=== PATIENT | female | born 1945 | race Caucasian/White ===

== ENCOUNTER 2019-05-13 13:02 | Outpatient (CLI) | payer MEDICARE, BC, SELFPAY ==
--- NOTE | ~2019-05-13 | US_ITS ---
EXAMINATION: US carotid duplex BI DATE: 05/13/2019 13:58 INDICATION: Bilateral carotid bruits. TECHNIQUE: Grayscale, color Doppler, and pulsed Doppler images of the cervical carotid arteries were obtained. The degree of vessel stenosis is placed in one of the following categories: normal, <50%, 5 0-69%, >=70% but less than near-occlusion, near-occlusion, or total occlusion. Note that percent sten osis relative to normal distal artery lumen diameter is indirectly measured from velocity measurement s as described by Stanislav, et al. Radiology 2003; 229:340-346. COMPARISON: Ultrasound 05/15/2017 FINDINGS: RIGHT: The right common carotid artery (CCA) peak systolic velocity (PSV) is 70 cm/s. The right internal car otid artery (ICA) PSV is 72 cm/s. The right ICA end-diastolic velocity (EDV) is 11 cm/s. The right IC A/CCA PSV ratio is 1.0. Grayscale and color Doppler images yield an estimate of <50% diameter reducti on from plaque in the ICA. There is antegrade flow in the right vertebral artery. LEFT: The left CCA PSV is 74 cm/s. The left ICA PSV is 79 cm/s. The left ICA EDV is 15 cm/s. The left ICA/C CA PSV ratio is 1.1. Grayscale and color Doppler images yield an estimate of <50% diameter reduction from plaque in the ICA. There is antegrade flow in the left vertebral artery. IMPRESSION: 1. <50% stenosis in the right internal carotid artery. 2. <50% stenosis in the left internal carotid artery. Reviewed, dictated and finalized at location A. TIONAL COORDINATOR
== END 2019-05-13 13:03 | disposition home or self-care (01) ==
LOC: ANHIMG 13:06
PROVIDERS: PCP Family Medicine; Visit Provider Internal Medicine Cardiovascular Disease
DX: I77.9 Disorder of arteries and arterioles, unspecified (principal); I65.23 Occlusion and stenosis of bilateral carotid arteries
CPT/HCPCS: 93880

== ENCOUNTER 2019-05-26 10:27 | Outpatient (CLI) | payer MEDICARE, BC, SELFPAY ==
--- NOTE | ~2019-05-26 | MM_ITS ---
EXAMINATION: MM screening leny BI w derek HISTORY: Screening mammogram TECHNIQUE: Craniocaudal and mediolateral oblique 3-D tomosynthesis images were obtained and synthetic 2-D images were generated. CAD analysis was submitted and interpreted. COMPARISON: 05/01/2018, 04/28/2017 bilateral digital screening mammogram examinations 04/23/2016 diagnostic bilateral digital mammogram and limited right breast ultrasound bilateral digital screening mammogram BREAST PARENCHYMAL COMPOSITION: There are scattered areas of fibroglandular density.. FINDINGS: There is no evidence of suspicious mass, calcification, or architectural distortion to sugg est malignancy in either breast. There has been no suspicious interval change. IMPRESSION: 1. No mammographic evidence of malignancy. 2. Recommend routine screening mammography in one year. BI-RADS Category 1: Negative Reviewed, dictated and finalized at location A. UNT SERVICES COORDINATOR
== END 2019-05-26 10:28 | disposition home or self-care (01) ==
LOC: ANHIMG 10:34
PROVIDERS: PCP Family Medicine; Visit Provider Family Medicine
DX: Z12.31 Encounter for screening mammogram for malignant neoplasm of breast (principal)
CPT/HCPCS: 77063; 77067

== ENCOUNTER 2019-06-24 11:00 | Outpatient (RCR) | payer MEDICARE, BC, SELFPAY ==
--- NOTE | 2019-06-01 14:43 | OTOPEVAL ---
OCCUPATIONAL THERAPY INITIAL EVALUATION 06/01/2019 Thank you for referring this patient to [facility]. Shanon will benefit from skilled OT 2x/week for 4 weeks. Please review, sign, date and return this plan of care NERIS. I agree with and certify that the following plan of care is medically necessary. Referring Physician Date Attending Provider: Jose Worley MD *OT Outpatient Evaluation Start: 06/01/19 11:06 Freq: Status: Active Protocol: Document 06/01/19 11:06 [place] (Rec: 06/01/19 11:59 [place] [email or web address]) Therapy Assessment Status Assessment Status Assessment Status Evaluation Outpatient Past Medical History Cardiovascular History Hx Heart Murmur Yes Hx Hypercholesterolemia Yes Hx Hypertension Yes Genitourinary History Hx Kidney Stones Yes Musculoskeletal History Hx Fractures Yes: ankle, L wrist, L thumb Endocrine History Hx Diabetes Yes: type II Evaluation Information Problem Diagnosis (L) distal radius fracture Onset 03/17/20 Cause fall Additional Evaluation Detail Patient was treated conservatively. She has been wearing an off the shelf wrist cock up brace. Prior Level of Function Activity Level (Last 3 Months) Occupation Retired Hand Dominance Right Activity of Daily Living Ability Independent Indoor/Home Mobility Independent Community Mobility Independent Stairs Ability Independent Functional Cognition (Planning, Shopping Independent , Taking Medications) Cooking Yes Cleaning Yes Laundry Yes Shopping Yes Driving Yes Comments Additional Prior Level of Function Pt has returned to being Comments independent with ADLs and household tasks. She completes these tasks with attention to not put too much pressure or weight on the L hand/wrist. She has been avoiding any sort of lifting, pushing, pulling, gripping, and twisting with the L hand. Pain Assessment Timing of Pain Assessment Timing of Pain Assessment Assessment Pain Scale Pain Scale Used Numeric (1 - 10) Self Report Pain Assessment Left Wrist(s) Reported Pain Level 0 Pain Description Sharp,Shooting Current Pain Intensity
--- NOTE | 2019-06-29 09:59 | PCOTNOTE ---
Pt called and cancelled her appt this morning. Pt stated she was ill and unable to attend her appt.
--- NOTE | 2019-07-01 13:20 | PCOTNOTE ---
Patient cancelled today's appt, which happened to be her re-evaluation, due to the COVID-19 situation.
--- NOTE | 2019-07-22 15:02 | OTOPEVAL ---
OCCUPATIONAL THERAPY DISCHARGE NOTE 07/22/2019 Shanon has not returned to therapy since 06/24/19 due to the COVID health crisis. She is currently independent with her ROM and strengthening HEP and feels as though she can continue to complete that. She plans to follow up with MD, as able, and return to therapy if indicated. Thank you for referring Shanon Ramirez to [facility]. Please review, sign, date and return this discharge NERIS. I agree with and certify that the following plan of care is medically necessary. Referring Physician Date Admitting Provider: Attending Provider: Jose Worley MD Referring Provider:
== END 2019-07-23 09:28 | disposition home or self-care (01) ==
LOC: ANHOT 11:00
PROVIDERS: PCP Family Medicine; Visit Provider Orthopaedic Surgery
DX: S52.502D Unspecified fracture of the lower end of left radius, subsequent encounter for closed fracture with routine healing (principal)
CPT/HCPCS: 97018; 97022; 97110; 97140; 97165; 97530

== ENCOUNTER 2019-09-02 14:47 | Outpatient (CLI) | payer MEDICARE, BC, SELFPAY ==
--- NOTE | ~2019-09-02 | MR_ITS ---
EXAMINATION: MR brain IAC wo con DATE: 09/02/2019 16:12 INDICATION: Anesthesia of skin. Speech deficit. TECHNIQUE: Magnetic resonance imaging (MRI) of the brain, brainstem, and internal auditory canals was performed without intravenous contrast. Sequences included sagittal and axial T1-weighted FSE, axial diffusion-weighted FS EPI, axial T2*-weighted GRE, axial T2-weighted FLAIR Propeller, axial T2-weigh destiny Propeller, small gxnas-hf-ogge coronal FIESTA, small jseud-xj-ravl coronal T1-weighted FSE, and s mall zqsas-uc-wqst axial T1-weighted SPGR. Apparent diffusion coefficient (ADC) maps were created. COMPARISON: Brain MRI 05/04/2019 FINDINGS: There are scattered areas of nonspecific increased T2-weighted signal intensity in the cere bral white matter. There is no intracranial hemorrhage, acute infarction, or abnormal intracranial ma ss lesion. The ventricles are normal in size. There are likely changes of ocular lens replacement angella geries. The paranasal sinuses are clear. The internal auditory canals are normal. There is a trace ri ght mastoid effusion. IMPRESSION: 1. Stable moderate nonspecific cerebral white matter disease, which likely represents chronic small v essel ischemic disease. Reviewed, dictated and finalized at location E. IMPRESSION: 1. Stable moderate nonspecific cerebral white matter disease, which likely repr esents chronic small vessel ischemic disease.
== END 2019-09-02 14:48 | disposition home or self-care (01) ==
LOC: ANHIMG 14:50
PROVIDERS: PCP Family Medicine; Visit Provider Nurse Practitioner
DX: R20.0 Anesthesia of skin (principal); R93.0 Abnormal findings on diagnostic imaging of skull and head, not elsewhere classified
CPT/HCPCS: 70551

== ENCOUNTER 2019-10-27 09:54 | Outpatient (CLI) | payer MEDICARE, BC, SELFPAY ==
--- NOTE | ~2019-10-27 | MR_ITS ---
EXAMINATION: MRA brain wo con DATE: 10/27/2019 12:15 INDICATION: Transient ischemic attack. TECHNIQUE: Magnetic resonance angiography (MRA) of the brain was performed without intravenous contra st with T1-weighted SPGR by the 3D edff-rw-[id number] technique. Maximum intensity projection 3D-reconstr uctions were obtained. COMPARISON: Brain MRI 09/02/2019 FINDINGS: Left vertebral artery is dominant. There is no significant stenosis of basilar artery or the posterio r cerebral arteries. There is no significant stenosis of the intracranial internal carotid arteries o r anterior or middle cerebral arteries. Anterior communicating artery is normal. Right posterior comm unicating artery is normal. A left posterior communicating artery is not identified. There is no aneu rysm. IMPRESSION: 1. Normal head MRA. Reviewed, dictated and finalized at location A. IMPRESSION: 1. Normal head MRA.
--- NOTE | ~2019-10-27 | MR_ITS ---
EXAMINATION: MRA neck wo con DATE: 10/27/2019 12:15 INDICATION: Transient ischemic attack. TECHNIQUE: Magnetic resonance angiography (MRA) of the neck was performed without intravenous contras t. Sequences included axial 2D-time of flight T1-weighted FSPGR and axial Inhance without intravenous contrast. COMPARISON: Ultrasound 05/13/2019 FINDINGS: Left vertebral artery is dominant. There is a 1.7 cm nodule in left thyroid lobe. There is 0% stenosi s of the proximal right internal carotid artery relative to normal distal artery lumen diameter (NASC ET criteria). There is 0% stenosis of the proximal left internal carotid artery relative to normal d istal artery lumen diameter. IMPRESSION: 1. 0% stenosis of the proximal internal carotid arteries relative to normal distal artery lumen diame ters (NASCET criteria). 2. Thyroid nodule. Consider thyroid ultrasound for risk stratification. Reviewed, dictated and finalized at location A. IMPRESSION: 1. 0% stenosis of the proximal internal carotid arteries relative to normal dis clarissa artery lumen diameters (NASCET criteria). 2. Thyroid nodule. Consider thyroid ultrasound for risk stratification.
== END 2019-10-27 09:55 | disposition home or self-care (01) ==
LOC: ANHIMG 10:03
PROVIDERS: PCP Family Medicine; Visit Provider Psychiatry & Neurology Neurology
DX: G45.9 Transient cerebral ischemic attack, unspecified (principal); E04.1 Nontoxic single thyroid nodule
CPT/HCPCS: 70544; 70547

== ENCOUNTER 2019-11-11 13:18 | Outpatient (CLI) | payer MEDICARE, BC, SELFPAY ==
--- NOTE | 2019-11-11 15:00 | NEURO_ITS ---
Patient Number: [id number] Impression: # Complains of numbness of hands. # Mild left Carpal Tunnel Syndrome. # Normal F-waves. # Normal needle/EMG exam. # Clinical correlation recommended. Nerve Conduction Studies Anti Sensory Summary Table Stim Site NR Peak (ms) P-T Amp (?V) Site1 Site2 Delta-P (ms) Dist (cm) Ian (m/s) Left Median Anti Sensory (2-3nd Digit) Wrist 3.2 29.8 Wrist 2-3nd Digit 3.2 14.0 44 Wrist 3.2 45.8 Wrist 2-3nd Digit 3.2 14.0 44 Right Median Anti Sensory (2-3nd Digit) Wrist 2.8 50.8 Wrist 2-3nd Digit 2.8 14.0 50 Wrist 2.6 76.4 Wrist 2-3nd Digit 2.8 14.0 50 Left Radial Anti Sensory (Base 1st Digit) Wrist 2.3 21.5 Wrist Base 1st Digit 2.3 0.0 Right Radial Anti Sensory (Base 1st Digit) Wrist 2.6 17.8 Wrist Base 1st Digit 2.6 0.0 Left Ulnar Anti Sensory (5th Digit) Wrist 2.8 67.8 Wrist 5th Digit 2.8 14.0 50 Right Ulnar Anti Sensory (5th Digit) Wrist 2.4 46.5 Wrist 5th Digit 2.4 14.0 58 Motor Summary Table Stim Site NR Onset (ms) O-P Amp (mV) Site1 Site2 Delta-0 (ms) Dist (cm) Ian (m/s) Left Median Motor (Abd Poll Brev) Wrist 3.9 3.4 Elbow Wrist 5.2 29.0 56 Elbow 9.1 4.4 Right Median Motor (Abd Poll Brev) Wrist 3.5 6.5 Elbow Wrist 4.9 28.0 57 Elbow 8.4 2.5 Left Ulnar Motor (Abd Dig Minimi) Wrist 2.7 6.4 A Elbow Wrist 5.2 30.0 58 A Elbow 7.9 5.0 Right Ulnar Motor (Abd Dig Minimi) Wrist 2.7 6.5 A Elbow Wrist 4.9 29.0 59 A Elbow 7.6 5.9 F Wave Studies NR F-Lat (ms) L-R F-Lat (ms) Left Median (Mrkrs) (Abd Poll Brev) 30.39 0.48 Right Median (Mrkrs) (Abd Poll Brev) 29.91 0.48 Left Ulnar (Mrkrs) (Abd Dig Min) 29.14 1.74 Right Ulnar (Mrkrs) (Abd Dig Min) 30.88 1.74 EMG Side Muscle Nerve Root Ins Act Fibs Amp Dur Recrt Comment Right 1stDorInt Ulnar C8-T1 Nml Nml Nml Nml Nml Right Ext Indicis Radial (Post Int) C7-8 Nml Nml Nml Nml Nml Right Ext Digitorum Radial (Post Int) C7-8 Nml Nml Nml Nml Nml Right BrachioRad Radial C5-6 Nml Nml Nml Nml Nml Right PronatorTeres Median C6-7 Nml Nml Nml Nml Nml Right Abd Poll Brev Median C8-T1 Nml Nml Nml Nml Nml Left 1stDorInt Ulnar C8-T1 Nml Nml Nml Nml Nml Left Ext Indicis Radial (Post Int) C7-8 Nml Nml Nml Nml Nml Left Ext Digitorum Radial (Post Int) C7-8 Nml Nml Nml Nml Nml Left BrachioRad Radial C5-6 Nml Nml Nml Nml Nml Left PronatorTeres Median C6-7 Nml Nml Nml Nml Nml Left Abd Poll Brev Median C8-T1 Nml Nml Nml Nml Nml Right ABD Dig Min Ulnar C8-T1 Nml Nml Nml Nml Nml Right Anconeus Radial C7-8 Nml Nml Nml Nml Nml Left ABD Dig Min Ulnar C8-T1 Nml Nml Nml Nml Nml Left Anconeus Radial C7-8 Nml Nml Nml Nml Nml MTDD
== END 2019-11-11 13:19 | disposition home or self-care (01) ==
PROVIDERS: Visit Provider Psychiatry & Neurology Neurology
DX: G56.22 Lesion of ulnar nerve, left upper limb (principal)
CPT/HCPCS: 95886; 95911

== ENCOUNTER 2020-06-12 10:15 | Outpatient (CLI) | payer MEDICARE, BC, SELFPAY ==
--- NOTE | ~2020-06-12 | MM_ITS ---
EXAMINATION: MM screening leny BI w derek HISTORY: Screening TECHNIQUE: Craniocaudal and mediolateral oblique 3-D tomosynthesis images were obtained and synthetic 2-D images were generated. CAD analysis was submitted and interpreted. COMPARISON: Comparison to multiple prior studies sequentially, with oldest reviewed study dated 08/2015. BREAST PARENCHYMAL COMPOSITION: There are scattered areas of fibroglandular density. FINDINGS: There is no evidence of suspicious mass, calcification, or architectural distortion to sugg est malignancy in either breast. There has been no suspicious interval change. IMPRESSION: 1. No mammographic evidence of malignancy. 2. Recommend routine screening mammography in one year. BI-RADS Category 1: Negative Reviewed, dictated and finalized at location A. LEGAL SPECIALIST
== END 2020-06-12 10:16 | disposition home or self-care (01) ==
LOC: ANHIMG 10:19
PROVIDERS: PCP Family Medicine; Visit Provider Family Medicine
DX: Z12.31 Encounter for screening mammogram for malignant neoplasm of breast (principal)
CPT/HCPCS: 77063; 77067

== ENCOUNTER 2020-06-20 15:09 | Outpatient (CLI) | payer MEDICARE, BC, SELFPAY ==
--- NOTE | ~2020-06-20 | US_ITS ---
EXAMINATION: US carotid duplex BI DATE: 06/20/2020 16:28 INDICATION: Left carotid bruit. TECHNIQUE: Grayscale, color Doppler, and pulsed Doppler images of the cervical carotid arteries were obtained. The degree of vessel stenosis is placed in one of the following categories: normal, <50%, 5 0-69%, >=70% but less than near-occlusion, near-occlusion, or total occlusion. Note that percent sten osis relative to normal distal artery lumen diameter is indirectly measured from velocity measurement s as described by Stanislav, et al. Radiology 2003; 229:340-346. COMPARISON: Ultrasound 05/13/2019, 07/04/14 FINDINGS: In the left thyroid lobe, there is a 2.1 cm mixed cystic and solid, hypoechoic, wider-than- tall nodule with ill-defined margin without echogenic foci (TI-RADS TR3). RIGHT: The right common carotid artery (CCA) peak systolic velocity (PSV) is 103 cm/s. The right internal ca rotid artery (ICA) PSV is 118 cm/s. The right ICA end-diastolic velocity (EDV) is 23 cm/s. The right ICA/CCA PSV ratio is 1.1. Grayscale and color Doppler images yield an estimate of <50% diameter reduc tion from plaque in the ICA. There is antegrade flow in the right vertebral artery. LEFT: The left CCA PSV is 113 cm/s. The left ICA PSV is 141 cm/s. The left ICA EDV is 29 cm/s. The left ICA /CCA PSV ratio is 1.3. Grayscale and color Doppler images yield an estimate of <50% diameter reductio n from plaque in the ICA. There is antegrade flow in the left vertebral artery. IMPRESSION: 1. <50% stenosis in the right internal carotid artery. 2. <50% stenosis in the left internal carotid artery. 3. Left thyroid nodule, worsened from 07/04/2014. Consider thyroid ultrasound in one year. Reviewed, dictated and finalized at location A. [employer]
== END 2020-06-20 15:10 | disposition home or self-care (01) ==
PROVIDERS: PCP Family Medicine; Visit Provider Internal Medicine Cardiovascular Disease
DX: R09.89 Other specified symptoms and signs involving the circulatory and respiratory systems (principal); E04.1 Nontoxic single thyroid nodule
CPT/HCPCS: 93880

== ENCOUNTER 2020-06-26 09:13 | Outpatient (CLI) | payer MEDICARE, BC, SELFPAY | END 2020-06-26 09:14 | LOC: ANHCOVIDVC 09:13 | PROVIDERS: PCP Family Medicine | DX: Z23 Encounter for immunization (principal) | CPT/HCPCS: 0001A; 91300 ==

== ENCOUNTER 2020-07-17 09:12 | Outpatient (CLI) | payer MEDICARE, BC, SELFPAY | END 2020-07-17 09:13 | disposition home or self-care (01) | LOC: ANHCOVIDVC 09:12 | PROVIDERS: PCP Family Medicine | DX: Z23 Encounter for immunization (principal) | CPT/HCPCS: 0002A; 91300 ==

== ENCOUNTER 2020-12-02 09:07 | Emergency (ER) | payer MEDICARE, BC, SELFPAY ==
[2020-12-02] VITALS (12 sets, daily range): BP systolic 124–171; BP diastolic 51–87; PULSE 63–77; RESP 13–19; TEMP 36.1–36.7; O2SAT 95–100
--- NOTE | ~2020-12-02 | XR_ITS ---
XR chest 2V DATE: 12/02/2020 09:30 INDICATION: Right posterior upper back pain around scapula. No known injury. TECHNIQUE: PA and lateral views COMPARISON: 03/17/2019 2 view chest FINDINGS: Normal heart size. Aortic arch and descending thoracic aortic calcification. No hilar or me diastinal enlargement. No pulmonary infiltrate or consolidation, pleural effusion or pulmonary vascular congestion or pneumo thorax. Diffuse osteopenia. IMPRESSION: No active cardiopulmonary disease Aortic atherosclerosis Osteopenia No significant change since 03/17/2019 Reviewed, dictated and finalized at location A.
--- NOTE | ~2020-12-02 | XR_ITS ---
XR abdomen/kub 1V DATE: 12/02/2020 11:17 INDICATION: Right flank pain TECHNIQUE: AP projection, 2 views COMPARISON: 12/02/[address] abdomen pelvis FINDINGS: There is a large left renal calcified pelvic calculus and multiple small left renal calcifi ed calculi. The psoas shadows are intact. No visceromegaly is evident. There is no evidence of bowel obstruction. Diffuse osteopenia. Abdominal aortic and iliac arterial calcifications. IMPRESSION: Large left renal pelvic calcified calculus and multiple small left renal calcified calcul i Reviewed, dictated and finalized at Location A. Reviewed, dictated and finalized at location A. IMPRESSION: Large left renal pelvic calcified calculus and multiple small left renal calcified calculi
--- NOTE | ~2020-12-02 | CT_ITS ---
EXAMINATION: CT abdomen pelvis wo con DATE: 12/02/2020 11:12 INDICATION: Right flank pain. History of urinary tract stones TECHNIQUE: Computed tomography (CT) of the abdomen and pelvis was performed without intravenous contr ast. Automated exposure control and iterative reconstruction technique were employed. Exam dose: 261 .21 mGy-cm total exam DLP. COMPARISON: 06/16/2018 CT abdomen pelvis FINDINGS: The lung bases are clear. Normal heart size. No pericardial or pleural effusion. The liver, gallbladder, bile ducts, spleen, pancreatic duct are unremarkable. There are scattered rose creatic calcifications consistent with chronic pancreatitis. Normal morphology of the adrenal glands. 6 cm lower pole left renal cyst. No other apparent renal space-occupying mass lesion is noted on either side on this limited noncontra st examination. 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 No right urinary tract calculus or hydroureteronephrosis. Up to 1.6 x 2.1 x 0.9 cm left renal pelvic calculus with attenuation of 1248 Hounsfield units. There is moderate left pelviectasis and left hydronephrosis. There is air within the left renal colle cting system, left renal pelvis and urinary bladder which may be secondary to instrumentation or infe ction. The urinary bladder is otherwise unremarkable. Status post hysterectomy. There is extensive calcification of the abdominal aorta no intraperitoneal or retroperitoneal or pelv ic mass lesion or adenopathy or ascites. There are numerous diverticula of the left colon, particularly sigmoid colon; no CT evidence of diver ticulitis. No bowel obstruction, bowel wall thickening, pneumatosis or intraperitoneal free air. Small fat-containing umbilical hernia. There are approximately 6 nonobstructing left renal calculi measuring up to approximately 3 mm dimens ion. No suspicious osteolytic or osteoblastic lesions are noted. IMPRESSION: 1.6 x 2.1 x 0.9 cm left renal pelvic calculus with mild to moderate left hydroureteronep hrosis There is fat stranding around the left renal pelvis and proximal left ureter and some areas and urina ry bladder and left renal collecting system; findings may be secondary to instrumentation and/or infe ction Multiple nonobstructing left kidney stones 6 cm lower pole left renal cyst Duplication of right kidney Status post hysterectomy Diverticulosis of the colon; no CT evidence of diverticulitis. Reviewed, dictated and finalized at Location A. Reviewed, dictated and finalized at location A. IMPRESSION: 1.6 x 2.1 x 0.9 cm left renal pelvic calculus with mild to moderat e left hydroureteronephrosis There is fat stranding around the left renal pelvis and proximal left ureter an d some areas and urinary bladder and left renal collecting system; findings may be secondary to instrumentation and/or infection Multiple nonobstructing left kidney stones 6 cm lower pole left renal cyst Duplication of right kidney Status post hysterectomy Diverticulosis of the colon; no CT evidence of diverticulitis.
--- NOTE | ~2020-12-02 | NM_ITS ---
NM pulmonary perfusion DATE: 12/02/2020 13:09 INDICATION: Elevated d-dimer. Back pain. TECHNIQUE: 8 standard projections following intravenous injection of 5.13 mCi 99m technetium MAA COMPARISON: 12/02/2020 PA and lateral chest FINDINGS: Normal distribution of MAA particles throughout the lungs without evidence of any significa nt subsegmental, segmental or lobar perfusion abnormalities. IMPRESSION: No evidence of pulmonary embolism Reviewed, dictated and finalized at [facility] Reviewed, dictated and finalized at [facility].
--- NOTE | 2020-12-02 09:22 | ECG_ITS ---
Measurements Intervals [place] Rate: 78 P: 69 GA: 172 QRS: 64 QRSD: 88 T: 72 QT: 375 QTc: 429 Interpretive Statements SINUS RHYTHM BORDERLINE ST-T WAVE ABNORMALITY- INF/LAT LEADS BASELINE WANDER- V2 BORDERLINE ECG Electronically Signed On 12-03-2020 13:21:12 CDT by Jori Haines D.O.
[2020-12-02 09:34] LABS: Basophils Percent Auto 0.5 % (0.2-1.2); Eosinophils Absolute Auto 0.4 K/mm3 (0-0.3); Eosinophils Percent Auto 7.1 % (0-4.4); Hemoglobin 11.5 g/dL (12.0-15.0); Immature Granulocyte Absolute 0.02 K/mm3 (0.00-0.031); Immature Granulocyte Percent A 0.3 % (0-0.5); Lymphocytes Percent Auto 23.5 % (18.3-44.2); Mean Corpuscular HGB Conc 32.9 g/dl (32-36); Mean Corpuscular Hemoglobin 30.3 pg (26-34); Mean Corpuscular Volume 92.1 fl (80-100); Monocytes Absolute Auto 0.5 K/mm3 (0.1-0.6); Monocytes Percent Auto 7.7 % (2.6-8.5); Neutrophils Absolute Auto 3.6 K/mm3 (1.3-6.7); Neutrophils Percent Auto 60.9 % (45.5-73.1); Platelet Count Result 154 k/mm3 (150-375); Red Cell Distribution Width 13.9 % (11.5-14.5)
[2020-12-02 09:41] LABS: Anion Gap 9 mmol/L (8-16); Blood Urea Nitrogen 11 mg/dL (7-17); Calcium 9.5 mg/dL (8.4-10.2); Carbon Dioxide 20 mmol/L (22-30); Chloride 111 mmol/L (98-107); Estimated CRCL calculation 63 ml/min; Estimated Glomerular Filt Rate > 60; Glucose 179 mg/dL (65-110); INR 0.9; Prothrombin Time 12.4 Seconds (11.1-14.7); Sodium 140 mmol/L (137-145)
[2020-12-02 09:42] LABS: Partial Thromboplastin Time 25.8 SECONDS (22.3-36.8)
[2020-12-02 09:52] LABS: Troponin I < 0.012 ng/mL (0.000-0.034)
--- NOTE | 2020-12-02 09:59 | PC.NURSE ---
Called lab talked to Padmini and added D dimer, Hepatic Lip @ 9:57
[2020-12-02 10:10] LABS: Alanine Aminotransferase 17 U/L (4-35); Albumin Level 4.2 g/dL (3.5-5.1); Alkaline Phosphatase 94 U/L (38-126); Aspartate Amino Transferase 21 U/L (14-36); Bilirubin,Total 0.5 mg/dL (0.2-1.3); Lipase 109 U/L (23-300)
[2020-12-02] MEDS: ONDANSETRON INJ 4 MG/2 ML VIAL IV PUSH (10:10)
[2020-12-02] MEDS: MORPHINE SULFATE (*CRX) 4 MG/ML INJ IV PUSH ×2 (10:10→13:45)
--- NOTE | 2020-12-02 10:13 | ED.BACK ---
HPI - Back Pain/Injury General Chief Complaint: Back Pain/Injury Stated Complaint: back pain Time Seen by Provider: 12/02/20 09:36 Source: patient and RN notes reviewed Mode of arrival: ambulatory Limitations: no limitations History of Present Illness HPI Narrative: This is a 75 year old female who presents for evaluation right mid back pain starting last night. She reports her pain has been constant and it is gradually worsening. She has not taken any medication for pain. She is unsure of any alleviating or exacerbating factors for her pain. She reports having similar pain 15 years ago and she was diagnosed with back spasm at that time. Patient also states she has been dealing GI issues over the past week. She has history of chrohn's disease and she has been having blood in her stool over the past week. She reports the blood is subsiding, and she had bowel movement this morning without blood. She reports abdominal pain with BM but she denies any pain currently. She also denies fever, chills or vomiting. She denies urinary complaint. Related Data Home Medications Medication Instructions Recorded Confirmed atorvastatin 10 mg tablet 10 mg PO DAILY 03/23/19 11/29/20 levothyroxine 50 mcg tablet 50 mcg PO DAILY 11/29/20 11/29/20 Allergies Allergy/AdvReac Type Severity Reaction Status Date / Time loracarbef Allergy Unknown Hives Verified 12/02/20 09:20 iodine Allergy Hives Verified 12/02/20 09:20 Review of Systems Review of Systems: All systems reviewed & are unremarkable except as noted in HPI and below Constitutional: Constitutional: Denies chills and Denies fever(s) Cardiovascular: Cardiovascular: Denies chest pain Respiratory: Respiratory: Denies cough and Denies dyspnea Gastrointestinal: Gastrointestinal: Reports abdominal pain, Reports diarrhea, Reports nausea and Denies vomiting Musculoskeletal: Musculoskeletal: Reports back pain [facility] Past Medical History Medical History (Updated 12/02/20 @ 15:38 by Geri Avalos MD) Anemia Aortic insufficiency Diabetes A1c 6.6 on 04-29-19 Diverticulosis Forehead contusion HTN (hypertension) Hypercholesterolemia Hyperlipidemia Hypertension Hypothyroid Renal and ureteric calculus Renal stones Thrombocytopenia Type 2 diabetes mellitus without complications Ulcerative colitis Surgical History Surgical History H/O lithotripsy H/O: hysterectomy Family History Family History Sibling Cancer Social History Social History Tobacco type: cigarettes Second hand tobacco smoke exposure: No Smoking end date: 04/14/15 Alcohol intake: current Gender identity (if verbalized by the patient): Female Exam Const: General: alert Orientation/consciousness: patient oriented x3 Eyes: EOM: EOMs intact bilaterally Chest: Chest palpation & inspection: normal inspection of the chest Resp: Effort & Inspection: normal respiratory effort and no retractions Auscultation: clear to auscultation bilaterally Cardio: Rate: regular rate Rhythm: regular rhythm Heart sounds: no murmurs GI: GI Palp: Yes Soft to palpation, No Tenderness to palpation present (GI) and No Guarding due to palpation present (GI) Auscultation: normal bowel sounds : General: Yes no CVA tenderness Skin: General skin exam: normal color Rashes: no rashes Neuro: General: patient oriented x3, moves all extremities and CN's II-XI intact bilaterally Extrem: General: normal to inspection Psych: Mental Status: mental status grossly normal Affect: normal affect Course Reevaluation(s) Reevaluation #1: PAtient states she feels better and she is ready for discharge home. She was given dose of antibiotics in ER. I discussed cT and lab findings. She has large left renal stone that will need lithotr
[2020-12-02 10:14] LABS: D Dimer 0.56 ug/mL (<0.48)
[2020-12-02 10:24] LABS: Add Urine Microscopic? YES; Appearance Urine Cloudy (Clear); Bacteria Urine Trace /hpf; Bilirubin Urine Negative (Negative); Blood Urine 2+ (Negative); Color Urine Amber (Yellow); Glucose Urine UA Negative (Negative); Ketones Urine Negative (Negative); Leukocyte Esterase Ur 3+ LEU/UL (Negative); Mucus Urine Rare /lpf; Nitrate Urine Positive (Negative); Protein Urine 2+ mg/dL (Negative); RBC Urine >75 /hpf (0-2); Specific Grav Ur 1.017 (1.001-1.035); Squamous Epithelial Cell Urine Occasional /hpf (Few); Urobilinogen Urine Negative mg/dL (<2.0); WBC Clumps Urine Present /HPF; WBC Urine >75 /hpf
--- NOTE | 2020-12-02 12:49 | PC.NURSE ---
Staff from nuclear medicine here and taking patient for V/Q scan at this time.
[2020-12-02 13:10] LABS: Troponin I < 0.012 ng/mL (0.000-0.034)
--- NOTE | 2020-12-02 13:18 | PC.NURSE ---
Patient is back from [email or web address] at this time.
--- NOTE | 2020-12-02 14:20 | PC.NURSE ---
I was called into the patient's room, patient found lying in bed, holding epigastric area, crying, and reporting severe 10/10 sharp pain to epigastric area with onset just prior to her calling for help. Abdomen is soft with no change in pain with palpation. She denies other complaints such as nausea or vomiting. EDP aware and orders obtained.
[2020-12-02] MEDS: BELLADONNA ALK/PHENOB ELIX 10 ML, MAG HYDROX/ALUMINUM HYD/SIMETH 30 ML, LIDOCAINE HCL 2... PO (14:25)
[2020-12-02 15:54] LABS: Troponin I < 0.012 ng/mL (0.000-0.034)
== END 2020-12-02 15:56 | disposition home or self-care (01) ==
PROVIDERS: Emergency Provider General Practice; PCP Family Medicine
DX: N13.2 Hydronephrosis with renal and ureteral calculous obstruction (principal); N39.0 Urinary tract infection, site not specified; E11.9 Type 2 diabetes mellitus without complications; I10 Essential (primary) hypertension; E78.00 Pure hypercholesterolemia, unspecified; E78.5 Hyperlipidemia, unspecified; I35.1 Nonrheumatic aortic (valve) insufficiency; E03.9 Hypothyroidism, unspecified; Z87.442 Personal history of urinary calculi; K51.90 Ulcerative colitis, unspecified, without complications
CPT/HCPCS: 36415; 71046; 74018; 74176; 78580; 80048; 80076; 81001; 83690; 84484; 85025; 85380; 85610; 85730; 87077; 87086; 87186; 93005; 96365; 96367; 96375; 96376; 99284; A9270; A9540; J0131; J0696; J2270; J2405

== ENCOUNTER 2020-12-08 03:50 | Day surgery (SDC) | payer MEDICARE, BC, SELFPAY ==
[2020-12-06 10:17] VITALS: BMI 29.3
--- NOTE | 2020-12-07 07:24 | PM.HPGS ---
History of Present Illness History of Present Illness Consent: Risks, benefits, and alternatives have been discussed and questions answered. Patient agrees to proceed with procedure. Chief complaint: left renal stone Narrative: Shanon Ramirez is a 75 year old female known to me with a history of urolithiasis in the past. She recently presented to the ER with back pain and imaging revealed a 16 mm x 20 mm left renal pelvic stone. After discussion of options he elects to trial ESWL with the understanding that she may require subsequent procedures (repeat ESWL, endoscopic intervention and/or percutaneous nephrolithotomy). She is aware the risk of this procedure including, but not limited to, adverse cardiopulmonary events, perinephric hematoma, hematuria and persistent stone. Review of Systems Cardiovascular: Cardiovascular: Denies chest pain, Denies lightheadedness, Denies palpitations and Denies dyspnea Respiratory: Respiratory: Denies dyspnea Gastrointestinal: Gastrointestinal: Denies diarrhea, Denies nausea and Denies vomiting Genitourinary: Genitourinary: Denies hematuria and Denies dysuria Endocrine: Endocrine: Denies palpitations [facility] Past Medical History Medical History (Updated 12/07/20 @ 07:26 by Juan M Gandhi MD) Anemia Aortic insufficiency Diabetes A1c 6.6 on 04-29-19 Diverticulosis Forehead contusion HTN (hypertension) Hypercholesterolemia Hyperlipidemia Hypertension Hypothyroid Renal and ureteric calculus Renal stones Thrombocytopenia Type 2 diabetes mellitus without complications Ulcerative colitis Surgical History Surgical History H/O lithotripsy H/O: hysterectomy Family History Family History Sibling Cancer Social History Social History Smoking packs per day: 1 Smoking cigarettes per day: 20.0 Years smoked: 55 Smoking pack-years: 55.00 Smoking status: Former smoker Tobacco type: cigarettes Second hand tobacco smoke exposure: No Smoking end date: 04/14/15 Alcohol intake: never Substance use: never Living arrangements: with family Gender identity (if verbalized by the patient): Female Spiritual care concerns: No Meds Home Medications and Allergies Home Medications Medication Instructions Recorded Confirmed Type aspirin 81 mg tablet,delayed 81 mg PO DAILY #1 tablet 03/23/19 12/06/20 Rx release atorvastatin 10 mg tablet 10 mg PO HS 03/23/19 12/06/20 History blood sugar diagnostic #100 each 09/16/19 11/29/20 Rx blood-glucose meter #1 ea 03/03/20 11/29/20 Rx mesalamine 1.2 gram tablet,delayed 4.8 g PO DAILY 90 Days #360 tablet 10/23/20 12/06/20 Rx release levothyroxine 50 mcg tablet 50 mcg PO DAILY 11/29/20 12/06/20 History cefuroxime axetil 500 mg PO Q12H #20 tablet 12/02/20 12/06/20 Rx hydrocodone-acetaminophen 1 tablet PO Q6H PRN #10 tablet 12/02/20 12/06/20 Rx ondansetron 4 mg PO Q6H PRN #10 tablet 12/02/20 12/06/20 Rx amlodipine 10 mg PO DAILY 12/06/20 12/06/20 History glimepiride 1 mg PO HS 12/06/20 12/06/20 History lisinopril 5 mg PO HS 12/06/20 12/06/20 History metformin 1,000 mg PO BID 12/06/20 12/06/20 History prednisone See Rx Instructions .ROUTE .COMPLEX 12/06/20 12/06/20 History Allergies Allergy/AdvReac Type Severity Reaction Status Date / Time Iodinated Contrast Media Allergy Intermediate Hives Verified 12/06/20 10:05 loracarbef [From Lorabid] Allergy Intermediate Hives Verified 12/06/20 10:04 Exam Const: General: no acute distress Resp: Effort & Inspection: normal respiratory effort GI: Inspection: non-distended GI Palp: No abdominal tenderness and No Guarding due to palpation present (GI) Auscultation: normal bowel sounds Assessment and Plan Assessment and plan (1) Left renal stone: Code(s): N20.0 - Calculus of kidney Sta
--- NOTE | 2020-12-07 12:16 | WPDANESEPPF ---
Anes - Initial Pre Proc Eval Procedure: Operation Date: 12/08/20 11:30 Proposed Procedures p Left Renal Extracorporeal Shock Wave Lithotripsy - Juan M Gandhi MD s Cystoscopy with Left Stent Placement - Juan M Gandhi MD Date/Time: 12/07/20 12:16 Surgeon: Juan M Gandhi MD Pre Op Diagnosis: left renal stone Patient Data Age: 75 Gender: F Height: 1.68 m Weight: 82.56 kg Allergies Allergy/AdvReac Type Severity Reaction Status Date / Time Iodinated Contrast Media Allergy Intermediate Hives Verified 12/08/20 10:06 loracarbef [From Lorabid] Allergy Intermediate Hives Verified 12/08/20 10:06 Home Medications Medication Instructions Recorded Confirmed Type aspirin 81 mg tablet,delayed 81 mg PO DAILY #1 tablet 03/23/19 12/08/20 Rx release atorvastatin 10 mg tablet 10 mg PO HS 03/23/19 12/08/20 History blood sugar diagnostic #100 each 09/16/19 12/08/20 Rx blood-glucose meter #1 ea 03/03/20 12/08/20 Rx mesalamine 1.2 gram tablet,delayed 4.8 g PO DAILY 90 Days #360 tablet 10/23/20 12/08/20 Rx release levothyroxine 50 mcg tablet 50 mcg PO DAILY 11/29/20 12/08/20 History cefuroxime axetil 500 mg PO Q12H #20 tablet 12/02/20 12/08/20 Rx hydrocodone-acetaminophen 1 tablet PO Q6H PRN #10 tablet 12/02/20 12/08/20 Rx ondansetron 4 mg PO Q6H PRN #10 tablet 12/02/20 12/08/20 Rx amlodipine 10 mg PO DAILY 12/06/20 12/08/20 History glimepiride 1 mg PO HS 12/06/20 12/08/20 History lisinopril 5 mg PO HS 12/06/20 12/08/20 History metformin 1,000 mg PO BID 12/06/20 12/08/20 History prednisone See Rx Instructions .ROUTE .COMPLEX 12/06/20 12/08/20 History Patient hx anesthesia problems: none Family hx anesthesia problems: none PMFSH Past Medical History Medical History (Updated 12/07/20 @ 07:26 by Juan M Gandhi MD) Anemia Aortic insufficiency Diabetes A1c 6.6 on 04-29-19 Diverticulosis Forehead contusion HTN (hypertension) Hypercholesterolemia Hyperlipidemia Hypertension Hypothyroid Renal and ureteric calculus Renal stones Thrombocytopenia Type 2 diabetes mellitus without complications Ulcerative colitis Surgical History Surgical History H/O lithotripsy H/O: hysterectomy Family History Family History Sibling Cancer Social History Social History Smoking packs per day: 1 Smoking cigarettes per day: 20.0 Years smoked: 55 Smoking pack-years: 55.00 Smoking status: Former smoker Tobacco type: cigarettes Second hand tobacco smoke exposure: No Smoking end date: 04/14/15 Alcohol intake: never Substance use: never Living arrangements: with family Gender identity (if verbalized by the patient): Female Spiritual care concerns: No Anes - Eval Final PreProcedure Day of Procedure 12/07/20 12:16 Patient weight: overweight Heart: regular rate and rhythm Lungs: clear to auscultation and normal air movement Airway: Mallampati scale class II Neurological: alert and oriented Last oral intake: >/= 8 hours ASA classification: III Emergent: no Anesthetic plan: proceed Anesthesia type and monitoring: general LMA and standard monitoring Informed Consent: The patient's anesthetic plan and its attendant risks and benefits were discussed with the patient/family/POA. Questions were solicited and answers provided to the satisfaction of the patient/family/POA.
[2020-12-08] VITALS (9 sets, daily range): BP systolic 110–142; BP diastolic 48–80; PULSE 67–82; RESP 12–20; TEMP 36.4–36.7; O2SAT 97–100
--- NOTE | ~2020-12-08 | XR_ITS ---
EXAMINATION: XR abdomen/kub 1V DATE: 12/08/2020 09:30 INDICATION: Left kidney stone. TECHNIQUE: A supine view of the abdomen on 2 radiographs was obtained. COMPARISON: CT abdomen and pelvis 12/02/2020 FINDINGS: There are no dilated loops of bowel. There are phleboliths in the pelvis. There is a 26 mm stone in left renal pelvis. There are 3 stones measuring up to 3 mm in left kidney. IMPRESSION: 1. Stones in the left kidney and left renal pelvis. Reviewed, dictated and finalized at [facility].
--- NOTE | 2020-12-08 06:33 | WPDHPUPDATE1 ---
History and Physical Update Update Date/Time: 12/08/20 06:33 History and Physical has been reviewed, including an updated exam of the patient. There are NO changes in the patient's condition. Risks, benefits, and alternatives have been discussed and questions answered. Patient agrees to proceed with procedure.
[2020-12-08] MEDS: LACTATED RINGERS 1,000 ML 30 ML IV CONT (09:55)
[2020-12-08 10:04] LABS: Glucose Point of Care 185 mg/dl (65-105)
[2020-12-08 11:12] LABS: Add Urine Microscopic? YES; Appearance Urine Clear (Clear); Bilirubin Urine Negative (Negative); Blood Urine 1+ (Negative); Color Urine Yellow (Yellow); Glucose Urine UA Negative (Negative); Ketones Urine Negative (Negative); Leukocyte Esterase Ur 2+ LEU/UL (Negative); Mucus Urine Rare /lpf; Nitrate Urine Negative (Negative); Protein Urine 1+ mg/dL (Negative); RBC Urine 21-50 /hpf (0-2); Specific Grav Ur 1.023 (1.001-1.035); Squamous Epithelial Cell Urine Occasional /hpf (Few); Urobilinogen Urine Negative mg/dL (<2.0); WBC Urine >75 /hpf
[2020-12-08] MEDS: ceFAZolin 2 GM/D5W 50 ML 2 GM/50 ML BAG IVPB (11:45)
--- NOTE | 2020-12-08 12:08 | P.OP_ITS ---
Procedure Note - Detailed Date of Procedure 12/08/20 Pre-op Diagnosis Left renal stone Post-op Diagnosis same Procedure Performed Cystoscopy, left ureteral stent placement and left ESWL Surgeon Juan M Gandhi MD Anesthesia general Description of Procedure The patient was brought to the operative suite where she was placed in the frog- legged position on the Dornier lithotripter table. Flexible cystoscopy was undertaken with a 16F flexible cystoscopy. Her urethra and bladder neck were endoscopically normal. The bladder mucosa was normal and there was a single, orthotopic ureteral orifice bilaterally. A 0.035 glidewire was advanced into the left renal pelvis under fluoroscopy. A 4.8F J-J ureteral stent was positioned with the proximal coil in the renal pelvis and the distal coil in the bladder. The patient was then repositioned in the supine position and the focal point of the lithotriptor was placed at a 2cm left renal pelvic calculus. A total of 2500 shocks were delivered at a power setting of 4. There appeared to be good fragmentation of the stone. The patient tolerated the procedure well and was taken to the recovery room in good condition. Estimated Blood Loss 0 Drains Yes Packing No Pathology none sent Complications No immediate complications Condition stable Disposition PACU
[2020-12-08 12:47] LABS: Glucose Point of Care 238 mg/dl (65-105)
--- NOTE | 2020-12-08 12:48 | SUR.PHASEI ---
Dr. Rosenbaum aware of BG 238 in PACU at 1245. He said to just have patient take oral meds when she gets home.
--- NOTE | 2020-12-08 13:04 | SUR.PHASEI ---
Simple mask removed at 1257.
== END 2020-12-08 14:25 | disposition home or self-care (01) ==
PROVIDERS: PCP Family Medicine; Visit Provider Urology
PROC: (CPT 50590; principal; 2020-12-08 11:30)
PROC: (CPT 52352; 2020-12-08 11:30)
DX: N20.0 Calculus of kidney (principal); Z79.82 Long term (current) use of aspirin; Z79.84 Long term (current) use of oral hypoglycemic drugs; D64.9 Anemia, unspecified; E03.9 Hypothyroidism, unspecified; E78.49 Other hyperlipidemia; E11.9 Type 2 diabetes mellitus without complications; D69.6 Thrombocytopenia, unspecified; K51.90 Ulcerative colitis, unspecified, without complications; Z87.891 Personal history of nicotine dependence
CPT/HCPCS: 52332; 50590; 74018; 81001; 82948; 87086; 87088; A9270; C1769; C2617; J0690; J1100; J2405; J7120

== ENCOUNTER 2020-12-22 13:51 | Inpatient (IN) | payer MEDICARE, BC, SELFPAY ==
[2020-12-22] VITALS (9 sets, daily range): BP systolic 115–156; BP diastolic 43–64; PULSE 80–106; RESP 15–20; TEMP 36.2–36.6; O2SAT 81–100; BMI 27.0
--- NOTE | ~2020-12-22 | CT_ITS ---
EXAMINATION: CT abdomen pelvis wo con DATE: 12/22/2020 15:24 INDICATION: Lower abdominal pain. Dysuria. TECHNIQUE: Computed tomography (CT) of the abdomen and pelvis was performed without intravenous contr ast. The dose-length product was 681.77 mGy-cm. Automated exposure control and iterative reconstructi on technique were employed. COMPARISON: CT dated 12/02/2020 FINDINGS: Heart size normal. No significant pleural or pericardial effusion. Moderate diffuse atheros clerosis. No aneurysm or lymphadenopathy. There has been interval fragmentation of left renal stone with multiple residual smaller stones in th e renal pelvis and left ureter. There is a left internal ureteral stent present in expected position. There is abnormal thickening of the distal sigmoid colon and rectum. Colonic diverticulosis without evidence for diverticulitis. Shotty nonenlarged retroperitoneal lymph nodes, likely reactive. Large l ower pole cyst in the left kidney. The liver, spleen, adrenal glands and right kidney are unremarkable. There is chronic pancreatitis. G allbladder is present. IMPRESSION: 1. Multiple left renal and ureteral stones. Left internal ureteral stent in expected position. 2: Thickening with loss of haustral markings in the distal sigmoid colon and rectum, suspicious for c olitis. 3: Chronic pancreatitis. Reviewed, dictated and finalized at location A. IMPRESSION: 1. Multiple left renal and ureteral stones. Left internal ureteral stent in exp ected position. 2: Thickening with loss of haustral markings in the distal sigmoid colon and re ctum, suspicious for colitis. 3: Chronic pancreatitis.
[2020-12-22 14:07] LABS: Basophils Percent Auto 0.6 % (0.2-1.2); Eosinophils Absolute Auto 0.1 K/mm3 (0-0.3); Eosinophils Percent Auto 2.6 % (0-4.4); Hemoglobin 11.8 g/dL (12.0-15.0); Immature Granulocyte Absolute 0.01 K/mm3 (0.00-0.031); Immature Granulocyte Percent A 0.2 % (0-0.5); Lymphocytes Absolute Auto 0.49 K/mm3 (0.9-3.2); Lymphocytes Percent Auto 9.2 % (18.3-44.2); Mean Corpuscular HGB Conc 33.7 g/dl (32-36); Mean Corpuscular Hemoglobin 30.1 pg (26-34); Mean Corpuscular Volume 89.3 fl (80-100); Mean Platelet Volume 11.9 fl (7.4-10.4); Monocytes Absolute Auto 0.8 K/mm3 (0.1-0.6); Neutrophils Absolute Auto 3.9 K/mm3 (1.3-6.7); Neutrophils Percent Auto 72.4 % (45.5-73.1); Platelet Count Result 179 k/mm3 (150-375); Red Blood Count 3.92 M/mm3 (4.2-5.4); Red Cell Distribution Width 13.7 % (11.5-14.5); White Blood Count 5.4 K/mm3 (4.5-10.0)
[2020-12-22 14:27] LABS: Anion Gap 14 mmol/L (8-16); Blood Urea Nitrogen 32 mg/dL (7-17); Carbon Dioxide 19 mmol/L (22-30); Chloride 98 mmol/L (98-107); Estimated CRCL calculation 26 ml/min; Estimated Glomerular Filt Rate 31; Glucose 226 mg/dL (65-110); Potassium 2.7 mmol/L (3.4-5.0); Sodium 131 mmol/L (137-145)
--- NOTE | 2020-12-22 15:10 | ECG_ITS ---
Measurements Intervals [place] Rate: 96 P: 40 CA: 167 QRS: 63 QRSD: 93 T: -5 QT: 337 QTc: 427 Interpretive Statements SINUS RHYTHM WITH SINUS ARRHYTHMIA BORDERLINE ST ABNORMALITY- ANTEROLAT/INF LEADS BORDERLINE ECG Electronically Signed On 12-22-2020 19:07:10 CDT by Jori Haines D.O.
[2020-12-22 15:25] LABS: Prothrombin Time 13.3 Seconds (11.1-14.7)
[2020-12-22 15:26] LABS: Partial Thromboplastin Time 34.3 SECONDS (22.3-36.8)
[2020-12-22 15:28] LABS: Lactic Acid Reflex 1.1 mmol/L (0.7-2.1)
[2020-12-22 15:31] LABS: Alanine Aminotransferase 31 U/L (4-35); Albumin Level 3.8 g/dL (3.5-5.1); Alkaline Phosphatase 95 U/L (38-126); Aspartate Amino Transferase 35 U/L (14-36); Bilirubin,Total 0.7 mg/dL (0.2-1.3); Lipase 88 U/L (23-300); Magnesium 1.9 mg/dL (1.6-2.3)
--- NOTE | 2020-12-22 15:33 | ED.GENADULT ---
HPI - General Adult General Chief complaint: Unspecified Stated complaint: sent from [facility]ds office because she looks bad Time Seen by Provider: 12/22/20 14:54 Source: patient Mode of arrival: ambulatory Limitations: no limitations History of Present Illness HPI narrative: This is a 75 year old female that presents to the ER for abdominal pain over the last couple of days. Reports diffuse crampy abdominal pain. Associated with dysuria and nausea. Also reports she has been having several loose stools daily with bright red blood present. Reports she recently had a ureteral stone with lithotripsy. Reports she was told she had a urinary tract infection on Friday and was started on antibiotics. She took one pill, but was unable to take any more as she did not feel well. Reports she was seen in follow up today with Dr. Gandhi who prompted her to be seen in the ED. Denies fever. Related Data Home Medications Medication Instructions Recorded Confirmed atorvastatin 10 mg tablet 10 mg PO HS 03/23/19 12/19/20 levothyroxine 50 mcg tablet 50 mcg PO DAILY 11/29/20 12/19/20 amlodipine 10 mg PO DAILY 12/06/20 12/19/20 lisinopril 5 mg PO HS 12/06/20 12/19/20 metformin 1,000 mg PO BID 12/06/20 12/19/20 prednisone See Rx Instructions .ROUTE .COMPLEX 12/06/20 12/19/20 cefuroxime axetil 12/22/20 Allergies Allergy/AdvReac Type Severity Reaction Status Date / Time Iodinated Contrast Media Allergy Intermediate Hives Verified 12/22/20 14:52 loracarbef [From Lorabid] Allergy Intermediate Hives Verified 12/22/20 14:52 Review of Systems Review of Systems: CONSTITUTIONAL: Denies fever GASTROINTESTINAL: Reports abdominal pain, nausea and diarrhea. Denies vomiting GENITOURINARY: Reports dysuria. Denies hematuria. All systems reviewed & are unremarkable except as noted in HPI and below PMFSH Past Medical History Medical History (Updated 12/22/20 @ 17:21 by Danuta Rios PA-C) Anemia Aortic insufficiency CAD (coronary artery disease) Diabetes A1c 6.6 on 04-29-19 Distal radius fracture, left Diverticulosis Forehead contusion HTN (hypertension) Hypercholesterolemia Hyperlipidemia Hypertension Hypothyroid Numbness Renal stones Thrombocytopenia Type 2 diabetes mellitus without complications Ulcerative colitis Surgical History Surgical History (Updated 12/22/20 @ 17:21 by Danuta Rios PA-C) H/O lithotripsy H/O: hysterectomy Family History Family History Sibling Cancer Social History Social History Smoking packs per day: 1 Smoking cigarettes per day: 20.0 Years smoked: 55 Smoking pack-years: 55.00 Smoking status: Former smoker Tobacco type: cigarettes Second hand tobacco smoke exposure: No Smoking end date: 04/14/15 Alcohol intake: never Substance use: never Gender identity (if verbalized by the patient): Female Spiritual care concerns: No Exam Narrative: GENERAL: Elderly, well-nourished, and in no acute distress. HEAD: Normocephalic, atraumatic. EYES: EOMI. CHEST: Clear to auscultation. No respiratory distress. No wheezes rales or rhonchi HEART: Regular rate and rhythm. No murmur heard. Normal peripheral pulses. ABDOMEN: Soft, nondistended, normal active bowel sounds. Tender to palpation throughout the lower abdomen, without guarding. No CVA tenderness EXTREMITIES: Normal range of motion. No edema. SKIN: Warm, dry, no rash. NEURO: No focal deficits. Alert and oriented x3. PSYCH: Normal mood and affect Course Consultations Consultation #1: Spoke with Dr. Go about patient and workup. Patient will be started on enemas for rectosigmoiditis. Would like consult to be put in for Dr. Zambrano Date: 12/22/20 Consultation #2: Spoke with urology about patient and work-up who will consult Date: 12/22/20 Consultation #3: Spoke with hospitalist about patient and work-up who accepts admission
[2020-12-22 15:44] LABS: CRP 22.9 mg/dL (<1.0)
[2020-12-22] MEDS: SODIUM CHLORIDE 0.9% IV 1,000 ML 999 ML IV CONT (16:05)
[2020-12-22 16:24] LABS: Add Urine Microscopic? YES; Appearance Urine Turbid (Clear); Bacteria Urine Trace /hpf; Bilirubin Urine Negative (Negative); Blood Urine 3+ (Negative); Color Urine Yellow (Yellow); Glucose Urine UA Negative (Negative); Ketones Urine Negative (Negative); Leukocyte Esterase Ur 2+ LEU/UL (Negative); Mucus Urine Moderate /lpf; Nitrate Urine Negative (Negative); Protein Urine 2+ mg/dL (Negative); RBC Urine >75 /hpf (0-2); Specific Grav Ur 1.018 (1.001-1.035); Urobilinogen Urine Negative mg/dL (<2.0); WBC Clumps Urine Present /HPF; WBC Urine >75 /hpf
--- NOTE | 2020-12-22 16:40 | WPDGICN ---
Assessment and Plan Assessment and plan (1) Ulcerative colitis: Qualifiers: Digestive disease complication type: with rectal bleeding Ulcerative colitis location: ulcerative rectosigmoiditis Qualified Code(s): K51.311 - Ulcerative (chronic) rectosigmoiditis with rectal bleeding Code(s): K51.90 - Ulcerative colitis, unspecified, without complications Status: Acute Assessment and Plan: according to CT scan and prior colonoscopy her colitis is limited to rectum and sigmoid. We will therefore attempt to treat this with topical steroids, rectally. She will at some point need a colonoscopy to reassess and ensure that she has not developed more proximal extent of her disease which may warrant a change in medication, particularly in view of her markedly elevated calprotectin level (2) Acute kidney injury: Code(s): N17.9 - Acute kidney failure, unspecified Status: Acute Assessment and Plan: she is being hospitalized because of the acute kidney injury and hypokalemia for the purpose of rehydration and correction of electrolytes. Antibiotics have been started (3) Left renal stone: Code(s): N20.0 - Calculus of kidney Status: Acute Assessment and Plan: since her lithotripsy she has felt worse. She now has a urinary tract infection has multiple small stone fragments. She states that the rectal bleeding began several days after her lithotripsy. GI Consult Note Consult date/time: 12/22/20 16:40 HPI: Shanon Ramirez is a 75 year old female who presents to emergency room with abdominal pain. She had appointment with her urologist today and he told her to come directly to the emergency room. She had lithotripsy for ureteral stone about 2 weeks ago. She was then found to have urinary tract infections past Friday was started on antibiotics but could only take 1 pill because she has not felt well. She has not been eating well. She comes to the emergency room where she had a CT scan showing multiple left renal and ureteral stones as well as a left ureteral stent. It also showed thickening of the mucosa in the distal sigmoid and rectum consistent with colitis. The patient was diagnosed with ulcerative colitis 3 years ago when she had a colonoscopy to investigate diarrhea and bleeding. She has been on mesalamine 4.8 g per day. About 1 year ago she had a flare-up with rectal bleeding it took a short course of steroids. Then she came to the office this past June with a complaint of looser stools. I saw her on that occasion and had her take Imodium. I had suggested she call symptoms worsen but we did not hear from her until she came in last month see Yissel regarding bleeding and very frequent loose stools. Stool for C diff was ordered and was negative. Also fecal calprotectin was found to be greater than 3500. she was then started on a tapering course of steroids with 20 mg a day, 15 mg a day then 10 mg a day for a week each. She is currently on the 10 mg per day regimen. When she saw her urologist today she complained that she was having a great deal of pain in the left side of her abdomen. Her kidney stone was on the left side and that is where her stent is. Ironically she states that before the stone was discovered she was having pain up around the right shoulder blade but that pain has disappeared. She feels aching fevers but does not have a fever at this time she does however have a very low potassium at 2.7. BUN is 32 which is elevated for her. She is being admitted for rehydration and correction of electrolytes we are asked to see her regarding her colitis. Review of Systems Review of Systems: All systems reviewed & are unremarkable except as noted in HPI and below PMFSH Past Medical History Medical History Anemia Aortic insufficiency CAD (coronary artery disease) Diabetes A1c 6.6 on 04-29-19 Distal radius fracture,
--- NOTE | 2020-12-22 18:00 | PC.NURSE ---
This patient, Shanon Ramirez, was admitted to [facility] Room 328-01. Patient/family oriented to hospital policies and general routines including ID bracelet, bed and alarms, visiting hours, pain management, procedures, bathroom and other care routines, personal items, smoking policy, room service/diet, and visiting hours. Report received from Catherine PYLE. Information on how to activate the Rapid Response Team has been discussed. Patient/Family are encouraged to report perceived risks to care and to ask questions if they do not understand what they are told or what they should do.
--- NOTE | 2020-12-22 18:12 | WPDURCON ---
Assessment and Plan Assessment and plan (1) Ureterolithiasis: Code(s): N20.1 - Calculus of ureter Status: Acute (2) S/P ureteral stent placement: Code(s): Z96.0 - Presence of urogenital implants Status: Acute (3) Acute kidney injury: Code(s): N17.9 - Acute kidney failure, unspecified Status: Acute (4) Ulcerative colitis: Qualifiers: Digestive disease complication type: with rectal bleeding Ulcerative colitis location: ulcerative rectosigmoiditis Qualified Code(s): K51.311 - Ulcerative (chronic) rectosigmoiditis with rectal bleeding Code(s): K51.90 - Ulcerative colitis, unspecified, without complications Status: Acute Assessment and Plan: The kidney to be uninjured following recent ESWL. Additionally, her left ureteral stent appears to be in position. Light of that, I doubt that abdominal discomfort is related to anything urological. Believer ureteral stent indwelling with follow-up after discharge for removal in office. Dr. Go's input regarding colitis is appreciated. Urology Consult Note HPI Date Seen: 12/22/20 Requesting Physician: Kandy Lucio MD Primary Care Provider: Kd Ledezma MD Consult Narrative Narrative: Shanon Ramirez is a 75 year old female is well known to me with a long history of urolithiasis. Two weeks ago she underwent a cystoscopy with left ureteral stent placement and ESWL for a large renal pelvic calculus. I did not see her again until this afternoon when she presented for routine follow-up. At that time she looked and felt poorly. Specifically, she reported a 5 day history of abdominal pain with food intolerance in lack of p.o. intake. She was pale and clammy. With encouraged her to go to the emergency department for evaluation. While there she was found to dehydrated with acute kidney injury, significant hypokalemia. CT scan the abdomen and pelvis reveals fragmentation of her left renal calculus with an intact ureteral stent. She did have findings consistent with ulcerative colitis. She has been seen in consultation by Dr. Go whose input we appreciate. Review of Systems Cardiovascular: Cardiovascular: Denies chest pain, Denies lightheadedness, Denies palpitations and Denies dyspnea Respiratory: Respiratory: Denies dyspnea Gastrointestinal: Gastrointestinal: Denies melena, Denies hematochezia, Denies coffee ground emesis, Reports GI cramping and Reports nausea Genitourinary: Genitourinary: Denies hematuria and Denies dysuria Endocrine: Endocrine: Denies palpitations PMFSH Past Medical History Medical History Anemia Aortic insufficiency CAD (coronary artery disease) Diabetes A1c 6.6 on 04-29-19 Distal radius fracture, left Diverticulosis Forehead contusion HTN (hypertension) Hypercholesterolemia Hyperlipidemia Hypertension Hypothyroid Numbness Renal stones Thrombocytopenia Type 2 diabetes mellitus without complications Ulcerative colitis Surgical History Surgical History H/O lithotripsy H/O: hysterectomy Family History Family History Sibling Cancer Social History Social History Smoking packs per day: 1 Smoking cigarettes per day: 20.0 Years smoked: 55 Smoking pack-years: 55.00 Smoking status: Former smoker Tobacco type: cigarettes Second hand tobacco smoke exposure: No Smoking end date: 04/14/15 Alcohol intake: never Substance use: never Gender identity (if verbalized by the patient): Female Spiritual care concerns: No Meds Home Medications and Allergies Home Medications Medication Instructions Recorded Confirmed Type aspirin 81 mg tablet,delayed 81 mg PO DAILY #1 tablet 03/23/19 12/19/20 Rx release ator
--- NOTE | 2020-12-22 22:04 | PM.IMHP ---
H&P: HPI History of Present Illness Date/Time: 12/22/20 22:04 this is a 75-year-old female patient who has a past medical history of ulcerative colitis as well as kidney stones. The patient tells me that she has had lithotripsy for the 21st time last month. Patient was noted to have a cystoscopy and left ureteral stent placement and left ESWL on 12/08/[address] lemon for left renal stone. The patient came to the emergency room today with complaints of abdominal pain over the last couple days. She is also having crampy abdominal pain and has been having diarrhea for the last 2 weeks. She stated that she also noted blood clots in her stool. Patient also was started on antibiotics this past Friday for urinary tract infection. The patient only took 1 pill and did not take any further she did feel very well. She was seen in a follow-up with Dr. Gandhi who prompted her to go to the emergency room today. H&H is noted to be 11.8 and 35.0. Potassium is noted to be 2.7 and sodium 131. Blood sugar was noted to be 226. CRP 22.9. She was found to be positive for UTI. Her last urine culture from 12/02/2020 was positive for E coli and was sensitive to ceftriaxone. The patient was started on ceftriaxone in the emergency room. Urology and GI have been consulted. She was also supplemented with potassium. CT of the abdomen and pelvis was read as multiple left renal and ureteral stones. Left internal ureteral stent in expected position. Thickening with lose of haustral markings in the distal sigmoid colon and rectum, suspicious for colitis. Chronic pancreatitis. The patient is being admitted for observation status on the date of service of 12/22/2020 Chief Complaint: Abdominal pain Review of Systems Review of Systems: All systems reviewed & are unremarkable except as noted in HPI and below Constitutional: Constitutional: Reports as per HPI and Reports no additional constitutional complaints Eyes: Eyes: Reports as per HPI and Reports no additional eye complaints ENT: Reports system reviewed and no additional complaints, except as documented and Reports Normal hearing present Cardiovascular: Cardiovascular: Reports no additional cardiovascular complaints Respiratory: Respiratory: Reports no additional respiratory complaints and Reports no additional respiratory complaints Gastrointestinal: Gastrointestinal: Reports as per HPI and Reports no additional gastrointestinal complaints Musculoskeletal: Musculoskeletal: Reports no additional musculoskeletal complaints Integumentary/Breasts: Skin/Breast: Reports system reviewed and no additional complaints, except as docu and Reports as per HPI Neurologic: Reports system reviewed and no additional complaints, except as documented, Reports as per HPI and Reports Normal hearing present Psychiatric: Psychiatric: Reports no additional psychiatric complaints and Reports as per HPI Endocrine: Endocrine: Reports no additional endocrine complaints Hematologic/Lymphatic: Hematologic/Lymphatic: Reports no additional hematologic/lymphatic complaints Allergic/Immunologic: Allergic/Immunologic: Reports no additional allergic/immunologic complaints [facility] Past Medical History Medical History (Updated 12/22/20 @ 22:23 by Taryn Wong NP) Anemia Aortic insufficiency CAD (coronary artery disease) Diabetes A1c 6.6 on 04-29-19 Distal radius fracture, left Diverticulosis Forehead contusion HTN (hypertension) Hypercholesterolemia Hyperlipidemia Hypertension Hypothyroid Numbness Renal stones Thrombocytopenia Type 2 diabetes mellitus without complications Ulcerative colitis Surgical History Surgical History H/O lithotripsy H/O: hysterectomy Family History Family History Sibling Cancer Father Brain aneurysm Heart disease Hypertension Mother Hypertension Diabetes mellit
[2020-12-22 23:47] LABS: Hemoglobin A1C 6.9 % (<5.7)
[2020-12-23] MEDS: GLIMEPIRIDE 1 MG TABLET PO (00:35)
[2020-12-23] MEDS: ATORVASTATIN 10 MG TABLET PO ×2 (00:35→20:52)
[2020-12-23] MEDS: SODIUM CHLORIDE 0.9% IV 1,000 ML 100 ML IV CONT ×3 (00:36→20:51)
[2020-12-23] MEDS: LEVOTHYROXINE SODIUM 50 MCG TABLET PO (05:43)
[2020-12-23 06:00] VITALS: BP 132/60; PULSE 82; RESP 16; TEMP 36.6; O2SAT 98
[2020-12-23 07:05] LABS: Basophils Percent Auto 0.4 % (0.2-1.2); Eosinophils Absolute Auto 0.2 K/mm3 (0-0.3); Hematocrit 30.6 % (37.0-47.0); Hemoglobin 10.1 g/dL (12.0-15.0); Immature Granulocyte Absolute 0.03 K/mm3 (0.00-0.031); Immature Granulocyte Percent A 0.6 % (0-0.5); Lymphocytes Percent Auto 12.8 % (18.3-44.2); Mean Corpuscular Hemoglobin 29.2 pg (26-34); Mean Corpuscular Volume 88.4 fl (80-100); Mean Platelet Volume 12.1 fl (7.4-10.4); Monocytes Absolute Auto 0.7 K/mm3 (0.1-0.6); Monocytes Percent Auto 14.5 % (2.6-8.5); Neutrophils Absolute Auto 3.2 K/mm3 (1.3-6.7); Neutrophils Percent Auto 67.7 % (45.5-73.1); Platelet Count Result 180 k/mm3 (150-375); Red Blood Count 3.46 M/mm3 (4.2-5.4); Red Cell Distribution Width 13.5 % (11.5-14.5); White Blood Count 4.7 K/mm3 (4.5-10.0)
[2020-12-23 07:29] LABS: Alanine Aminotransferase 53 U/L (4-35); Albumin Level 3.5 g/dL (3.5-5.1); Alkaline Phosphatase 105 U/L (38-126); Anion Gap 12 mmol/L (8-16); Aspartate Amino Transferase 57 U/L (14-36); Bilirubin,Total 0.3 mg/dL (0.2-1.3); Blood Urea Nitrogen 25 mg/dL (7-17); Calcium 9.4 mg/dL (8.4-10.2); Carbon Dioxide 19 mmol/L (22-30); Chloride 104 mmol/L (98-107); Estimated CRCL calculation 34 ml/min; Estimated Glomerular Filt Rate 44; Glucose 185 mg/dL (65-110); Magnesium 1.9 mg/dL (1.6-2.3); Potassium 2.8 mmol/L (3.4-5.0); Sodium 135 mmol/L (137-145)
[2020-12-23 07:56] LABS: Glucose Point of Care 164 mg/dl (65-105)
--- NOTE | 2020-12-23 07:57 | PM.IMPN ---
Progress Note: A&P Assessment and Plan (1) UTI (urinary tract infection): Code(s): N39.0 - Urinary tract infection, site not specified Status: Acute Assessment and Plan: Blood in urine cultures are pending. Patient's last culture was read as E coli. On 12/02/2020. The patient was started on ceftriaxone. Urology has been consulted. (2) Acute hypokalemia: Code(s): E87.6 - Hypokalemia Status: Acute Assessment and Plan: Will recheck her BMP now and in the morning. The patient has been having diarrhea for 2 weeks. Continue to supplement as necessary and monitor BMP (3) S/P ureteral stent placement: Code(s): Z96.0 - Presence of urogenital implants Status: Acute Assessment and Plan: Urology has been consulted. Continue with patient's pain medication (4) Acute kidney injury: Code(s): N17.9 - Acute kidney failure, unspecified Status: Acute Assessment and Plan: Hold Glucophage in any nephrotoxic medication. Start IV fluids. Could be related to dehydration. (5) Ulcerative colitis: Qualifiers: Digestive disease complication type: with rectal bleeding Ulcerative colitis location: ulcerative rectosigmoiditis Qualified Code(s): K51.311 - Ulcerative (chronic) rectosigmoiditis with rectal bleeding Code(s): K51.90 - Ulcerative colitis, unspecified, without complications Status: Acute Assessment and Plan: GI has been consulted. And the patient stated that she has had several doses of prednisone in the past but she still continues to have a GI bleed. The patient states that she sees Dr. SOLARES for this and would like to see him. I did continue with patient's lialda. I held her aspirin due to the bleeding at this time. 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 (7) Hypertension: Qualifiers: Hypertension type: unspecified Qualified Code(s): I10 - Essential (primary) hypertension Code(s): I10 - Essential (primary) hypertension Status: Chronic Assessment and Plan: Hold lisinopril. Continue with amlodipine. (8) Hyperlipidemia: Qualifiers: Hyperlipidemia type: mixed hyperlipidemia Qualified Code(s): E78.2 - Mixed hyperlipidemia Code(s): E78.5 - Hyperlipidemia, unspecified Status: Chronic Assessment and Plan: Continue with atorvastatin (9) Hypothyroid: Qualifiers: Hypothyroidism type: acquired Qualified Code(s): E03.9 - Hypothyroidism, unspecified Code(s): E03.9 - Hypothyroidism, unspecified Status: Chronic Assessment and Plan: Check thyroid level continue with levothyroxine (10) Chronic pancreatitis: Code(s): K86.1 - Other chronic pancreatitis Status: Acute (11) Ureterolithiasis: Code(s): N20.1 - Calculus of ureter Status: Acute (12) Hypokalemia: Code(s): E87.6 - Hypokalemia Status: Acute Additional Plan 75-year-old female presents to the emergency room with chief complaint of abdominal pain. Patient recently underwent lithotripsy with stent placement and has history of UC with active bloody bowel movements. Both GI and Urology were consulted and patient was admitted for ongoing workup, treatment, and supportive care. 12/23/20 seen by GI -> Patient reports relatively poor response to oral steroids given to supplement her baseline Lialda 4.8 g p.o. daily. She has had bloody stools since late November. IV steroids. Supplement this with rectal steroids. Continue mesalamine. Colonoscopy will be anticipated on Friday. hypokalemia K
[2020-12-23 08:00] LABS: Thyroid Stimulating Hormone Reflex 0.771 uIU/mL (0.465-4.68)
[2020-12-23] MEDS: amLODIPine BESYLATE 5 MG TABLET 10 MG PO (08:36)
--- NOTE | 2020-12-23 08:57 | WPDGIPROGNO ---
Progress Note: A&P Assessment and Plan (1) Ulcerative colitis: Qualifiers: Digestive disease complication type: with rectal bleeding Ulcerative colitis location: ulcerative rectosigmoiditis Qualified Code(s): K51.311 - Ulcerative (chronic) rectosigmoiditis with rectal bleeding Code(s): K51.90 - Ulcerative colitis, unspecified, without complications Status: Acute Assessment and Plan: according to CT scan and prior colonoscopy her colitis is limited to rectum and sigmoid. We will therefore attempt to treat this with topical steroids, rectally. She will at some point need a colonoscopy to reassess and ensure that she has not developed more proximal extent of her disease which may warrant a change in medication, particularly in view of her markedly elevated calprotectin level. The Proctofoam enema I ordered has not been given. I will replace that order. Also because she did not respond to oral steroids at home I will start her on IV steroids while she is here. She should have a colonoscopy soon. We will schedule that for Friday morning (2) Acute kidney injury: Code(s): N17.9 - Acute kidney failure, unspecified Status: Acute Assessment and Plan: she is being hospitalized because of the acute kidney injury and hypokalemia for the purpose of rehydration and correction of electrolytes. Antibiotics have been started (3) Left renal stone: Code(s): N20.0 - Calculus of kidney Status: Acute Assessment and Plan: since her lithotripsy she has felt worse. She now has a urinary tract infection has multiple small stone fragments. She states that the rectal bleeding began several days after her lithotripsy. Subjective Date/time seen: 12/23/20 08:57 she continues to have bloody mucoid stools. I had ordered procto foam b.i.d. but somehow when she was transferred from the emergency room to the floor that got canceled. Her abdominal pain is slightly less. She states that the urologist told her that she may be able to go home tomorrow. Review of Systems Review of Systems: All systems reviewed & are unremarkable except as noted in HPI and below Exam Const: General: healthy appearing, no acute distress, alert, in distress and uncomfortable Orientation/consciousness: patient oriented x3 Cardio: Rate: regular rate Rhythm: regular rhythm GI: Inspection: normal to inspection GI Palp: Yes abdominal tenderness ( Mostly in lower abdomen) and No Guarding due to palpation present (GI) Auscultation: normal bowel sounds Neuro: General: patient oriented x3 Objective Data Vital Signs Vital Signs: Vital Signs - 24 hr 12/22/20 13:54 12/22/20 14:56 12/22/20 16:34 Temperature 36.2 C L Pulse Rate 106 H 97 96 Respiratory Rate 16 15 20 Blood Pressure 115/53 L 154/64 H 140/60 Pulse Oximetry 99 97 98 12/22/20 17:14 12/22/20 17:17 12/22/20 17:47 Temperature 36.2 C L Pulse Rate 89 80 Respiratory Rate 18 16 Blood Pressure 132/53 L 132/53 L Pulse Oximetry 97 98 12/22/20 18:17 12/22/20 20:00 12/22/20 22:00 Temperature 36.6 C 36.3 C L Pulse Rate 81 82 Respiratory Rate 16 18 Blood Pressure 156/55 H 116/43 L Pulse Oximetry 81 L 92 100 12/23/20 06:00 Temperature 36.6 C Pulse Rate 82 Respiratory Rate 16 Blood Pressure 132/60 Pulse Oximetry 98 Intake/Output Intake/Output: Intake & Output 12/20/20 12/21/20 12/22/20 12/23/20 23:59 23:59 23:59 23:59 Intake Total 1650 300 Balance 1650 300 Meds/Results Medications: Active Medications Generic Name Dose Route Start Last Admin Trade Name Freq PRN Reason Stop Dose Admin Hydrocodone Bitart/Acetaminophen 1 tab 12/22/20 22:27 Hydrocodone/Acetaminophen (*Crx) 5-325 Mg Tablet PO Q6H PRN pain Amlodipine Besylate 10 mg 12/23/20 09:00 12/23/20 08:36 Amlodipine Besylate 5 Mg Tablet PO 10 mg DAILY AKRLA Administration Atorvastatin Calcium 10 mg 12/22/20 23:00 12/23/20
[2020-12-23] MEDS: POTASSIUM CHLORIDE 20 MEQ TABLET.ER 40 MEQ PO (09:12)
--- NOTE | 2020-12-23 10:19 | WPDGIPROGNO ---
Progress Note: A&P Assessment and Plan (1) Ulcerative colitis: Qualifiers: Digestive disease complication type: with rectal bleeding Ulcerative colitis location: ulcerative rectosigmoiditis Qualified Code(s): K51.311 - Ulcerative (chronic) rectosigmoiditis with rectal bleeding Code(s): K51.90 - Ulcerative colitis, unspecified, without complications Status: Acute Assessment and Plan: Agree with current management. IV steroids. Supplement with rectal steroids. Continue mesalamine for now. Colonoscopy will be anticipated Friday morning. (2) Left renal stone: Code(s): N20.0 - Calculus of kidney Status: Acute (3) UTI (urinary tract infection): Code(s): N39.0 - Urinary tract infection, site not specified Status: Acute Subjective Date/time seen: 12/23/20 10:19 Brief is [place] with patient this morning. She is a longstanding patient of mine with left-sided ulcerative colitis. She recently has had flare of her ulcerative colitis and seen by nurse practitioner in the office. Patient reports relatively poor response to oral steroids given to supplement her baseline Lialda 4.8 g p.o. daily. Now hospitalized with right shoulder pain. She is known to have kidney stones. Status post recent lithotripsy. She has had bloody stools since late November. Agree with Dr. Go management plan with IV steroids. Supplement this with rectal steroids. Continue mesalamine. Colonoscopy will be anticipated on Friday. Review of Systems Review of Systems: All systems reviewed & are unremarkable except as noted in HPI and below Exam Narrative: Patient is alert today vital signs are stable. HEENT exam reveals no icterus. Lungs are clear. Heart without murmur. Abdomen bowel sounds present soft nontender. Rectal exam is deferred at this time. Objective Data Vital Signs Vital Signs: Vital Signs - 24 hr 12/22/20 13:54 12/22/20 14:56 12/22/20 16:34 Temperature 97.1 F L Pulse Rate 106 H 97 96 Respiratory Rate 16 15 20 Blood Pressure 115/53 L 154/64 H 140/60 Pulse Oximetry 99 97 98 12/22/20 17:14 12/22/20 17:17 12/22/20 17:47 Temperature 97.1 F L Pulse Rate 89 80 Respiratory Rate 18 16 Blood Pressure 132/53 L 132/53 L Pulse Oximetry 97 98 12/22/20 18:17 12/22/20 20:00 12/22/20 22:00 Temperature 97.8 F 97.3 F L Pulse Rate 81 82 Respiratory Rate 16 18 Blood Pressure 156/55 H 116/43 L Pulse Oximetry 81 L 92 100 12/23/20 06:00 Temperature 98 F Pulse Rate 82 Respiratory Rate 16 Blood Pressure 132/60 Pulse Oximetry 98 Intake/Output Intake/Output: Intake & Output 12/20/20 12/21/20 12/22/20 12/23/20 23:59 23:59 23:59 23:59 Intake Total 1650 540 Balance 1650 540 Meds/Results Medications: Active Medications Generic Name Dose Route Start Last Admin Trade Name Freq PRN Reason Stop Dose Admin Hydrocodone Bitart/Acetaminophen 1 tab 12/22/20 22:27 Hydrocodone/Acetaminophen (*Crx) 5-325 Mg Tablet PO Q6H PRN pain Amlodipine Besylate 10 mg 12/23/20 09:00 12/23/20 08:36 Amlodipine Besylate 5 Mg Tablet PO 10 mg DAILY KARLA Administration Atorvastatin Calcium 10 mg 12/22/20 23:00 12/23/20 00:35 Atorvastatin 10 Mg Tablet PO 10 mg HS KARLA Administration Dextrose 12.5 gm 12/22/20 22:28 Dextrose 50% 25 Gm/50 Ml Syringe IV PUSH PRN PRN Hypoglycemia Protocol Glimepiride 1 mg 12/22/20 23:00 12/23/20 00:35 Glimepiride 1 Mg Tablet PO 1 mg HS KARLA Administration Glucagon 1 mg 12/22/20 22:28 Glucagon For Inj 1 Mg Vial IM PRN PRN Hypoglycemia Protocol Glucose 15 gm 12/22/20 22:28 Glucose Oral Gel 15 Gm Of Glucse In 37.5 Gm Tube PO PRN PRN Hypoglycemia Protocol Hydrocortisone 1 applic 12/22/20 21:00 12/23/20 08:37 Hydrocortisone (Proctozone-Hc) 2.5% Cream 30 Gm Tube RECTAL 1 applic Q12HR KARLA Administration Hydrocortisone 1 applic 0
[2020-12-23] MEDS: LOPERAMIDE HCL 2 MG CAPSULE 4 MG PO ×2 (10:21→16:48)
[2020-12-23] MEDS: HYDROcodone/acetaminophen (*CRX) 5-325 MG TABLET 1 TAB PO (11:20)
[2020-12-23 11:57] LABS: Glucose Point of Care 195 mg/dl (65-105)
[2020-12-23] MEDS: methylPREDNISolone SOD SUCC 40 MG VIAL IV PUSH ×2 (14:27→21:00)
[2020-12-23 14:54] VITALS: BP 109/60; PULSE 86; RESP 12; TEMP 37; O2SAT 97
[2020-12-23] MEDS: INSULIN ASPART (*BKC) 100 UNITS/ML SUB-Q (16:53)
[2020-12-23 16:57] LABS: Glucose Point of Care 211 mg/dl (65-105)
[2020-12-23 22:00] VITALS: BP 131/60; PULSE 73; RESP 18; TEMP 36.4; O2SAT 98
[2020-12-23] MEDS: INSULIN GLARGINE (*BKC) 100 UNITS/ML 10 UNITS SUB-Q (22:11)
[2020-12-24 04:26] LABS: Glucose Point of Care 384 mg/dl (65-105)
[2020-12-24 06:00] VITALS: BP 147/55; PULSE 63; RESP 16; TEMP 37; O2SAT 99
[2020-12-24] MEDS: methylPREDNISolone SOD SUCC 40 MG VIAL IV PUSH ×3 (06:08→22:09)
[2020-12-24] MEDS: LEVOTHYROXINE SODIUM 50 MCG TABLET PO (06:09)
[2020-12-24] MEDS: SODIUM CHLORIDE 0.9% IV 1,000 ML 100 ML IV CONT ×2 (06:09→22:11)
[2020-12-24 06:17] LABS: Basophils Percent Auto 0.4 % (0.2-1.2); Hematocrit 29.2 % (37.0-47.0); Hemoglobin 9.5 g/dL (12.0-15.0); Immature Granulocyte Absolute 0.02 K/mm3 (0.00-0.031); Immature Granulocyte Percent A 0.7 % (0-0.5); Lymphocytes Absolute Auto 0.37 K/mm3 (0.9-3.2); Lymphocytes Percent Auto 13.1 % (18.3-44.2); Mean Corpuscular HGB Conc 32.5 g/dl (32-36); Mean Corpuscular Hemoglobin 29.5 pg (26-34); Mean Corpuscular Volume 90.7 fl (80-100); Mean Platelet Volume 12.5 fl (7.4-10.4); Monocytes Absolute Auto 0.2 K/mm3 (0.1-0.6); Neutrophils Absolute Auto 2.3 K/mm3 (1.3-6.7); Neutrophils Percent Auto 79.8 % (45.5-73.1); Platelet Count Result 149 k/mm3 (150-375); Red Blood Count 3.22 M/mm3 (4.2-5.4); Red Cell Distribution Width 13.6 % (11.5-14.5); White Blood Count 2.8 K/mm3 (4.5-10.0)
[2020-12-24 06:33] LABS: Alanine Aminotransferase 38 U/L (4-35); Albumin Level 3.2 g/dL (3.5-5.1); Alkaline Phosphatase 124 U/L (38-126); Anion Gap 8 mmol/L (8-16); Aspartate Amino Transferase 20 U/L (14-36); Bilirubin,Total 0.3 mg/dL (0.2-1.3); Blood Urea Nitrogen 17 mg/dL (7-17); Carbon Dioxide 19 mmol/L (22-30); Chloride 112 mmol/L (98-107); Estimated CRCL calculation 44 ml/min; Estimated Glomerular Filt Rate > 60; Glucose 300 mg/dL (65-110); Lipase 206 U/L (23-300); Magnesium 1.7 mg/dL (1.6-2.3); Potassium 4.2 mmol/L (3.4-5.0); Sodium 139 mmol/L (137-145)
[2020-12-24 08:14] LABS: Glucose Point of Care 256 mg/dl (65-105)
[2020-12-24] MEDS: INSULIN ASPART (*BKC) 100 UNITS/ML SUB-Q ×3 (08:16→17:42)
[2020-12-24] MEDS: amLODIPine BESYLATE 5 MG TABLET 10 MG PO (08:17)
--- NOTE | 2020-12-24 08:22 | WPDGIPROGNO ---
Progress Note: A&P Assessment and Plan (1) Ulcerative colitis: Qualifiers: Digestive disease complication type: with rectal bleeding Ulcerative colitis location: ulcerative rectosigmoiditis Qualified Code(s): K51.311 - Ulcerative (chronic) rectosigmoiditis with rectal bleeding Code(s): K51.90 - Ulcerative colitis, unspecified, without complications Status: Acute Assessment and Plan: Agree with current management. IV steroids. Supplement with rectal steroids. Continue mesalamine for now. Colonoscopy will be Done Friday morning. (2) Left renal stone: Code(s): N20.0 - Calculus of kidney Status: Acute Assessment and Plan: she states that she was told from urology perspective that she could go home as early as Friday. She was told that on Friday, but has not seen a neurologist since (3) UTI (urinary tract infection): Code(s): N39.0 - Urinary tract infection, site not specified Status: Acute Subjective Date/time seen: 12/24/20 08:22 she states that she has had no further bowel movements since we started her on Imodium yesterday. No bleeding since yesterday. She is a bit tearful, her IV had come out had to be restarted. Review of Systems Review of Systems: All systems reviewed & are unremarkable except as noted in HPI and below Exam Const: General: healthy appearing and comfortable GI: Inspection: normal to inspection GI Palp: No abdominal tenderness and Yes Soft to palpation Auscultation: normal bowel sounds Objective Data Vital Signs Vital Signs: Vital Signs - 24 hr 12/23/20 14:54 12/23/20 22:00 12/24/20 06:00 Temperature 37.0 C 36.4 C 37.0 C Pulse Rate 86 73 63 Respiratory Rate 12 18 16 Blood Pressure 109/60 131/60 147/55 H Pulse Oximetry 97 98 99 Intake/Output Intake/Output: Intake & Output 12/21/20 12/22/20 12/23/20 12/24/20 23:59 23:59 23:59 23:59 Intake Total 1650 3190 1200 Balance 1650 3190 1200 Meds/Results Medications: Active Medications Generic Name Dose Route Start Last Admin Trade Name Freq PRN Reason Stop Dose Admin Hydrocodone Bitart/Acetaminophen 1 tab 12/22/20 22:27 12/23/20 11:20 Hydrocodone/Acetaminophen (*Crx) 5-325 Mg Tablet PO 1 tab Q6H PRN Administration pain Amlodipine Besylate 10 mg 12/23/20 09:00 12/24/20 08:17 Amlodipine Besylate 5 Mg Tablet PO 10 mg DAILY KARLA Administration Atorvastatin Calcium 10 mg 12/22/20 23:00 12/23/20 20:52 Atorvastatin 10 Mg Tablet PO 10 mg HS KARLA Administration Bisacodyl 10 mg 12/24/20 15:00 Bisacodyl 5 Mg Tablet Ec PO 12/25/20 03:01 0300,1500,2100 KARLA Dextrose 12.5 gm 12/22/20 22:28 Dextrose 50% 25 Gm/50 Ml Syringe IV PUSH PRN PRN Hypoglycemia Protocol Glucagon 1 mg 12/22/20 22:28 Glucagon For Inj 1 Mg Vial IM PRN PRN Hypoglycemia Protocol Glucose 15 gm 12/22/20 22:28 Glucose Oral Gel 15 Gm Of Glucse In 37.5 Gm Tube PO PRN PRN Hypoglycemia Protocol Hydrocortisone 1 applic 12/22/20 21:00 12/24/20 08:17 Hydrocortisone (Proctozone-Hc) 2.5% Cream 30 Gm Tube RECTAL 1 applic Q12HR KARLA Administration Ceftriaxone Sodium/Dextrose 1 gm in 50 mls @ 100 mls/hr 12/23/20 16:00 12/23/20 17:50 Rocephin 1 Gm/D5w 50 Ml IVPB Infused Q24H KARLA Infusion Dextrose 1,000 mls @ 100 mls/hr 12/22/20 22:28 Dextrose 5% 1,000 Ml IVPB PRN PRN Hypoglycemia Protocol Sodium Chloride 1,000 mls @ 100 mls/hr 12/22/20 22:35 12/24/20 06:09 Normal Saline Iv IV CONT 100 mls/hr .Q10H KARLA Administration Insulin Aspart 2 - 5 units 12/23/20 08:00 12/24/20 08:16 Insulin Aspart (*Bkc) 100 Units/Ml SUB-Q 3 units TIDWM KARLA Administration Protocol Insulin Glargine 10 units 12/23/20 21:56 12/23/20 22:11 Insulin Glargine (*Bkc) 100 Units/Ml SUB-Q 10 units HS KARLA Administration Levothyroxine Sodium 50 mcg 12/23/20 06:
--- NOTE | 2020-12-24 09:48 | PM.IMPN ---
Progress Note: A&P Assessment and Plan (1) UTI (urinary tract infection): Code(s): N39.0 - Urinary tract infection, site not specified Status: Acute (2) Acute hypokalemia: Code(s): E87.6 - Hypokalemia Status: Acute (3) S/P ureteral stent placement: Code(s): Z96.0 - Presence of urogenital implants Status: Acute (4) Acute kidney injury: Code(s): N17.9 - Acute kidney failure, unspecified Status: Acute (5) Ulcerative colitis: Qualifiers: Digestive disease complication type: with rectal bleeding Ulcerative colitis location: ulcerative rectosigmoiditis Qualified Code(s): K51.311 - Ulcerative (chronic) rectosigmoiditis with rectal bleeding Code(s): K51.90 - Ulcerative colitis, unspecified, without complications Status: Acute (6) Type 2 diabetes mellitus without complications: Qualifiers: 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 Qualified Code(s): E11.9 - Type 2 diabetes mellitus without complications Code(s): E11.9 - Type 2 diabetes mellitus without complications Status: Chronic (7) Hypertension: Qualifiers: Hypertension type: unspecified Qualified Code(s): I10 - Essential (primary) hypertension Code(s): I10 - Essential (primary) hypertension Status: Chronic (8) Hyperlipidemia: Qualifiers: Hyperlipidemia type: mixed hyperlipidemia Qualified Code(s): E78.2 - Mixed hyperlipidemia Code(s): E78.5 - Hyperlipidemia, unspecified Status: Chronic (9) Hypothyroid: Qualifiers: Hypothyroidism type: acquired Qualified Code(s): E03.9 - Hypothyroidism, unspecified Code(s): E03.9 - Hypothyroidism, unspecified Status: Chronic (10) Chronic pancreatitis: Code(s): K86.1 - Other chronic pancreatitis Status: Acute (11) Ureterolithiasis: Code(s): N20.1 - Calculus of ureter Status: Acute (12) Hypokalemia: Code(s): E87.6 - Hypokalemia Status: Acute Additional Plan 75-year-old female presents to the emergency room with chief complaint of abdominal pain. Patient recently underwent lithotripsy with stent placement and has history of UC with active bloody bowel movements. Both GI and Urology were consulted and patient was admitted for ongoing workup, treatment, and supportive care. 12/22/20 Blood in urine cultures are pending. Patient's last culture was read as E coli. On 12/02/2020. The patient was started on ceftriaxone. Urology has been consulted. Will recheck her BMP now and in the morning. The patient has been having diarrhea for 2 weeks. Continue to supplement as necessary and monitor BMP Urology has been consulted. Continue with patient's pain medication Hold Glucophage in any nephrotoxic medication. Start IV fluids. Could be related to dehydration. GI has been consulted. And the patient stated that she has had several doses of prednisone in the past but she still continues to have a GI bleed. The patient states that she sees Dr. SOLARES for this and would like to see him. I did continue with patient's lialda. I held her aspirin due to the bleeding at this time. Hold Glucophage and do sliding scale insulin with Accu-Cheks AC and HS. Hold lisinopril. Continue with amlodipine. Continue with atorvastatin Check thyroid level continue with levothyroxine 12/23/20 seen by GI -> Patient reports relatively poor response to oral steroids given to supplement her baseline Lialda 4.8 g p.o. daily. She has had bloody stools since late November. IV steroids. Supplement this with rectal steroids. Continue mesalamine. Colonoscopy will be anticipated on Friday. hypokalemia K ordered seen by urology and pain believed to be 2/2 colitis plan ureteral stent indwelling with follow-up after discharge for removal in office. cont current care UTI 2/2 E coli on Rocephin cont current care anticipate dc next week when UC
[2020-12-24 12:01] LABS: Glucose Point of Care 461 mg/dl (65-105)
[2020-12-24] MEDS: HYDROcodone/acetaminophen (*CRX) 5-325 MG TABLET 1 TAB PO (12:47)
[2020-12-24] MEDS: INSULIN HUMAN REGULAR (*BKC) 100 UNITS/ML 10 UNITS SUB-Q (12:56)
[2020-12-24 14:10] LABS: Glucose Point of Care 451 mg/dl (65-105)
[2020-12-24 15:00] VITALS: BP 109/64; PULSE 76; RESP 12; TEMP 36.4; O2SAT 99
[2020-12-24 15:44] LABS: Glucose Point of Care 222 mg/dl (65-105)
[2020-12-24] MEDS: BISACODYL 5 MG TABLET EC 10 MG PO ×2 (16:04→20:33)
[2020-12-24 17:12] LABS: Glucose Point of Care 240 mg/dl (65-105)
[2020-12-24] MEDS: polyethylene glycoL 3350 238 GM BOTTLE PO (17:42)
[2020-12-24] MEDS: ATORVASTATIN 10 MG TABLET PO (20:34)
[2020-12-24] MEDS: INSULIN GLARGINE (*BKC) 100 UNITS/ML 10 UNITS SUB-Q (20:38)
[2020-12-24 21:26] LABS: Glucose Point of Care 313 mg/dl (65-105)
[2020-12-24 22:00] VITALS: BP 153/57; PULSE 86; RESP 16; TEMP 36.2; O2SAT 100
[2020-12-25] MEDS: BISACODYL 5 MG TABLET EC 10 MG PO (03:40)
[2020-12-25] MEDS: MAGNESIUM CITRATE 300 ML BTL PO (03:47)
[2020-12-25] MEDS: methylPREDNISolone SOD SUCC 40 MG VIAL IV PUSH (05:14)
[2020-12-25] MEDS: LEVOTHYROXINE SODIUM 50 MCG TABLET PO (05:49)
[2020-12-25 06:00] VITALS: BP 130/56; PULSE 66; RESP 18; TEMP 36.5; O2SAT 96
[2020-12-25] MEDS: amLODIPine BESYLATE 5 MG TABLET 10 MG PO (08:11)
[2020-12-25] MEDS: INSULIN ASPART (*BKC) 100 UNITS/ML SUB-Q ×2 (08:20→13:25)
[2020-12-25 08:21] LABS: Glucose Point of Care 286 mg/dl (65-105)
--- NOTE | 2020-12-25 09:41 | WPDANESEPPF ---
Anes - Initial Pre Proc Eval Procedure: Operation Date: 12/25/20 11:15 Proposed Procedures p Colonoscopy - Sheng Zambrano MD Date/Time: 12/25/20 09:41 Surgeon: Kandy Lucio MD Pre Op Diagnosis: TOÑITO/UTI/hypokalemia/rectosigmoiditis Patient Data Age: 75 Gender: F Height: 1.68 m Weight: 75.9 kg Last Vital Signs Temp 36.5 C 12/25/20 06:00 Pulse 66 12/25/20 06:00 Resp 18 12/25/20 06:00 BP 130/56 L 12/25/20 06:00 Pulse Ox 96 12/25/20 06:00 Allergies Allergy/AdvReac Type Severity Reaction Status Date / Time Iodinated Contrast Media Allergy Intermediate Hives Verified 12/22/20 18:35 loracarbef [From [facility]] Allergy Intermediate Hives Verified 12/22/20 18:35 Home Medications Medication Instructions Recorded Confirmed Type aspirin 81 mg tablet,delayed 81 mg PO DAILY #1 tablet 03/23/19 12/22/20 Rx release atorvastatin 10 mg tablet 10 mg PO HS 03/23/19 12/22/20 History blood sugar diagnostic #100 each 09/16/19 12/22/20 Rx blood-glucose meter #1 ea 03/03/20 12/22/20 Rx mesalamine 1.2 gram tablet,delayed 4.8 g PO DAILY 90 Days #360 tablet 10/23/20 12/22/20 Rx release levothyroxine 50 mcg tablet 50 mcg PO DAILY 11/29/20 12/22/20 History amlodipine 10 mg PO DAILY 12/06/20 12/22/20 History lisinopril 5 mg PO HS 12/06/20 12/22/20 History metformin 1,000 mg PO BID 12/06/20 12/22/20 History hydrocodone 5 mg-acetaminophen 325 1 - 2 tablet PO Q6H PRN #20 tablet 12/19/20 12/22/20 Rx mg tablet glimepiride 1 mg tablet 1 mg PO HS #90 tablet 12/21/20 12/22/20 Rx Laboratory Tests 12/24/20 12/24/20 12/24/20 11:45 14:03 15:41 POC Capillary Glucose 461 mg/dl H mg/dl 451 mg/dl H mg/dl 222 mg/dl H mg/dl (65-105) (65-105) (65-105) 12/24/20 12/24/20 12/25/20 17:06 20:37 07:59 POC Capillary Glucose 240 mg/dl H mg/dl 313 mg/dl H mg/dl 286 mg/dl H mg/dl (65-105) (65-105) (65-105) Patient hx anesthesia problems: none Family hx anesthesia problems: none [facility] Past Medical History Medical History (Updated 12/23/20 @ 17:08 by Kandy Lucio MD) Anemia Aortic insufficiency CAD (coronary artery disease) Diabetes A1c 6.6 on 04-29-19 Distal radius fracture, left Diverticulosis Forehead contusion HTN (hypertension) Hypercholesterolemia Hyperlipidemia Hypertension Hypothyroid Numbness Renal stones Thrombocytopenia Type 2 diabetes mellitus without complications Ulcerative colitis Surgical History Surgical History H/O lithotripsy H/O: hysterectomy Family History Family History Sibling Cancer Father Brain aneurysm Heart disease Hypertension Mother Hypertension Diabetes mellitus Social History Social History (Updated 12/22/20 @ 22:13 by Taryn Wong NP) Social History: The patient her 1st and is living with her 2nd . Her is a durable power civil rights attorney for healthcare. The patient desires to be a full code. The patient has worked at [employer] as well as the [employer]. The patient had a stillborn and had 2 living children and her son since then has been ordered. She has 1 remaining daughter. The patient is a former smoker. She denies any marijuana alcohol or illicit drugs. Smoking packs per day: 1 Smoking cigarettes per day: 20.0 Years smoked: 55 Smoking pack-years: 55.00 Smoking status: Former smoker Tobacco type: cigarettes Second hand tobacco smoke exposure: No Smoking end date: 03/14/16 Alcohol intake: never Substance use: never Gender identity (if verbalized by the patient): Female Spiritual care concerns: No Anes - Eval Final PreProcedure Day of Procedure 12/25/20 09:41 Patient weight: overweight Heart: regular rate and rhythm Lungs: clear to auscultation and normal air movement Airway: Mallampati scale class II Neurological: alert and orie
[2020-12-25] MEDS: LACTATED RINGERS 1,000 ML 150 ML IV CONT (11:17)
[2020-12-25 11:19] LABS: Glucose Point of Care 257 mg/dl (65-105)
[2020-12-25 11:21] VITALS: BP 137/73; PULSE 75; RESP 18; TEMP 36.3; O2SAT 100
[2020-12-25 12:00] VITALS: BP 148/65; PULSE 73; RESP 26; O2SAT 100
[2020-12-25 12:10] VITALS: BP 142/64; PULSE 68; RESP 23; O2SAT 100
[2020-12-25 12:20] VITALS: BP 151/60; PULSE 67; RESP 24; O2SAT 100
[2020-12-25 12:44] LABS: Glucose Point of Care 256 mg/dl (65-105)
[2020-12-25 12:55] LABS: Glucose Point of Care 271 mg/dl (65-105)
--- NOTE | 2020-12-25 16:00 | PM.DS ---
DS: Admitting Diagnosis Discharge Date 12/25/2020 Admitting Diagnosis Bloody diarrhea DS: Discharge Diagnosis Discharge Diagnosis (1) UTI (urinary tract infection): Code(s): N39.0 - Urinary tract infection, site not specified Status: Acute Assessment and Plan: Blood culture with no growth. Urine culture schedule coli sensitive to ceftriaxone and stent to fluoroquinolones will switch to Augmentin for 5 more days of the discharge. Sees recent ureteral stent placement and hence will continue total 7 days course of antibiotics. Follow-up with urology as outpatient basis as previously scheduled (2) Acute hypokalemia: Code(s): E87.6 - Hypokalemia Status: Acute Assessment and Plan: Replaced monitored with resolution of hypokalemia (3) S/P ureteral stent placement: Code(s): Z96.0 - Presence of urogenital implants Status: Acute Assessment and Plan: Urology has been consulted. Continue with patient's pain medication (4) Acute kidney injury: Code(s): N17.9 - Acute kidney failure, unspecified Status: Acute Assessment and Plan: On admission started on IV fluids and resolved by the time of discharge. (5) Ulcerative colitis: Qualifiers: Digestive disease complication type: with rectal bleeding Ulcerative colitis location: ulcerative rectosigmoiditis Qualified Code(s): K51.311 - Ulcerative (chronic) rectosigmoiditis with rectal bleeding Code(s): K51.90 - Ulcerative colitis, unspecified, without complications Status: Acute Assessment and Plan: GI has been consulted for her bloody diarrhea. CT scan of the abdomen reviewed from admission which showed signs of colitis. She was started on IV steroid which helped. She also underwent colonoscopy which shows finds findings pancolitis suggesting flareup of ulcerative colitis. Stable be discharged on prednisone 40 mg a and taper as outpatient basis when she follows up Dr. Zambrano. She will continue on lialda (6) Type 2 diabetes mellitus without complications: Qualifiers: Diabetes mellitus care home insulin use: without promotional marketing agent use Qualified Code(s): E11.9 - Type 2 diabetes mellitus without complications Code(s): E11.9 - Type 2 diabetes mellitus without complications Status: Chronic Assessment and Plan: Hold Glucophage and do sliding scale insulin with Accu-Cheks AC and HS. She will resume her metformin and glimepiride time of discharge however prednisone has elevated pressure and likely need at least ankle for his at the time of discharge discussed use of insulin for this. In suggested a sliding scale when the blood sugars more than 200 he agreed with the (7) Hypertension: Qualifiers: Hypertension type: unspecified Qualified Code(s): I10 - Essential (primary) hypertension Code(s): I10 - Essential (primary) hypertension Status: Chronic Assessment and Plan: Hold lisinopril. Continue with amlodipine. Will resume medication of discharge (8) Hyperlipidemia: Qualifiers: Hyperlipidemia type: mixed hyperlipidemia Qualified Code(s): E78.2 - Mixed hyperlipidemia Code(s): E78.5 - Hyperlipidemia, unspecified Status: Chronic Assessment and Plan: Continue with atorvastatin (9) Hypothyroid: Qualifiers: Hypothyroidism type: acquired Qualified Code(s): E03.9 - Hypothyroidism, unspecified Code(s): E03.9 - Hypothyroidism, unspecified Status: Chronic Assessment and Plan: Continue with levothyroxine (10) Chronic pancreatitis: Code(s): K86.1 - Other chronic pancreatitis Status: Acute (11) Ureterolithiasis: Code(s): N20.1 - Calculus of ureter Status: Acute (12) Hypokalemia: Code(s): E87.6 - Hypokalemia Status: Acute DS: Summary Hospital Course Hospital Course: See above Time Spent with Patient Time attestation: Total time spe
== END 2020-12-25 16:40 | disposition home or self-care (01) | DRG 386 ==
LOC: ANHED 17:21 → ANH3MEDSUR 17:29
PROVIDERS: Internal Medicine Gastroenterology; Nurse Practitioner; Physician Assistant; Admitting Provider Hospitalist; Emergency Provider Emergency Medicine; PCP Family Medicine; Visit Provider Internal Medicine
PROC: 0DJD8ZZ Inspection of Lower Intestinal Tract, Via Natural or Artificial Opening Endoscopic (ICD-10-PCS; CPT 45378; principal; 2020-12-25 11:15)
DX: K51.011 Ulcerative (chronic) pancolitis with rectal bleeding (principal); N17.9 Acute kidney failure, unspecified; N39.0 Urinary tract infection, site not specified; K86.1 Other chronic pancreatitis; N20.1 Calculus of ureter; N20.0 Calculus of kidney; B96.20 Unspecified Escherichia coli [E. coli] as the cause of diseases classified elsewhere; E87.6 Hypokalemia; E11.9 Type 2 diabetes mellitus without complications; I10 Essential (primary) hypertension; E78.2 Mixed hyperlipidemia; E03.9 Hypothyroidism, unspecified; I25.10 Atherosclerotic heart disease of native coronary artery without angina pectoris; Z96.0 Presence of urogenital implants; Z79.82 Long term (current) use of aspirin; Z79.84 Long term (current) use of oral hypoglycemic drugs; Z87.891 Personal history of nicotine dependence
CPT/HCPCS: 36415; 51701; 74176; 80048; 80053; 80076; 81001; 82948; 83036; 83605; 83690; 83735; 84443; 85025; 85610; 85730; 86140; 87040; 87077; 87086; 87088; 87186; 88305; 93005; 96361; 96365; 96366; 96368; 96375; 99285; A9270; G0378; J0131; J0696; J1815; J2704; J2920; J3480; J7030; J7120

== ENCOUNTER 2021-01-01 11:06 | Outpatient (CLI) | payer MEDICARE, BC, SELFPAY ==
[2021-01-01 11:28] LABS: Basophils Percent Auto 0.1 % (0.2-1.2); Eosinophils Percent Auto 0.2 % (0-4.4); Hematocrit 32.9 % (37.0-47.0); Hemoglobin 10.8 g/dL (12.0-15.0); Immature Granulocyte Percent A 1.7 % (0-0.5); Lymphocytes Absolute Auto 0.81 K/mm3 (0.9-3.2); Lymphocytes Percent Auto 6.7 % (18.3-44.2); Mean Corpuscular HGB Conc 32.8 g/dl (32-36); Mean Corpuscular Hemoglobin 30.7 pg (26-34); Mean Corpuscular Volume 93.5 fl (80-100); Mean Platelet Volume 11.7 fl (7.4-10.4); Monocytes Absolute Auto 0.5 K/mm3 (0.1-0.6); Monocytes Percent Auto 3.9 % (2.6-8.5); Neutrophils Absolute Auto 10.5 K/mm3 (1.3-6.7); Neutrophils Percent Auto 87.4 % (45.5-73.1); Platelet Count Result 189 k/mm3 (150-375); Red Blood Count 3.52 M/mm3 (4.2-5.4); Red Cell Distribution Width 14.6 % (11.5-14.5)
[2021-01-01 11:49] LABS: Alanine Aminotransferase 27 U/L (4-35); Albumin Level 3.8 g/dL (3.5-5.1); Alkaline Phosphatase 91 U/L (38-126); Anion Gap 8 mmol/L (8-16); Aspartate Amino Transferase 23 U/L (14-36); Bilirubin,Total 0.8 mg/dL (0.2-1.3); Blood Urea Nitrogen 16 mg/dL (7-17); Calcium 10.3 mg/dL (8.4-10.2); Carbon Dioxide 31 mmol/L (22-30); Chloride 99 mmol/L (98-107); Estimated Glomerular Filt Rate > 60; Glucose 198 mg/dL (65-110); Potassium 3.2 mmol/L (3.4-5.0); Sodium 138 mmol/L (137-145)
== END 2021-01-01 11:07 | disposition home or self-care (01) ==
LOC: ANHLAB 11:08
PROVIDERS: PCP Family Medicine; Visit Provider Internal Medicine
DX: D64.9 Anemia, unspecified (principal); E87.6 Hypokalemia
CPT/HCPCS: 36415; 80053; 85025

== ENCOUNTER 2021-01-09 10:40 | Outpatient (CLI) | payer MEDICARE, BC, SELFPAY ==
--- NOTE | ~2021-01-09 | XR_ITS ---
EXAMINATION: XR abdomen/kub 1V INDICATION: Left renal stone, recent lithotripsy TECHNIQUE: Supine views of the abdomen were obtained on 2 radiographs. COMPARISON: 12/08/2020 FINDINGS: A left internal ureteral stent in expected position. The previously described stone of the left renal pelvis is no longer identified, consistent with interval lithotripsy. There are phlebolith s of the left pelvis. These project near the stent making assessment for stones adjacent to the stent difficult. There does appear to be a 2 mm stone adjacent to the distal aspect of the stent. The marial uz l gas pattern is normal. A moderate volume of colonic stool is present. There is moderate osteoarthri tis of the hips. IMPRESSION: 1. Interval lithotripsy of the previously described left renal pelvis stone with placement of a left internal ureteral stent in expected position. Possible small stone fragments adjacent to the distal s tent. Reviewed, dictated and finalized at location A. IMPRESSION: 1. Interval lithotripsy of the previously described left renal pelvis stone wit h placement of a left internal ureteral stent in expected position. Possible sm all stone fragments adjacent to the distal stent.
== END 2021-01-09 10:41 | disposition home or self-care (01) ==
LOC: ANHIMG 10:45
PROVIDERS: PCP Family Medicine; Visit Provider Nurse Practitioner Adult Health
DX: N20.0 Calculus of kidney (principal); M16.0 Bilateral primary osteoarthritis of hip
CPT/HCPCS: 74018

== ENCOUNTER 2021-01-27 20:48 | Emergency (ER) | payer MEDICARE, BC, SELFPAY ==
--- NOTE | ~2021-01-27 | XR_ITS ---
XR chest 1V portable 01/27/2021 22:20 Indication: Syncope. Hypertension. Procedure: AP portable chest Comparison: Comparison to multiple prior studies sequentially, with oldest reviewed study dated 12/2007. Findings: Heart size normal. No focal air space disease, pulmonary edema, pleural effusion or suspect ed pneumothorax. No acute osseous abnormality. Impression: 1: No acute cardiopulmonary disease. Reviewed, dictated and finalized at location A. Impression: 1: No acute cardiopulmonary disease.
--- NOTE | ~2021-01-27 | CT_ITS ---
EXAMINATION: CT lumbar spine wo con DATE: 01/27/2021 22:45 INDICATION: Low back pain after fall TECHNIQUE: Computed tomography (CT) of the lumbar spine was performed without intravenous contrast. T he dose-length product was 773.88 mGy-cm. Automated exposure control and iterative reconstruction dena hnique were employed. COMPARISON: None FINDINGS: There is a probable nondisplaced fracture of the coccyx partially visualized. Mild wedge-sh aped appearance to T12, likely physiologic. Mild multilevel facet hypertrophy. There is atheroscleros is of the aorta. There are nonobstructing left renal stones. No evidence for aortic aneurysm lymphade nopathy. IMPRESSION: 1. Probable nondisplaced fracture of the coccyx. 2: Nonobstructing left nephrolithiasis. Reviewed, dictated and finalized at location A.
--- NOTE | ~2021-01-27 | CT_ITS ---
EXAMINATION: CT brain wo con DATE: 01/27/2021 22:44 INDICATION: Headache. Seizures. TECHNIQUE: Computed tomography (CT) of the head was performed without intravenous contrast. The dose- length product was 605.33 mGy-cm. The mA was adjusted according to patient size. Iterative reconstruc tion technique was employed. COMPARISON: CT dated 03/17/2019 FINDINGS: No acute intracranial hemorrhage, infarction, mass or mass effect. No ventriculomegaly or midline shift. Basilar cisterns are patent. Paranasal sinuses and mastoids are pneumatized. No depressed skull fractures. IMPRESSION: 1. No acute intracranial abnormality. Reviewed, dictated and finalized at location A.
[2021-01-27 20:54] VITALS: BP 158/63; PULSE 80; RESP 22; TEMP 36.8; O2SAT 96
[2021-01-27 21:00] LABS: Glucose Point of Care > 500 mg/dl (65-105)
[2021-01-27 21:32] LABS: Basophils Percent Auto 0.2 % (0.2-1.2); Hematocrit 31.2 % (37.0-47.0); Immature Granulocyte Absolute 0.27 K/mm3 (0.00-0.031); Immature Granulocyte Percent A 2.7 % (0-0.5); Lymphocytes Absolute Auto 0.68 K/mm3 (0.9-3.2); Lymphocytes Percent Auto 6.8 % (18.3-44.2); Mean Corpuscular HGB Conc 32.1 g/dl (32-36); Mean Corpuscular Hemoglobin 30.3 pg (26-34); Mean Corpuscular Volume 94.5 fl (80-100); Mean Platelet Volume 12.5 fl (7.4-10.4); Monocytes Absolute Auto 0.4 K/mm3 (0.1-0.6); Monocytes Percent Auto 3.7 % (2.6-8.5); Neutrophils Absolute Auto 8.6 K/mm3 (1.3-6.7); Neutrophils Percent Auto 86.6 % (45.5-73.1); Platelet Count Result 195 k/mm3 (150-375); Red Cell Distribution Width 14.3 % (11.5-14.5)
[2021-01-27 21:43] LABS: INR 0.9; Prothrombin Time 12.4 Seconds (11.1-14.7)
[2021-01-27 21:44] LABS: Partial Thromboplastin Time 26.2 SECONDS (22.3-36.8)
[2021-01-27 21:46] LABS: Add Urine Microscopic? YES; Appearance Urine Clear (Clear); Bilirubin Urine Negative (Negative); Blood Urine Negative (Negative); Color Urine Colorless (Yellow); Glucose Urine UA 3+ mg/dL (Negative); Ketones Urine Negative (Negative); Leukocyte Esterase Ur Negative LEU/UL (Negative); Nitrate Urine Negative (Negative); Protein Urine 1+ mg/dL (Negative); RBC Urine 0-2 /hpf (0-2); Specific Grav Ur 1.022 (1.001-1.035); Squamous Epithelial Cell Urine Rare /hpf (Few); Urobilinogen Urine Negative mg/dL (<2.0); WBC Urine 0-3 /hpf
[2021-01-27 21:47] LABS: Albumin Level 3.9 g/dL (3.5-5.1); Alkaline Phosphatase 283 U/L (38-126); Anion Gap 12 mmol/L (8-16); Aspartate Amino Transferase 21 U/L (14-36); Bilirubin,Total 0.5 mg/dL (0.2-1.3); Blood Urea Nitrogen 19 mg/dL (7-17); Calcium 9.8 mg/dL (8.4-10.2); Carbon Dioxide 25 mmol/L (22-30); Chloride 96 mmol/L (98-107); Estimated CRCL calculation 37 ml/min; Estimated Glomerular Filt Rate 48; Glucose > 625 mg/dL (65-110); Lactic Acid Reflex 4.6 mmol/L (0.7-2.1); Potassium 3.3 mmol/L (3.4-5.0); Sodium 133 mmol/L (137-145)
--- NOTE | 2021-01-27 21:48 | ECG_ITS ---
Measurements Intervals [place] Rate: 72 P: 67 SD: 158 QRS: 75 QRSD: 102 T: 71 QT: 376 QTc: 413 Interpretive Statements SINUS RHYTHM WITH SINUS ARRHYTHMIA EARLY PRECORDIAL R/S TRANSITION BASELINE ARTIFACT- I, II, III, AVR, AVL, AVF, V1-V6 BORDERLINE ECG Electronically Signed On 01-28-2021 6:40:06 CDT by Jori Haines D.O.
[2021-01-27 22:02] LABS: Alanine Aminotransferase 29 U/L (4-35)
[2021-01-27 22:08] LABS: Magnesium 1.6 mg/dL (1.6-2.3)
[2021-01-27 22:13] LABS: Beta-Hydroxybutyrate/Acetoacetate 0.22 mmol/L (0.02-0.27)
[2021-01-27 22:21] LABS: Troponin I 0.022 ng/mL (0.000-0.034)
--- NOTE | 2021-01-27 22:24 | ED.GENADULT ---
HPI - General Adult General Chief complaint: Weakness <Geri Avalos MD - Last Filed: 01/29/21 06:36> Stated complaint: weakness <Geri Avalos MD - Last Filed: 01/29/21 06:36> Time Seen by Provider: 01/27/21 21:27 <Geri Avalos MD - Last Filed: 01/29/21 06:36> Source: patient, family and RN notes reviewed <Geri Avalos MD - Last Filed: 01/29/21 06:36> Mode of arrival: EMS <Geri Avalos MD - Last Filed: 01/29/21 06:36> Limitations: no limitations <Geri Avalos MD - Last Filed: 01/29/21 06:36> History of Present Illness HPI narrative: This is a 75 year old female with history of hypertension and diabetes mellitus who presents for evaluation syncopal episode. Patient states today she had 2 syncopal episodes. This afternoon she was standing and they reports she passed out. She was unable to get off ground for 10 minutes, until she was able to crawl to a chair. She reports she eventually stood up but she had another syncopal episode. She states she feels shaky when she tries to get up now. She reports having a headache after hitting her head during these episodes. She denies associated palpitations, chest pain, sob, nausea, vomiting or fever. She is a known diabetic and she was started on insulin 1 week ago by her PCP due to elevated blood sugars. Her states she stopped taking insulin 5 days ago because she was tired of taking all the medicine. She reports increased thirst and urinary. She has low back pain and tail one pain from her fall. <Geri Avalos MD - Last Filed: 01/29/21 06:36> Related Data Home medications: Home Medications Medication Instructions Recorded Confirmed atorvastatin 10 mg tablet 10 mg PO HS 03/23/19 01/09/21 levothyroxine 50 mcg tablet 50 mcg PO DAILY 11/29/20 01/09/21 amlodipine 10 mg PO DAILY 12/06/20 01/09/21 lisinopril 5 mg PO HS 12/06/20 01/09/21 <Geri Avalos MD - Last Filed: 01/29/21 06:36> Allergies/adverse reactions: Allergies Allergy/AdvReac Type Severity Reaction Status Date / Time Iodinated Contrast Media Allergy Intermediate Hives Verified 01/27/21 21:40 loracarbef [From Lorabid] Allergy Intermediate Hives Verified 01/27/21 21:40 <Geri Avalos MD - Last Filed: 01/29/21 06:36> Review of Systems Review of Systems: All systems reviewed & are unremarkable except as noted in HPI and below <Geri Avalos MD - Last Filed: 01/29/21 06:36> [facility] Past Medical History Medical History: Medical History Anemia Aortic insufficiency CAD (coronary artery disease) Diabetes A1c 6.6 on 04-29-19 Distal radius fracture, left Diverticulosis Forehead contusion HTN (hypertension) Hypercholesterolemia Hyperlipidemia Hypertension Hypothyroid Numbness Renal stones Thrombocytopenia Type 2 diabetes mellitus without complications Ulcerative colitis <Geri Avalos MD - Last Filed: 01/29/21 06:36> Surgical History Surgical History: Surgical History (Reviewed 01/17/21 @ 15:13 by Lauryn Medina [facility]) H/O lithotripsy H/O: hysterectomy <Geri Avalos MD - Last Filed: 01/29/21 06:36> Family History Family History: Family History (Reviewed 01/17/21 @ 15:13 by Lauryn Medina [facility]) Sibling Cancer Father Brain aneurysm Heart disease Hypertension Mother Hypertension Diabetes mellitus <Geri Avalos MD - Last Filed: 01/29/21 06:36> Social History Social History: Social History (Reviewed 01/17/21 @ 15:13 by Lauryn Medina [facility]) Social History: The patient her 1st and is living with her 2nd . Her is a durable power consumer attorney for healthcare. The patient desires to be a full code. The patient has worked at [employer] as well as the [employer]. The patient had a stillborn and had 2 living children and her son since then has been
--- NOTE | 2021-01-27 22:42 | PC.NURSE ---
Pt in imaging at this time.
[2021-01-27] MEDS: POTASSIUM CHLORIDE 20 MEQ TABLET 40 MEQ PO (22:55)
[2021-01-27] MEDS: SODIUM CHLORIDE 0.9% IV 1,000 ML 999 ML IV CONT ×2 (22:55→23:40)
[2021-01-27] MEDS: INSULIN HUMAN REGULAR (*BKC) 100 UNITS/ML 7 UNITS IV PUSH (23:00)
--- NOTE | 2021-01-27 23:17 | PC.NURSE ---
This RN assisted pt to bedside commode as tolerated previously. Pt steady on feet with no c/o dizziness with ambulation. Pt was given call light and asked to use it when finished. this RN heard yelling from pts room. This RN entered room to see pt sitting on edge of stretcher, body rigid, with pt yelling I cant control it . Morales RN entered room and assisted this RN in helping pt to lay supine on stretcher. DEMETRI Avalos at bedside. See seizure assessment.
[2021-01-27 23:20] VITALS: PULSE 109; RESP 23; O2SAT 100
[2021-01-27] MEDS: LORazepam INJ (*CRX) 2 MG/ML VIAL (23:20)
--- NOTE | 2021-01-27 23:35 | PC.NURSE ---
Report received from EDENILSON Downing. Assumed care of patient at this time.
[2021-01-27 23:39] LABS: Glucose Point of Care 386 mg/dl (65-105)
[2021-01-27] MEDS: levETIRAcetam 1000MG/NACL100ML 1,000 MG/100 ML BAG 400 MG IVPB (23:39)
[2021-01-27 23:42] VITALS: BP 158/60; PULSE 80; RESP 20; O2SAT 98
[2021-01-27 23:52] VITALS: PULSE 80; RESP 19; O2SAT 99
[2021-01-28] VITALS (64 sets, daily range): BP systolic 101–166; BP diastolic 40–107; PULSE 60–86; RESP 11–31; TEMP 36.3–36.8; O2SAT 92–99
[2021-01-28 00:30] LABS: Reflex Lactic Acid Yes or No Add Lactic
[2021-01-28 01:46] LABS: Glucose Point of Care 302 mg/dl (65-105)
[2021-01-28 02:16] LABS: Lactic Acid 2.8 mmol/L (0.7-2.1)
--- NOTE | 2021-01-28 02:36 | PC.NURSE ---
0219: SPOKE WITH TIMO AT [facility] TO TRANSFER THIS PATIENT. THERE ARE NO BEDS AVAILABLE AT ANY [facility] AT THIS TIME. PATIENT IS ON WAITLIST.
[2021-01-28] MEDS: ONDANSETRON INJ 4 MG/2 ML VIAL IV PUSH (03:28)
[2021-01-28] MEDS: MORPHINE SULFATE (*CRX) 4 MG/ML INJ IV PUSH (03:32)
--- NOTE | 2021-01-28 05:11 | PC.NURSE ---
Faxed face sheet to [phone] upon request of [facility]. Access line states she will call back when a bed is available.
[2021-01-28] MEDS: SODIUM CHLORIDE 0.9% IV 1,000 ML 999 ML IV CONT (05:35)
[2021-01-28 12:31] LABS: Glucose Point of Care 227 mg/dl (65-105)
[2021-01-28 14:03] LABS: Basophils Percent Auto 0.2 % (0.2-1.2); Eosinophils Percent Auto 0.5 % (0-4.4); Hematocrit 31.8 % (37.0-47.0); Hemoglobin 10.5 g/dL (12.0-15.0); Immature Granulocyte Absolute 0.13 K/mm3 (0.00-0.031); Immature Granulocyte Percent A 1.5 % (0-0.5); Lymphocytes Absolute Auto 1.87 K/mm3 (0.9-3.2); Lymphocytes Percent Auto 21.6 % (18.3-44.2); Mean Corpuscular Hemoglobin 30.8 pg (26-34); Mean Corpuscular Volume 93.3 fl (80-100); Mean Platelet Volume 12.1 fl (7.4-10.4); Monocytes Absolute Auto 0.6 K/mm3 (0.1-0.6); Neutrophils Percent Auto 69.2 % (45.5-73.1); Platelet Count Result 177 k/mm3 (150-375); Red Blood Count 3.41 M/mm3 (4.2-5.4); Red Cell Distribution Width 14.6 % (11.5-14.5); White Blood Count 8.7 K/mm3 (4.5-10.0)
[2021-01-28 14:25] LABS: Anion Gap 8 mmol/L (8-16); Blood Urea Nitrogen 7 mg/dL (7-17); Calcium 8.4 mg/dL (8.4-10.2); Carbon Dioxide 27 mmol/L (22-30); Chloride 106 mmol/L (98-107); Estimated CRCL calculation 64 ml/min; Estimated Glomerular Filt Rate > 60; Glucose 238 mg/dL (65-110); Potassium 3.5 mmol/L (3.4-5.0); Sodium 141 mmol/L (137-145)
--- NOTE | 2021-01-28 19:55 | PC.NURSE ---
[facility], called-bed available at [facility] center 249.
--- NOTE | 2021-01-28 20:30 | PC.NURSE ---
notified that bed is available at [facility] and will be transferred as soon as EMS is available to take pt.
--- NOTE | 2021-01-28 21:00 | PC.NURSE ---
Transfer line, Alivia, notified of pt discharge at this time per EMS enroute to [facility].
== END 2021-01-28 21:00 | disposition short-term general hospital (02) ==
PROVIDERS: Emergency Medicine; General Practice; Emergency Provider Emergency Medicine; PCP Family Medicine
DX: R56.9 Unspecified convulsions (principal); E86.0 Dehydration; E11.65 Type 2 diabetes mellitus with hyperglycemia; E11.10 Type 2 diabetes mellitus with ketoacidosis without coma; D64.9 Anemia, unspecified; I25.10 Atherosclerotic heart disease of native coronary artery without angina pectoris; I10 Essential (primary) hypertension; E78.5 Hyperlipidemia, unspecified; E03.9 Hypothyroidism, unspecified; Z87.442 Personal history of urinary calculi; D69.6 Thrombocytopenia, unspecified; Z91.14 Patient's other noncompliance with medication regimen; Z79.4 Long term (current) use of insulin; Z79.84 Long term (current) use of oral hypoglycemic drugs; Z79.82 Long term (current) use of aspirin; R94.31 Abnormal electrocardiogram [ECG] [EKG]; N20.0 Calculus of kidney; R93.7 Abnormal findings on diagnostic imaging of other parts of musculoskeletal system
CPT/HCPCS: 36415; 70450; 71045; 72131; 80048; 80053; 81001; 82010; 82948; 83605; 83735; 84484; 85025; 85610; 85730; 93005; 96361; 96365; 96366; 96375; 99291; A9270; J0131; J1815; J1953; J2060; J2270; J2405; J3010; J7030

== ENCOUNTER 2021-02-28 10:45 | Outpatient (CLI) | payer MEDICARE, BC, SELFPAY ==
[2021-02-28 11:34] LABS: Hematocrit 33.7 % (37.0-47.0); Hemoglobin 10.7 g/dL (12.0-15.0); Mean Corpuscular HGB Conc 31.8 g/dl (32-36); Mean Corpuscular Hemoglobin 30.6 pg (26-34); Mean Corpuscular Volume 96.3 fl (80-100); Mean Platelet Volume 10.8 fl (7.4-10.4); Platelet Count Result 160 k/mm3 (150-375); Red Cell Distribution Width 14.4 % (11.5-14.5)
[2021-02-28 11:54] LABS: Alanine Aminotransferase 19 U/L (4-35); Albumin Level 4.1 g/dL (3.5-5.1); Alkaline Phosphatase 97 U/L (38-126); Anion Gap 7 mmol/L (8-16); Aspartate Amino Transferase 19 U/L (14-36); Bilirubin,Total 0.4 mg/dL (0.2-1.3); Blood Urea Nitrogen 17 mg/dL (7-17); Calcium 10.4 mg/dL (8.4-10.2); Carbon Dioxide 29 mmol/L (22-30); Chloride 101 mmol/L (98-107); Estimated Glomerular Filt Rate > 60; Glucose 84 mg/dL (65-110); Potassium 3.5 mmol/L (3.4-5.0); Sodium 137 mmol/L (137-145)
[2021-03-06 15:05] LABS: TPMT Activity 22
== END 2021-02-28 10:46 | disposition home or self-care (01) ==
PROVIDERS: PCP Family Medicine; Visit Provider Nurse Practitioner Family
DX: K51.311 Ulcerative (chronic) rectosigmoiditis with rectal bleeding (principal)
CPT/HCPCS: 36415; 80053; 82657; 85027

== ENCOUNTER 2021-03-23 02:19 | Emergency (ER) | payer MEDICARE, BC, SELFPAY ==
--- NOTE | ~2021-03-23 | CT_ITS ---
EXAMINATION: CT cervical spine wo con DATE: 03/23/2021 03:22 INDICATION: Head injury. TECHNIQUE: Computed tomography (CT) of the cervical spine was performed without intravenous contrast. Automated exposure control and iterative reconstruction technique were employed. The dose-length pro duct was 408.57 mGy-cm. COMPARISON: None FINDINGS: There are nodules in the thyroid measuring up to 2.0 cm on the left. There is mild emphysem a. There is 8 degrees levocurvature of cervical spine. There is 2 mm retrolisthesis of C5 on C6. Vert ebral body heights are normal. There is mildly decreased disc height at C4-C5 and moderately decrease d disc height at C5-C6. The following disc levels are specifically discussed: C2-C3: There is no uncovertebral joint osteoarthritis. There is mild right and severe left facet join t osteoarthritis. There is mild left neural foraminal stenosis. There is no central canal stenosis. C3-C4: There is mild bilateral uncovertebral joint osteoarthritis. There is severe right and moderate left facet joint osteoarthritis. There is mild right neural foraminal stenosis. There is no central canal stenosis. C4-C5: There is no uncovertebral joint osteoarthritis. There is mild bilateral facet joint osteoarthr itis. There is mild right neural foraminal stenosis. There is mild central canal stenosis. C5-C6: There is severe right and mild left uncovertebral joint osteoarthritis. There is mild bilatera l facet joint osteoarthritis. There is mild bilateral neural foraminal stenosis. There is mild centra l canal stenosis. C6-C7: There is mild right uncovertebral joint osteoarthritis. There is mild left facet joint osteoar thritis. There is no neural foraminal stenosis. There is mild central canal stenosis. C7-T1: There is no uncovertebral joint osteoarthritis. There is mild bilateral facet joint osteoarthr itis. There is no neural foraminal stenosis. There is no central canal stenosis. IMPRESSION: 1. No fracture. 2. Moderate cervical spondylosis. 3. Multinodular goiter. Consider thyroid ultrasound for risk stratification. Reviewed, dictated and finalized at location A. IC [employer]
--- NOTE | ~2021-03-23 | XR_ITS ---
EXAMINATION: XR humerus RT DATE: 03/23/2021 03:14 INDICATION: Right shoulder pain. Fall. TECHNIQUE: 1 view of right humerus was obtained. COMPARISON: None. FINDINGS: There is a comminuted fracture of proximal right humerus including a displaced fracture com ponent at the surgical neck. The main distal fracture fragment demonstrates impaction and 23 degrees posterior angulation. IMPRESSION: 1. Comminuted fracture of proximal right humerus. Reviewed, dictated and finalized at location A. ERIOLOGY PROFESSOR
--- NOTE | ~2021-03-23 | CT_ITS ---
EXAMINATION: CT brain wo con DATE: 03/23/2021 03:22 INDICATION: Head injury. TECHNIQUE: Computed tomography (CT) of the head was performed without intravenous contrast. The mA wa s adjusted according to patient size. Iterative reconstruction technique was employed. The dose-lengt h product was 605.33 mGy-cm. COMPARISON: Head CT 01/27/2021 FINDINGS: There is a small old infarct in left cerebellum. There is an old infarct in right parietal lobe. There are scattered areas of low attenuation in the cerebral white matter. There is no intracra nial hemorrhage, acute infarction, or abnormal intracranial mass lesion. The ventricles are normal in size. There is mild mucosal thickening in the paranasal sinuses. There are likely changes of ocular lens replacement surgeries. There is a trace right mastoid effusion. There is frontal scalp soft tiss ue swelling. IMPRESSION: 1. 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 2. Worsened moderate nonspecific cerebral white matter disease, which likely represents chronic small vessel ischemic disease. Reviewed, dictated and finalized at location A. T STOCKER IMPRESSION: 1. 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 2. Worsened moderate nonspecific cerebral white matter disease, which likely re presents chronic small vessel ischemic disease.
--- NOTE | ~2021-03-23 | CT_ITS ---
EXAMINATION: CT shoulder RT wo con DATE: 03/23/2021 04:01 INDICATION: Proximal right humerus fracture. TECHNIQUE: Computed tomography (CT) of the right shoulder was performed without intravenous contrast. Automated exposure control and iterative reconstruction technique were employed. The dose-length pro duct was 371.61 mGy-cm. COMPARISON: Right shoulder radiographs 03/23/2021 FINDINGS: Bone alignment is normal. There is a comminuted fracture of proximal right humerus includin g including displaced components at the greater tuberosity and surgical neck and nondisplaced compone nt at the lesser tuberosity. The main distal fracture fragment demonstrates impaction, 10 degrees pos terior angulation, and 8 mm medial displacement. There is mild osteoarthritis of glenohumeral joint a nd severe osteoarthritis of acromioclavicular joint. IMPRESSION: 1. Comminuted three-part fracture of proximal right humerus. Reviewed, dictated and finalized at location A. ERS COMPENSATION LEGAL SECRETARY
--- NOTE | ~2021-03-23 | XR_ITS ---
EXAMINATION: XR shoulder RT min 2V DATE: 03/23/2021 03:14 INDICATION: Right shoulder pain. Fall. TECHNIQUE: 3 views of right shoulder were obtained. COMPARISON: None. FINDINGS: There is a comminuted fracture of proximal right humerus including a displaced fracture com ponent a surgical neck. The main distal fracture fragment demonstrates 9 mm medial displacement and 2 3 degrees lateral angulation. Glenohumeral joint is normal. There is moderate acromioclavicular joint osteoarthritis. IMPRESSION: 1. Comminuted fracture of proximal right humerus, at least two-part. Reviewed, dictated and finalized at location A. VITIES THERAPIST
[2021-03-23 02:21] VITALS: BP 134/49; PULSE 82; RESP 22; TEMP 36.5; O2SAT 95
--- NOTE | 2021-03-23 02:50 | ED.GENADULT ---
HPI - General Adult General Chief complaint: Extremity Injury, Upper Stated complaint: R shoulder injury/pain Time Seen by Provider: 03/23/21 02:31 Source: patient and RN notes reviewed Mode of arrival: EMS Limitations: no limitations History of Present Illness HPI narrative: This is a 75 year old Right hand dominant female who presents for evaluation of head injury and right arm pain s/p fall. Patient reports she tripped running to answer the phone a few hours ago. She hit her head but denies LOC, dizziness, nausea or vomiting. She does take plavix. It took them 30 minutes to get patient off the floor but she has been able to walk since injury. She is having right shoulder pain and it is worse with movement. She denies neck pain. She denies numbness or tingling. Related Data Home Medications Medication Instructions Recorded Confirmed atorvastatin 10 mg tablet 10 mg PO HS 03/23/19 03/05/21 levothyroxine 50 mcg tablet 50 mcg PO DAILY 11/29/20 03/05/21 lisinopril 5 mg PO HS 12/06/20 03/05/21 calcium carbonate 600 mg calcium 600 mg PO DAILY 03/02/21 03/05/21 (1,500 mg) tablet Allergies Allergy/AdvReac Type Severity Reaction Status Date / Time Iodinated Contrast Media Allergy Intermediate Hives Verified 03/23/21 02:27 loracarbef [From Lorabid] Allergy Intermediate Hives Verified 03/23/21 02:27 Review of Systems Review of Systems: All systems reviewed & are unremarkable except as noted in HPI and below PMFSH Past Medical History Medical History Anemia Aortic insufficiency CAD (coronary artery disease) Diabetes A1c 6.6 on 04-29-19 Distal radius fracture, left Diverticulosis Forehead contusion HTN (hypertension) Hypercholesterolemia Hyperlipidemia Hypertension Hypothyroid Numbness Renal stones Thrombocytopenia Ulcerative colitis Surgical History Surgical History H/O lithotripsy H/O: hysterectomy Family History Family History Sibling Cancer Father Brain aneurysm Heart disease Hypertension Mother Hypertension Diabetes mellitus Social History Social History Social History: The patient her 1st and is living with her 2nd . Her is a durable power cargo and container inspector for healthcare. The patient desires to be a full code. The patient has worked at [employer] as well as the [employer]. The patient had a stillborn and had 2 living children and her son since then has been ordered. She has 1 remaining daughter. The patient is a former smoker. She denies any marijuana alcohol or illicit drugs. Caffeine-Soda Smoking packs per day: 1 Smoking cigarettes per day: 20.0 Years smoked: 55 Smoking pack-years: 55.00 Smoking status: Former smoker Tobacco type: cigarettes Second hand tobacco smoke exposure: No Smoking end date: 03/14/16 Alcohol intake: never Substance use: never Gender identity (if verbalized by the patient): Female Spiritual care concerns: No Exam Const: General: no acute distress and alert Orientation/consciousness: patient oriented x3 HENMT: Head: normocephalic and other (right forehead hematoma) Face and sinus: normal facial exam, sinuses nontender and face symmetric Mouth: Yes Normal oral and palatal mucosa present, Yes lip normal, Yes oropharynx normal and Yes moist mucous membranes Eyes: Pupils: Equal, round and reactive pupils present EOM: EOMs intact bilaterally Neck: Neck: normal visual inspection Chest: Chest palpation & inspection: normal inspection of the chest Resp: Effort & Inspection: normal respiratory effort, no retractions and no use of accessory muscles Auscultation: clear to auscultation bilaterally Cardio: Rate: regular rate Rhythm: regular rhythm Heart sounds: no murmurs
[2021-03-23] MEDS: ONDANSETRON INJ 4 MG/2 ML VIAL IV PUSH (02:52)
[2021-03-23] MEDS: MORPHINE SULFATE (*CRX) 4 MG/ML INJ IV PUSH (02:52)
[2021-03-23 03:43] VITALS: BP 142/49; PULSE 90; RESP 16; O2SAT 95
[2021-03-23 05:03] VITALS: BP 129/51; PULSE 87; RESP 25; O2SAT 97
[2021-03-23] MEDS: HYDROcodone/acetaminophen (*CRX) 5-325 MG TABLET 1 TAB PO (06:23)
[2021-03-23 06:40] VITALS: BP 149/56; PULSE 87; RESP 17; O2SAT 96
== END 2021-03-23 06:35 | disposition home or self-care (01) ==
PROVIDERS: Emergency Provider General Practice; PCP Family Medicine
DX: S09.90XA Unspecified injury of head, initial encounter (principal); S42.231A 3-part fracture of surgical neck of right humerus, initial encounter for closed fracture; I25.10 Atherosclerotic heart disease of native coronary artery without angina pectoris; I35.1 Nonrheumatic aortic (valve) insufficiency; E11.9 Type 2 diabetes mellitus without complications; I10 Essential (primary) hypertension; E78.5 Hyperlipidemia, unspecified; E03.9 Hypothyroidism, unspecified; Z87.442 Personal history of urinary calculi; Z86.2 Personal history of diseases of the blood and blood-forming organs and certain disorders involving the immune mechanism; Z87.891 Personal history of nicotine dependence; Z79.02 Long term (current) use of antithrombotics/antiplatelets; W01.0XXA Fall on same level from slipping, tripping and stumbling without subsequent striking against object, initial encounter
CPT/HCPCS: 70450; 72125; 73030; 73060; 73200; 96374; 96375; 99284; A9270; J2270; J2405

== ENCOUNTER 2021-06-11 09:09 | Observation (INO) | payer MEDICARE, BC, SELFPAY ==
[2021-06-11] VITALS (14 sets, daily range): BP systolic 106–166; BP diastolic 52–110; PULSE 62–91; RESP 16–25; TEMP 35.9–36.5; O2SAT 97–100; BMI 26.6
--- NOTE | ~2021-06-11 | CT_ITS ---
EXAMINATION: CT BRAIN W/O DATE: 06/11/2021 09:57 INDICATION: Altered mental status TECHNIQUE: Computed tomography (CT) of the head was performed without intravenous contrast. The dose- length product was 529.67 mGy-cm. Automated exposure control and iterative reconstruction technique w ere employed. COMPARISON: CT dated 03/23/2021 FINDINGS: Generalized atrophy. There are scattered mild periventricular and subcortical white matter changes, most likely related to small vessel ischemic disease (microangiopathy). There is chronic rig ht parietal lobe infarction. Chronic focal left cerebellar infarction. No acute intracranial hemorrha ge, infarction, mass or mass effect. No ventriculomegaly or midline shift. Basilar cisterns are paten t. No ventriculomegaly or midline shift. Midline sagittal images demonstrate a normal corpus callosum, c raniovertebral junction and sella turcica. Basilar cisterns are patent. Paranasal sinuses and mastoids are pneumatized. No depressed skull fractures. IMPRESSION: 1. No acute intracranial abnormality. 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 3: Chronic age-related findings. Reviewed, dictated and finalized at location A. PULLER AND COILER
--- NOTE | ~2021-06-11 | MR_ITS ---
EXAMINATION: MR brain/brain stem wo con EXAM DATE: 06/12/2021 07:56 INDICATION: AMS TECHNIQUE: Magnetic resonance imaging (MRI) of the brain/brain stem obtained without contrast. Lexx al T1, axial diffusion, gradient echo (T2*), T1, T2, FLAIR sequences obtained. Correlation made to he ad CT from yesterday. Comparison is made to prior examination from 09/02/2019. FINDINGS: There is punctate old left cerebellar infarction. There is small old right parietal lobe in farction. There are no areas of restricted diffusion to suggest acute infarction. There is no acute hemorrhage seen on the T2*, a hemosiderin sensitive sequence. No intraparenchymal brain mass lesion. There is mild to moderate periventricular and subcortical T2/FLAIR signal hyperintensity, nonspecifi c but probably related to small vessel ischemic disease (microangiopathy). There are no extra-axial collections. Flow voids are seen in the cerebral arteries on the T2-weighted sequences consistent w ith their expected patency. The orbits are unremarkable. Soft tissue is unremarkable. IMPRESSION: 1. Small old right parietal, punctate old left cerebellar infarctions. 2. Microangiopathy. Reviewed, dictated and finalized at location G. EF CHARGE NURSE
--- NOTE | ~2021-06-11 | XR_ITS ---
EXAMINATION: XR chest 2V DATE: 06/11/2021 10:02 INDICATION: Altered mental status. TECHNIQUE: Frontal and lateral views of the chest were obtained. COMPARISON: Chest single view 01/27/2021 FINDINGS: There is mild scarring at left lung apex. No pleural effusion or pneumothorax. The heart si ze is normal. There is a healing fracture of proximal right humerus. IMPRESSION: 1. Mild scarring at left lung apex. Reviewed, dictated and finalized at location A. ITY SYSTEMS REPAIRER OPERATOR
[2021-06-11 09:22] LABS: Glucose Point of Care 119 mg/dl (65-105)
--- NOTE | 2021-06-11 09:38 | ECG_ITS ---
Measurements Intervals [place] Rate: 79 P: 73 CO: 168 QRS: 66 QRSD: 87 T: 53 QT: 353 QTc: 406 Interpretive Statements SINUS RHYTHM WITH SINUS ARRHYTHMIA ATRIAL PREMATURE COMPLEXES BASELINE ARTIFACT- I, II, III, AVR, AVL, AVF, V5 BORDERLINE ECG Electronically Signed On 06-11-2021 12:11:32 [place] by Jori Haines D.O.
--- NOTE | 2021-06-11 09:43 | ED.AMS ---
HPI - Altered Mental Status General Chief Complaint: Back Pain/Injury Stated Complaint: back pain Time Seen by Provider: 06/11/21 09:24 History of Present Illness HPI narrative: 75-year-old diabetic female presents to the emergency room with acute onset of altered mental status this morning when she woke up. According to the patient states that she has had difficulty sleeping all night, attributing this to back pain. Blood sugar this morning ranged from 99-110. According to patient's , patient recently had suspected stroke at an outside emergency room. Patient's states that she woke up confused, putting her dress on over her coat. Patient has a follow-up with neurology next week. Denies unilateral weakness. Denies difficulty swallowing. Denies slurred speech. Denies visual changes. Unknown onset of symptoms. Related Data Home Medications Medication Instructions Recorded Confirmed atorvastatin 10 mg tablet 10 mg PO HS 03/23/19 04/02/21 levothyroxine 50 mcg tablet 50 mcg PO DAILY 11/29/20 04/02/21 calcium carbonate 600 mg calcium 600 mg PO DAILY 03/02/21 04/02/21 (1,500 mg) tablet Allergies Allergy/AdvReac Type Severity Reaction Status Date / Time Iodinated Contrast Media Allergy Intermediate Hives Verified 04/02/21 09:39 loracarbef [From Lorabid] Allergy Intermediate Hives Verified 04/02/21 09:39 Review of Systems Review of Systems: CONSTITUTIONAL: Denies fever, chills, or sweats. EYES: Denies visual changes, redness, or discharge. ENT: Denies rhinorrhea, congestion, sore throat, or otalgia. CARDIOVASCULAR: Denies chest pain, palpitations, or edema. RESPIRATORY: Denies cough or dyspnea. GASTROINTESTINAL: Denies abdominal pain, nausea, vomiting, or diarrhea. GENITOURINARY: Denies dysuria or hematuria. SKIN: Denies rash or itching. MUSCULOSKELETAL: Reports back pain. denies joint pain, or myalgia. NEUROLOGIC: Denies headache, numbness, dizziness, or weakness. PSYCHIATRIC: Denies anxiety or depression. [facility] Past Medical History Medical History Anemia Aortic insufficiency CAD (coronary artery disease) Diabetes A1c 6.6 on 04-29-19 Distal radius fracture, left Diverticulosis Forehead contusion HTN (hypertension) Hypercholesterolemia Hyperlipidemia Hypertension Hypothyroid Numbness Renal stones Thrombocytopenia Ulcerative colitis Surgical History Surgical History H/O lithotripsy H/O: hysterectomy Family History Family History Sibling Cancer Father Brain aneurysm Heart disease Hypertension Mother Hypertension Diabetes mellitus Social History Social History Social History: The patient her 1st and is living with her 2nd . Her is a durable power chicken picker for healthcare. The patient desires to be a full code. The patient has worked at [employer] as well as the [employer]. The patient had a stillborn and had 2 living children and her son since then has been ordered. She has 1 remaining daughter. The patient is a former smoker. She denies any marijuana alcohol or illicit drugs. Caffeine-Soda Smoking packs per day: 1 Smoking cigarettes per day: 20.0 Years smoked: 55 Smoking pack-years: 55.00 Smoking status: Current some day smoker Tobacco type: cigarettes Second hand tobacco smoke exposure: No Smoking end date: 03/14/16 Alcohol intake: never Substance use: never Gender identity (if verbalized by the patient): Female Spiritual care concerns: No Exam Narrative: GENERAL: Well-appearing, well-nourished, and in no acute distress. HEAD: Normocephalic, atraumatic. EYES: PERRLA and EOMI. ENT: Nares clear, no rhinorrhea or epistaxis. Mucous membranes moist. NECK: Supple. No adenopa
[2021-06-11 09:58] LABS: Basophils Percent Auto 0.4 % (0.2-1.2); Eosinophils Absolute Auto 0.1 K/mm3 (0-0.3); Eosinophils Percent Auto 0.7 % (0-4.4); Hematocrit 37.9 % (37.0-47.0); Hemoglobin 12.5 g/dL (12.0-15.0); Immature Granulocyte Absolute 0.04 K/mm3 (0.00-0.031); Immature Granulocyte Percent A 0.4 % (0-0.5); Lymphocytes Absolute Auto 1.48 K/mm3 (0.9-3.2); Lymphocytes Percent Auto 15.6 % (18.3-44.2); Mean Corpuscular Hemoglobin 29.9 pg (26-34); Mean Corpuscular Volume 90.7 fl (80-100); Mean Platelet Volume 12.1 fl (7.4-10.4); Monocytes Absolute Auto 0.6 K/mm3 (0.1-0.6); Monocytes Percent Auto 6.2 % (2.6-8.5); Neutrophils Absolute Auto 7.3 K/mm3 (1.3-6.7); Neutrophils Percent Auto 76.7 % (45.5-73.1); Platelet Count Result 153 k/mm3 (150-375); Red Blood Count 4.18 M/mm3 (4.2-5.4); Red Cell Distribution Width 13.1 % (11.5-14.5); White Blood Count 9.5 K/mm3 (4.5-10.0)
[2021-06-11] MEDS: SODIUM CHLORIDE 0.9% IV 1,000 ML 125 ML IV CONT (10:03)
[2021-06-11 10:17] LABS: Alanine Aminotransferase 17 U/L (4-35); Albumin Level 4.4 g/dL (3.5-5.1); Alkaline Phosphatase 117 U/L (38-126); Anion Gap 8 mmol/L (8-16); Aspartate Amino Transferase 22 U/L (14-36); Bilirubin,Total 0.6 mg/dL (0.2-1.3); Blood Urea Nitrogen 20 mg/dL (7-17); Carbon Dioxide 23 mmol/L (22-30); Chloride 107 mmol/L (98-107); Estimated CRCL calculation 50 ml/min; Estimated Glomerular Filt Rate > 60; Glucose 112 mg/dL (65-110); Potassium 4.3 mmol/L (3.4-5.0); Sodium 138 mmol/L (137-145)
[2021-06-11 10:29] LABS: Troponin I < 0.012 ng/mL (0.000-0.034)
[2021-06-11 11:57] LABS: Add Urine Microscopic? YES; Appearance Urine Clear (Clear); Bilirubin Urine Negative (Negative); Color Urine Yellow (Yellow); Glucose Urine UA Negative (Negative); Ketones Urine Negative (Negative); Leukocyte Esterase Ur 2+ LEU/UL (Negative); Mucus Urine Rare /lpf; Nitrate Urine Negative (Negative); Protein Urine 1+ mg/dL (Negative); Specific Grav Ur 1.026 (1.001-1.035); Squamous Epithelial Cell Urine Few /hpf (Few); Urobilinogen Urine Negative mg/dL (<2.0); WBC Urine 16-20 /hpf
[2021-06-11] MEDS: ASPIRIN 81 MG CHEWABLE TABLET 324 MG PO (12:01)
[2021-06-11 12:09] LABS: Blood Urine Negative (Negative)
[2021-06-11] MEDS: CIPROFLOXACIN 400 MG/D5W 200ML 200 ML 200 MG IVPB (12:27)
--- NOTE | 2021-06-11 14:30 | ADMGEN ---
This patient, Shanon Ramirez, was admitted to 2 Medical Room 244-. Patient/family oriented to hospital policies and general routines including ID bracelet, bed and alarms, visiting hours, pain management, procedures, bathroom and other care routines, personal items, smoking policy, room service/diet, and visiting hours. Information on how to activate the Rapid Response Team has been discussed. Patient/Family are encouraged to report perceived risks to care and to ask questions if they do not understand what they are told or what they should do.
[2021-06-11 16:40] LABS: Glucose Point of Care 113 mg/dl (65-105)
--- NOTE | 2021-06-11 18:01 | PM.IMHP ---
H&P: HPI History of Present Illness Date/Time: Patient was placed observation status for expected length of stay less than 23 hours for management, will plan to re-evaluate tomorrow for improvement. 06/11/21 18:01 Chief Complaint: Confusion Narrative: Ms. James vigil female who presented emergency room for complaints of confusion this morning. Patient has passed the bedside is giving events of last evening as well as patient is adding history. Per patient's patient was moaning all night complaining of back pain. Patient states that she was having pain in her thoracic area that was not necessarily midline, but it could have been more to the right side of her back. Patient states she felt like she could not get comfortable. Per patient's it was thought the patient may have had a stroke in the past an outside hospital. Patient's states after patient had been tossing and turning all night he told her to get up and get dressed and they were coming to the hospital for further evaluation. Patient's became very concerned when patient tried to put her T-shirt over her pajama top. Patient states that she was just under her E and realized what she was doing, and she did not feel confused. Patient denies any slurring of speech. Patient denied any slurring of speech, facial droop, or aphasia. Patient denies any numbness, tingling, or weakness to any extremities. Patient denies any chest pain, shortness breast, lightheadedness, dizziness, syncopal, or near syncopal episodes. Patient states in March of this year she did fracture her humerus and she is receiving therapy for that. X-ray at this establishment shows comminuted fracture of the proximal right humerus. 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 Review of Systems Review of Systems: A 12 point review of systems was completed patient all pertinent positive and negative per HPI the remainder are unremarkable. [facility] Past Medical History Medical History (Updated 06/11/21 @ 18:38 by Galilea Knowles APRN) Acute kidney injury Anemia Aortic insufficiency CAD (coronary artery disease) Diabetes A1c 6.6 on 04-29-19 Distal radius fracture, left Diverticulosis Forehead contusion HTN (hypertension) Hypercholesterolemia Hyperlipidemia Hypertension Hypokalemia Hypothyroid Numbness Renal stones Thrombocytopenia Ulcerative colitis Surgical History Surgical History H/O lithotripsy H/O: hysterectomy Family History Family History (Updated 06/11/21 @ 15:07 by Hali Molina RN) Sibling Cancer Father Brain aneurysm Heart disease Hypertension Mother Diabetes mellitus Hypertension Grandparent Cancer Other Cancer Aunt Social History Social History Social History: The patient her 1st and is living with her 2nd . Her is a durable power bank vault attendant for healthcare. The patient desires to be a full code. The patient has worked at [employer] as well as the [employer]. The patient had a stillborn and had 2 living children and her son since then has been ordered. She has 1 remaining daughter. The patient is a former smoker. She denies any marijuana alcohol or illicit drugs. Caffeine-Soda Smoking packs per day: 1 Smoking cigarettes per day: 20.0 Years smoked: 55 Smoking pack-years: 55.00 Smoking status: Current some day smoker Second hand tobacco smoke exposure: No Alcohol intake: never Substance use: never Gender identity (if verbalized by the patient): Female Spiritual care
[2021-06-11 20:35] LABS: Glucose Point of Care 108 mg/dl (65-105)
[2021-06-11] MEDS: INSULIN GLARGINE (*BKC) 100 UNITS/ML 30 UNITS SUB-Q (20:36)
[2021-06-12] VITALS: BP 136/52; PULSE 68; RESP 20; TEMP 36.2; O2SAT 98
[2021-06-12 04:30] VITALS: BP 126/78; PULSE 65; RESP 20; TEMP 35.7; O2SAT 100
[2021-06-12] MEDS: LEVOTHYROXINE SODIUM 50 MCG TABLET PO (05:55)
[2021-06-12 08:31] LABS: Glucose Point of Care 141 mg/dl (65-105)
[2021-06-12] MEDS: CALCIUM CARBONATE (OSCAL) 500 MG TABLET PO (08:56)
[2021-06-12] MEDS: ASPIRIN 81 MG ENTERIC TABLET PO (08:56)
[2021-06-12] MEDS: ATORVASTATIN 10 MG TABLET PO (08:56)
[2021-06-12] MEDS: amLODIPine BESYLATE 5 MG TABLET 10 MG PO (08:56)
[2021-06-12] MEDS: levETIRAcetam 500 MG TABLET PO (08:56)
[2021-06-12] MEDS: GLIMEPIRIDE 1 MG TABLET PO (08:56)
[2021-06-12] MEDS: CLOPIDOGREL BISULFATE 75 MG TABLET PO (08:56)
[2021-06-12] MEDS: lisinopriL 5 MG TABLET PO (08:57)
[2021-06-12] MEDS: INSULIN ASPART (*BKC) 100 UNITS/ML SUB-Q (08:57)
[2021-06-12] MEDS: ENOXAPARIN 40 MG/0.4 ML SYRINGE SUB-Q (08:57)
--- NOTE | 2021-06-12 09:42 | PM.DS ---
DS: Admitting Diagnosis Discharge Date 06/12/2021 Admitting Diagnosis Confusion, HTN, Right Humeral Fx, Back Pain DS: Discharge Diagnosis Discharge Diagnosis (1) Altered mental status: Code(s): R41.82 - Altered mental status, unspecified Status: Acute Assessment and Plan: - Likely secondary to UTI. - Secondary to pt's hx of CVA prior, her head is scanned and there is no sign of acute hemorrhage. - MRI of brain negative for any new infarct, only old infarct present. - Mentation this AM is A&Ox3 and no deficits or focal abnormalities present. (2) UTI (urinary tract infection): Code(s): N39.0 - Urinary tract infection, site not specified Status: Acute Assessment and Plan: - UA with 2+ Leuks and WBC's. - Culture pending. - As pt. has improved, her previous chart has been reviewed for UTI's in the past and she had two last year that both grew out E.coli and both were sensitive to Bactrim DS. - As pt. is back to baseline, she can be discharged today with Bactrim DS as treatment for her UTI. (3) Back pain: Code(s): M54.9 - Dorsalgia, unspecified Status: Acute Assessment and Plan: - Currently no complaints. - Suspicion that pt. may have had back pain secondary to her UTI. DS: Summary Hospital Course Hospital Course: This pleasant 75 year old female patient with significant PMH of Anemia, CAD, DM, Diverticulosis, CVA, HTN, HLD, Hypokalemia, Hypothyroidism, Thrombocytopenia, and Ulcerative Colitis presented to the ER yesterday, brought by her spouse with complaints of having woke up confused from her sleep. He believed she was acutely confused as she attempted to put her shirt on over her pajamas. Out of concern for another CVA, he brought her to the ER. In the ER she was found to have a UTI and CT of her head was normal. She was given IVF and IV Rocephin and she was admitted to the hospital for continued care and observation. She was continued on Rocephin while here. This AM an MRI was ordered of her brain and it was negative for any acute findings. Her Urine is still in culture pending, but I reviewed her past history of UTI's and she had two within the past year that both grew out E.coli that was sensitive to Bactrim DS. As pt. is now at her baseline and she has no neurological deficits with an NIH of 0, she is stable for discharge to home at this time with instructions to continue oral intake, take all medications as ordered and to follow up with her PCP in the next week. She verbalizes all understanding. Time Spent with Patient Time attestation: Total time spent providing and/or coordinating discharge services: 25 minutes Exam Const: General: comfortable and no acute distress Limitations: no limitations, No altered mental status and No physical limitations HENMT: Mouth: Yes dry mucous membranes Eyes: Sclera: sclerae normal Neck: Neck: supple and no JVD Lymphatic: lymphadenopathy not noted Resp: Effort & Inspection: normal respiratory effort Auscultation: clear to auscultation bilaterally, no crackles, no rales, no rhonchi, no wheezes and lung sounds not diminished Cardio: Rate: regular rate Rhythm: regular rhythm GI: GI Palp: Yes Soft to palpation and No Tenderness to palpation present (GI) Auscultation: normal bowel sounds Skin: General skin exam: normal color and no rashes or lesions noted Neuro: General: gait normal Motor exam (neuro): 5/5 motor strength present throughout and Normal motor muscle tone present throughout Extrem: General: normal to inspection Right upper extremity: normal to inspection Left upper extremity: normal to inspection Right lower extremity: normal to inspection Left lower extremity: normal to inspection Psych: Appearance: grossly normal Mental Status: mental status grossly normal Speech and movement: Normal speech and movement present Affect: normal affect Thought content: Yes Normal thought content present DS: Data Data Completed a
[2021-06-12 09:51] VITALS: BP 124/65; PULSE 71; RESP 16; TEMP 35.9; O2SAT 100
[2021-06-12 09:53] VITALS: O2SAT 97
== END 2021-06-12 12:34 | disposition home or self-care (01) ==
LOC: ANHED 09:24 → ANH2MED 14:09
PROVIDERS: Admitting Provider Internal Medicine; Emergency Provider Nurse Practitioner Family; PCP Family Medicine; Visit Provider Nurse Practitioner Adult Health
DX: N39.0 Urinary tract infection, site not specified (principal); R41.82 Altered mental status, unspecified; D64.9 Anemia, unspecified; E78.5 Hyperlipidemia, unspecified; E87.6 Hypokalemia; E03.9 Hypothyroidism, unspecified; I25.10 Atherosclerotic heart disease of native coronary artery without angina pectoris; I10 Essential (primary) hypertension; M54.9 Dorsalgia, unspecified; Z86.73 Personal history of transient ischemic attack (TIA), and cerebral infarction without residual deficits
CPT/HCPCS: 36415; 51701; 70450; 70551; 71046; 80053; 81001; 82948; 84484; 85025; 87086; 93005; 96365; 96366; 96372; 99285; A9270; G0378; J0696; J0744; J1650; J1815; J7030

== ENCOUNTER 2021-06-26 11:28 | Outpatient (CLI) | payer MEDICARE, BC, SELFPAY ==
[2021-06-26 12:07] LABS: CRP < 0.5 mg/dL (<1.0)
[2021-06-26 13:01] LABS: Erythrocyte Sedimentation Rate 57 mm/hr (0-20)
== END 2021-06-26 11:29 | disposition home or self-care (01) ==
PROVIDERS: PCP Nurse Practitioner; Visit Provider Nurse Practitioner Family
DX: K51.311 Ulcerative (chronic) rectosigmoiditis with rectal bleeding (principal); R79.82 Elevated C-reactive protein (CRP)
CPT/HCPCS: 36415; 85652; 86140

== ENCOUNTER 2021-06-28 12:04 | Outpatient (CLI) | payer MEDICARE, BC, SELFPAY ==
[2021-07-06 18:15] LABS: Calprotectin, Stool 50 mcg/g
== END 2021-06-28 12:05 | disposition home or self-care (01) ==
PROVIDERS: PCP Family Medicine; Visit Provider Nurse Practitioner Family
DX: K51.311 Ulcerative (chronic) rectosigmoiditis with rectal bleeding (principal)
CPT/HCPCS: 83993

== ENCOUNTER 2021-07-19 14:18 | Outpatient (CLI) | payer MEDICARE, BC, SELFPAY ==
--- NOTE | ~2021-07-19 | MM_ITS ---
EXAMINATION: MM screening leny BI w derek HISTORY: Screening TECHNIQUE: Craniocaudal and mediolateral oblique 3-D tomosynthesis images were obtained and synthetic 2-D images were generated. CAD analysis was submitted and interpreted. COMPARISON: Comparison to multiple prior studies sequentially, with oldest reviewed study dated 08/2015. BREAST PARENCHYMAL COMPOSITION: Breast composed of scattered areas of fibroglandular density FINDINGS: There is no evidence of suspicious mass, calcification, or architectural distortion to sugg est malignancy in either breast. There has been no suspicious interval change. IMPRESSION: 1. No mammographic evidence of malignancy. 2. Recommend routine screening mammography in one year. BI-RADS Category 1: Negative Reviewed, dictated and finalized at location A.
== END 2021-07-19 14:19 | disposition home or self-care (01) ==
LOC: ANHIMG 14:19
PROVIDERS: PCP Family Medicine; Visit Provider Family Medicine
DX: Z12.31 Encounter for screening mammogram for malignant neoplasm of breast (principal)
CPT/HCPCS: 77063; 77067

== ENCOUNTER 2021-10-18 05:02 | Emergency (ER) | payer MEDICARE, BC, SELFPAY ==
--- NOTE | ~2021-10-18 | CT_ITS ---
EXAMINATION: CT abdomen pelvis wo con DATE: 10/18/2021 05:48 INDICATION: Abdominal pain, nausea and vomiting TECHNIQUE: Computed tomography (CT) of the abdomen and pelvis was performed without intravenous contr ast. Automated exposure control and iterative reconstruction technique were employed. The dose-length product was 841.18 mGy-cm. COMPARISON: 12/22/2020 FINDINGS: Small pneumatocele in the right lower lobe. Heart size is normal. Atherosclerotic coronary artery janice cifications. No pericardial or pleural effusion. Liver, gallbladder, spleen and bilateral adrenal gla nds are normal. A few scattered small dystrophic calcifications at the body and tail of the pancreas likely sequela of chronic pancreatitis. No peripancreatic inflammatory stranding to suggest acute rose creatitis. 6.1 cm cyst at the lower pole of the left kidney. Left nephrolithiasis with 8 stones, the largest measuring 8 mm a lower pole calyx and with remainder measuring <3 mm . Right kidney is normal . Moderate diverticulosis sigmoid colon predominance without adjacent inflammatory change to suggest diverticulitis. No bowel obstruction. The appendix is not visualized. No pericecal inflammatory morillo e to suggest acute appendicitis. Bladder is normal. The uterus and ovaries are not identified and hav e likely been surgically resected. No free intraperitoneal gas or fluid. No pathologically enlarged a bdominal or pelvic lymphadenopathy. There is calcified atherosclerosis of the aorta and many of the o ther arteries. Small bone islands at L5 and the left femoral head. Mild to moderate thoracolumbar spo ndylosis. IMPRESSION: 1. Nonobstructing left nephrolithiasis. No acute intra-abdominal/pelvic process. 2. Diverticulosis. Reviewed, dictated and finalized at location A. IMPRESSION: 1. Nonobstructing left nephrolithiasis. No acute intra-abdominal/pelvic process . 2. Diverticulosis.
--- NOTE | ~2021-10-18 | CT_ITS ---
EXAMINATION: CT brain wo con DATE: 10/18/2021 05:48 INDICATION: Headache. TECHNIQUE: Computed tomography (CT) of the head was performed without intravenous contrast. Sagittal and coronal reconstructions were performed. The mA was adjusted according to patient size. Iterative reconstruction technique was employed. The dose-length product was 605.33 mGy-cm. COMPARISON: head CT dated 06/11/2021 and brain MR dated 06/12/2021 FINDINGS: Small region of encephalomalacia consistent with chronic infarct in the right parietal lobe. Addition al small old lacunar infarct in the left cerebral hemisphere. No acute intracranial hemorrhage, acute infarction or abnormal extra axial fluid collection. There is mild scattered white matter hypoattenu ation consistent with chronic small vessel ischemic disease. Ventricles are normal and symmetric. No mass/mass effect. Changes of bilateral intraocular lens replacement. The orbits, paranasal sinuses a nd mastoid air cells are normal. Atherosclerotic calcification at the bilateral carotid siphons. IMPRESSION: 1. 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 No acute intracranial process. 2. Mild scattered white matter hypoattenuation consistent with chronic small vessel ischemic disease. Reviewed, dictated and finalized at location A. IMPRESSION: 1. 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 No acute intracranial process. 2. Mild scattered white matter hypoattenuation consistent with chronic small ve ssel ischemic disease.
[2021-10-18 05:06] VITALS: BP 149/99; PULSE 86; RESP 18; TEMP 36.6; O2SAT 99
--- NOTE | 2021-10-18 05:34 | ED.GENADULT ---
HPI - General Adult General Chief complaint: Nausea/Vomiting/Diarrhea Stated complaint: n/v Time Seen by Provider: 10/18/21 05:15 Source: RN notes reviewed History of Present Illness HPI narrative: Patient presents emergency department from home for nausea vomiting. Patient states symptoms began approximately midnight tonight. She is initially began with several episodes of nausea and vomiting followed by a diffuse headache. Continues to remain nauseous she denies any fevers or chills vision changes chest pain shortness of breath numbness or tingling in the extremities or diarrhea. States she does have some abdominal pain that is diffuse states she not taking medication for the symptoms patient states her headache is improved at this time Related Data Home Medications Medication Instructions Recorded Confirmed atorvastatin 10 mg tablet 10 mg PO DAILY 03/23/19 06/26/21 calcium carbonate 600 mg calcium 600 mg PO DAILY 03/02/21 06/26/21 (1,500 mg) tablet (Calcium) amlodipine 10 mg tablet 10 mg PO DAILY 06/11/21 06/26/21 hydrocodone 5 mg-acetaminophen 325 1 tablet PO Q6H PRN Pain 06/11/21 06/26/21 mg tablet levetiracetam 500 mg tablet 500 mg PO DAILY 06/11/21 06/26/21 tramadol 50 mg tablet 50 mg PO BID PRN Pain 06/11/21 06/26/21 Allergies Allergy/AdvReac Type Severity Reaction Status Date / Time Iodinated Contrast Media Allergy Intermediate Hives Verified 06/26/21 10:29 loracarbef [From Lorabid] Allergy Intermediate Hives Verified 06/26/21 10:29 Review of Systems Review of Systems: Gen.: Denies fevers or chills Eyes: Denies eye pain or visual change ENT: Denies congestion Respiratory: Denies shortness of breath or cough CV: Denies chest pain or palpitations GI: See HPI Musculoskeletal: Denies back pain or muscle pain Neuro: Denies numbness, tingling, weakness or focal weakness, reports headache Skin: Denies rash Except as documented, all other systems reviewed and negative [facility] Past Medical History Medical History Acute kidney injury Anemia Aortic insufficiency CAD (coronary artery disease) Diabetes A1c 6.6 on 04-29-19 Distal radius fracture, left Diverticulosis Forehead contusion HTN (hypertension) Hypercholesterolemia Hyperlipidemia Hypertension Hypokalemia Hypothyroid Numbness Renal stones Right humeral fracture Thrombocytopenia Ulcerative colitis Ureterolithiasis Surgical History Surgical History H/O lithotripsy H/O: hysterectomy Family History Family History Sibling Cancer Father Brain aneurysm Heart disease Hypertension Mother Diabetes mellitus Hypertension Grandparent Cancer Other Cancer Aunt Social History Social History Social History: The patient her 1st and is living with her 2nd . Her is a durable power rn neurology for healthcare. The patient desires to be a full code. The patient has worked at [employer] as well as the [employer]. The patient had a stillborn and had 2 living children and her son since then has been ordered. She has 1 remaining daughter. The patient is a former smoker. She denies any marijuana alcohol or illicit drugs. Caffeine-Soda Smoking packs per day: 1 Smoking cigarettes per day: 20.0 Years smoked: 55 Smoking pack-years: 55.00 Smoking status: Current some day smoker Second hand tobacco smoke exposure: No Alcohol intake: never Substance use: never Gender identity (if verbalized by the patient): Female Spiritual care concerns: No Exam Narrative: APPEARANCE: No acute distress, nontoxic, resting in bed EYES: EOMI HEENT: Normocephalic, atraumatic, TMs clear bilaterally nares patent oral mucosa moist RESPIRATORY: No respiratory distress Clear to a
[2021-10-18] MEDS: ONDANSETRON INJ 4 MG/2 ML VIAL IV PUSH (06:15)
[2021-10-18] MEDS: SODIUM CHLORIDE 0.9% IV 1,000 ML 999 ML IV CONT (06:16)
[2021-10-18 06:21] LABS: Basophils Percent Auto 0.6 % (0.2-1.2); Eosinophils Absolute Auto 0.1 K/mm3 (0-0.3); Eosinophils Percent Auto 1.8 % (0-4.4); Hematocrit 32.3 % (37.0-47.0); Hemoglobin 10.5 g/dL (12.0-15.0); Immature Granulocyte Absolute 0.01 K/mm3 (0.00-0.031); Immature Granulocyte Percent A 0.2 % (0-0.5); Lymphocytes Absolute Auto 1.28 K/mm3 (0.9-3.2); Lymphocytes Percent Auto 19.5 % (18.3-44.2); Mean Corpuscular HGB Conc 32.5 g/dl (32-36); Mean Corpuscular Volume 92.3 fl (80-100); Mean Platelet Volume 12.6 fl (7.4-10.4); Monocytes Absolute Auto 0.5 K/mm3 (0.1-0.6); Monocytes Percent Auto 6.8 % (2.6-8.5); Neutrophils Absolute Auto 4.7 K/mm3 (1.3-6.7); Neutrophils Percent Auto 71.1 % (45.5-73.1); Platelet Count Result 128 k/mm3 (150-375); Red Cell Distribution Width 13.5 % (11.5-14.5); White Blood Count 6.6 K/mm3 (4.5-10.0)
[2021-10-18 06:27] LABS: Alanine Aminotransferase 16 U/L (6-35); Albumin Level 4.1 g/dL (3.5-5.1); Alkaline Phosphatase 121 U/L (38-126); Anion Gap 5 mmol/L (8-16); Aspartate Amino Transferase 23 U/L (14-36); Bilirubin,Total 0.6 mg/dL (0.2-1.3); Blood Urea Nitrogen 10 mg/dL (7-17); Calcium 9.4 mg/dL (8.4-10.2); Carbon Dioxide 27 mmol/L (22-30); Chloride 105 mmol/L (98-107); Estimated CRCL calculation 75 ml/min; Estimated Glomerular Filt Rate > 60; Glucose 148 mg/dL (65-110); Lipase 111 U/L (23-300); Potassium 4.3 mmol/L (3.4-5.0); Sodium 137 mmol/L (137-145)
[2021-10-18 06:28] LABS: Appearance Urine Clear (Clear); Bilirubin Urine Negative (Negative); Blood Urine 2+ (Negative); Color Urine Yellow (Yellow); Glucose Urine UA Negative (Negative); Ketones Urine Negative (Negative); Leukocyte Esterase Ur Trace LEU/UL (Negative); Nitrate Urine Negative (Negative); Protein Urine 3+ mg/dL (Negative); Specific Grav Ur 1.025 (1.001-1.035); Urobilinogen Urine 0.2 mg/dL (<2.0)
[2021-10-18 06:41] LABS: Mucus Urine Rare /lpf; Squamous Epithelial Cell Urine Few /hpf (Few); Transitional Epi Cells Urine Rare /hpf (None Seen)
[2021-10-18 06:42] LABS: Add Urine Microscopic? YES
[2021-10-18 07:23] VITALS: BP 135/67; PULSE 89; RESP 22; O2SAT 100
[2021-10-18] MEDS: NITROFURANTOIN MONOHYD MACROCR 100 MG CAP PO (07:52)
== END 2021-10-18 07:55 | disposition home or self-care (01) ==
PROVIDERS: Emergency Provider Emergency Medicine; PCP Family Medicine
DX: R11.2 Nausea with vomiting, unspecified (principal); R10.9 Unspecified abdominal pain; R51.9 Headache, unspecified; I25.10 Atherosclerotic heart disease of native coronary artery without angina pectoris; E11.9 Type 2 diabetes mellitus without complications; I10 Essential (primary) hypertension; E78.5 Hyperlipidemia, unspecified; E03.9 Hypothyroidism, unspecified; F17.210 Nicotine dependence, cigarettes, uncomplicated
CPT/HCPCS: 36415; 70450; 74176; 80053; 81001; 83690; 85025; 96361; 96374; 96375; 99284; A9270; J0131; J2405; J7030

== ENCOUNTER 2021-11-08 11:41 | Outpatient (CLI) | payer MEDICARE, BC, SELFPAY ==
[2021-11-08 19:34] LABS: Appearance Urine Clear (Clear); Bilirubin Urine 1+ (Negative); Blood Urine Negative (Negative); Color Urine Yellow (Yellow); Glucose Urine UA Negative (Negative); Ketones Urine Trace mg/dL (Negative); Leukocyte Esterase Ur 2+ LEU/UL (NEGATIVE); Nitrate Urine Negative (Negative); Protein Urine 2+ mg/dL (Negative); Urobilinogen Urine 0.2 mg/dL (<2.0); pH Urine 5.5 (5.0-9.0)
[2021-11-08 19:43] LABS: Calcium Oxalate Crystals Urine Present /hpf; Mucus Urine Rare /lpf; Squamous Epithelial Cell Urine Few /hpf (Few); Transitional Epi Cells Urine Rare /hpf (None Seen); WBC Urine 0-3 /hpf (0-3)
[2021-11-08 19:44] LABS: Basophils Percent Auto 0.6 % (0.2-1.2); Eosinophils Absolute Auto 0.1 K/mm3 (0-0.3); Eosinophils Percent Auto 2.3 % (0-4.4); Hematocrit 32.9 % (37.0-47.0); Hemoglobin 10.5 g/dL (12.0-15.0); Immature Granulocyte Absolute 0.01 K/mm3 (0.00-0.031); Immature Granulocyte Percent A 0.2 % (0-0.5); Lymphocytes Absolute Auto 1.34 K/mm3 (0.9-3.2); Lymphocytes Percent Auto 28.2 % (18.3-44.2); Mean Corpuscular HGB Conc 31.9 g/dl (32-36); Mean Corpuscular Hemoglobin 29.7 pg (26-34); Mean Corpuscular Volume 92.9 fl (80-100); Mean Platelet Volume 12.9 fl (7.4-10.4); Monocytes Absolute Auto 0.4 K/mm3 (0.1-0.6); Monocytes Percent Auto 7.8 % (2.6-8.5); Neutrophils Absolute Auto 2.9 K/mm3 (1.3-6.7); Neutrophils Percent Auto 60.9 % (45.5-73.1); Platelet Count Result 190 k/mm3 (150-375); Red Blood Count 3.54 M/mm3 (4.2-5.4); Red Cell Distribution Width 13.2 % (11.5-14.5); White Blood Count 4.8 K/mm3 (4.5-10.0)
[2021-11-08 19:45] LABS: Add Urine Microscopic? YES
[2021-11-08 19:46] LABS: Alanine Aminotransferase 12 U/L (6-35); Albumin Level 3.9 g/dL (3.5-5.1); Alkaline Phosphatase 140 U/L (38-126); Anion Gap 10 mmol/L (8-16); Aspartate Amino Transferase 21 U/L (14-36); Bilirubin,Total 0.4 mg/dL (0.2-1.3); Blood Urea Nitrogen 17 mg/dL (7-17); Calcium 10.3 mg/dL (8.4-10.2); Carbon Dioxide 26 mmol/L (22-30); Chloride 106 mmol/L (98-107); Estimated Glomerular Filt Rate > 60; Glucose 89 mg/dL (65-110); Potassium 4.2 mmol/L (3.4-5.0); Sodium 142 mmol/L (137-145)
[2021-11-08 20:01] LABS: Hemoglobin A1C 5.1 % (<5.7)
== END 2021-11-08 11:42 | disposition home or self-care (01) ==
LOC: ANHGOSHLAB 11:46
PROVIDERS: PCP Nurse Practitioner; Visit Provider Nurse Practitioner
DX: N39.0 Urinary tract infection, site not specified (principal); E11.9 Type 2 diabetes mellitus without complications; I10 Essential (primary) hypertension
CPT/HCPCS: 36415; 80053; 81001; 83036; 85025

== ENCOUNTER 2022-01-01 10:17 | Outpatient (CLI) | payer MEDICARE, BC, SELFPAY ==
[2022-01-01 19:28] LABS: Basophils Percent Auto 0.7 % (0.2-1.2); Eosinophils Absolute Auto 0.2 K/mm3 (0-0.3); Eosinophils Percent Auto 2.8 % (0-4.4); Hematocrit 34.4 % (37.0-47.0); Hemoglobin 11.1 g/dL (12.0-15.0); Immature Granulocyte Absolute 0.02 K/mm3 (0.00-0.031); Immature Granulocyte Percent A 0.3 % (0-0.5); Immature Platelet Fraction Pct 10.6 % (0.9-11.2); Lymphocytes Absolute Auto 1.52 K/mm3 (0.9-3.2); Lymphocytes Percent Auto 24.8 % (18.3-44.2); Mean Corpuscular HGB Conc 32.3 g/dl (32-36); Mean Corpuscular Hemoglobin 30.8 pg (26-34); Mean Corpuscular Volume 95.6 fl (80-100); Monocytes Absolute Auto 0.5 K/mm3 (0.1-0.6); Monocytes Percent Auto 7.7 % (2.6-8.5); Neutrophils Absolute Auto 3.9 K/mm3 (1.3-6.7); Neutrophils Percent Auto 63.7 % (45.5-73.1); Platelet Count Result 158 k/mm3 (150-375); White Blood Count 6.1 K/mm3 (4.5-10.0)
[2022-01-01 19:50] LABS: Alanine Aminotransferase 19 U/L (6-35); Albumin Level 4.1 g/dL (3.5-5.1); Alkaline Phosphatase 101 U/L (38-126); Anion Gap 12 mmol/L (8-16); Aspartate Amino Transferase 41 U/L (14-36); Bilirubin,Total 0.4 mg/dL (0.2-1.3); Blood Urea Nitrogen 15 mg/dL (7-17); Calcium 9.7 mg/dL (8.4-10.2); Carbon Dioxide 22 mmol/L (22-30); Chloride 107 mmol/L (98-107); Cholesterol 116 mg/dL (0-200); Estimated Glomerular Filt Rate > 60; Glucose 115 mg/dL (65-110); HDL Direct 34 mg/dL; Potassium 3.9 mmol/L (3.4-5.0); Sodium 141 mmol/L (137-145); Triglycerides 159 mg/dL (<150)
[2022-01-01 20:01] LABS: LDL Cholesterol Direct 53 mg/dL
[2022-01-01 20:09] LABS: Vitamin D 25 Hydroxy 64.3 ng/mL
[2022-01-01 21:03] LABS: MALB Creatinine Ratio 300.2 mg/g (0-30); Microalbumin Urine Random 759.4 mg/L (0-16.7)
[2022-01-01 21:14] LABS: Hemoglobin A1C 5.2 % (<5.7)
== END 2022-01-01 10:18 | disposition home or self-care (01) ==
LOC: ANHGOSHLAB 10:22
PROVIDERS: PCP Family Medicine; Visit Provider Nurse Practitioner
DX: E03.9 Hypothyroidism, unspecified (principal); E78.5 Hyperlipidemia, unspecified; E55.9 Vitamin D deficiency, unspecified; E11.9 Type 2 diabetes mellitus without complications; I10 Essential (primary) hypertension
CPT/HCPCS: 36415; 80053; 80061; 82043; 82306; 83036; 85025; 85055

== ENCOUNTER 2022-01-03 13:18 | Outpatient (CLI) | payer MEDICARE, BC, SELFPAY ==
[2022-01-03 15:48] LABS: Toxigenic C. Diff NEGATIVE (NEGATIVE)
[2022-01-11 20:39] LABS: Calprotectin, Stool 59 mcg/g
== END 2022-01-03 13:19 | disposition home or self-care (01) ==
PROVIDERS: PCP Family Medicine; Visit Provider Nurse Practitioner Family
DX: R19.5 Other fecal abnormalities (principal); K51.90 Ulcerative colitis, unspecified, without complications
CPT/HCPCS: 83993; 87493

== ENCOUNTER 2022-02-25 09:21 | Outpatient (CLI) | payer MEDICARE, BC, SELFPAY ==
--- NOTE | ~2022-02-25 | US_ITS ---
EXAMINATION: US retroperitoneal comp DATE: 02/25/2022 10:12 INDICATION: Left renal stone TECHNIQUE: Multiple grayscale and Doppler ultrasound images of the kidneys were obtained. COMPARISON: CT, 10/18/2021 FINDINGS: The right kidney measures 12.8 x 5.4 x 6.4 cm. There is a 2 mm nonobstructing stone in uppe r pole of the kidney. The left kidney measures 10.8 x 5.7 x 5.0 cm. There are multiple stones in the left kidney, the largest which measures 9 mm.. The kidneys demonstrate normal parenchymal echogenicit y. There is no hydronephrosis. The bladder is normal. IMPRESSION: 1. Bilateral nephrolithiasis. Reviewed, dictated and finalized at location F. CISE PHYSIOLOGY PROFESSOR
--- NOTE | ~2022-02-25 | XR_ITS ---
EXAMINATION: XR abdomen/kub 1V INDICATION: Left renal stone TECHNIQUE: Supine views of the abdomen were obtained on 2 radiographs. COMPARISON: 01/09/2021 FINDINGS: There is a 9 mm stone in the left kidney lower pole. Additional punctate left kidney stones measure 1 to 2 mm. No definite right-sided urolithiasis is identified. A moderate volume of colonic stool is present. The bowel gas pattern is normal. There is mild osteoarthritis of the hips. Phleboli ths are noted in the pelvis. IMPRESSION: 1. Left nephrolithiasis. Reviewed, dictated and finalized at location F. ISION STRUCTURAL METAL FITTER IMPRESSION: 1. Left nephrolithiasis.
== END 2022-02-25 09:22 | disposition home or self-care (01) ==
PROVIDERS: PCP Family Medicine; Visit Provider Nurse Practitioner Adult Health
DX: N20.0 Calculus of kidney (principal)
CPT/HCPCS: 74018; 76770

== ENCOUNTER 2022-03-05 10:15 | Outpatient (CLI) | payer MEDICARE, BC, SELFPAY ==
[2022-03-05 11:28] LABS: Anion Gap 12 mmol/L (8-16); Blood Urea Nitrogen 17 mg/dL (7-17); Calcium 9.7 mg/dL (8.4-10.2); Carbon Dioxide 23 mmol/L (22-30); Chloride 109 mmol/L (98-107); Estimated Glomerular Filt Rate > 60; Glucose 119 mg/dL (65-110); Potassium 3.7 mmol/L (3.4-5.0); Sodium 144 mmol/L (137-145)
[2022-03-05 11:49] LABS: INR 1.1; Prothrombin Time 13.6 Seconds (11.1-14.7)
== END 2022-03-05 10:16 | disposition home or self-care (01) ==
LOC: ANHSURGERY 10:22
PROVIDERS: Anesthesiology; PCP Family Medicine; Visit Provider Urology
DX: N20.0 Calculus of kidney (principal); E11.9 Type 2 diabetes mellitus without complications; Z01.818 Encounter for other preprocedural examination
CPT/HCPCS: 36415; 80048; 85610; 85730; 87086; 87088

== ENCOUNTER 2022-03-14 08:13 | Outpatient (CLI) | payer MEDICARE, BC, SELFPAY ==
--- NOTE | ~2022-03-14 | DEXA_ITS ---
Bone Density Report Name: CT ADDISON Age: 76 Sex: Female Ethnicity: White Date of : 1945 Indication: osteopenia; prior fracture; hysterectomy; postmenopausal Referring Provider: MARY MANJARREZ Study: Bone densitometry was performed. Exam Date: March 14, 2022 Accession number: [id number] Bone Density: Region BMD T-score Z-score Classification AP Spine(L1-L4) 0.826 -2.0 0.5 Osteopenia Femoral Neck (Left) 0.715 -1.2 0.9 Osteopenia Total Hip (Left) 0.773 -1.4 0.5 Osteopenia Femoral Neck (Right) 0.670 -1.6 0.5 Osteopenia Total Hip (Right) 0.768 -1.4 0.5 Osteopenia Total Hip Mean 0.770 -1.4 0.5 Osteopenia World Health Organization criteria for BMD impression classify patients as: Normal (T-score at or above -1.0), Osteopenia (T-score between -1.0 and -2.5), or Osteoporosis (T-score at or below -2.5). 10-year Fracture Risk(1): Major Osteoporotic Fracture 19% Hip Fracture 4.0% Reported Risk Factors: [place] (), Neck BMD=0.670, BMI=25.2, previous fracture (1) FRAX(R) Version 3.08. Fracture probability calculated for an untreated patient. Fracture probability may be lower if the patient has received treatment. Previous Exams: Region Exam Age BMD T-score BMD Change BMD Change Date g/cm2 vs Baseline vs Previous AP Spine (L1-L4) 03/14/2022 76 0.826 -2.0 0.027 (3.4%)* 0.027 (3.4%)* 07/04/2014 69 0.799 -2.3 Total Hip(Left) 03/14/2022 76 0.773 -1.4 0.002 (0.2%) 0.002 (0.2%) 07/04/2014 69 0.771 -1.4 Total Hip(Right) 03/14/2022 76 0.768 -1.4 -0.002 (-0.3%) -0.002 (-0.3%) 07/04/2014 69 0.770 -1.4 *Denotes significance at 95% confidence level, LSC for AP Spine = 0.022 g/cm2, LSC for Total Hip = 0.027 g/cm2 Clinical Information Provided by Patient: Has had a low trauma fracture Has used the following medications: Vitamin D Has the following medical conditions: Hysterectomy Patient maximum height was 66 Menopause Age: 30 No regular weight bearing exercise Drinks caffeinated beverages Onset of menses at age 14 Number of children 3 Impression: The patient has low bone mass, based on the Total Spine T-score. The patient has an estimated ten-year risk of hip fracture of 4% and an estimated ten-year risk of major fracture of 19%, based on the WHO FRAX algorithm. The patient has risk factors, including: previous fracture. No significant bone loss was observed. Discussion: BONE DENSITY
== END 2022-03-14 08:14 | disposition home or self-care (01) ==
LOC: ANHIMG 08:14
PROVIDERS: PCP Family Medicine; Visit Provider Nurse Practitioner
DX: Z78.0 Asymptomatic menopausal state (principal); M85.852 Other specified disorders of bone density and structure, left thigh; M85.851 Other specified disorders of bone density and structure, right thigh; M85.88 Other specified disorders of bone density and structure, other site
CPT/HCPCS: 77080

== ENCOUNTER 2022-03-15 01:23 | Day surgery (SDC) | payer MEDICARE, BC, SELFPAY ==
[2022-02-28 08:39] VITALS: BMI 24.7
--- NOTE | 2022-02-28 08:55 | PC.NURSE ---
Report to the Outpatient Waiting Room, entrance under the green pavilion located off [facility], at time _0830_ on date _03/01/22_. Planned Procedure Time: _1030_. Time changes happen often and if your time is changed the preop area will call you the afternoon before. - You and your visitor will be asked to self-screen and do not enter if you have any COVID symptoms. - Only one visitor is requested with a max of two and NO children visitors are allowed at this time. - The patient visitor may be requested to leave or wait in car when not with patient due to distancing restrictions. - A mask is optional within the hospital. Patients may have clear liquids (water, carbonated beverages, clear teas, apple juice) until 3 hours prior to surgery (0730 AM) with a maximum of 20 ounces. - No food from midnight until time of surgery Take the following medications with a SIP of water the morning of surgery: _AMLODIPINE, LEVETIRACETAM, LEVOTHYROXINE_ Medications to discontinue per physician _PLAVIX PER DR. VELIZ'S INSTRUCTIONS__ Date to take last dose Please no make-up, nail bahraini, hairspray, perfume, deodorant, or body powder the day of surgery. No jewelry (including any body piercings) or valuables the day of surgery, leave them at home. Please take a shower or bath the night before, or the morning of, surgery with an antibacterial soap. Wear comfortable, loose fitting clothing. Children are encouraged to wear pajamas. - Jewelry must be removed prior to entering the operating room. Rings and piercings that are not removed may be cut off. - The hospital will not accept responsibility for valuables. - Please leave all valuables, including medications, at home the day of surgery. If you are going home after surgery, a licensed diesel truck driver must drive you home. - NO public transportation without another adult if you receive anesthesia. - We recommend that an adult stay with you for 24 hours following discharge. - We also recommend that you do not drive, make important decision, drink alcoholic beverages, or take any drugs that were not prescribed by your health care provider for at least 24 hours after your discharge time. Follow any additional instructions given to you from your surgeon. If you or anyone in your household have experienced Covid symptoms in the past week, please notify your surgeon or the nurse liaison at the phone number below for possible testing. Telephone instructions given to _PT'S SPOUSE_and asked if any additional questions and then verbalized understanding. Patient advised to call surgeon office or pre surgery nurse liaison [phone] if any additional questions.
--- NOTE | 2022-02-28 09:14 | PC.NURSE ---
PRE-OP INSTRUCTIONS, PLEASE READ CAREFULLY Report to the Outpatient Waiting Room, entrance under the green pavilion located off [facility], at time _0830_ on date _03/15/22_. Planned Procedure Time: _1030_. Time changes happen often and if your time is changed the preop area will call you the afternoon before. - You and your visitor will be asked to self-screen and do not enter if you have any COVID symptoms. - Only one visitor is requested with a max of two and NO children visitors are allowed at this time. - The patient visitor may be requested to leave or wait in car when not with patient due to distancing restrictions. - A mask is optional within the hospital. Patients may have clear liquids (water, carbonated beverages, clear teas, apple juice) until 3 hours prior to surgery (0730 AM) with a maximum of 20 ounces. - No food from midnight until time of surgery Take the following medications with a SIP of water the morning of surgery: _AMLODIPINE, LEVETIRACETAM, LEVOTHYROXINE_ Medications to discontinue - _ PLAVIX PER DR. VELIZ'S INSTRUCTIONS_ Please no make-up, nail maltese, hairspray, perfume, deodorant, or body powder the day of surgery. No jewelry (including any body piercings) or valuables the day of surgery, leave them at home. Please take a shower or bath the night before, or the morning of, surgery with an antibacterial soap. Wear comfortable, loose fitting clothing. - Jewelry must be removed prior to entering the operating room. Rings and piercings that are not removed may be cut off. - The hospital will not accept responsibility for valuables. - Please leave all valuables, including medications, at home the day of surgery. If you are going home after surgery, a licensed emergency vehicle driver must drive you home. - NO public transportation without another adult if you receive anesthesia. - We recommend that an adult stay with you for 24 hours following discharge. - We also recommend that you do not drive, make important decision, drink alcoholic beverages, or take any drugs that were not prescribed by your health care provider for at least 24 hours after your discharge time. Follow any additional instructions given to you from your surgeon. If you or anyone in your household have experienced Covid symptoms in the past week, please notify your surgeon or the nurse liaison at the phone number below for possible testing. Telephone instructions given to _PT'S SPOUSE-EMILY_and asked if any additional questions and then verbalized understanding. Patient advised to call surgeon office or pre surgery nurse liaison [phone] if any additional questions.
--- NOTE | 2022-03-05 07:39 | PM.HPGS ---
History of Present Illness History of Present Illness Consent: Risks, benefits, and alternatives have been discussed and questions answered. Patient agrees to proceed with procedure. Chief complaint: left renal stone Narrative: Shanon Ramirez is a 76 year old female very well known to our practice with multiple stones in the past requiring all types of intervention including ureteroscopy ESWL in even percutaneous nephrolithotomy. Recent imaging demonstrates recurrence of stones in her left kidney and she elects for left ESWL. She is aware of the risk including, but not limited to, residual fragments that were a require additional intervention, postoperative hematuria and perinephric hematoma Review of Systems Review of Systems: All systems reviewed & are unremarkable except as noted in HPI and below PMFSH Past Medical History Medical History Acute kidney injury Anemia Aortic insufficiency CAD (coronary artery disease) Diabetes A1c 6.6 on 04-29-19 Distal radius fracture, left HTN (hypertension) Hyperlipidemia Hypertension Hypokalemia Hypothyroid Loose stools Numbness Renal stones Right humeral fracture Thrombocytopenia Ulcerative colitis Ulcerative colitis Surgical History Surgical History H/O lithotripsy H/O: hysterectomy Family History Family History Sibling Cancer Father Brain aneurysm Heart disease Hypertension Mother Diabetes mellitus Hypertension Grandparent Cancer Other Cancer Aunt Social History Social History Social History: The patient her 1st and is living with her 2nd . Her is a durable power carpet cleaner for healthcare. The patient desires to be a full code. The patient has worked at [employer] as well as the [employer]. The patient had a stillborn and had 2 living children and her son since then has been ordered. She has 1 remaining daughter. The patient is a former smoker. She denies any marijuana alcohol or illicit drugs. Caffeine-Soda Smoking packs per day: 1 Smoking cigarettes per day: 20.0 Years smoked: 55 Smoking pack-years: 55.00 Smoking status: Former smoker Tobacco type: cigarettes Second hand tobacco smoke exposure: No Alcohol intake: never Substance use: never Substance use type: does not use Gender identity (if verbalized by the patient): Female Sexual Orientation (if Verbalized by the Patient): Straight or Heterosexual Spiritual care concerns: No Agree to blood products: Yes Meds Home Medications and Allergies Home Medications Medication Instructions Recorded Confirmed Type atorvastatin 10 mg tablet 10 mg PO DAILY 03/23/19 02/28/22 History blood-glucose meter (Blood Glucose #1 ea 03/03/20 02/14/22 Rx Monitoring kit) calcium carbonate 600 mg calcium 600 mg PO DAILY 03/02/21 02/28/22 History (1,500 mg) tablet (Calcium) levetiracetam 500 mg tablet 500 mg PO BID 06/11/21 02/28/22 History insulin glargine 100 unit/mL (3 15 unit (0.15 mL) subcut QPM #45 mL 06/20/21 02/28/22 Rx mL) subcutaneous pen (Lantus Solostar U-100 Insulin) metformin 1,000 mg tablet 1,000 mg PO BIDWMEAL #180 tabs 07/30/21 02/28/22 Rx lisinopril 5 mg tablet See Rx Instructions .Route 10/08/21 02/28/22 Rx .COMPLEX #90 tabs blood sugar diagnostic (OneTouch #100 ea 10/18/21 02/14/22 Rx Ultra Test strips) levothyroxine 50 mcg tablet See Rx Instructions .Route 11/07/21 02/28/22 Rx .COMPLEX #90 tabs pen needle, diabetic 33 gauge x #100 ea 12/18/21 02/14/22 Rx /16 (Comfort EZ Pen [place]) cholecalciferol (vitamin D3) 25 25 mcg PO DAILY 01/01/22 02/28/22 History mcg (1,000 unit) capsule insulin aspart U-100 100 unit/mL 1 sliding scale dose subcut 01/02/22 02/28/22 History (3 mL) subc
[2022-03-15] VITALS (7 sets, daily range): BP systolic 123–140; BP diastolic 44–62; PULSE 62–78; RESP 10–20; TEMP 36.3; O2SAT 95–100
--- NOTE | ~2022-03-15 | XR_ITS ---
XR abdomen/kub 1V DATE: 03/15/2022 08:21 INDICATION: Lithotripsy left side TECHNIQUE: 3 AP views of the abdomen COMPARISON: 02/25/2022 KUB 10/18/[address] abdomen pelvis FINDINGS: Stable appearance of at least several left renal calcified calculi since 02/25/2022. The psoas shadows are intact. No visceromegaly is noted. No evidence of bowel obstruction. No abdomin al aortic and bilateral iliac and femoral artery calcifications. IMPRESSION: Stable left nephrolithiasis since 02/25/2022 Reviewed, dictated and finalized at Location A. Reviewed, dictated and finalized at location B. ECT OFFICER
--- NOTE | 2022-03-15 06:45 | WPDHPUPDATE1 ---
History and Physical Update Update Date/Time: 03/15/22 06:45 History and Physical has been reviewed, including an updated exam of the patient. There are NO changes in the patient's condition. Risks, benefits, and alternatives have been discussed and questions answered. Patient agrees to proceed with procedure.
[2022-03-15] MEDS: LACTATED RINGERS 1,000 ML 30 ML IV CONT (09:02)
[2022-03-15 09:03] LABS: Glucose Point of Care 107 mg/dl (65-105)
--- NOTE | 2022-03-15 09:16 | WPDANESEPPF ---
Anes - Initial Pre Proc Eval Procedure: Operation Date: 03/15/22 10:30 Proposed Procedures p Left Renal Extracorporeal Shock Wave Lithotripsy - Juan M Gandhi MD Date/Time: 03/15/22 09:16 Surgeon: Juan M Gandhi MD Pre Op Diagnosis: left renal stone Patient Data Age: 76 Gender: F Height: 1.68 m Weight: 69.54 kg Allergies Allergy/AdvReac Type Severity Reaction Status Date / Time Iodinated Contrast Media Allergy Intermediate Hives Verified 02/28/22 08:29 loracarbef [From Lorabid] Allergy Intermediate Hives Verified 02/28/22 08:29 Home Medications Medication Instructions Recorded Confirmed Type atorvastatin 10 mg tablet 10 mg PO DAILY 03/23/19 02/28/22 History blood-glucose meter (Blood Glucose #1 ea 03/03/20 02/14/22 Rx Monitoring kit) calcium carbonate 600 mg calcium 600 mg PO DAILY 03/02/21 02/28/22 History (1,500 mg) tablet (Calcium) levetiracetam 500 mg tablet 500 mg PO BID 06/11/21 02/28/22 History insulin glargine 100 unit/mL (3 15 unit (0.15 mL) subcut QPM #45 mL 06/20/21 02/28/22 Rx mL) subcutaneous pen (Lantus Solostar U-100 Insulin) metformin 1,000 mg tablet 1,000 mg PO BIDWMEAL #180 tabs 07/30/21 02/28/22 Rx lisinopril 5 mg tablet See Rx Instructions .Route 10/08/21 02/28/22 Rx .COMPLEX #90 tabs blood sugar diagnostic (OneTouch #100 ea 10/18/21 02/14/22 Rx Ultra Test strips) levothyroxine 50 mcg tablet See Rx Instructions .Route 11/07/21 02/28/22 Rx .COMPLEX #90 tabs pen needle, diabetic 33 gauge x #100 ea 12/18/21 02/14/22 Rx 08/27 (Comfort EZ Pen [place]) cholecalciferol (vitamin D3) 25 25 mcg PO DAILY 01/01/22 02/28/22 History mcg (1,000 unit) capsule insulin aspart U-100 100 unit/mL 1 sliding scale dose subcut 01/02/22 02/28/22 History (3 mL) subcutaneous pen (Novolog USEASDIRECTD Flexpen U-100 Insulin aspart) amlodipine 10 mg tablet 10 mg PO DAILY #90 tabs 01/29/22 02/28/22 Rx clopidogrel 75 mg tablet 75 mg PO DAILY #90 tabs 02/11/22 02/28/22 Rx mesalamine 1.2 gram tablet,delayed 4.8 g PO QID 02/28/22 02/28/22 History release (Lialda) Laboratory Tests 03/15/22 09:00 POC Capillary Glucose 107 mg/dl H mg/dl (65-105) Patient hx anesthesia problems: none Family hx anesthesia problems: none Results Review: All pre-operative results and documents have been reviewed as part of the pre-operative evaluation. [facility] Past Medical History Medical History Acute kidney injury Anemia Aortic insufficiency CAD (coronary artery disease) Diabetes A1c 6.6 on 04-29-19 Distal radius fracture, left HTN (hypertension) Hyperlipidemia Hypertension Hypokalemia Hypothyroid Loose stools Numbness Renal stones Right humeral fracture Thrombocytopenia Ulcerative colitis Ulcerative colitis Surgical History Surgical History H/O lithotripsy H/O: hysterectomy Family History Family History Sibling Cancer Father Brain aneurysm Heart disease Hypertension Mother Diabetes mellitus Hypertension Grandparent Cancer Other Cancer Aunt Social History Social History Social History: The patient her 1st and is living with her 2nd . Her is a durable power radarman for healthcare. The patient desires to be a full code. The patient has worked at [employer] as well as the [employer]. The patient had a stillborn and had 2 living children and her son since then has been ordered. She has 1 remaining daughter. The patient is a former smoker. She denies any marijuana alcohol or illicit drugs. Caffeine-Soda Smoking packs per day: 1 Smoking cigarettes per day: 20.0 Years smoked: 55 Smoking pack-years: 55.00 Smoking status: Former smoker Tobacco type:
[2022-03-15] MEDS: levoFLOXacin 500 MG/D5W 100 ML 500 MG/100 ML BAG 100 MG IVPB (09:48)
--- NOTE | 2022-03-15 10:10 | P.OP_ITS ---
Procedure Note - Detailed Date of Procedure 03/15/22 Pre-op Diagnosis Left renal stone Post-op Diagnosis Same Procedure Performed Left ESWL Surgeon Juan M Gandhi MD Anesthesia General Indications Left ESWL Description of Procedure The patient was brought to the operative suite where she was placed in the supine position on the Dornier lithotripsy table. The focal point of the lithotripter was placed at a 7-8mm left lower pole calculus. A total of 120 sh ocks were delivered at a power setting of 4 - appeared to be a very soft stone. There appeared to be good fragmentation of the stone. The patient tolerated the procedure well and was taken to the recovery room in good condition. Drains No Packing No Pathology None sent Condition Stable Disposition PACU
[2022-03-15 10:42] LABS: Glucose Point of Care 134 mg/dl (65-105)
== END 2022-03-15 12:08 | disposition home or self-care (01) ==
PROVIDERS: PCP Family Medicine; Visit Provider Urology
PROC: (CPT 50590; principal; 2022-03-15 10:30)
DX: N20.0 Calculus of kidney (principal); I25.10 Atherosclerotic heart disease of native coronary artery without angina pectoris; I10 Essential (primary) hypertension; E78.5 Hyperlipidemia, unspecified; E03.9 Hypothyroidism, unspecified; E11.9 Type 2 diabetes mellitus without complications; I35.1 Nonrheumatic aortic (valve) insufficiency; Z87.891 Personal history of nicotine dependence; Z79.4 Long term (current) use of insulin; Z79.02 Long term (current) use of antithrombotics/antiplatelets
CPT/HCPCS: 50590; 74018; 82948; J1100; J1956; J2405; J2704; J3010; J7120

== ENCOUNTER 2022-09-12 15:04 | Outpatient (CLI) | payer MEDICARE, BC, SELFPAY ==
--- NOTE | ~2022-09-12 | MM_ITS ---
EXAMINATION: MM screening leny BI w derek HISTORY: Screening mammogram TECHNIQUE: Craniocaudal and mediolateral oblique 3-D tomosynthesis images were obtained and synthetic 2-D images were generated. CAD analysis was submitted and interpreted. COMPARISON: July 19, 2021, June 12, 2020, May 26, 2019 bilateral screening mammogram examination s BREAST PARENCHYMAL COMPOSITION: There are scattered areas of fibroglandular density. FINDINGS: There are scattered bilateral benign calcifications. There is asymmetry in the inner left breast on CC projection. Diagnostic left mammogram is recommende d, with ultrasound if required. Otherwise there is no evidence of suspicious mass, calcification, or architectural distortion to sugg est malignancy in either breast. There has been no other suspicious interval change. IMPRESSION: 1. Medial asymmetry of left breast on CC projection 2. Diagnostic left mammogram is recommended, with ultrasound if required BI-RADS Category 0: Incomplete: Needs additional imaging evaluation. Reviewed, dictated and finalized at location A.
== END 2022-09-12 15:05 | disposition home or self-care (01) ==
LOC: ANHIMG 15:05
PROVIDERS: PCP Family Medicine; Visit Provider Family Medicine
DX: Z12.31 Encounter for screening mammogram for malignant neoplasm of breast (principal); R92.8 Other abnormal and inconclusive findings on diagnostic imaging of breast
CPT/HCPCS: 77063; 77067

== ENCOUNTER 2022-10-04 12:39 | Outpatient (CLI) | payer MEDICARE, BC, SELFPAY ==
--- NOTE | ~2022-10-04 | MMUS_ITS ---
EXAMINATION: MM diagnostic leny LT w derek, US breast LT limited HISTORY: Medial mammographic asymmetry of left breast on craniocaudal view of 09/12/2022 screening mamm ogram TECHNIQUE: Additional 3-D tomosynthesis images of the left breast were performed and synthetic 2-D im ages were generated. CAD analysis was submitted and interpreted. High resolution upper inner and lowe r inner right breast ultrasound was performed. COMPARISON quadrant: 09/12/2022 bilateral screening mammogram FINDINGS: MAMMOGRAPHIC FINDINGS: No suspicious mass or architectural distortion is evident. There are scattered benign-appearing calci fications. ULTRASOUND: At 12:00 2 cm from the nipple there is a rounded 3.2 mm sonolucency without internal vascularity or p osterior shadowing the margins are largely circumscribed, with minimal irregularity. 6 month follow-u p targeted left breast ultrasound at 12:00 2 cm from nipple is recommended. No suspicious mass or shadowing is detected otherwise. IMPRESSION: 1. Probable benign 3.2 mm sonolucent lesion at 12:00 2 cm from nipple 2. Six-month targeted left breast ultrasound follow-up at 12:00 2 cm from nipple is recommended BI-RADS category 3, probably benign findings. Reviewed, dictated and finalized at location A. IMPRESSION: 1. Probable benign 3.2 mm sonolucent lesion at 12:00 2 cm from nipple 2. Six-month targeted left breast ultrasound follow-up at 12:00 2 cm from nippl e is recommended BI-RADS category 3, probably benign findings.
== END 2022-10-04 12:40 | disposition home or self-care (01) ==
LOC: ANHIMG 12:40
PROVIDERS: PCP Family Medicine; Visit Provider Nurse Practitioner Family
DX: R92.8 Other abnormal and inconclusive findings on diagnostic imaging of breast (principal)
CPT/HCPCS: 76642; 77061; 77062; 77065; 77066; G0279

== ENCOUNTER 2022-12-17 08:07 | Outpatient (CLI) | payer MEDICARE, BC, SELFPAY ==
--- NOTE | ~2022-12-17 | US_ITS ---
EXAMINATION: US carotid duplex BI DATE: 12/17/2022 08:48 INDICATION: Left carotid bruit. TECHNIQUE: Grayscale, color Doppler, and pulsed Doppler images of the cervical carotid arteries were obtained. The degree of vessel stenosis is placed in one of the following categories: normal, <50%, 5 0-69%, >=70% but less than near-occlusion, near-occlusion, or total occlusion. Note that percent sten osis relative to normal distal artery lumen diameter is indirectly measured from velocity measurement s as described by Stanislav, et al. Radiology 2003; 229:340-346. COMPARISON: Ultrasound 06/20/2020 FINDINGS: RIGHT: The right common carotid artery (CCA) peak systolic velocity (PSV) is 60 cm/s. The right internal car otid artery (ICA) PSV is 71 cm/s. The right ICA end-diastolic velocity (EDV) is 13 cm/s. The right IC A/CCA PSV ratio is 1.2. Grayscale and color Doppler images yield an estimate of <50% diameter reducti on from plaque in the ICA. There is antegrade flow in the right vertebral artery. LEFT: The left CCA PSV is 85 cm/s. The left ICA PSV is 89 cm/s. The left ICA EDV is 14 cm/s. The left ICA/C CA PSV ratio is 1.0. Grayscale and color Doppler images yield an estimate of <50% diameter reduction from plaque in the ICA. There is antegrade flow in the left vertebral artery. IMPRESSION: 1. <50% stenosis in the right internal carotid artery. 2. <50% stenosis in the left internal carotid artery. Reviewed, dictated and finalized at location A.
--- NOTE | ~2022-12-17 | CT_ITS ---
EXAMINATION: CT diagnostic chest wo con DATE: 12/17/2022 08:49 INDICATION: Abnormal weight loss TECHNIQUE: Computed tomography (CT) of the chest was performed without intravenous contrast. The dose -length product (DLP) was 130.59 mGy-cm. Automated exposure control and iterative reconstruction tech nique were employed. COMPARISON: None FINDINGS: The lungs are free of acute opacities. No pleural effusion or pneumothorax. No pathological ly enlarged thoracic lymph nodes are identified. The heart size is normal. Calcified coronary artery atherosclerosis is noted. There is a 10 mm nodule left thyroid lobe. There is mild thoracic spondylos is. IMPRESSION: 1. No CT correlate for the patient's symptoms. Reviewed, dictated and finalized at location L.
== END 2022-12-17 08:08 | disposition home or self-care (01) ==
PROVIDERS: PCP Family Medicine; Visit Provider Internal Medicine Cardiovascular Disease
DX: R63.4 Abnormal weight loss (principal); I65.23 Occlusion and stenosis of bilateral carotid arteries
CPT/HCPCS: 71250; 93880

== ENCOUNTER 2023-01-03 13:38 | Outpatient (CLI) | payer MEDICARE, BC, SELFPAY ==
--- NOTE | ~2023-01-03 | US_ITS ---
US thyroid INDICATION: Thyroid nodules seen on CT. TECHNIQUE: Real-time sonographic images of the thyroid gland were obtained. COMPARISON: Ultrasound dated 07/04/2014 FINDINGS: The right thyroid lobe measures 3.7 x 1.7 x 1.7 cm. The left thyroid lobe measures 4.9 x 1 .9 x 1.4 cm. Thyroid gland is heterogeneous with multiple small nodules, largest in the right lobe me asuring 12 x 11 x 8 mm. This mass is mostly solid, hypoechoic, wider than tall, smoothly marginated w ithout internal echogenic foci, TR 4, decreased in size compared with prior examination. Largest left lobe nodule measures 10 mm and is hypoechoic, solid, taller than wide, smoothly marginated without e chogenic foci, TR 5. This mass was not definitely seen on prior examination. IMPRESSION: 1. 1 cm left thyroid mass, TR 5. Ultrasound-guided fine-needle aspiration biopsy recommended. Reviewed, dictated and finalized at location A. IMPRESSION: 1. 1 cm left thyroid mass, TR 5. Ultrasound-guided fine-needle aspiration biop sy recommended.
== END 2023-01-03 13:39 | disposition home or self-care (01) ==
PROVIDERS: PCP Family Medicine; Visit Provider Internal Medicine Cardiovascular Disease
DX: E04.1 Nontoxic single thyroid nodule (principal)
CPT/HCPCS: 76536

== ENCOUNTER 2023-01-24 15:37 | Outpatient (CLI) | payer MEDICARE, BC, SELFPAY ==
[2023-01-24 19:41] LABS: Basophils Percent Auto 0.6 % (0.2-1.2); Eosinophils Absolute Auto 0.2 K/mm3 (0-0.3); Eosinophils Percent Auto 3.3 % (0-4.4); Immature Granulocyte Absolute 0.01 K/mm3 (0.00-0.031); Immature Granulocyte Percent A 0.2 % (0-0.5); Lymphocytes Absolute Auto 1.34 K/mm3 (0.9-3.2); Lymphocytes Percent Auto 27.5 % (18.3-44.2); Mean Corpuscular HGB Conc 31.4 g/dl (32-36); Mean Corpuscular Hemoglobin 30.1 pg (26-34); Mean Corpuscular Volume 95.9 fl (80-100); Mean Platelet Volume 12.4 fl (7.4-10.4); Monocytes Absolute Auto 0.4 K/mm3 (0.1-0.6); Neutrophils Absolute Auto 2.9 K/mm3 (1.3-6.7); Neutrophils Percent Auto 59.4 % (45.5-73.1); Platelet Count Result 148 k/mm3 (150-375); Red Blood Count 3.65 M/mm3 (4.2-5.4); Red Cell Distribution Width 13.1 % (11.5-14.5); White Blood Count 4.9 K/mm3 (4.5-10.0)
[2023-01-24 20:02] LABS: Alanine Aminotransferase 21 U/L (6-35); Albumin Level 4.2 g/dL (3.5-5.1); Alkaline Phosphatase 104 U/L (38-126); Anion Gap 7 mmol/L (8-16); Aspartate Amino Transferase 24 U/L (14-36); Bilirubin,Total 0.5 mg/dL (0.2-1.3); Blood Urea Nitrogen 16 mg/dL (7-17); Calcium 9.9 mg/dL (8.4-10.2); Carbon Dioxide 28 mmol/L (22-30); Chloride 106 mmol/L (98-107); Cholesterol 131 mg/dL (0-200); Estimated Glomerular Filt Rate > 60; Glucose 146 mg/dL (65-110); HDL Direct 47 mg/dL; Potassium 4.1 mmol/L (3.4-5.0); Sodium 141 mmol/L (137-145); Triglycerides 94 mg/dL (<150)
[2023-01-24 20:20] LABS: LDL Cholesterol Direct 62 mg/dL
[2023-01-24 20:27] LABS: Thyroid Stimulating Hormone 0.371 uIU/mL (0.465-4.680)
[2023-01-24 20:28] LABS: Creatinine Urine 98.3 mg/dL
[2023-01-24 20:37] LABS: Hemoglobin A1C 5.1 % (<5.7)
[2023-01-24 21:03] LABS: MALB Creatinine Ratio 739.5 mg/g (0-30); Microalbumin Urine Random 726.9 mg/L (0-16.7)
== END 2023-01-24 15:38 | disposition home or self-care (01) ==
LOC: ANHGOSHLAB 15:40
PROVIDERS: PCP Family Medicine; Visit Provider Nurse Practitioner
DX: E78.5 Hyperlipidemia, unspecified (principal); E03.9 Hypothyroidism, unspecified; E11.9 Type 2 diabetes mellitus without complications; I10 Essential (primary) hypertension
CPT/HCPCS: 36415; 80053; 80061; 82043; 83036; 84443; 85025

== ENCOUNTER 2023-01-27 11:54 | Outpatient (CLI) | payer MEDICARE, BC, SELFPAY ==
--- NOTE | ~2023-01-27 | US_ITS ---
EXAMINATION: US FNA w image guidance DATE: 01/27/2023 14:11 INDICATION: Left thyroid mass TECHNIQUE: A time-out was performed to verify the patient's name, date of , and procedure to be performed . The procedure and its benefits and risks were discussed with the patient. Risks specifically discus sed included bleeding and infection. The patient understood the risks and agreed to proceed. The neck was prepped and draped in the usual sterile manner. 3 mL 1% lidocaine was used for local anesthesia . 6 passes were made with a 25G needle into the lesion. Appropriate needle location was documented with continuous sonographic guidance. A sterile bandage was applied. There were no immediate compli cations. FINDINGS: Grayscale ultrasound images demonstrate biopsy needles advanced into the previously noted 1.0 cm TI R ADS 5 nodule in the lateral deep left thyroid lobe. IMPRESSION: 1. Successful ultrasound-guided fine needle aspiration of a 1.0 cm TI RADS 5 left thyroid nodule of concern. Reviewed, dictated and finalized at location A. IMPRESSION: 1. Successful ultrasound-guided fine needle aspiration of a 1.0 cm TI RADS 5 l eft thyroid nodule of concern.
== END 2023-01-27 11:55 | disposition home or self-care (01) ==
PROVIDERS: PCP Family Medicine; Visit Provider Family Medicine
DX: E04.1 Nontoxic single thyroid nodule (principal)
CPT/HCPCS: 10005; 88173; 88305

== ENCOUNTER 2023-02-27 10:44 | Emergency (ER) | payer MEDICARE, BC, SELFPAY ==
[2023-02-27] VITALS (14 sets, daily range): BP systolic 142–183; BP diastolic 49–153; PULSE 67–84; RESP 15–29; TEMP 36.4; O2SAT 98–100
--- NOTE | ~2023-02-27 | CT_ITS ---
EXAMINATION:CT diagnostic chest wo con DATE: 02/27/2023 11:43 INDICATION: Chest injury. Chest pain. TECHNIQUE: Computed tomography (CT) of the chest was performed without intravenous contrast. Automate d exposure control and iterative reconstruction technique were employed. The dose-length product (DLP ) was 167.44 mGy-cm. COMPARISON: Chest CT 12/17/2022, CT abdomen and pelvis 10/18/2021 FINDINGS: There is mild scarring at the lung apices. There is mild atelectasis bilaterally. No pleura l effusion. There are nodules in the thyroid measuring up to 14 mm, likely not clinically significant . The heart size is normal. There are coronary artery calcifications. No pericardial effusion. There is mild bilateral hydronephrosis. There is mild thoracic spondylosis. IMPRESSION: 1. No posttraumatic findings. 2. Mild bilateral hydronephrosis, new from 10/18/2021. Reviewed, dictated and finalized at location A. S DRILLER
--- NOTE | 2023-02-27 11:00 | ECG_ITS ---
Measurements Intervals [place] Rate: 70 P: 67 WV: 208 QRS: 62 QRSD: 100 T: 40 QT: 364 QTc: 393 Interpretive Statements SINUS RHYTHM NONSPECIFIC ST & T-WAVE ABNORMALITY- ANTEROLAT/INF LEADS BASELINE ARTIFACT- II, III, AVR, AVL, AVF BORDERLINE ECG COMPARED TO ECG 06/11/2021 09:47:51 ST-T WAVE ABNORMALITY NOW PRESENT Electronically Signed On 02-27-2023 11:24:19 WELT TREATER by Jori Haines D.O.
--- NOTE | 2023-02-27 11:56 | ED.GENADULT ---
HPI - General Adult General Chief complaint: Unspecified <Morales López PA-C - Last Filed: 02/27/23 18:44> Stated complaint: muscle pain to left chest <Morales López PA-C - Last Filed: 02/27/23 18:44> Time Seen by Provider: 02/27/23 11:24 <Morales López PA-C - Last Filed: 02/27/23 18:44> Source: patient <SCOTT Cotter Last Filed: 02/27/23 18:44> Mode of arrival: ambulatory <SCOTT Cotter Last Filed: 02/27/23 18:44> Limitations: no limitations <Morales López PA-C - Last Filed: 02/27/23 18:44> History of Present Illness HPI narrative: this is a 77-year-old female who presents to the ED with chief complaint of left chest wall pain following an injury that occurred 6 days ago. Patient states that she was walking up hill to collect mushrooms, did not find any and stumbled as she came back down the hill. States that she was unable to stop herself from going down and she ran into her 's truck bed. States she directly at the left anterior chest wall the truck. She states the pain has been gradually increasing and worse today. Reports that coughing, sneezing and deeper breaths Worsen the pain. denies exertional component. she also reports some mild mid back pain. denies productive cough, numbness, weakness or any further sites of pain. <Morales López PA-C - Last Filed: 02/27/23 18:44> Related Data Home medications: Home Medications Medication Instructions Recorded Confirmed atorvastatin 10 mg tablet 10 mg PO DAILY 03/23/19 01/24/23 calcium carbonate 600 mg calcium 600 mg PO DAILY 03/02/21 01/24/23 (1,500 mg) tablet (Calcium) levetiracetam 500 mg tablet 500 mg PO BID 06/11/21 01/24/23 <SCOTT Cotter Last Filed: 02/27/23 18:44> Allergies/adverse reactions: Allergies Allergy/AdvReac Type Severity Reaction Status Date / Time Iodinated Contrast Media Allergy Intermediate Hives Verified 02/27/23 10:47 loracarbef [From Lorabid] Allergy Intermediate Hives Verified 02/27/23 10:47 <Morales López PA-C - Last Filed: 02/27/23 18:44> Review of Systems Review of Systems: All systems as dictated in HPI <Morales López PA-C - Last Filed: 02/27/23 18:44> [facility] Past Medical History Medical History: Medical History Acute kidney injury Anemia Aortic insufficiency CAD (coronary artery disease) Diabetes A1c 6.6 on 04-29-19 Distal radius fracture, left HTN (hypertension) Hyperlipidemia Hypertension Hypokalemia Hypothyroid Irritable bowel syndrome with diarrhea Loose stools Numbness Renal stones Right humeral fracture Thrombocytopenia Ulcerative colitis Ulcerative colitis <Morales López PA-C - Last Filed: 02/27/23 18:44> Surgical History Surgical History: Surgical History H/O lithotripsy H/O: hysterectomy <Morales López PA-C - Last Filed: 02/27/23 18:44> Family History Family History: Family History Sibling Cancer Father Brain aneurysm Heart disease Hypertension Mother Diabetes mellitus Hypertension Grandparent Cancer Other Cancer Aunt <Morales López PA-C - Last Filed: 02/27/23 18:44> Social History Social History: Social History Social History: The patient her 1st and is living with her 2nd . Her is a durable power banking attorney for healthcare. The patient desires to be a full code. The patient has worked at [email or web address] as well as the [employer]. The patient had a stillborn and had 2 living children and her son since then has been ordered. She has 1 remaining daughter. The patient is a former smoker. She denies any marijuana alcohol or illicit drugs. Caffeine-Soda Smoking packs per day: 1 Smo
[2023-02-27] MEDS: HYDROcodone/acetaminophen (*CRX) 5-325 MG TABLET 1 TAB PO (12:07)
[2023-02-27] MEDS: ACETAMINOPHEN 325 MG TABLET 650 MG PO (12:07)
== END 2023-02-27 13:18 | disposition home or self-care (01) ==
PROVIDERS: Emergency Provider Physician Assistant; PCP Family Medicine
DX: S29.9XXA Unspecified injury of thorax, initial encounter (principal); I35.1 Nonrheumatic aortic (valve) insufficiency; I25.10 Atherosclerotic heart disease of native coronary artery without angina pectoris; I10 Essential (primary) hypertension; E11.9 Type 2 diabetes mellitus without complications; E78.5 Hyperlipidemia, unspecified; E03.9 Hypothyroidism, unspecified; K51.90 Ulcerative colitis, unspecified, without complications; D69.6 Thrombocytopenia, unspecified; Z87.442 Personal history of urinary calculi; Z86.2 Personal history of diseases of the blood and blood-forming organs and certain disorders involving the immune mechanism; Z87.891 Personal history of nicotine dependence; Z90.710 Acquired absence of both cervix and uterus; Z79.4 Long term (current) use of insulin; Z79.84 Long term (current) use of oral hypoglycemic drugs; R94.31 Abnormal electrocardiogram [ECG] [EKG]; W10.2XXA Fall (on)(from) incline, initial encounter
CPT/HCPCS: 71250; 93005; 99284; A9270

== ENCOUNTER 2024-02-28 16:52 | Inpatient (IN) | payer MEDICARE, BC, SELFPAY ==
[2024-02-28] VITALS (15 sets, daily range): BP systolic 137–215; BP diastolic 65–160; PULSE 58–91; RESP 12–18; TEMP 36.4–36.7; O2SAT 96–100; BMI 24.3
--- NOTE | ~2024-02-28 | XR_ITS ---
EXAMINATION: XR chest 1V portable Exam Date/Time: 02/28/2024 17:35 CHOPPER OPERATOR HISTORY: lightheaded, nausea, htn Comparison: 06/11/21. RESULT: Lines, tubes, and devices: None. Lungs and pleura: Clear. Cardiomediastinal silhouette: Stable. Other: No acute osseous or upper abdominal finding. IMPRESSION: No acute cardiopulmonary process. Reviewed, dictated and finalized at location K. PER OPERATOR
--- NOTE | ~2024-02-28 | MR_ITS ---
EXAMINATION: MR brain/brain stem wo con DATE: 03/01/2024 10:21 INDICATION: Stroke with lightheadedness, dizziness and nausea. TECHNIQUE: Magnetic resonance imaging (MRI) of the brain and brainstem was performed without intraven ous contrast. Sequences included sagittal and axial T1-weighted SE, axial diffusion-weighted FS SE, a xial 3D SWAN, axial T2-weighted FLAIR, and axial T2-weighted FSE. Postcontrast axial and coronal T1-w eighted SE was obtained. Apparent diffusion coefficient (ADC) maps were created. COMPARISON: Head CT dated 02/28/2024 and brain MR dated 06/12/2021 FINDINGS: Small region of encephalomalacia in the right parietal lobe consistent with sequela of old infarct. T here is a very small focus of restricted diffusion old infarct consistent with acute infarct in the r ight parietal occipital region along a gyrus located slightly inferior to the old infarct. A couple a dditional tiny old lacunar infarcts at the bilateral cerebellar hemispheres. Single tiny focus of phylicia ceptibility artifact in the right cerebellar hemisphere consistent with old blood products in the set ting of chronic microhemorrhage. No intracranial hemorrhage or abnormal intracranial mass lesion. The re are scattered areas of nonspecific increased T2-weighted signal intensity in the cerebral white ma tter, predominantly involving the deep and periventricular white matter. There are no intraparenchyma l signal abnormalities seen on the other pulse sequences. The ventricles are symmetric and normal in size. There are no abnormal extra-axial fluid collections. Flow voids are seen in the cerebral arteri es on the T2-weighted sequences consistent with their expected patency. Changes of bilateral intraocu lar lens replacement. Mild mucosal thickening in the bilateral maxillary sinuses. Small right mastoid effusion. IMPRESSION: 1. Small focus of acute infarct along a gyrus in the right right occipital region. 2. Small region of encephalomalacia consistent with chronic infarct in the right parietal lobe and a couple tiny old lacunar infarcts in the bilateral cerebellar hemispheres. 3. Moderate scattered periventricular predominant white matter T2 hyperintensity consistent with age- related chronic small vessel ischemic disease. 4. Single tiny focus of susceptibility artifact in the right cerebral hemisphere consistent with old blood products related to chronic microhemorrhage. Reviewed, dictated and finalized at location B. RVISOR NEWSPAPER DELIVERIES IMPRESSION: 1. Small focus of acute infarct along a gyrus in the right right occipital fariba on. 2. Small region of encephalomalacia consistent with chronic infarct in the righ t parietal lobe and a couple tiny old lacunar infarcts in the bilateral cerebel lar hemispheres. 3. Moderate scattered periventricular predominant white matter T2 hyperintensit y consistent with age-related chronic small vessel ischemic disease. 4. Single tiny focus of susceptibility artifact in the right cerebral hemispher e consistent with old blood products related to chronic microhemorrhage.
--- NOTE | ~2024-02-28 | CT_ITS ---
EXAMINATION: CT brain wo con DATE: 02/28/2024 18:16 INDICATION: dizziness, nausea . TECHNIQUE: Computed tomography (CT) of the head was performed without intravenous contrast. The mA wa s adjusted according to patient size. Iterative reconstruction technique was employed. The dose-lengt h product was 529.67 mGy-cm. COMPARISON: 10/18/2021. FINDINGS: No acute intracranial hemorrhage or extra-axial fluid collection. No hydrocephalus, mass, or herniation. No acute ischemic infarct. Unremarkable dural venous sinus attenuation. No acute osseous abnormality. Trace right mastoid fluid, the remaining aerated spaces are clear. Mild atrophy and moderate chronic white matter change. Atherosclerotic intracranial calcification. Bi lateral lens replacements. Right parietal encephalomalacia. Focal old left cerebellar infarct. Bilate ral basal ganglia calcification. IMPRESSION: No acute intracranial process. Reviewed, dictated and finalized at location K. SHADE SEWER
--- NOTE | ~2024-02-28 | US_ITS ---
EXAMINATION: US carotid duplex BI DATE: 03/01/2024 19:23 INDICATION: Acute infarct in right occipital lobe. New stroke. TECHNIQUE: Grayscale, color Doppler, and pulsed Doppler images of the cervical carotid arteries were obtained. The degree of vessel stenosis is placed in one of the following categories: normal, <50%, 5 0-69%, >=70% but less than near-occlusion, near-occlusion, or total occlusion. Note that percent sten osis relative to normal distal artery lumen diameter is indirectly measured from velocity measurement s as described by Stanislav, et al. Radiology 2003; [id number]:[id number]. COMPARISON: Ultrasound 12/17/2022 FINDINGS: RIGHT: The right common carotid artery (CCA) peak systolic velocity (PSV) is 83 cm/s. The right internal car otid artery (ICA) PSV is 147 cm/s. The right ICA end-diastolic velocity (EDV) is 14 cm/s. The right I CA/CCA PSV ratio is 1.8. Grayscale and color Doppler images yield an estimate of <50% diameter reduct ion from plaque in the ICA. There is antegrade flow in the right vertebral artery. LEFT: The left CCA PSV is 88 cm/s. The left ICA PSV is 121 cm/s. The left ICA EDV is 22 cm/s. The left ICA/ CCA PSV ratio is 1.4. Grayscale and color Doppler images yield an estimate of <50% diameter reduction from plaque in the ICA. There is antegrade flow in the left vertebral artery. IMPRESSION: 1. <50% stenosis in the right internal carotid artery. 2. <50% stenosis in the left internal carotid artery. Reviewed, dictated and finalized at location A. CH SERVICE SPECIALIST
--- NOTE | 2024-02-28 16:58 | ECG_ITS ---
Test Date: 2024-02-28 17:02:24 Measurements Intervals [place] Rate: 58 P: 0 WI: 0 QRS: 62 QRSD: 98 T: 60 QT: 428 QTc: 423 Interpretive Statements SINUS BRADYCARDIA BASELINE ARTIFACT- II, III, AVL, AVF, V1 BORDERLINE ECG No previous ECG available for comparison Electronically Signed On 02-28-2024 20:48:18 MANAGER TRANSFER by Jori Haines D.O.
[2024-02-28 17:14] LABS: Basophils Percent Auto 0.4 % (0.2-1.2); Eosinophils Absolute Auto 0.2 K/mm3 (0-0.3); Eosinophils Percent Auto 2.7 % (0-4.4); Hematocrit 35.6 % (37.0-47.0); Hemoglobin 11.8 g/dL (12.0-15.0); Immature Granulocyte Absolute 0.02 K/mm3 (0.00-0.031); Immature Granulocyte Percent A 0.3 % (0-0.5); Lymphocytes Absolute Auto 0.98 K/mm3 (0.9-3.2); Lymphocytes Percent Auto 13.3 % (18.3-44.2); Mean Corpuscular HGB Conc 33.1 g/dl (32-36); Mean Corpuscular Hemoglobin 30.4 pg (26-34); Mean Corpuscular Volume 91.8 fl (80-100); Mean Platelet Volume 11.8 fl (7.4-10.4); Monocytes Absolute Auto 0.4 K/mm3 (0.1-0.6); Monocytes Percent Auto 5.4 % (2.6-8.5); Neutrophils Absolute Auto 5.8 K/mm3 (1.3-6.7); Neutrophils Percent Auto 77.9 % (45.5-73.1); Platelet Count Result 113 k/mm3 (150-375); Red Blood Count 3.88 M/mm3 (4.2-5.4); Red Cell Distribution Width 13.1 % (11.5-14.5); White Blood Count 7.4 K/mm3 (4.5-10.0)
[2024-02-28 17:23] LABS: Alanine Aminotransferase 7 U/L (6-35); Alkaline Phosphatase 149 U/L (38-126); Anion Gap 8 mmol/L (4-12); Aspartate Amino Transferase 16 U/L (14-36); Bilirubin,Total 0.5 mg/dL (0.2-1.3); Blood Urea Nitrogen 14 mg/dL (7-17); Calcium 9.8 mg/dL (8.4-10.2); Carbon Dioxide 24 mmol/L (22-30); Chloride 106 mmol/L (98-107); Estimated CRCL calculation 47 ml/min; Estimated Glomerular Filt Rate > 60; Glucose 126 mg/dL (65-110); Lipase 286 U/L (23-300); Potassium 3.7 mmol/L (3.4-5.0); Sodium 138 mmol/L (137-145)
--- NOTE | 2024-02-28 17:27 | ED_ITS ---
HPI - Nausea/Vomiting/Diarrhea General Chief complaint: Nausea/Vomiting/Diarrhea Stated complaint: n/v/d, weak, dizzy Time Seen by Provider: 02/28/24 16:58 History of Present Illness HPI Narrative: 78-year-old female with history of CAD, hypertension, stroke, diabetes, hypothyroidism presenting with nausea and vomiting. States that for the last day she has been nauseated and cues vomiting. Has not tried to eat or drink anything. States that she feels lightheaded. She denies any pain. No focal numbness or weakness. Related Data Home Medications Medication Instructions Recorded Confirmed calcium carbonate (Calcium 600) 600 mg PO DAILY 03/02/21 02/28/24 levetiracetam 500 mg tablet 500 mg PO BID 06/11/21 02/28/24 levothyroxine 50 mcg tablet 50 mcg PO DAILY 02/28/24 02/28/24 mesalamine 1.2 gram tablet,delayed 1.2 g PO QID 02/28/24 02/28/24 release metformin 1,000 mg tablet 1,000 mg PO BID 02/28/24 02/28/24 Allergies Allergy/AdvReac Type Severity Reaction Status Date / Time Iodinated Contrast Media Allergy Intermediate Hives Verified 02/28/24 16:59 loracarbef [From Lorabid] Allergy Intermediate Hives Verified 03/02/24 14:14 Review of Systems Review of Systems: All systems reviewed & are unremarkable except as noted in HPI and below PMFSH Past Medical History Medical History (Updated 03/04/24 @ 15:09 by Haley Alba MD) Anemia Aortic insufficiency Echocardiogram 2020: Hyperdynamic left ventricle EF 78% mild intracavitary obstruction with peak gradient of 16 with Valsalva, moderate concentric left ventricular hypertrophy, [id number] aortic valve regurgitation, mild tricuspid regurgitation CAD (coronary artery disease) Chronic pancreatitis CVA (cerebral vascular accident) MRI June 2021 demonstrated small old parietal punctate left cerebellar infarctions likely as result of in 01/2020 Diabetes A1c 6.6 on 04-29-19 Distal radius fracture, left Hyperlipidemia Hypertension Hypothyroid Renal stones Right humeral fracture (2021) Seizure as late effect of cerebrovascular accident (CVA) Thrombocytopenia Ulcerative colitis Surgical History Surgical History H/O lithotripsy H/O: hysterectomy Family History Family History Sibling Cancer Father Brain aneurysm Heart disease Hypertension Mother Diabetes mellitus Hypertension Grandparent Cancer Other Cancer Aunt Social History Social History (Updated 02/29/24 @ 01:21 by Hali Green DO) Social History: She has previously been but remarried and is been living with her 2nd for... . The patient had a stillborn and had 2 selina ng children. Her son subsequently in adulthood. She has 1 remaining daughter. The patient is a former smoker. She denies any marijuana alcohol or illicit drugs. She does drink a fair amount of caffeine in the form soda. Code status: Full code Surrogate decision maker: Smoking packs per day: 1 Smoking cigarettes per day: 20.0 Years smoked: 50 Smoking pack-years: 50.00 Smoking status: Former smoker Tobacco type: cigarettes Second hand tobacco smoke exposure: No Alcohol intake: never Substance use: never Substance use type: does not use Do You Feel Safe in your Home?: Yes Lack of Transportation: No Lack of Food: Never True Current Housing: I Have Housing Concerned About Future Housing: No Difficulty Paying Gas/Electric Bills: No Difficulty Paying for Meds: No Currently Unemployed: No Education: Trade/Vocational Certificate Difficulty w/ Childcare or Family Care: No Living arrangements: with family Occupation/Education: retired Additional occupation/education comments: She used to work for a [employer] and [email or web address]. Gender identity (if verbalized by the patient): Female Sexual Orientation (if Verbalized by the Patient): Straight or Heterosexual Spiritual care concerns: No Agree to blood products: Yes Exam Narrative: GENERAL: Elderly female lying in bed in no acute distress HEAD: Normocephalic, atraumatic. EYES: PERRLA and EOMI. ENT: Mucous membranes moist. NECK: Supple. CHEST: Clear to auscultation. No respiratory distress. HEART: Regular rate and rhythm ABDOMEN: Soft, nontender, nondistended EXTREMITIES: Normal range of motion SKIN: Warm, dry, no rash. NEURO: No focal deficits. Alert and oriented x3. 5/5 strength in all extremities, no sensory deficits, no pronator drift, [id number] intact, no aphasia or dysarthria PSYCH: Normal mood and affect. Course Vital Signs Vital signs: Vital Signs Temperature 97.6 F 02/28/24 16:52 Temperature 97.9 F 03/03/24 14:00 Pulse Rate 79 03/03/24 14:00 Respiratory Rate 18 03/03/24 14:00 Blood Pressure 122/34 L 03/03/24 14:00 Pulse Oximetry 100 03/03/24 14:00 Oxygen Delivery Room Air 03/03/24 08:55 Fraction of Inspired Oxygen 21 03/01/24 20:00 MDM - Nausea/Vomiting/Diarrhea MDM Narrative Medical decision making narrative: 78-year-old female presenting with nausea, vomiting, lightheadedness. Patient hypertensive, 180s to 210 systolic. Remainder of vitals within normal limits. Exam remarkable for the above. EKG per my interpretation shows sinus bradycardia, no ST elevations or depressions. Blood work with troponin elevation at 0.062. Patient denies any chest pain or shortness of breath. States that she actually feels well right now. Page out to Cardiology. Remains hypertensive. CT brain without acute abnormalities. UA is concerning for UTI. IV Rocephin has been ordered. Spoke with cardiology who recommends p.r.n. IV hydralazine for systolic blood pressures greater than 170, 50 mg hydralazine p.o., 10 mg lisinopril p.o. all r ight now. Will get that scheduled to start in the morning. Will continue to trend troponin. Spoke with the hospitalist who has accepted her for admission. Patient is agreeable this plan. Differential Diagnosis Differential diagnosis: Likely other (Nausea, vomiting, hypertensive urgency, elevated troponin, medication noncompliance) Medical Records Attestation: I reviewed the patient's medical records. Lab Data Attestation: I reviewed the patient's lab results. 03/03/24 05:18 03/03/24 05:18 Labs: Lab Results 02/28/24 02/28/24 02/28/24 Range/Units 17:10 18:22 18:41 WBC 7.4 (4.5-10.0) K/mm3 RBC 3.88 L (4.2-5.4) M/mm3 Hgb 11.8 L (12.0-15.0) g/dL Hct 35.6 L (37.0-47.0) % MCV 91.8 (80-100) fl MCH 30.4 (26-34) pg MCHC 33.1 (32-36) g/dl RDW 13.1 (11.5-14.5) % Plt Count 113 L (150-375) k/mm3 MPV 11.8 H (7.4-10.4) fl Immature Gran % (Auto) 0.3 (0-0.5) % Neut % (Auto) 77.9 H (45.5-73.1) % Lymph % (Auto) 13.3 L (18.3-44.2) % [place] % (Auto) 5.4 (2.6-8.5) % Eos % (Auto) 2.7 (0-4.4) % Baso % (Auto) 0.4 (0.2-1.2) % Lymph # (Auto) 0.98 (0.9-3.2) K/mm3 [place] # (Auto) 0.4 (0.1-0.6) K/mm3 Eos # (Auto) 0.2 (0-0.3) K/mm3 Baso # (Auto) 0.0 (0.0-0.1) K/mm3 Abs Immat Gran (auto) 0.02 (0.00-0.031) K/mm3 Absolute Neuts (auto) 5.8 (1.3-6.7) K/mm3 Absolute Nucleated RBC 0.000 (0.0-0.012) K/mm3 Nucleated RBC % 0.0 (0.0-0.2) % PT 13.3 (11.1-14.7) Seconds INR 1.0 APTT 27.0 (22.3-36.8) Seconds Sodium 138 (137-145) mmol/L Potassium 3.7 (3.4-5.0) mmol/L Chloride 106 (98-107) mmol/L Carbon Dioxide 24 (22-30) mmol/L Anion Gap 8 (4-12) mmol/L BUN 14 (7-17) mg/dL Creatinine 0.80 (0.7-1.0) mg/dL Estim Creat Clear Calc 47 ml/min Estimated GFR > 60 (59 - ) Glucose 126 H (65-110) mg/dL Hemoglobin A1c 6.0 H (<5.7) % Calcium 9.8 (8.4-10.2) mg/dL Magnesium 1.8 (1.6-2.3) mg/dL Total Bilirubin 0.5 (0.2-1.3) mg/dL AST 16 (14-36) U/L ALT 7 (6-35) U/L Alkaline Phosphatase 149 H (38-126) U/L Troponin I 0.062 H* (0.000-0.034) ng/mL Total Protein 8.0 (6.3-8.2) g/dL Albumin 4.0 (3.5-5.1) g/dL Lipase 286 (23-300) U/L Urine Color Yellow (Yellow) Urine Appearance Cloudy H (Clear) Urine pH 6.5 (5.0-9.0) Ur Specific [place] 1.008 (1.001-1.035) Urine Protein 2+ H (Negative) mg/dL Urine Glucose (UA) Negative (Negative) mg/dL Urine Ketones Negative (Negative) mg/dL Ur Blood (Man) Trace (Negative) Urine Nitrate Negative (Negative) Urine Bilirubin Negative (Negative) Urine Urobilinogen 0.2 (<2.0) mg/dL Leukocyte Esterase Rfl 2+ H (Negative) KAYLYNN/UL Urine RBC 3-5 H (0-2) /hpf Urine WBC >100 H (0-3) /hpf Ur Squamous Epith Cells None seen (Few) /hpf Urine Bacteria 4+ H /hpf Urine Casts 0-2 Influenza A (RT-PCR) Negative (Negative) Influenza B (RT-PCR) Negative (Negative) RSV (RT-PCR) Negative (Negative) SARS-CoV-2 RNA (RT-PCR) Negative (Negative) Imaging Data Radiologist's impression: ITS Impressions Chest X-Ray 02/28/24 18:18 IMPRESSION: No acute cardiopulmonary process. Head CT 02/28/24 18:20 IMPRESSION: No acute intracranial process. Critical Care Time Critical Care Time Critical Care Time: Yes Total Critical Care Time: 35 Discharge Plan Discharge Clinical Impression: Hypertensive crisis, Elevated troponin, Nausea & vomiting, Noncompliance with medication regimen Patient Disposition: Still a Patient Condition: Stable
[2024-02-28] MEDS: SODIUM CHLORIDE 0.9% IV 1,000 ML 999 ML IV CONT (17:36)
[2024-02-28] MEDS: ONDANSETRON INJ 4 MG/2 ML VIAL IV PUSH (17:36)
[2024-02-28 17:55] LABS: Magnesium 1.8 mg/dL (1.6-2.3)
--- NOTE | 2024-02-28 18:06 | PC.NURSE ---
notified MD Alba of patient blood pressure being 200/125. no new orders at this time.
[2024-02-28 18:13] LABS: Troponin I 0.062 ng/mL (0.000-0.034)
[2024-02-28 18:40] LABS: Prothrombin Time 13.3 Seconds (11.1-14.7)
[2024-02-28 18:59] LABS: Add Urine Microscopic? YES; Appearance Urine Cloudy (Clear); Bacteria Urine 4+ /hpf; Bilirubin Urine Negative (Negative); Blood Urine Trace (Negative); Color Urine Yellow (Yellow); Glucose Urine UA Negative (Negative); Ketones Urine Negative (Negative); Leukocyte Esterase Ur 2+ LEU/UL (Negative); Nitrate Urine Negative (Negative); Non Pathogenic Casts 0-2; Protein Urine 2+ mg/dL (Negative); Specific Grav Ur 1.008 (1.001-1.035); Squamous Epithelial Cell Urine None Seen /hpf (Few); Urobilinogen Urine 0.2 mg/dL (<2.0); WBC Urine >100 /hpf (0-3); pH Urine 6.5 (5.0-9.0)
[2024-02-28 19:05] LABS: Influenza A QL RT-PCR Negative (Negative); Influenza B QL RT-PCR Negative (Negative); RSV RNA, RT-PCR Negative (Negative); SARS-CoV-2 RNA PCR Negative (Negative)
--- NOTE | 2024-02-28 19:50 | P.HP_ITS ---
H&P: HPI History of Present Illness Date/Time: 02/28/24 19:50 Chief Complaint: ?I think I may have had another stroke? Narrative: 78-year-old female with past medical history of coronary artery disease, CVA, diabetes, hypothyroidism, ulcerative colitis and essential hypertension who presented to the ER feeling lightheaded and weak. On arrival to the ER her main complaint to the ER provider was that she was nauseated but has not been vomiting. She had not tried to eat or drink anything all day. She also re ported that she had felt lightheaded. On arrival to the ER she was found to have systolic blood pressures ranging from the 170s up to the 220s. She was mildly bradycardic. The patient reported to the ER staff that of her own accord she decided to quit taking her medications several months ago. It looks as if on the external medication information from from pharmacy that the patient has multiple prescriptions that state it the patient needs a follow-up appointment before further refills. It sounds as if the patient is reliant upon her to remind her to take her medications (per nurse report). The patient had not had a bath and an indeterminate amount time. Nursing staff reported the patient had significant body odor. Patient was unable to tell nursing staff when she last had a bath. It is difficult for me to get a story from the patient. She kept perseverating about her prior history of strokes. She states that she feels like she did with her prior stroke. She stated that her prior stroke-like symptoms occurred when she had multiple syncopal events. So she became very concerned that she may be having another stroke when she became extremely lightheaded while sitting in her chair. She states that she felt as if she may pass out. She reports that her was on the phone and she had to lean over to get his attention. She felt unstable and felt as if she may be drooling. She thought that she may fall over when she was trying to get his attention. She was having trouble telling him what was wrong. The patien called EMS and the patient receive Zofran on route to the hospital. The patient's family members were not available to provide any history. The patient was technically alert oriented times 4 but seemed to have extremely poor short- term memory. The patient reported to nursing staff that she has had chronic issues with her short-term memory since her prior stroke many years ago. Patient was witnessed to have several episodes of somewhat inappropriate laughter. She denied any headache, visual changes and had complete resolution of her symptoms by the time she arrived to the ER. Her NIH stroke scale the time my evaluation was 0. Patient reported resolution of her nausea by time she arrived to the ER as well. Patient does have history of ulcerative colitis. She did not report diarrhea at the time of my evaluation. It is unclear if the patient has been taking her Keppra home. Review of Systems Review of Systems: 12 systems were reviewed with pertinent positives and negatives per HPI. Except as documented in the HPI, all other systems were reviewed and are negative. [facility] Past Medical History Medical History (Updated 02/29/24 @ 01:47 by Hali Green DO) Anemia Aortic insufficiency Echocardiogram 2020: Hyperdynamic left ventricle EF 78% mild intracavitary obstruction with peak gradient of 16 with Valsalva, moderate concentric left ventricular hypertrophy, [id number] aortic valve regurgitation, mild tricuspid regurgitation CAD (coronary artery disease) Chronic pancreatitis CVA (cerebral vascular accident) MRI June 2021 demonstrated small old parietal punctate left cerebellar infarctions likely as result of in 01/2020 Diabetes A1c 6.6 on 04-29-19 Distal radius fracture, left Hyperlipidemia Hypertension Hypothyroid Renal stones Right humeral fracture (2021) Seizure as late effect of cerebrovascular accident (CVA) Thrombocytopenia Ulcerative colitis Surgical History Surgical History H/O lithotripsy H/O: hysterectomy Family History Family History Sibling Cancer Father Brain aneurysm Heart disease Hypertension Mother Diabetes mellitus Hypertension Grandparent Cancer Other Cancer Aunt Social History Social History (Updated 02/29/24 @ 01:21 by Hali Green DO) Social History: She has previously been but remarried and is been living with her 2nd for... . The patient had a stillborn and had 2 living children. Her son subsequently in adulthood. She has 1 remaining daughter. The patient is a former smoker. She denies any marijuana alcohol or illicit drugs. She does drink a fair amount of caffeine in the form soda. Code status: Full code Surrogate decision maker: Smoking packs per day: 1 Smoking cigarettes per day: 20.0 Years smoked: 50 Smoking pack-years: 50.00 Smoking status: Former smoker Tobacco type: cigarettes Second hand tobacco smoke exposure: No Alcohol intake: never Substance use: never Substance use type: does not use Do You Feel Safe in your Home?: Yes Lack of Transportation: No Lack of Food: Never True Current Housing: I Have Housing Concerned About Future Housing: No Difficulty Paying Gas/Electric Bills: No Difficulty Paying for Meds: No Currently Unemployed: No Education: Trade/Vocational Certificate Difficulty w/ Childcare or Family Care: No Living arrangements: with family Occupation/Education: retired Additional occupation/education comments: She used to work for a [employer]. Gender identity (if verbalized by the patient): Female Sexual Orientation (if Verbalized by the Patient): Straight or Heterosexual Spiritual care concerns: No Agree to blood products: Yes Meds Home Medications and Allergies Home Medications Medication Instructions Recorded Confirmed Type atorvastatin 10 mg tablet 10 mg PO DAILY 03/23/19 02/28/24 History blood-glucose meter (Blood Glucose #1 ea 03/03/20 02/28/24 Rx Monitoring kit) calcium carbonate (Calcium 600) 600 mg PO DAILY 03/02/21 02/28/24 History levetiracetam 500 mg tablet 500 mg PO BID 06/11/21 02/28/24 History insulin glargine 100 unit/mL (3 15 unit (0.15 mL) subcut QPM #45 mL 06/13/22 02/28/24 Rx mL) subcutaneous pen (Lantus Solostar U-100 Insulin) pen needle, diabetic 33 gauge x #100 ea 11/04/22 02/28/24 Rx 08/27 (Comfort EZ Pen [place]) blood sugar diagnostic (OneTouch #100 ea 11/08/22 02/28/24 Rx Ultra Test strips) clopidogrel 75 mg tablet 75 mg PO DAILY #90 tabs 02/11/24 02/28/24 Rx amlodipine 10 mg tablet 10 mg PO DAILY #90 tabs 02/26/24 02/28/24 Rx levothyroxine 50 mcg tablet 50 mcg PO DAILY 02/28/24 02/28/24 History lisinopril 5 mg tablet 5 mg PO DAILY 02/28/24 02/28/24 History mesalamine 1.2 gram tablet,delayed 1.2 g PO QID 02/28/24 02/28/24 History release metformin 1,000 mg tablet 1,000 mg PO BID 02/28/24 02/28/24 History Allergies Allergy/AdvReac Type Severity Reaction Status Date / Time Iodinated Contrast Media Allergy Intermediate Hives Verified 02/28/24 16:59 loracarbef [From Lorabid] Allergy Intermediate Hives Verified 02/28/24 16:59 Vital Signs Vital Signs - 24 hr 02/28/24 16:52 02/28/24 17:00 Temperature 97.6 F Pulse Rate 58 L Respiratory Rate 12 Blood Pressure 209/66 H Pulse Oximetry 98 Oxygen Delivery Room Air Exam Narrative: Weight 71.5 kg BMI 25.4 Const: Other: No acute distress, well-developed well-nourished HENMT: Other: Mucous membranes are moist, no oral pharyngeal erythema, no facial asymmetry, head is normocephalic atraumatic Eyes: Other: Pupils are equal and reactive, no scleral icterus, no conjunctival pallor, extraocular movements intact, evidence of lens replacements bilaterally Neck: Other: No JVD, no gross thyromegaly Resp: Other: Clear to auscultation bilaterally, no increased work of breathing Cardio: Other: Regular rate, regular rhythm, 2+ bilateral radial pedal pulses 4/6 systolic murm ur GI: Other: Soft, nontender, nondistended, positive bowel sounds Skin: Other: No jaundice, no pallor Neuro: Other: Patient is alert oriented x4, speech is clear, cranial nerves 2-12 appear to be grossly intact, sensation is intact in all extremities, no pronator drift Extrem: Other: No clubbing, cyanosis or edema, equal strength bilateral upper lower extremities Psych: Other: Anxious, easily distracted, poor judgment and insight H&P: Results Labs Labs: Laboratory Tests 02/28/24 17:10 02/28/24 17:10 02/28/24 02/28/24 02/28/24 17:10 18:22 18:41 WBC 7.4 RBC 3.88 L Hgb 11.8 L Hct 35.6 L MCV 91.8 MCH 30.4 MCHC 33.1 RDW 13.1 Plt Count 113 L MPV 11.8 H Immature Gran % (Auto) 0.3 Neut % (Auto) 77.9 H Lymph % (Auto) 13.3 L [place] % (Auto) 5.4 Eos % (Auto) 2.7 Baso % (Auto) 0.4 Lymph # (Auto) 0.98 [place] # (Auto) 0.4 Eos # (Auto) 0.2 Baso # (Auto) 0.0 Abs Immat Gran (auto) 0.02 Absolute Neuts (auto) 5.8 Absolute Nucleated RBC 0.000 Nucleated RBC % 0.0 PT 13.3 INR 1.0 APTT 27.0 Sodium 138 Potassium 3.7 Chloride 106 Carbon Dioxide 24 Anion Gap 8 BUN 14 Creatinine 0.80 Estim Creat Clear Calc 47 Estimated GFR > 60 Glucose 126 H Calcium 9.8 Magnesium 1.8 Total Bilirubin 0.5 AST 16 ALT 7 Alkaline Phosphatase 149 H Troponin I 0.062 H* Total Protein 8.0 Albumin 4.0 Lipase 286 Urine Color Yellow Urine Appearance Cloudy H Urine pH 6.5 Ur Specific [place] 1.008 Urine Protein 2+ H Urine Glucose (UA) Negative Urine Ketones Negative Ur Blood (Man) Trace Urine Nitrate Negative Urine Bilirubin Negative Urine Urobilinogen 0.2 Leukocyte Esterase Rfl 2+ H Urine RBC 3-5 H Urine WBC >100 H Ur Squamous Epith Cells None seen Urine Bacteria 4+ H Urine Casts 0-2 Influenza A (RT-PCR) Negative Influenza B (RT-PCR) Negative RSV (RT-PCR) Negative SARS-CoV-2 RNA (RT-PCR) Negative Impressions Chest X-Ray 02/28/24 18:18 (personally reviewed and interpreted. Agree with radiologic interpretation) IMPRESSION: No acute cardiopulmonary process. Head CT 02/28/24 18:20 IMPRESSION: No acute intracranial process. EKG personally reviewed and interpreted. Cardiology interpretation pending. Sinus bradycardia with baseline artifact in all leads except V3-v6 Assessment and Plan Assessment and plan (1) Hypertensive crisis: Code(s): I16.9 - Hypertensive crisis, unspecified Status: Acute (2) Elevated troponin: Code(s): R79.89 - Other specified abnormal findings of blood chemistry Status: Acute (3) Non-adherence to medical treatment: Code(s): Z91.199 - Patient's noncompliance with other medical treatment and regimen due to unspecified reason Status: Acute (4) Abnormal finding on urinalysis: Code(s): R82.90 - Unspecified abnormal findings in urine Status: Acute (5) Diabetes mellitus: Qualifiers: Diabetes mellitus complication status: without complication Diabetes mellitus assisted insulin use: with assisted use Diabetes mellitus type: type 2 Qualified Code(s): E11.9 - Type 2 diabetes mellitus without complications; Z79.4 - retirement (current) use of insulin Code(s): E11.9 - Type 2 diabetes mellitus without complications Status: Acute (6) Hypothyroid: Qualifiers: Hypothyroidism type: acquired Qualified Code(s): E03.9 - H ypothyroidism, unspecified Code(s): E03.9 - Hypothyroidism, unspecified Status: Chronic (7) Seizure as late effect of cerebrovascular accident (CVA): Code(s): I69.398 - Other sequelae of cerebral infarction; R56.9 - Unspecified convulsions Status: Acute Plan Patient presents with dizziness and weakness. She was found to be markedly hypertensive with systolic blood pressures up in the 220s and had mildly elevated troponins. This is effective be troponin leak for due to hypertensive crisis versus type 2 infarct. Fortunately the patient is not having any active chest pain or concerns for acute NH. Patient was given dose of IV hydralazine in the ER and Cardiology was consulted who recommended hydralazine 50 mg p.o. daily and lisinopril 10 mg p.o. daily. Patient received 1 dose of oral hydralazine 50 mg and 1 dose of lisinopril 10 mg p.o. in the ER. Patient did not receive the labetalol that is listed as ordered due to previously mentioned bradycardia. Patient's uncontrolled hypertension is due to nonadherence to medication regimen. The importance of continuing with antihypertensives in the future was discussed in detail with patient. Patient will be monitored closely in IMU with serial troponins ordered. Will check lipid panel with a.m. labs Patient does have abnormal UA with 4+ bacteria greater than 100 wbc's and 2+ esterase as well as 2+ protein. She received 2 g of IV Rocephin in the ER. Patient does have a history of hypothyroidism. Her last TSH in our system was January 2023 and was mildly low. Will check TSH and resume/adjust medications as appropriate. Patient does have a history of diabetes but her last A1c within our system was in January 2023 and was 5.1 %. She is currently euglycemic. Given the patient's reported symptoms of lightheadedness and nausea these could be due to hypoglycemia. However patient is currently euglycemic. Will hold the patient's Lantus as it is unclear if the patient has been taking this at home or not. Will continue home metformin. Will place patient on hypoglycemia protocol as needed. Will also add low-dose sliding scale insulin as needed and will monitor Accu-Cheks. Will also check A1c with a.m. labs. Patient does have a history of seizures. Is uncertain if patient has been taking her home Keppra. Some of patient's reported symptoms on presentation could be due to partial seizures. Will resume home Keppra. The patient does have an abnormal UA that could be suggestive of UTI. She does have what sounds like some urinary frequency but onset is uncertain. Sounds as if she likely has some chronic urinary frequency. Patient was given 1 dose of Rocephin in the ER empirically. However will hold off on continuing the antibiotics as she does not have any fevers, chills or leukocytosis. If urine cultures come back suggestive of UTI and patient develops increased symptoms will re-evaluate antibiotic administration at that time. Quality VTE Prophylaxis VTE prophylaxis: pharmacologic ordered (Lovenox 40 mg subQ daily) Hospitalist [facility] Advance Care Plan I have confirmed that the patient's Advanced Care Plan is present, code status is documented, or surrogate decision maker is listed in patient medical record.: Yes Medication Reconciliation I have utilized all available resources to obtain, update and review the patients current medications (includes all prescriptions, OTC, herbals, cannabis, and nutritional supplements).: Yes
[2024-02-28] MEDS: hydrALAZINE HCL 50 MG TABLET PO (20:06)
[2024-02-28] MEDS: cefTRIAXone 2 GM/NS 100 ML 2 GM/100 ML BAG IVPB (20:06)
[2024-02-28] MEDS: hydrALAZINE HCL 20 MG/ML VIAL 10 MG IV PUSH (20:12)
[2024-02-28] MEDS: lisinopriL 10 MG TABLET PO (20:12)
[2024-02-28 20:19] LABS: Glucose Point of Care 130 mg/dl (65-105)
--- NOTE | 2024-02-28 20:23 | ECG_ITS ---
Test Date: 2024-02-28 20:25:48 Measurements Intervals [place] Rate: 69 P: 68 MT: 160 QRS: 62 QRSD: 93 T: 56 QT: 403 QTc: 435 Interpretive Statements SINUS RHYTHM BORDERLINE ST ABNORMALITY- ANTEROLAT/INF LEADS BASELINE ARTIFACT- I, II, III, AVR, AVL, AVF, V1 BORDERLINE ECG Compared to ECG 02/28/2024 17:02:24 HEART RATE HAS INCREASED Electronically Signed On 02-28-2024 20:50:24 CIVIL ENGINEERING ASSISTANT by Jori Haines D.O.
--- NOTE | 2024-02-28 20:57 | PC.NURSE ---
Report received from ER nurse Candi PYLE.
[2024-02-28 21:04] LABS: Troponin I 0.075 ng/mL (0.000-0.034)
--- NOTE | 2024-02-28 21:20 | ADMGEN ---
This patient, Shanon Ramirez, was admitted to IMU Room 211-01. Patient/family oriented to hospital policies and general routines including ID bracelet, bed and alarms, visiting hours, pain management, procedures, bathroom and other care routines, personal items, smoking policy, room service/diet, and visiting hours. Information on how to activate the Rapid Response Team has been discussed. Patient/Family are encouraged to report perceived risks to care and to ask questions if they do not understand what they are told or what they should do.
[2024-02-28 21:40] LABS: Glucose Point of Care 140 mg/dl (65-105)
[2024-02-29] VITALS (17 sets, daily range): BP systolic 126–192; BP diastolic 45–78; PULSE 61–88; RESP 16–18; TEMP 36.5–37.1; O2SAT 96–100
[2024-02-29 00:57] LABS: Troponin I 0.073 ng/mL (0.000-0.034)
[2024-02-29 04:56] LABS: Cholesterol 166 mg/dL (0-200); HDL Direct 36 mg/dL; Triglycerides 132 mg/dL (<150)
[2024-02-29 05:06] LABS: LDL Cholesterol Direct 89 mg/dL
[2024-02-29] MEDS: hydrALAZINE HCL 20 MG/ML VIAL 10 MG IV PUSH (05:31)
[2024-02-29] MEDS: LEVOTHYROXINE SODIUM 50 MCG TABLET PO (05:31)
[2024-02-29 05:35] LABS: Thyroid Stimulating Hormone 0.765 uIU/mL (0.465-4.680)
[2024-02-29 07:56] LABS: Glucose Point of Care 122 mg/dl (65-105)
[2024-02-29 09:17] LABS: Basophils Percent Auto 0.3 % (0.2-1.2); Eosinophils Absolute Auto 0.2 K/mm3 (0-0.3); Eosinophils Percent Auto 3.3 % (0-4.4); Hematocrit 33.5 % (37.0-47.0); Hemoglobin 11.2 g/dL (12.0-15.0); Immature Granulocyte Absolute 0.02 K/mm3 (0.00-0.031); Immature Granulocyte Percent A 0.3 % (0-0.5); Lymphocytes Absolute Auto 0.89 K/mm3 (0.9-3.2); Lymphocytes Percent Auto 13.5 % (18.3-44.2); Mean Corpuscular HGB Conc 33.4 g/dl (32-36); Mean Corpuscular Hemoglobin 30.4 pg (26-34); Mean Platelet Volume 12.3 fl (7.4-10.4); Monocytes Absolute Auto 0.4 K/mm3 (0.1-0.6); Monocytes Percent Auto 5.8 % (2.6-8.5); Neutrophils Percent Auto 76.8 % (45.5-73.1); Platelet Count Result 129 k/mm3 (150-375); Red Blood Count 3.68 M/mm3 (4.2-5.4); Red Cell Distribution Width 13.3 % (11.5-14.5); White Blood Count 6.6 K/mm3 (4.5-10.0)
[2024-02-29 09:23] LABS: Alanine Aminotransferase 10 U/L (6-35); Albumin Level 3.8 g/dL (3.5-5.1); Alkaline Phosphatase 110 U/L (38-126); Anion Gap 10 mmol/L (4-12); Aspartate Amino Transferase 15 U/L (14-36); Bilirubin,Total 0.4 mg/dL (0.2-1.3); Blood Urea Nitrogen 11 mg/dL (7-17); Calcium 9.9 mg/dL (8.4-10.2); Carbon Dioxide 24 mmol/L (22-30); Chloride 106 mmol/L (98-107); Estimated CRCL calculation 47 ml/min; Estimated Glomerular Filt Rate > 60; Glucose 210 mg/dL (65-110); Potassium 3.5 mmol/L (3.4-5.0); Sodium 140 mmol/L (137-145)
[2024-02-29] MEDS: metFORMIN HCL 500 MG TABLET 1000 MG PO ×2 (09:58→17:05)
[2024-02-29] MEDS: levETIRAcetam 500 MG TABLET PO ×2 (09:58→21:11)
[2024-02-29] MEDS: ENOXAPARIN 40 MG/0.4 ML SYRINGE SUB-Q (09:58)
[2024-02-29] MEDS: hydrALAZINE HCL 50 MG TABLET PO (09:58)
[2024-02-29] MEDS: lisinopriL 10 MG TABLET PO (09:58)
[2024-02-29] MEDS: CLOPIDOGREL BISULFATE 75 MG TABLET PO (09:58)
--- NOTE | 2024-02-29 10:20 | PM.CNCAR ---
Assessment and Plan Assessment and plan (1) Elevated troponin: Code(s): R79.89 - Other specified abnormal findings of blood chemistry Status: Acute (2) CAD (coronary artery disease): Code(s): I25.10 - Atherosclerotic heart disease of [place] coronary artery without angina pectoris Status: Inactive (3) Hyperlipidemia: Qualifiers: Hyperlipidemia type: mixed hyperlipidemia Qualified Code(s): E78.2 - Mixed hyperlipidemia Code(s): E78.5 - Hyperlipidemia, unspecified Status: Chronic (4) Hypertensive crisis: Code(s): I16.9 - Hypertensive crisis, unspecified Status: Acute Plan 78-year-old woman with CAD, CVA, hypertension, and hyperlipidemia presented to the emergency room with lightheadedness and weakness Troponin elevation -troponin trend not indicative of acute coronary syndrome -clinically without chest pain -echocardiogram Pansystolic murmur -echocardiogram Hypertension -goal systolic blood pressure less than 140 -increase lisinopril to 20 mg p.o. daily and resume amlodipine 10 mg p.o. daily -continue hydralazine 50 mg p.o. t.i.d. Hyperlipidemia -continue atorvastatin 10 mg p.o. daily History of Present Illness History of Present Illness Consult date/time: 02/29/24 10:20 Requesting physician: Hali Green DO Reason For Visit: hypertensive crisis Narrative: 78-year-old woman with CAD, CVA, hypertension, and hyperlipidemia presented to the emergency room with lightheadedness and weakness. She denies any chest pain or shortness of breath. At home she is able to ambulate within the confines of her home without any cardiopulmonary limitations. She denies any syncope, or orthopnea. On admission she was found to have elevated systolic blood pressures and troponin elevation Review of Systems Constitutional: Constitutional: Reports as per HPI Cardiovascular: Cardiovascular: Reports as per HPI Respiratory: Respiratory: Reports as per HPI [facility] Past Medical History Medical History (Updated 02/29/24 @ 01:47 by Hali Green DO) Anemia Aortic insufficiency Echocardiogram 2020: Hyperdynamic left ventricle EF 78% mild intracavitary obstruction with peak gradient of 16 with Valsalva, moderate concentric left ventricular hypertrophy, [id number] aortic valve regurgitation, mild tricuspid regurgitation CAD (coronary artery disease) Chronic pancreatitis CVA (cerebral vascular accident) MRI June 2021 demonstrated small old parietal punctate left cerebellar infarctions likely as result of in 01/2020 Diabetes A1c 6.6 on 04-29-19 Distal radius fracture, left Hyperlipidemia Hypertension Hypothyroid Renal stones Right humeral fracture (2021) Seizure as late effect of cerebrovascular accident (CVA) Thrombocytopenia Ulcerative colitis Surgical History Surgical History H/O lithotripsy H/O: hysterectomy Family History Family History Sibling Cancer Father Brain aneurysm Heart disease Hypertension Mother Diabetes mellitus Hypertension Grandparent Cancer Other Cancer Aunt Social History Social History (Updated 02/29/24 @ 01:21 by Hali Green DO) Social History: She has previously been but remarried and is been living with her 2nd for... . The patient had a stillborn and had 2 living children. Her son subsequently in adulthood. She has 1 remaining daughter. The patient is a former smoker. She denies any marijuana alcohol or illicit drugs. She does drink a fair amount of caffeine in the form soda. Code status: Full code Surrogate decision maker: Smoking packs per day: 1 Smoking cigarettes per day: 20.0 Years smoked: 50 Smoking pack-years: 50.00 Smoking status: Former smoker Tobacco type: cigarettes Second hand tobacco smoke exposure: No Alcohol intake: never Substance use: never Substance use type: does not use Do You Feel Safe in your Home?: Yes Lack of Transportation: No Lack of Food: Never True Current Housing: I Have Housing Concerned About Future Housing: No Difficulty Paying Gas/Electric Bills: No Difficulty Paying for Meds: No Currently Unemployed: No Education: Trade/Vocational Certificate Difficulty w/ Childcare or Family Care: No Living arrangements: with family Occupation/Education: retired Additional occupation/education comments: She used to work for a [employer] and [employer]. Gender identity (if verbalized by the patient): Female Sexual Orientation (if Verbalized by the Patient): Straight or Heterosexual Spiritual care concerns: No Agree to blood products: Yes Meds Home Medications and Allergies Home Medications Medication Instructions Recorded Confirmed Type atorvastatin 10 mg tablet 10 mg PO DAILY 03/23/19 02/28/24 History blood-glucose meter (Blood Glucose #1 ea 03/03/20 02/28/24 Rx Monitoring kit) calcium carbonate (Calcium 600) 600 mg PO DAILY 03/02/21 02/28/24 History levetiracetam 500 mg tablet 500 mg PO BID 06/11/21 02/28/24 History insulin glargine 100 unit/mL (3 15 unit (0.15 mL) subcut QPM #45 mL 06/13/22 02/28/24 Rx mL) subcutaneous pen (Lantus Solostar U-100 Insulin) pen needle, diabetic 33 gauge x #100 ea 11/04/22 02/28/24 Rx /16 (Comfort EZ Pen [place]) blood sugar diagnostic (OneTouch #100 ea 11/08/22 02/28/24 Rx Ultra Test strips) clopidogrel 75 mg tablet 75 mg PO DAILY #90 tabs 02/11/24 02/28/24 Rx amlodipine 10 mg tablet 10 mg PO DAILY #90 tabs 02/26/24 02/28/24 Rx levothyroxine 50 mcg tablet 50 mcg PO DAILY 02/28/24 02/28/24 History lisinopril 5 mg tablet 5 mg PO DAILY 02/28/24 02/28/24 History mesalamine 1.2 gram tablet,delayed 1.2 g PO QID 02/28/24 02/28/24 History release metformin 1,000 mg tablet 1,000 mg PO BID 02/28/24 02/28/24 History Allergies Allergy/AdvReac Type Severity Reaction Status Date / Time Iodinated Contrast Media Allergy Intermediate Hives Verified 02/28/24 16:59 loracarbef [From Lorabid] Allergy Intermediate Hives Verified 02/28/24 16:59 Vital Signs Vital Signs - 24 hr 02/28/24 16:52 02/28/24 17:00 02/28/24 19:01 Temperature 36.4 C Pulse Rate 58 L 64 Respiratory Rate 12 16 Blood Pressure 209/66 H 192/160 H Pulse Oximetry 98 100 Oxygen Delivery Room Air Fraction of Inspired Oxygen 02/28/24 19:15 02/28/24 19:32 02/28/24 19:50 Temperature Pulse Rate 70 62 61 Respiratory Rate 18 16 17 Blood Pressure Pulse Oximetry 96 96 Oxygen Delivery Fraction of Inspired Oxygen 02/28/24 20:00 02/28/24 20:01 02/28/24 20:45 Temperature Pulse Rate 71 70 91 Respiratory Rate 14 15 18 Blood Pressure 215/66 H Pulse Oximetry 98 97 100 Oxygen Delivery Fraction of Inspired Oxygen 02/28/24 20:48 02/28/24 20:59 02/28/24 21:21 Temperature 36.7 C Pulse Rate 83 83 80 Respiratory Rate 15 14 16 Blood Pressure 137/77 153/68 H Pulse Oximetry 100 100 100 Oxygen Delivery Fraction of Inspired Oxygen 02/28/24 23:51 02/28/24 21:30 02/29/24 00:00 Temperature 36.6 C Pulse Rate 67 Respiratory Rate 16 Blood Pressure 164/65 H Pulse Oximetry 100 Oxygen Delivery Room Air Room Air Fraction of Inspired Oxygen 02/28/24 22:00 02/29/24 00:00 02/29/24 02:00 Temperature Pulse Rate 76 73 67 Respiratory Rate Blood Pressure Pulse Oximetry Oxygen Delivery Fraction of Inspired Oxygen 02/28/24 21:26 02/29/24 03:29 02/29/24 04:00 Temperature 36.5 C Pulse Rate 89 65 Respiratory Rate 18 Blood Pressure 192/69 H Pulse Oximetry 100 Oxygen Delivery Room Air Fraction of Inspired Oxygen 02/29/24 04:00 02/29/24 06:00 02/29/24 08:00 Temperature 36.8 C Pulse Rate 61 74 77 Respiratory Rate 16 Blood Pressure 151/48 H Pulse Oximetry 98 Oxygen Delivery Fraction of Inspired Oxygen 02/29/24 08:12 Temperature Pulse Rate Respiratory Rate Blood Pressure Pulse Oximetry 96 Oxygen Delivery Room Air Fraction of Inspired Oxygen 21 Exam Const: General: comfortable HENMT: Mouth: Yes moist mucous membranes Eyes: EOM: EOMs intact bilaterally Neck: Neck: no JVD Resp: Effort & Inspection: normal respiratory effort Auscultation: clear to auscultation bilaterally Cardio: Rate: regular rate Rhythm: regular rhythm Heart sounds: Murmur heart sound present GI: GI Palp: Yes Soft to palpation Neuro: Speech: normal speech Extrem: General: no edema Results Labs and Meds 02/29/24 09:00 02/29/24 09:00 Lab results: Cardiac Enzymes 02/28/24 02/28/24 02/28/24 Range/Units 17:10 20:16 23:32 AST 16 (14-36) U/L Troponin I 0.062 H* 0.075 H* D 0.073 H* (0.000-0.034) ng/mL 02/29/24 Range/Units 09:00 AST 15 (14-36) U/L Troponin I (0.000-0.034) ng/mL Coagulation 02/28/24 Range/Units 18:22 PT 13.3 (11.1-14.7) Seconds APTT 27.0 (22.3-36.8) Seconds Lipids 02/28/24 Range/Units 23:30 Triglycerides 132 (<150) mg/dL Cholesterol 166 (0-200) mg/dL CBC 02/28/24 02/29/24 Range/Units 17:10 09:00 WBC 7.4 6.6 (4.5-10.0) K/mm3 RBC 3.88 L 3.68 L (4.2-5.4) M/mm3 Hgb 11.8 L 11.2 L (12.0-15.0) g/dL Hct 35.6 L 33.5 L (37.0-47.0) % Plt Count 113 L 129 L (150-375) k/mm3 Lymph # (Auto) 0.98 0.89 L (0.9-3.2) K/mm3 [place] # (Auto) 0.4 0.4 (0.1-0.6) K/mm3 Eos # (Auto) 0.2 0.2 (0-0.3) K/mm3 Baso # (Auto) 0.0 0.0 (0.0-0.1) K/mm3 Comprehensive Metabolic Panel 02/28/24 02/29/24 Range/Units 17:10 09:00 Sodium 138 140 (137-145) mmol/L Potassium 3.7 3.5 (3.4-5.0) mmol/L Chloride 106 106 (98-107) mmol/L Carbon Dioxide 24 24 (22-30) mmol/L BUN 14 11 (7-17) mg/dL Creatinine 0.80 0.80 (0.7-1.0) mg/dL Glucose 126 H 210 H (65-110) mg/dL Calcium 9.8 9.9 (8.4-10.2) mg/dL AST 16 15 (14-36) U/L ALT 7 10 (6-35) U/L Alkaline Phosphatase 149 H 110 (38-126) U/L Total Protein 8.0 7.0 (6.3-8.2) g/dL Albumin 4.0 3.8 (3.5-5.1) g/dL Intake and Output 02/28/24 02/29/24 02/29/24 23:59 07:59 15:59 Intake Total 1100 250 240 Output Total 500 300 Balance 1100 -250 -60 Intake: IV 1100 Sodium Chloride 0.9% IV 1,000 1000 ml @ 999 mls/hr IV CONT .Q1H1M STA Rx#:[id number] cefTRIAXone 2 GM/NS 100 ML 2 gm 100 In 100 ml @ 200 mls/hr IVPB ONCE STA Rx#:[id number] Oral 250 240 Output: Urine 500 300 Patient Weight 02/29/24 23:59 Weight 68.5 kg
[2024-02-29] MEDS: amLODIPine BESYLATE 10 MG TABLET PO (11:41)
[2024-02-29 12:01] LABS: Glucose Point of Care 143 mg/dl (65-105)
--- NOTE | 2024-02-29 14:36 | P.PNIM_ITS ---
Progress Note: A&P Assessment and Plan (1) Hypertensive crisis: Code(s): I16.9 - Hypertensive crisis, unspecified Status: Acute Assessment and Plan: * Blood pressure ranging 126/45-192/69 * amlodipine, lisinopril, hydralazine (2) Elevated troponin: Code(s): R79.89 - Other specified abnormal findings of blood chemistry Status: Acute Assessment and Plan: * likely demand ischemia * Troponin 0.062,0.075 .0.073 (3) Abnormal finding on urinalysis: Code(s): R82.90 - Unspecified abnormal findings in urine Status: Acute Assessment and Plan: * UA showing cloudy appearance, 2+ urine protein, 2+ leukocytes, 3-5 urine RBC, > 100 urine WBC, 4+ bacteria * Urine culture pending * Rocephin given in ER, however patient asymptomatic and antibiotics held (4) Diabetes mellitus: Qualifiers: Diabetes mellitus type: type 2 Diabetes mellitus terminal superintendent insulin use: with terminal superintendent use Diabetes mellitus complication status: without complication Qualified Code(s): E11.9 - Type 2 diabetes mellitus without complications; 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 Code(s): E11.9 - Type 2 diabetes mellitus without complications Status: Acute Assessment and Plan: * Blood sugars ranging 143-210 * Hgb A1C 6.0 * Accu checks AC/HS * Low-dose SSI ordered * hypoglycemic protocol in place * Diabetic diet ordered * Continue metformin (5) Hypothyroid: Qualifiers: Hypothyroidism type: acquired Qualified Code(s): E03.9 - Hypothyroidism, unspecified Code(s): E03.9 - Hypothyroidism, unspecified Status: Chronic Assessment and Plan: * continue Synthroid (6) Seizure as late effect of cerebrovascular accident (CVA): Code(s): I69.398 - Other sequelae of cerebral infarction; R56.9 - Unspecified convulsions Status: Acute Assessment and Plan: * Continue Keppra * Head CT negative * Neuro intact * MRI of the brain and brainstem * Echo ordered Time Spent With Patient Time with patient: Greater than 35 minutes Subjective Date/time seen: 02/29/24 14:36 Interval history: Interval history: This is a 78-year-old female who presented to the hospital on 02/28/2024 with complaints of lightheadedness and weakness. Workup in the hospital included a chest CT which shown mild bilateral hydronephrosis, nodules in the thyroid measuring up to 14 mm. Chest x-ray was negative. Head CT was negative. Initial labs showed a normal white blood cell count of 7.4, hemoglobin 11.8, platelet count 113, creatinine 0.80, troponin 0.062> 0.073, TSH 0.765. UA was obtained which showed a cloudy appearance, 2+ urine protein, 2+ leukocyte, 3-5 urine RBC, greater than 100 urine WBC, 4+ urine bacteria. Respiratory panel was negative for influenza a and B, RSV, COVID. Patient was initially started on Rocephin however we you went ahead and hold off on any more antibiotics at this time as she is asymptomatic. We will continue to watch the culture. Patient was found to have blood pressures ranging 174/51 to 209/66 while in the ED. patient was given hydralazine and lisinopril while in the ED. she was also given 1 L of normal saline. Subjective: Patient denies any fever, chills, nausea, vomiting, diarrhea, abdominal pain, chest pain, shortness a breath. She also denies any lightheadedness, dizziness, vision changes. She states that she has been or forgetful and confused at baseline. Her normally cares for her at home but has been having issues with his own health lately. It is possible that she was not taking her medication as prescribed at home resulting in her uncontrolled hypertension. Labs and imaging reviewed. Review of Systems Review of Systems: 12 systems were reviewed with pertinent positives and negatives per HPI. Except as documented in the HPI, all other systems were reviewed and are negative. All systems reviewed & are unremarkable except as noted in HPI and below Constitutional: Constitutional: Reports as per HPI and Reports no additional constitutional complaints Eyes: Eyes: Reports as per HPI and Reports no additional eye complaints ENT: Reports system reviewed and no additional complaints, except as documented and Reports as per HPI Cardiovascular: Cardiovascular: Reports as per HPI and Reports no additional cardiovascular complaints Respiratory: Respiratory: Reports as per HPI and Reports no additional respiratory complaints Gastrointestinal: Gastrointestinal: Reports as per HPI and Reports no additional gastrointestinal complaints Genitourinary: Genitourinary: Reports no additional female genitourinary complaints and Reports as per HPI Musculoskeletal: Musculoskeletal: Reports no additional musculoskeletal complaints and Reports as per HPI Integumentary/Breasts: Skin/Breast: Reports system reviewed and no additional complaints, except as docu and Reports as per HPI Neurologic: Reports system reviewed and no additional complaints, except as do cumented and Reports as per HPI Psychiatric: Psychiatric: Reports no additional psychiatric complaints and Reports as per HPI Exam Narrative: General: In no acute distress, well nourished Head: atraumatic, no encephalopathy Eyes: EOMI, PERRLA, sclera clear ENT: moist mucous membranes, nasal passages clear Neck: supple, no JVD, no adenopathy, trachea midline Cardiac: Normal S1 and S2. Murmur noted. No gallops or friction rubs, peripheral pulses intact. Respiratory: Lungs clear to auscultation, no adventitious lung sounds, currently on room air Gastrointestinal: soft, non-distended, non-tender, normoactive bowel sounds. : voiding without difficulty. Extremities: moves all extremities well, no edema, good ROM, strength 5/5 Skin: clean, dry, intact. No wounds or lesions. Neuro: Alert and oriented x4, cranial nerves intact, no neuro deficits. No fac ial droop or slurred speech noted. No vision loss, headache, lightheadedness, dizziness. Coordination intact. Psych: normal mood, normal affect, interactive Objective Data Vital Signs Vital Signs: Vital Signs - 24 hr 02/28/24 16:52 02/28/24 17:00 02/28/24 19:01 Temperature 97.6 F Pulse Rate 58 L 64 Respiratory Rate 12 16 Blood Pressure 209/66 H 192/160 H Pulse Oximetry 98 100 Oxygen Delivery Room Air Fraction of Inspired Oxygen 02/28/24 19:15 02/28/24 19:32 02/28/24 19:50 Temperature Pulse Rate 70 62 61 Respiratory Rate 18 16 17 Blood Pressure Pulse Oximetry 96 96 Oxygen Delivery Fraction of Inspired Oxygen 02/28/24 20:00 02/28/24 20:01 02/28/24 20:45 Temperature Pulse Rate 71 70 91 Respiratory Rate 14 15 18 Blood Pressure 215/66 H Pulse Oximetry 98 97 100 Oxygen Delivery Fraction of Inspired Oxygen 02/28/24 20:48 02/28/24 20:59 02/28/24 21:21 Temperature 98.1 F Pulse Rate 83 83 80 Respiratory Rate 15 14 16 Blood Pressure 137/77 153/68 H Pulse Oximetry 100 100 100 Oxygen Delivery Fraction of Inspired Oxygen 02/28/24 23:51 02/28/24 21:30 02/29/24 00:00 Temperature 97.8 F Pulse Rate 67 Respiratory Rate 16 Blood Pressure 164/65 H Pulse Oximetry 100 Oxygen Delivery Room Air Room Air Fraction of Inspired Oxygen 02/28/24 22:00 02/29/24 00:00 02/29/24 02:00 Temperature Pulse Rate 76 73 67 Respiratory Rate Blood Pressure Pulse Oximetry Oxygen Delivery Fraction of Inspired Oxygen 02/28/24 21:26 02/29/24 03:29 02/29/24 04:00 Temperature 97.7 F Pulse Rate 89 65 Respiratory Rate 18 Blood Pressure 192/69 H Pulse Oximetry 100 Oxygen Delivery Room Air Fraction of Inspired Oxygen 02/29/24 04:00 02/29/24 06:00 02/29/24 08:00 Temperature 98.2 F Pulse Rate 61 74 77 Respiratory Rate 16 Blood Pressure 151/48 H Pulse Oximetry 98 Oxygen Delivery Fraction of Inspired Oxygen 02/29/24 08:12 02/29/24 08:00 02/29/24 10:00 Temperature Pulse Rate 71 75 Respiratory Rate Blood Pressure Pulse Oximetry 96 Oxygen Delivery Room Air Fraction of Inspired Oxygen 21 02/29/24 12:00 02/29/24 12:00 Temperature 98.3 F Pulse Rate 88 77 Respiratory Rate 18 Blood Pressure 126/45 L Pulse Oximetry 99 Oxygen Delivery Fraction of Inspired Oxygen Intake/Output Intake/Output: Intake & Output 02/26/24 02/27/24 02/28/24 02/29/24 23:59 23:59 23:59 23:59 Intake Total 1100 830 Output Total 800 Balance 1100 30 Meds/Results Medications: Active Medications Generic Name Dose Route Start Last Admin Trade Name Freq PRN Reason Stop Dose Admin Amlodipine Besylate 10 mg 02/29/24 10:30 02/29/24 11:41 Amlodipine Besylate 10 Mg Tablet PO 10 mg DAILY [facility] Administration Calcium Carbonate 600 mg 02/29/24 09:00 02/29/24 09:58 Calcium Carbonate (Tums) 500 Mg (200 Mg Elemental) PO Not Given DAILY [facility] Clopidogrel Bisulfate 75 mg 02/29/24 09:00 02/29/24 09:58 Clopidogrel Bisulfate 75 Mg Tablet PO 75 mg DAILY [facility] Administration Dextrose 12.5 gm 02/29/24 01:50 Dextrose 50% 25 Gm/50 Ml Syringe IV PUSH PRN PRN Hypoglycemia Protocol Enoxaparin Sodium 40 mg 02/29/24 09:00 02/29/24 09:58 Enoxaparin 40 Mg/0.4 Ml Syringe SUB-Q 40 mg DAILY [facility] Administration Glucagon 1 mg 02/29/24 01:50 Glucagon For Inj 1 Mg Vial IM PRN PRN Hypoglycemia Protocol Glucose 15 gm 02/29/24 01:50 Glucose Oral Gel 15 Gm Of Glucse In 37.5 Gm Tube PO PRN PRN Hypoglycemia Protocol Hydralazine HCl 50 mg 02/29/24 09:00 02/29/24 09:58 Hydralazine Hcl 50 Mg Tablet PO 50 mg TID [facility] Administration Hydralazine HCl 10 mg 02/28/24 19:49 02/29/24 05:31 Hydralazine Hcl 20 Mg/Ml Vial IV PUSH 10 mg Q4H PRN Administration SBP greater than 180 Dextrose 1,000 mls @ 100 mls/hr 02/29/24 01:50 Dextrose 5% 1,000 Ml IVPB PRN PRN Hypoglycemia Protocol Insulin Aspart 2 - 5 units 02/29/24 08:00 02/29/24 09:47 Insulin Aspart (*Bkc) 100 Units/Ml SUB-Q Not Given TIDWM [facility] Protocol Insulin Aspart 1 - 2 units 02/29/24 21:00 Insulin Aspart (*Bkc) 100 Units/Ml SUB-Q HS [facility] Protocol Levetiracetam 500 mg 02/29/24 09:00 02/29/24 09:58 Levetiracetam 500 Mg Tablet PO 500 mg Q12HR [facility] Administration Levothyroxine Sodium 50 mcg 02/29/24 06:30 02/29/24 05:31 Levothyroxine Sodium 50 Mcg Tablet PO 50 mcg DAILY@0630 [facility] Administration Lisinopril 10 mg 02/29/24 09:00 02/29/24 09:58 Lisinopril 10 Mg Tablet PO 10 mg DAILY [facility] Administration Metformin HCl 1,000 mg 02/29/24 09:00 02/29/24 09:58 Metformin Hcl 500 Mg Tablet PO 1,000 mg BID [facility] Administration Perflutren Lipid Microsphere 0 ml 02/29/24 09:29 Perflutren Lipid Microspheres 1.5 Ml Vial Diluted To 10 Ml Total Volume IV PUSH 03/03/24 09:29 ONCE PRN adequate visualization Protocol Radiology Results: ITS Impressions Chest X-Ray 02/28/24 18:18 IMPRESSION: No acute cardiopulmonary process. Head CT 02/28/24 18:20 IMPRESSION: No acute intracranial process. Labs Labs: Laboratory Results - last 24 hr 02/28/24 02/28/24 02/28/24 17:10 18:22 18:41 WBC 7.4 RBC 3.88 L Hgb 11.8 L Hct 35.6 L MCV 91.8 MCH 30.4 MCHC 33.1 RDW 13.1 Plt Count 113 L MPV 11.8 H Immature Gran % (Auto) 0.3 Neut % (Auto) 77.9 H Lymph % (Auto) 13.3 L Candler % (Auto) 5.4 Eos % (Auto) 2.7 Baso % (Auto) 0.4 Lymph # (Auto) 0.98 Candler # (Auto) 0.4 Eos # (Auto) 0.2 Baso # (Auto) 0.0 Abs Immat Gran (auto) 0.02 Absolute Neuts (auto) 5.8 Absolute Nucleated RBC 0.000 Nucleated RBC % 0.0 PT 13.3 INR 1.0 APTT 27.0 Sodium 138 Potassium 3.7 Chloride 106 Carbon Dioxide 24 Anion Gap 8 BUN 14 Creatinine 0.80 Estim Creat Clear Calc 47 Estimated GFR > 60 Glucose 126 H POC Capillary Glucose Hemoglobin A1c 6.0 H Calcium 9.8 Magnesium 1.8 Total Bilirubin 0.5 AST 16 ALT 7 Alkaline Phosphatase 149 H Troponin I 0.062 H* Total Protein 8.0 Albumin 4.0 Triglycerides Cholesterol LDL Cholesterol Direct HDL Direct Lipase 286 TSH Urine Color Yellow Urine Appearance Cloudy H Urine pH 6.5 Ur Specific Hindman 1.008 Urine Protein 2+ H Urine Glucose (UA) Negative Urine Ketones Negative Ur Blood (Man) Trace Urine Nitrate Negative Urine Bilirubin Negative Urine Urobilinogen 0.2 Leukocyte Esterase Rfl 2+ H Urine RBC 3-5 H Urine WBC >100 H Ur Squamous Epith Cells None seen Urine Bacteria 4+ H Urine Casts 0-2 Influenza A (RT-PCR) Negative Influenza B (RT-PCR) Negative RSV (RT-PCR) Negative SARS-CoV-2 RNA (RT-PCR) Negative 02/28/24 02/28/24 02/28/24 20:15 20:16 21:36 WBC RBC Hgb Hct MCV MCH MCHC RDW Plt Count MPV Immature Gran % (Auto) Neut % (Auto) Lymph % (Auto) Candler % (Auto) Eos % (Auto) Baso % (Auto) Lymph # (Auto) Candler # (Auto) Eos # (Auto) Baso # (Auto) Abs Immat Gran (auto) Absolute Neuts (auto) Absolute Nucleated RBC Nucleated RBC % PT INR APTT Sodium Potassium Chloride Carbon Dioxide Anion Gap BUN Creatinine Estim Creat Clear Calc Estimated GFR Glucose POC Capillary Glucose 130 H 140 H Hemoglobin A1c Calcium Magnesium Total Bilirubin AST ALT Alkaline Phosphatase Troponin I 0.075 H* D Total Protein Albumin Triglycerides Cholesterol LDL Cholesterol Direct HDL Direct Lipase TSH Urine Color Urine Appearance Urine pH Ur Specific Hindman Urine Protein Urine Glucose (UA) Urine Ketones Ur Blood (Man) Urine Nitrate Urine Bilirubin Urine Urobilinogen Leukocyte Esterase Rfl Urine RBC Urine WBC Ur Squamous Epith Cells Urine Bacteria Urine Casts Influenza A (RT-PCR) Influenza B (RT-PCR) RSV (RT-PCR) SARS-CoV-2 RNA (RT-PCR) 02/28/24 02/28/24 02/29/24 23:30 23:32 07:20 WBC RBC Hgb Hct MCV MCH MCHC RDW Plt Count MPV Immature Gran % (Auto) Neut % (Auto) Lymph % (Auto) Candler % (Auto) Eos % (Auto) Baso % (Auto) Lymph # (Auto) Candler # (Auto) Eos # (Auto) Baso # (Auto) Abs Immat Gran (auto) Absolute Neuts (auto) Absolute Nucleated RBC Nucleated RBC % PT INR APTT Sodium Potassium Chloride Carbon Dioxide Anion Gap BUN Creatinine Estim Creat Clear Calc Estimated GFR Glucose POC Capillary Glucose 122 H Hemoglobin A1c Calcium Magnesium Total Bilirubin AST ALT Alkaline Phosphatase Troponin I 0.073 H* Total Protein Albumin Triglycerides 132 Cholesterol 166 LDL Cholesterol Direct 89 HDL Direct 36 Lipase TSH 0.765 Urine Color Urine Appearance Urine pH Ur Specific Hindman Urine Protein Urine Glucose (UA) Urine Ketones Ur Blood (Man) Urine Nitrate Urine Bilirubin Urine Urobilinogen Leukocyte Esterase Rfl Urine RBC Urine WBC Ur Squamous Epith Cells Urine Bacteria Urine Casts Influenza A (RT-PCR) Influenza B (RT-PCR) RSV (RT-PCR) SARS-CoV-2 RNA (RT-PCR) 02/29/24 02/29/24 09:00 11:51 WBC 6.6 RBC 3.68 L Hgb 11.2 L Hct 33.5 L MCV 91.0 MCH 30.4 MCHC 33.4 RDW 13.3 Plt Count 129 L MPV 12.3 H Immature Gran % (Auto) 0.3 Neut % (Auto) 76.8 H Lymph % (Auto) 13.5 L Candler % (Auto) 5.8 Eos % (Auto) 3.3 Baso % (Auto) 0.3 Lymph # (Auto) 0.89 L Candler # (Auto) 0.4 Eos # (Auto) 0.2 Baso # (Auto) 0.0 Abs Immat Gran (auto) 0.02 Absolute Neuts (auto) 5.0 Absolute Nucleated RBC 0.000 Nucleated RBC % 0.0 PT INR APTT Sodium 140 Potassium 3.5 Chloride 106 Carbon Dioxide 24 Anion Gap 10 BUN 11 Creatinine 0.80 Estim Creat Clear Calc 47 Estimated GFR > 60 Glucose 210 H POC Capillary Glucose 143 H Hemoglobin A1c Calcium 9.9 Magnesium Total Bilirubin 0.4 AST 15 ALT 10 Alkaline Phosphatase 110 Troponin I Total Protein 7.0 Albumin 3.8 Triglycerides Cholesterol LDL Cholesterol Direct HDL Direct Lipase TSH Urine Color Urine Appearance Urine pH Ur Specific Hindman Urine Protein Urine Glucose (UA) Urine Ketones Ur Blood (Man) Urine Nitrate Urine Bilirubin Urine Urobilinogen Leukocyte Esterase Rfl Urine RBC Urine WBC Ur Squamous Epith Cells Urine Bacteria Urine Casts Influenza A (RT-PCR) Influenza B (RT-PCR) RSV (RT-PCR) SARS-CoV-2 RNA (RT-PCR) Quality VTE Prophylaxis VTE prophylaxis: pharmacologic ordered (Lovenox 40 mg subQ daily)
[2024-02-29 16:40] LABS: Glucose Point of Care 112 mg/dl (65-105)
[2024-02-29 20:47] LABS: Glucose Point of Care 145 mg/dl (65-105)
[2024-03-01] VITALS (13 sets, daily range): BP systolic 134–163; BP diastolic 46–81; PULSE 60–75; RESP 12–20; TEMP 36.2–37; O2SAT 97–100
--- NOTE | 2024-03-01 | ECHO_ITS ---
Patient Info Name: Shanon Ramirez Age: 78 years : 1945 Gender: Female Ht: 66 in Wt: 130 lbs BSA: 1.66 m2 HR: 56 bpm BP: 143 / 49 mmHg Heart Rhythm: Sinus Rhythm Technical Quality: Good Exam Date: 03/01/2024 11:06 AM Exam Location: Echo Lab Patient Status: Inpatient Admit Date: 02/28/2024 Staff Ordering Physician: Abdullahi Patton MD (essie/mary) Program Engineer: Addie Posada RDCS Attending Provider: Luba Gray APRN Exam Type: CA echo doppler color flow Study Info Indications - elevated troponin Complete two-dimensional, color flow and Doppler transthoracic echocardiogram is performed. Summary 1. Complete two-dimensional, color flow and Doppler transthoracic echocardiogram is performed. 2. Left ventricular systolic function is normal, estimated at 65-70%. 3. The left ventricular diastolic function is grade I diastolic dysfunction. 4. There is moderate aortic valve calcification. 5. There is trace aortic valve regurgitation. 6. The aortic valve is probable trileaflet. 7. There is trace tricuspid valve regurgitation. 8. No pulmonary hypertension, estimated pulmonary arterial systolic pressure is 29 mmHg. Left Ventricle Left ventricular chamber dimension is normal. Left ventricular systolic function is normal, estimated at 65-70%. There is no increased left ventricular wall thickness. Left ventricular septal wall motion is normal. The left ventricular diastolic function is grade I diastolic dysfunction. Right Ventricle Right ventricular chamber dimension is normal. Right ventricular systolic function is normal. Left Atria Left atrial chamber dimension is normal. Right Atria Right atrial chamber dimension is normal. Atrial Septum Intact interatrial septum visualized by color flow imaging. Aortic Valve The aortic valve is probable trileaflet. There is no aortic valve sclerosis. There is no aortic valve stenosis. There is trace aortic valve regurgitation. There is moderate aortic valve calcification. Pulmonic Valve The pulmonic valve is normal. There is no pulmonic valve stenosis. There is no pulmonic regurgitation. Mitral Valve The mitral valve has normal leaflets. There is no mitral valve stenosis. There is no mitral valve regurgitation. There is mild mitral valve calcification. Tricuspid Valve The tricuspid valve leaflets are normal. There is no significant tricuspid valve stenosis. There is trace tricuspid valve regurgitation. No pulmonary hypertension, estimated pulmonary arterial systolic pressure is 29 mmHg. Pericardium/Pleural The pericardium appears normal. There is no pericardial effusion. Inferior Vena Cava Normal inferior vena cava with >50% collapse upon inspiration consistent with Empty right atrial pressure, 5 mmHg. Aorta The aortic root size at the sinus of Valsalva is normal. The prox ascending aorta size is normal. Left Ventricular Outflow Tract Name Value Normal LVOT 2D LVOT Diameter 1.9 cm LVOT Doppler LVOT Peak Gradient 10 mmHg LVOT Mean Gradient 6 mmHg LVOT VTI 37 cm LVOT VTI/AV VTI Ratio 0.9 LVOT Stroke Volume 107 ml LVOT CO 8.0 l/min LVOT CI 4.8 l/min/m2 Mitral Valve Name Value Normal MV Doppler MV Peak Gradient 11 mmHg MV Mean Gradient 4 mmHg MV Decel Thomas 391 cm/s2 MV PHT 67 ms MV Area (PHT) 3.3 cm2 4.0-5.0 MV Area (Cont Eq VTI) 2.0 cm2 MV Diastolic Function MV E Peak Velocity 90 cm/s MV A Peak Velocity 148 cm/s MV E/A 0.6 MV Decel Time 231 ms MV Annular TDI MV E/e' (Septal) 18.9 <=8.0 MV E/e' (Lateral) 13.7 <=8.0 MV E/e' (Average) 16.3 Tricuspid Valve Name Value Normal TV Regurgitation Doppler TR Peak Velocity 245 cm/s TR Peak Gradient 24 mmHg Estimated PAP/RSVP RA Pressure 5 mmHg <=5 PA Systolic Pressure 29 mmHg <36 RV Systolic Pressure 29 mmHg <36 Aortic Valve Name Value Normal AV Doppler AV Peak Velocity 210 cm/s AV Peak Gradient 18 mmHg AV Mean Gradient 10 mmHg AV VTI 44 cm AV Area (Cont Eq VTI) 2.4 cm2 >=3.0 AV Area (Cont Eq Ian) 2.1 cm2 AV Regurgitation 2D LVOT Area 2.9 cm2 AV Regurgitation Doppler AR Decel Time 993 ms AR Decel Thomas 247 cm/s2 AR PHT 288 ms Ventricles Name Value Normal LV Dimensions 2D/MM IVS Diastolic Thickness (2D) 0.9 cm 0.6-1.0 LVID Diastole (2D) 3.9 cm 3.8-5.2 LVIW Diastolic Thickness (2D) 1.0 cm 0.6-0.9 LVID Systole (2D) 2.5 cm 2.2-3.5 LVOT Diameter 1.9 cm LV Mass (2D Cubed) 118.53 g 67.00-162.00 LV Mass Index (2D Cubed) 72 g/m2 43-95 Relative Wall Thickness (2D) 0.51 LV Fractional Shortening/Ejection Fraction 2D/MM LV Fractional Shortening (2D) 37 % 27-45 LV EF (2D Teicholz) 67 % 54-74 LV Diastolic Volume (4C MOD) 63 ml LV EF (4C MOD) 75 % LV Diastolic Volume (2C MOD) 84 ml LV EF (2C MOD) 61 % LV Diastolic Volume (BP MOD) 75 ml 46-106 LV Diastolic Volume Index (BP MOD) 45 ml/m2 29-61 LV Systolic Volume (BP MOD) 23 ml 14-42 LV Systolic Volume Index (BP MOD) 14 ml/m2 8-24 LV EF (BP MOD) 69 % 54-74 LV Diastolic Length (4C) 7.1 cm LV Systolic Length (4C) 5.2 cm LV Stroke Volume (4C MOD) 47 ml Atria Name Value Normal LA Dimensions LA Volume (4C A-L) 39 ml LA Volume (BP A-L) 42 ml RA Dimensions RA Area (4C) 10.1 cm2 <=18.0 Report Signatures
[2024-03-01] MEDS: LEVOTHYROXINE SODIUM 50 MCG TABLET PO (06:10)
[2024-03-01] MEDS: levETIRAcetam 500 MG TABLET PO ×2 (08:17→19:43)
[2024-03-01] MEDS: metFORMIN HCL 500 MG TABLET 1000 MG PO ×2 (08:17→16:38)
[2024-03-01] MEDS: hydrALAZINE HCL 50 MG TABLET PO ×3 (08:17→16:38)
[2024-03-01] MEDS: ENOXAPARIN 40 MG/0.4 ML SYRINGE SUB-Q (08:17)
[2024-03-01 08:18] LABS: Glucose Point of Care 105 mg/dl (65-105)
[2024-03-01] MEDS: CLOPIDOGREL BISULFATE 75 MG TABLET PO (08:18)
[2024-03-01] MEDS: amLODIPine BESYLATE 10 MG TABLET PO (08:18)
[2024-03-01] MEDS: lisinopriL 10 MG TABLET PO (08:18)
[2024-03-01 11:10] LABS: Basophils Percent Auto 0.6 % (0.2-1.2); Eosinophils Absolute Auto 0.3 K/mm3 (0-0.3); Eosinophils Percent Auto 3.8 % (0-4.4); Hematocrit 36.6 % (37.0-47.0); Hemoglobin 11.5 g/dL (12.0-15.0); Immature Granulocyte Absolute 0.01 K/mm3 (0.00-0.031); Immature Granulocyte Percent A 0.1 % (0-0.5); Lymphocytes Absolute Auto 1.29 K/mm3 (0.9-3.2); Mean Corpuscular HGB Conc 31.4 g/dl (32-36); Mean Corpuscular Hemoglobin 29.6 pg (26-34); Mean Corpuscular Volume 94.1 fl (80-100); Mean Platelet Volume 12.5 fl (7.4-10.4); Monocytes Absolute Auto 0.5 K/mm3 (0.1-0.6); Monocytes Percent Auto 7.3 % (2.6-8.5); Neutrophils Percent Auto 70.2 % (45.5-73.1); Platelet Count Result 144 k/mm3 (150-375); Red Blood Count 3.89 M/mm3 (4.2-5.4); Red Cell Distribution Width 13.5 % (11.5-14.5); White Blood Count 7.2 K/mm3 (4.5-10.0)
[2024-03-01 11:31] LABS: Alanine Aminotransferase 8 U/L (6-35); Albumin Level 4.1 g/dL (3.5-5.1); Alkaline Phosphatase 142 U/L (38-126); Anion Gap 7 mmol/L (4-12); Aspartate Amino Transferase 15 U/L (14-36); Bilirubin,Total 0.6 mg/dL (0.2-1.3); Blood Urea Nitrogen 16 mg/dL (7-17); Calcium 10.3 mg/dL (8.4-10.2); Carbon Dioxide 28 mmol/L (22-30); Chloride 106 mmol/L (98-107); Estimated CRCL calculation 35 ml/min; Estimated Glomerular Filt Rate 48; Glucose 114 mg/dL (65-110); Potassium 4.3 mmol/L (3.4-5.0); Sodium 141 mmol/L (137-145)
[2024-03-01 11:54] LABS: Glucose Point of Care 98 mg/dl (65-105)
--- NOTE | 2024-03-01 16:33 | P.PNIM_ITS ---
Progress Note: A&P Assessment and Plan (1) Acute stroke due to ischemia: Code(s): I63.9 - Cerebral infarction, unspecified Status: Acute Assessment and Plan: * Head CT was negative. * MRI of the brain showed small focus of acute infarct along ache iris in the right occipital region, small region of encephalomalacia consistent with chronic infarct in the right parietal lobe and a couple tiny old lacunar infarcts in the bilateral cerebellar hemispheres, age-related changes, 6 single tiny focus of susceptibility artifact in the right cerebral hemisphere consistent with old blood products related to chronic microhemorrhage. * Started on aspirin and atorvastatin * Neurology consulted * Continue PT and OT * Allowed for permissive hypertension for 1st 24 hours * Echo showed normal LV systolic function with an estimated EF of 65-70%, grade 1 diastolic dysfunction. (2) Hypertensive crisis: Code(s): I16.9 - Hypertensive crisis, unspecified Status: Acute Assessment and Plan: * Blood pressure ranging 126/45-192/69 * amlodipine, lisinopril, hydralazine (3) Elevated troponin: Code(s): R79.89 - Other specified abnormal findings of blood chemistry Status: Acute Assessment and Plan: * likely demand ischemia * Troponin 0.062,0.075 .0.073 (4) Abnormal finding on urinalysis: Code(s): R82.90 - Unspecified abnormal findings in urine Status: Acute Assessment and Plan: * UA showing cloudy appearance, 2+ urine protein, 2+ leukocytes, 3-5 urine RBC, > 100 urine WBC, 4+ bacteria * Urine culture showing Gram-negative bacilli isolated on preliminary read * Will start Rocephin (5) Diabetes mellitus: Qualifiers: Diabetes mellitus type: type 2 Diabetes mellitus [facility]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 Diabetes mellitus complication status: without complication Qualified Code(s): E11.9 - Type 2 diabetes mellitus without complications; Z79.4 - detention (current) use of insulin Code(s): E11.9 - Type 2 diabetes mellitus without complications Status: Acute Assessment and Plan: * Blood sugars ranging 98-114 * Hgb A1C 6.0 * Accu checks AC/HS * Low-dose SSI ordered * hypoglycemic protocol in place * Diabetic diet ordered * Continue metformin (6) Hypothyroid: Qualifiers: Hypothyroidism type: acquired Qualified Code(s): E03.9 - Hypothyroidism, unspecified Code(s): E03.9 - Hypothyroidism, unspecified Status: Chronic Assessment and Plan: * continue Synthroid * TSH 0.765 (7) Seizure as late effect of cerebrovascular accident (CVA): Code(s): I69.398 - Other sequelae of cerebral infarction; R56.9 - Unspecified convulsions Status: Acute Assessment and Plan: * Continue Keppra * Head CT negative * Neuro intact * MRI of the brain and brainstem revealed new stroke * Echo ordered see above for details Time Spent With Patient Time with patient: 25 - 35 minutes Subjective Date/time seen: 03/01/24 16:33 Interval history: Interval history: This is a 78-year-old female who presented to the hospital on 02/28/2024 with complaints of lightheadedness and weakness. Workup in the hospital included a chest CT which shown mild bilateral hydronephrosis, nodules in the thyroid measuring up to 14 mm. Chest x-ray was negative. Head CT was negative. Initial labs showed a normal white blood cell count of 7.4, hemoglobin 11.8, platelet count 113, creatinine 0.80, troponin 0.062> 0.073, TSH 0.765. UA was obtained which showed a cloudy appearance, 2+ urine protein, 2+ leukocyte, 3-5 urine RBC, greater than 100 urine WBC, 4+ urine bacteria. Respiratory panel was negative for influenza a and B, RSV, COVID. Patient was initially started on Rocephin however we you went ahead and hold off on any more antibiotics at this time as she is asymptomatic. We will continue to watch the culture. Patient was found to have blood pressures ranging 174/51 to 209/66 while in the ED. patient was given hydralazine and lisinopril while in the ED. she was also given 1 L of normal saline. Subjective: Patient denies any new complaints today. Labs and imaging reviewed. Review of Systems Review of Systems: 12 systems were reviewed with pertinent positives and negatives per HPI. Except as documented in the HPI, all other systems were reviewed and are negative. All systems reviewed & are unremarkable except as noted in HPI and below Constitutional: Constitutional: Reports as per HPI and Reports no additional constitutional complaints Eyes: Eyes: Reports as per HPI and Reports no additional eye complaints ENT: Reports system reviewed and no additional complaints, except as documented and Reports as per HPI Cardiovascular: Cardiovascular: Reports as per HPI and Reports no additional cardiovascular complaints Respiratory: Respiratory: Reports as per HPI and Reports no additional re spiratory complaints Gastrointestinal: Gastrointestinal: Reports as per HPI and Reports no additional gastrointestinal complaints Genitourinary: Genitourinary: Reports no additional female genitourinary complaints and Reports as per HPI Musculoskeletal: Musculoskeletal: Reports no additional musculoskeletal complaints and Reports as per HPI Integumentary/Breasts: Skin/Breast: Reports system reviewed and no additional complaints, except as docu and Reports as per HPI Neurologic: Reports system reviewed and no additional complaints, except as documented and Reports as per HPI Psychiatric: Psychiatric: Reports no additional psychiatric complaints and Reports as per HPI Exam Narrative: General: In no acute distress, well nourished Cardiac: Normal S1 and S2. Murmur noted. No gallops or friction rubs, periphe ral pulses intact. Respiratory: Lungs clear to auscultation, no adventitious lung sounds, currently on room air Gastrointestinal: soft, non-distended, non-tender, normoactive bowel sounds. : voiding without difficulty. Extremities: moves all extremities well, no edema, good ROM, strength 5/5 Neuro: Alert and oriented x4, cranial nerves intact, no neuro deficits. No facial droop or slurred speech noted. No vision loss, headache, lightheadedness, dizziness. Coordination intact. Having trouble with balance with PT Objective Data Vital Signs Vital Signs: Vital Signs - 24 hr 02/29/24 18:00 02/29/24 20:05 02/29/24 20:00 Temperature 98.6 F Pulse Rate 76 76 Respiratory Rate 18 Blood Pressure 142/51 H Pulse Oximetry 100 Oxygen Delivery Room Air 02/29/24 20:00 02/29/24 23:52 03/01/24 00:00 Temperature 98.6 F Pulse Rate 74 79 Respiratory Rate 18 Blood Pressure 143/78 H Pulse Oximetry 99 Oxygen Delivery Room Air 02/29/24 22:00 03/01/24 00:00 03/01/24 03:21 Temperature 98.6 F Pulse Rate 67 66 60 Respiratory Rate 20 Blood Pressure 143/49 H Pulse Oximetry 100 Oxygen Delivery 03/01/24 04:00 03/01/24 02:00 03/01/24 04:00 Temperature Pulse Rate 63 64 Respiratory Rate Blood Pressure Pulse Oximetry Oxygen Delivery Room Air 03/01/24 06:00 03/01/24 07:48 03/01/24 10:44 Temperature 98.2 F Pulse Rate 64 68 Respiratory Rate 18 Blood Pressure 163/69 H Pulse Oximetry 100 Oxygen Delivery Room Air 03/01/24 08:00 03/01/24 10:00 03/01/24 11:48 Temperature 98.1 F Pulse Rate 71 72 71 Respiratory Rate 18 Blood Pressure 154/52 H Pulse Oximetry 99 Oxygen Delivery Intake/Output Intake/Output: Intake & Output 02/27/24 02/28/24 02/29/24 03/01/24 23:59 23:59 23:59 23:59 Intake Total 1100 1620 930 Output Total 1200 600 Balance 1100 420 330 Meds/Results Medications: Active Medications Generic Name Dose Route Start Last Admin Trade Name Freq PRN Reason Stop Dose Admin Amlodipine Besylate 10 mg 02/29/24 10:30 03/01/24 08:18 Amlodipine Besylate 10 Mg Tablet PO 10 mg DAILY KRALA Administration Aspirin 81 mg 03/02/24 09:00 Aspirin 81 Mg Enteric Tablet PO QAM [facility] Atorvastatin Calcium 80 mg 03/02/24 09:00 Atorvastatin 40 Mg Tablet PO DAILY [facility] Calcium Carbonate 600 mg 02/29/24 09:00 03/01/24 08:18 Calcium Carbonate (Tums) 500 Mg (200 Mg Elemental) PO Not Given DAILY [facility] Clopidogrel Bisulfate 75 mg 02/29/24 09:00 03/01/24 08:18 Clopidogrel Bisulfate 75 Mg Tablet PO 75 mg DAILY KARLA Administration Dextrose 12.5 gm 02/29/24 01:50 Dextrose 50% 25 Gm/50 Ml Syringe IV PUSH PRN PRN Hypoglycemia Protocol Enoxaparin Sodium 40 mg 02/29/24 09:00 03/01/24 08:17 Enoxaparin 40 Mg/0.4 Ml Syringe SUB-Q 40 mg DAILY KARLA Administration Glucagon 1 mg 02/29/24 01:50 Glucagon For Inj 1 Mg Vial IM PRN PRN Hypoglycemia Protocol Glucose 15 gm 02/29/24 01:50 Glucose Oral Gel 15 Gm Of Glucse In 37.5 Gm Tube PO PRN PRN Hypoglycemia Protocol Hydralazine HCl 50 mg 02/29/24 09:00 03/01/24 12:42 Hydralazine Hcl 50 Mg Tablet PO 50 mg TID KARLA Administration Hydralazine HCl 10 mg 02/28/24 19:49 02/29/24 05:31 Hydralazine Hcl 20 Mg/Ml Vial IV PUSH 10 mg Q4H PRN Administration SBP greater than 180 Dextrose 1,000 mls @ 100 mls/hr 02/29/24 01:50 Dextrose 5% 1,000 Ml IVPB PRN PRN Hypoglycemia Protocol Insulin Aspart 2 - 5 units 02/29/24 08:00 03/01/24 12:42 Insulin Aspart (*Bkc) 100 Units/Ml SUB-Q Not Given TIDWM KARLA Protocol Insulin Aspart 1 - 2 units 02/29/24 21:00 02/29/24 21:10 Insulin Aspart (*Bkc) 100 Units/Ml SUB-Q Not Given HS KARLA Protocol Levetiracetam 500 mg 02/29/24 09:00 03/01/24 08:17 Levetiracetam 500 Mg Tablet PO 500 mg Q12HR KARLA Administration Levothyroxine Sodium 50 mcg 02/29/24 06:30 03/01/24 06:10 Levothyroxine Sodium 50 Mcg Tablet PO 50 mcg DAILY@0630 KARLA Administration Lisinopril 10 mg 02/29/24 09:00 03/01/24 08:18 Lisinopril 10 Mg Tablet PO 10 mg DAILY KARLA Administration Metformin HCl 1,000 mg 02/29/24 09:00 03/01/24 08:17 Metformin Hcl 500 Mg Tablet PO 1,000 mg BID KARLA Administration Perflutren Lipid Microsphere 0 ml 02/29/24 09:29 Perflutren Lipid Microspheres 1.5 Ml Vial Diluted To 10 Ml Total Volume IV PUSH 03/03/24 09:29 ONCE PRN adequate visualization Protocol Radiology Results: ITS Impressions Chest X-Ray 02/28/24 18:18 IMPRESSION: No acute cardiopulmonary process. Head CT 02/28/24 18:20 IMPRESSION: No acute intracranial process. Brain MRI 03/01/24 10:22 IMPRESSION: 1. Small focus of acute infarct along a gyrus in the right right occipital region. 2. Small region of encephalomalacia consistent with chronic infarct in the right parietal lobe and a couple tiny old lacunar infarcts in the bilateral cerebellar hemispheres. 3. Moderate scattered periventricular predominant white matter T2 hyperintensity consistent with age-related chronic small vessel ischemic disease. 4. Single tiny focus of susceptibility artifact in the right cerebral hemisphere consistent with old blood products related to chronic microhemorrhage. Labs Labs: Laboratory Results - last 24 hr 02/29/24 02/29/24 03/01/24 16:33 20:09 07:44 WBC RBC Hgb Hct MCV MCH MCHC RDW Plt Count MPV Immature Gran % (Auto) Neut % (Auto) Lymph % (Auto) [place] % (Auto) Eos % (Auto) Baso % (Auto) Lymph # (Auto) [place] # (Auto) Eos # (Auto) Baso # (Auto) Abs Immat Gran (auto) Absolute Neuts (auto) Absolute Nucleated RBC Nucleated RBC % Sodium Potassium Chloride Carbon Dioxide Anion Gap BUN Creatinine Estim Creat Clear Calc Estimated GFR Glucose POC Capillary Glucose 112 H 145 H 105 Calcium Total Bilirubin AST ALT Alkaline Phosphatase Total Protein Albumin 03/01/24 03/01/24 11:03 11:35 WBC 7.2 RBC 3.89 L Hgb 11.5 L Hct 36.6 L MCV 94.1 MCH 29.6 MCHC 31.4 L RDW 13.5 Plt Count 144 L MPV 12.5 H Immature Gran % (Auto) 0.1 Neut % (Auto) 70.2 Lymph % (Auto) 18.0 L [place] % (Auto) 7.3 Eos % (Auto) 3.8 Baso % (Auto) 0.6 Lymph # (Auto) 1.29 [place] # (Auto) 0.5 Eos # (Auto) 0.3 Baso # (Auto) 0.0 Abs Immat Gran (auto) 0.01 Absolute Neuts (auto) 5.0 Absolute Nucleated RBC 0.000 Nucleated RBC % 0.0 Sodium 141 Potassium 4.3 Chloride 106 Carbon Dioxide 28 Anion Gap 7 BUN 16 Creatinine 1.10 H Estim Creat Clear Calc 35 Estimated GFR 48 L Glucose 114 H POC Capillary Glucose 98 Calcium 10.3 H Total Bilirubin 0.6 AST 15 ALT 8 Alkaline Phosphatase 142 H Total Protein 8.0 Albumin 4.1 Quality VTE Prophylaxis VTE prophylaxis: pharmacologic ordered (Lovenox 40 mg subQ daily)
[2024-03-01 17:16] LABS: Glucose Point of Care 109 mg/dl (65-105)
--- NOTE | 2024-03-01 17:30 | PC.NURSE ---
This patient, Shanon Ramirez, was received from [facility] on 03/01/24 at 1520. Patient/family oriented to unit policies and routines
[2024-03-01 19:59] LABS: Glucose Point of Care 111 mg/dl (65-105)
[2024-03-02] VITALS (11 sets, daily range): BP systolic 137–169; BP diastolic 41–62; PULSE 62–82; RESP 13–16; TEMP 36.2–36.8; O2SAT 98
[2024-03-02] MEDS: LEVOTHYROXINE SODIUM 50 MCG TABLET PO (05:18)
[2024-03-02 05:31] LABS: Basophils Percent Auto 0.9 % (0.2-1.2); Eosinophils Absolute Auto 0.2 K/mm3 (0-0.3); Eosinophils Percent Auto 4.4 % (0-4.4); Hematocrit 32.4 % (37.0-47.0); Hemoglobin 10.6 g/dL (12.0-15.0); Immature Granulocyte Absolute 0.01 K/mm3 (0.00-0.031); Immature Granulocyte Percent A 0.2 % (0-0.5); Lymphocytes Absolute Auto 1.06 K/mm3 (0.9-3.2); Lymphocytes Percent Auto 23.3 % (18.3-44.2); Mean Corpuscular HGB Conc 32.7 g/dl (32-36); Mean Corpuscular Volume 91.8 fl (80-100); Mean Platelet Volume 12.5 fl (7.4-10.4); Monocytes Absolute Auto 0.4 K/mm3 (0.1-0.6); Monocytes Percent Auto 8.1 % (2.6-8.5); Neutrophils Absolute Auto 2.9 K/mm3 (1.3-6.7); Neutrophils Percent Auto 63.1 % (45.5-73.1); Platelet Count Result 129 k/mm3 (150-375); Red Blood Count 3.53 M/mm3 (4.2-5.4); Red Cell Distribution Width 13.2 % (11.5-14.5); White Blood Count 4.5 K/mm3 (4.5-10.0)
[2024-03-02 05:44] LABS: Alanine Aminotransferase 6 U/L (6-35); Albumin Level 3.5 g/dL (3.5-5.1); Alkaline Phosphatase 123 U/L (38-126); Anion Gap 8 mmol/L (4-12); Aspartate Amino Transferase 14 U/L (14-36); Bilirubin,Total 0.3 mg/dL (0.2-1.3); Blood Urea Nitrogen 15 mg/dL (7-17); Calcium 9.6 mg/dL (8.4-10.2); Carbon Dioxide 26 mmol/L (22-30); Chloride 105 mmol/L (98-107); Estimated CRCL calculation 42 ml/min; Estimated Glomerular Filt Rate > 60; Glucose 97 mg/dL (65-110); Potassium 3.8 mmol/L (3.4-5.0); Sodium 139 mmol/L (137-145)
--- NOTE | 2024-03-02 07:24 | P.PNIM_ITS ---
Progress Note: A&P Assessment and Plan (1) Acute stroke due to ischemia: Code(s): I63.9 - Cerebral infarction, unspecified Status: Acute Assessment and Plan: * Head CT was negative. * MRI of the brain showed small focus of acute infarct along ache iris in the right occipital region, small region of encephalomalacia consistent with chronic infarct in the right parietal lobe and a couple tiny old lacunar infarcts in the bilateral cerebellar hemispheres, age-related changes, 6 single tiny focus of susceptibility artifact in the right cerebral hemisphere consistent with old blood products related to chronic microhemorrhage. * Started on aspirin and atorvastatin * Neurology consulted * Continue PT and OT * Allowed for permissive hypertension for 1st 24 hours * Echo showed normal LV systolic function with an estimated EF of 65-70%, grade 1 diastolic dysfunction. * US carotid dopplers revealed <50% stenosis bilateral internal carotid artery (2) Hypertensive crisis: Code(s): I16.9 - Hypertensive crisis, unspecified Status: Acute Assessment and Plan: * Blood pressure ranging 135/65-156/57 * amlodipine, lisinopril, hydralazine ordered (3) Elevated troponin: Code(s): R79.89 - Other specified abnormal findings of blood chemistry Status: Acute Assessment and Plan: * likely demand ischemia * Troponin 0.062,0.075 .0.073 (4) Abnormal finding on urinalysis: Code(s): R82.90 - Unspecified abnormal findings in urine Status: Acute Assessment and Plan: * UA showing cloudy appearance, 2+ urine protein, 2+ leukocytes, 3-5 urine RBC, > 100 urine WBC, 4+ bacteria * Urine culture showing Gram-negative bacilli isolated on preliminary read * Continue Rocephin (5) Diabetes mellitus: Qualifiers: Diabetes mellitus complication status: without complication Diabetes mellitus termination clerk insulin use: with group home use Diabetes mellitus type: type 2 Qualified Code(s): E11.9 - Type 2 diabetes mellitus without complications; Z79.4 - residential (current) use of insulin Code(s): E11.9 - Type 2 diabetes mellitus without complications Status: Acute Assessment and Plan: * Blood sugars ranging 98-114 * Hgb A1C 6.0 * Accu checks AC/HS * Low-dose SSI ordered * hypoglycemic protocol in place * Diabetic diet ordered * Continue metformin (6) Hypothyroid: Qualifiers: Hypothyroidism type: acquired Qualified Code(s): E03.9 - Hypothyroidism, unspecified Code(s): E03.9 - Hypothyroidism, unspecified Status: Chronic Assessment and Plan: * continue Synthroid * TSH 0.765 (7) Seizure as late effect of cerebrovascular accident (CVA): Code(s): I69.398 - Other sequelae of cerebral infarction; R56.9 - Unspecified convulsions Status: Acute Assessment and Plan: * Continue Keppra * Head CT negative * Neuro intact * MRI of the brain and brainstem revealed new stroke * Echo ordered see above for details Time Spent With Patient Time with patient: 25 - 35 minutes Subjective Date/time seen: 03/02/24 07:24 Interval history: Interval history: This is a 78-year-old female who presented to the hospital on 02/28/2024 with complaints of lightheadedness and weakness. Workup in the hospital included a chest CT which shown mild bilateral hydronephrosis, nodules in the thyroid measuring up to 14 mm. Chest x-ray was negative. Head CT was negative. Initial labs showed a normal white blood cell count of 7.4, hemoglobin 11.8, platelet count 113, creatinine 0.80, troponin 0.062> 0.073, TSH 0.765. UA was obtained which showed a cloudy appearance, 2+ urine protein, 2+ leukocyte, 3-5 urine RBC, greater than 100 urine WBC, 4+ urine bacteria. Respiratory panel was negative for influenza a and B, RSV, COVID. Patient was initially started on Rocephin however we you went ahead and hold off on any more antibiotics at this time as she is asymptomatic. We will continue to watch the culture. Patient was found to have blood pressures ranging 174/51 to 209/66 while in the ED. patricia ent was given hydralazine and lisinopril while in the ED. she was also given 1 L of normal saline. Subjective: Patient denies any new complaints today. Labs and imaging reviewed. Review of Systems Review of Systems: All systems reviewed & are unremarkable except as noted in HPI and below Constitutional: Constitutional: Reports as per HPI and Reports no additional constitutional complaints Eyes: Eyes: Reports as per HPI and Reports no additional eye complaints ENT: Reports system reviewed and no additional complaints, except as documented and Reports as per HPI Cardiovascular: Cardiovascular: Reports as per HPI and Reports no additional cardiovascular complaints Respiratory: Respiratory: Reports as per HPI and Reports no additional respiratory complaints Gastrointestinal: Gastrointestinal: Reports as per HPI and Reports no additional gastrointestinal complaints Genitourinary: Genitourinary: Reports no additional female genitourinary complaints and Reports as per HPI Musculoskeletal: Musculoskeletal: Reports no additional musculoskeletal complaints and Reports as per HPI Integumentary/Breasts: Skin/Breast: Reports system reviewed and no additional complaints, except as docu and Reports as per HPI Neurologic: Reports system reviewed and no additional complaints, except as documented and Reports as per HPI Psychiatric: Psychiatric: Reports no additional psychiatric complaints and Reports as per HPI Exam Narrative: General: In no acute distress, well nourished Cardiac: Normal S1 and S2. Murmur noted. No gallops or friction rubs, peripheral pulses intact. Respiratory: Lungs clear to auscultation, no adventitious lung sounds, currently on room air Gastrointestinal: soft, non-distended, non-tender, normoactive bowel sounds. : voiding without difficulty. Extremities: moves all extremities well, no edema, good ROM, strength 5/5 Neuro: Alert and oriented x4, cranial nerves intact, no neuro deficits. No facial droop or slurred speech noted. No vision loss, headache, lightheadedness, dizziness. Coordination intact. Having trouble with balance with PT Objective Data Vital Signs Vital Signs: Vital Signs - 24 hr 03/01/24 07:48 03/01/24 10:44 03/01/24 08:00 Temperature 98.2 F Pulse Rate 68 71 Respiratory Rate 18 Blood Pressure 163/69 H Pulse Oximetry 100 Oxygen Delivery Room Air Fraction of Inspired Oxygen 03/01/24 10:00 03/01/24 11:48 03/01/24 16:36 Temperature 98.1 F 97.1 F L Pulse Rate 72 71 73 Respiratory Rate 18 20 Blood Pressure 154/52 H 134/81 Pulse Oximetry 99 97 Oxygen Delivery Fraction of Inspired Oxygen 03/01/24 16:04 03/01/24 20:00 03/01/24 20:00 Temperature Pulse Rate 72 73 72 Respiratory Rate 20 Blood Pressure Pulse Oximetry 97 Oxygen Delivery Room Air Fraction of Inspired Oxygen 21 03/01/24 20:00 03/01/24 23:55 03/02/24 00:00 Temperature 97.8 F 97.1 F L Pulse Rate 75 65 66 Respiratory Rate 17 12 Blood Pressure 135/65 146/46 H Pulse Oximetry 99 99 Oxygen Delivery Fraction of Inspired Oxygen 03/02/24 04:00 03/02/24 04:00 Temperature 98.1 F Pulse Rate 62 75 Respiratory Rate 13 Blood Pressure 156/57 H Pulse Oximetry 98 Oxygen Delivery Fraction of Inspired Oxygen Intake/Output Intake/Output: Intake & Output 02/28/24 02/29/24 03/01/24 03/02/24 23:59 23:59 23:59 23:59 Intake Total 1100 1620 1220 150 Output Total 1200 600 Balance 1100 420 620 150 Meds/Results Medications: Active Medications Generic Name Dose Route Start Last Admin Trade Name Freq PRN Reason Stop Dose Admin Amlodipine Besylate 10 mg 02/29/24 10:30 03/01/24 08:18 Amlodipine Besylate 10 Mg Tablet PO 10 mg DAILY [facility] Administration Aspirin 81 mg 03/02/24 09:00 Aspirin 81 Mg Enteric Tablet PO QAM [facility] Atorvastatin Calcium 80 mg 03/02/24 09:00 Atorvastatin 40 Mg Tablet PO DAILY [facility] Calcium Carbonate 600 mg 02/29/24 09:00 03/01/24 08:18 Calcium Carbonate (Tums) 500 Mg (200 Mg Elemental) PO Not Given DAILY [facility] Clopidogrel Bisulfate 75 mg 02/29/24 09:00 03/01/24 08:18 Clopidogrel Bisulfate 75 Mg Tablet PO 75 mg DAILY [facility] Administration Dextrose 12.5 gm 02/29/24 01:50 Dextrose 50% 25 Gm/50 Ml Syringe IV PUSH PRN PRN Hypoglycemia Protocol Enoxaparin Sodium 40 mg 02/29/24 09:00 03/01/24 08:17 Enoxaparin 40 Mg/0.4 Ml Syringe SUB-Q 40 mg DAILY [facility] Administration Glucagon 1 mg 02/29/24 01:50 Glucagon For Inj 1 Mg Vial IM PRN PRN Hypoglycemia Protocol Glucose 15 gm 02/29/24 01:50 Glucose Oral Gel 15 Gm Of Glucse In 37.5 Gm Tube PO PRN PRN Hypoglycemia Protocol Hydralazine HCl 50 mg 02/29/24 09:00 03/01/24 16:38 Hydralazine Hcl 50 Mg Tablet PO 50 mg TID K[facility] Administration Hydralazine HCl 10 mg 02/28/24 19:49 02/29/24 05:31 Hydralazine Hcl 20 Mg/Ml Vial IV PUSH 10 mg Q4H PRN Administration SBP greater than 180 Dextrose 1,000 mls @ 100 mls/hr 02/29/24 01:50 Dextrose 5% 1,000 Ml IVPB PRN PRN Hypoglycemia Protocol Ceftriaxone Sodium 1 gm in 50 mls @ 100 mls/hr 03/01/24 17:00 03/01/24 17:38 Rocephin 1 Gm/Ns 50 Ml IVPB Infused Q24H [facility] Infusion Insulin Aspart 2 - 5 units 02/29/24 08:00 03/01/24 17:17 Insulin Aspart (*Bkc) 100 Units/Ml SUB-Q Not Given TIDWM [facility] Protocol Insulin Aspart 1 - 2 units 02/29/24 21:00 03/01/24 20:05 Insulin Aspart (*Bkc) 100 Units/Ml SUB-Q Not Given HS [facility] Protocol Levetiracetam 500 mg 02/29/24 09:00 03/01/24 19:43 Levetiracetam 500 Mg Tablet PO 500 mg Q12HR [facility] Administration Levothyroxine Sodium 50 mcg 02/29/24 06:30 03/02/24 05:18 Levothyroxine Sodium 50 Mcg Tablet PO 50 mcg DAILY@0630 [facility] Administration Lisinopril 10 mg 02/29/24 09:00 03/01/24 08:18 Lisinopril 10 Mg Tablet PO 10 mg DAILY [facility] Administration Metformin HCl 1,000 mg 02/29/24 09:00 03/01/24 16:38 Metformin Hcl 500 Mg Tablet PO 1,000 mg BID [facility] Administration Perflutren Lipid Microsphere 0 ml 02/29/24 09:29 Perflutren Lipid Microspheres 1.5 Ml Vial Diluted To 10 Ml Total Volume IV PUSH 03/03/24 09:29 ONCE PRN adequate visualization Protocol Radiology Results: ITS Impressions Chest X-Ray 02/28/24 18:18 IMPRESSION: No acute cardiopulmonary process. Head CT 02/28/24 18:20 IMPRESSION: No acute intracranial process. Brain MRI 03/01/24 10:22 IMPRESSION: 1. Small focus of acute infarct along a gyrus in the right right occipital region. 2. Small region of encephalomalacia consistent with chronic infarct in the right parietal lobe and a couple tiny old lacunar infarcts in the bilateral cerebellar hemispheres. 3. Moderate scattered periventricular predominant white matter T2 hyperintensity consistent with age-related chronic small vessel ischemic disease. 4. Single tiny focus of susceptibility artifact in the right cerebral hemisphere consistent with old blood products related to chronic microhemorrhage. Carotid Doppler Study 03/01/24 19:25 IMPRESSION: 1. <50% stenosis in the right internal carotid artery. 2. <50% stenosis in the left internal carotid artery. Labs Labs: Laboratory Results - last 24 hr 03/01/24 03/01/24 03/01/24 07:44 11:03 11:35 WBC 7.2 RBC 3.89 L Hgb 11.5 L Hct 36.6 L MCV 94.1 MCH 29.6 MCHC 31.4 L RDW 13.5 Plt Count 144 L MPV 12.5 H Immature Gran % (Auto) 0.1 Neut % (Auto) 70.2 Lymph % (Auto) 18.0 L [place] % (Auto) 7.3 Eos % (Auto) 3.8 Baso % (Auto) 0.6 Lymph # (Auto) 1.29 [place] # (Auto) 0.5 Eos # (Auto) 0.3 Baso # (Auto) 0.0 Abs Immat Gran (auto) 0.01 Absolute Neuts (auto) 5.0 Absolute Nucleated RBC 0.000 Nucleated RBC % 0.0 Sodium 141 Potassium 4.3 Chloride 106 Carbon Dioxide 28 Anion Gap 7 BUN 16 Creatinine 1.10 H Estim Creat Clear Calc 35 Estimated GFR 48 L Glucose 114 H POC Capillary Glucose 105 98 Calcium 10.3 H Total Bilirubin 0.6 AST 15 ALT 8 Alkaline Phosphatase 142 H Total Protein 8.0 Albumin 4.1 03/01/24 03/01/24 03/02/24 17:14 19:53 05:12 WBC 4.5 RBC 3.53 L Hgb 10.6 L Hct 32.4 L MCV 91.8 MCH 30.0 MCHC 32.7 RDW 13.2 Plt Count 129 L MPV 12.5 H Immature Gran % (Auto) 0.2 Neut % (Auto) 63.1 Lymph % (Auto) 23.3 [place] % (Auto) 8.1 Eos % (Auto) 4.4 Baso % (Auto) 0.9 Lymph # (Auto) 1.06 [place] # (Auto) 0.4 Eos # (Auto) 0.2 Baso # (Auto) 0.0 Abs Immat Gran (auto) 0.01 Absolute Neuts (auto) 2.9 Absolute Nucleated RBC 0.000 Nucleated RBC % 0.0 Sodium 139 Potassium 3.8 Chloride 105 Carbon Dioxide 26 Anion Gap 8 BUN 15 Creatinine 0.90 Estim Creat Clear Calc 42 Estimated GFR > 60 Glucose 97 POC Capillary Glucose 109 H 111 H Calcium 9.6 Total Bilirubin 0.3 AST 14 ALT 6 Alkaline Phosphatase 123 Total Protein 7.0 Albumin 3.5 Quality VTE Prophylaxis VTE prophylaxis: pharmacologic ordered (Lovenox 40 mg subQ daily)
[2024-03-02] MEDS: ATORVASTATIN 40 MG TABLET 80 MG PO (09:39)
[2024-03-02] MEDS: amLODIPine BESYLATE 10 MG TABLET PO (09:40)
[2024-03-02] MEDS: ENOXAPARIN 40 MG/0.4 ML SYRINGE SUB-Q (09:40)
[2024-03-02] MEDS: metFORMIN HCL 500 MG TABLET 1000 MG PO ×2 (09:40→16:11)
[2024-03-02] MEDS: CLOPIDOGREL BISULFATE 75 MG TABLET PO (09:41)
[2024-03-02] MEDS: hydrALAZINE HCL 50 MG TABLET PO ×3 (09:41→16:11)
[2024-03-02] MEDS: lisinopriL 10 MG TABLET PO (09:41)
[2024-03-02] MEDS: ASPIRIN 81 MG ENTERIC TABLET PO (09:41)
[2024-03-02] MEDS: levETIRAcetam 500 MG TABLET PO ×2 (09:41→21:00)
[2024-03-02] MEDS: CALCIUM CARBONATE (TUMS) 500 MG (200 MG ELEMENTAL) 600 MG PO (09:41)
[2024-03-02 10:04] LABS: Glucose Point of Care 93 mg/dl (65-105)
--- NOTE | 2024-03-02 10:40 | PC.NURSE ---
On 03/02/24, the student, [Deni Peterson], provided care and completed [facility] documentation on this patient. I have reviewed the student's documentation and agree with the findings.
[2024-03-02 12:06] LABS: Glucose Point of Care 120 mg/dl (65-105)
--- NOTE | 2024-03-02 12:10 | WPDNEURCNPN ---
Assessment and Plan Assessment and plan (1) Acute stroke due to ischemia: Code(s): I63.9 - Cerebral infarction, unspecified Status: Acute (2) Seizure as late effect of cerebrovascular accident (CVA): Code(s): I69.398 - Other sequelae of cerebral infarction; R56.9 - Unspecified convulsions Status: Acute Plan 1. And encephalomalacia with chronic infarct in the right parietal lobe but not much clinical difficulties 2. Small vessel disease with no involvement of the carotids 3. Anemia 4. Moderate aortic valve calcification with trace regurgitation 5. Continuation of the aspirin and Plavix along with the cholesterol lowering medication and follow-up with the Cardiology Consult date: 03/02/24 HPI: Shanon Ramirez is a 78 year old female admitted to the hospital through the emergency room for the complaints of nausea vomiting and diarrhea along with generalized weakness and dizziness in addition to the ongoing history of 1. Coronary artery disease 2. Hypertension 3. Diabetes mellitus 4. Hypothyroidism 5. Previous stroke. At the time of admission to the ER medication included particularly atorvastatin 10mg daily, levetiracetam 500mg p.o. b.i.d., and history of being allergic to iodine dye and Lorabid. Patient does have ongoing history of aortic insufficiency, chronic pancreatitis, small old parietal punctate left cerebellar infarct documented by the MRI, hypothyroidism, history of seizure, patient has history of years smoked 55 his smoking cigarettes per day 20 but at this stage former smoker and never alcohol intake. Initial exam in the emergency room generally nonfocal routine vital signs is blood pressure of 209/66 and pulse of 58 CBC with platelet count 113, BMP fairly normal negative screening for the viral infections such as influenza a B RSV and SARS chest x-ray negative CT scan of the head negative cardiology consultation has been obtained even though troponin elevated but the trend is not indicating of acute coronary syndrome and echocardiogram has documented moderate aortic valve calcification with trace aortic valve regurgitation and trace tricuspid valve regurgitation. Review of Systems Review of Systems: All systems reviewed & are unremarkable except as noted in HPI and below [facility] Past Medical History Medical History (Updated 03/01/24 @ 16:36 by Luba Gray, CREATIVE SERVICES DIRECTOR) Anemia Aortic insufficiency Echocardiogram 2020: Hyperdynamic left ventricle EF 78% mild intracavitary obstruction with peak gradient of 16 with Valsalva, moderate concentric left ventricular hypertrophy, [id number] aortic valve regurgitation, mild tricuspid regurgitation CAD (coronary artery disease) Chronic pancreatitis CVA (cerebral vascular accident) MRI June 2021 demonstrated small old parietal punctate left cerebellar infarctions likely as result of in 01/2020 Diabetes A1c 6.6 on 04-29-19 Distal radius fracture, left Hyperlipidemia Hypertension Hypothyroid Renal stones Right humeral fracture (2021) Seizure as late effect of cerebrovascular accident (CVA) Thrombocytopenia Ulcerative colitis Surgical History Surgical History H/O lithotripsy H/O: hysterectomy Family History Family History Sibling Cancer Father Brain aneurysm Heart disease Hypertension Mother Diabetes mellitus Hypertension Grandparent Cancer Other Cancer Aunt Social History Social History (Updated 02/29/24 @ 01:21 by Hali Geren DO) Social History: She has previously been but remarried and is been living with her 2nd for... . The patient had a stillborn and had 2 living children. Her son subsequently in adulthood. She has 1 remaining daughter. The patient is a former smoker. She denies any marijuana alcohol or illicit drugs. She does drink a fair amount of caffeine in the form soda. Code status: Full code Surrogate decision maker: Smoking packs per day: 1 Smoking cigarettes per day: 20.0 Years smoked: 50 Smoking pack-years: 50.00 Smoking status: Former smoker Tobacco type: cigarettes Second hand tobacco smoke exposure: No Alcohol intake: never Substance use: never Substance use type: does not use Do You Feel Safe in your Home?: Yes Lack of Transportation: No Lack of Food: Never True Current Housing: I Have Housing Concerned About Future Housing: No Difficulty Paying Gas/Electric Bills: No Difficulty Paying for Meds: No Currently Unemployed: No Education: Trade/Vocational Certificate Difficulty w/ Childcare or Family Care: No Living arrangements: with family Occupation/Education: retired Additional occupation/education comments: She used to work for a [employer]. Gender identity (if verbalized by the patient): Female Sexual Orientation (if Verbalized by the Patient): Straight or Heterosexual Spiritual care concerns: No Agree to blood products: Yes Meds Home Medications and Allergies Home Medications Medication Instructions Recorded Confirmed Type atorvastatin 10 mg tablet 10 mg PO DAILY 03/23/19 02/28/24 History blood-glucose meter (Blood Glucose #1 ea 03/03/20 02/28/24 Rx Monitoring kit) calcium carbonate (Calcium 600) 600 mg PO DAILY 03/02/21 02/28/24 History levetiracetam 500 mg tablet 500 mg PO BID 06/11/21 02/28/24 History insulin glargine 100 unit/mL (3 15 unit (0.15 mL) subcut QPM #45 mL 06/13/22 02/28/24 Rx mL) subcutaneous pen (Lantus Solostar U-100 Insulin) pen needle, diabetic 33 gauge x #100 ea 11/04/22 02/28/24 Rx /16 (Comfort EZ Pen [place]) blood sugar diagnostic (OneTouch #100 ea 11/08/22 02/28/24 Rx Ultra Test strips) clopidogrel 75 mg tablet 75 mg PO DAILY #90 tabs 02/11/24 02/28/24 Rx amlodipine 10 mg tablet 10 mg PO DAILY #90 tabs 02/26/24 02/28/24 Rx levothyroxine 50 mcg tablet 50 mcg PO DAILY 02/28/24 02/28/24 History lisinopril 5 mg tablet 5 mg PO DAILY 02/28/24 02/28/24 History mesalamine 1.2 gram tablet,delayed 1.2 g PO QID 02/28/24 02/28/24 History release metformin 1,000 mg tablet 1,000 mg PO BID 02/28/24 02/28/24 History Allergies Allergy/AdvReac Type Severity Reaction Status Date / Time Iodinated Contrast Media Allergy Intermediate Hives Verified 02/28/24 16:59 loracarbef [From Lorabid] Allergy Intermediate Hives Verified 02/28/24 16:59 Vital Signs Vital Signs - 24 hr 03/01/24 16:36 03/01/24 16:04 03/01/24 20:00 Temperature 36.2 C L Pulse Rate 73 72 73 Respiratory Rate 20 20 Blood Pressure 134/81 Pulse Oximetry 97 97 Oxygen Delivery Room Air Fraction of Inspired Oxygen 21 03/01/24 20:00 03/01/24 20:00 03/01/24 23:55 Temperature 36.6 C 36.2 C L Pulse Rate 72 75 65 Respiratory Rate 17 12 Blood Pressure 135/65 146/46 H Pulse Oximetry 99 99 Oxygen Delivery Fraction of Inspired Oxygen 03/02/24 00:00 03/02/24 04:00 03/02/24 04:00 Temperature 36.7 C Pulse Rate 66 62 75 Respiratory Rate 13 Blood Pressure 156/57 H Pulse Oximetry 98 Oxygen Delivery Fraction of Inspired Oxygen 03/02/24 08:00 03/02/24 10:05 03/02/24 10:05 Temperature 36.4 C Pulse Rate 72 73 Respiratory Rate 13 Blood Pressure 150/49 H Pulse Oximetry 98 Oxygen Delivery Room Air Fraction of Inspired Oxygen Exam Narrative: In no obvious acute distress head normocephalic with no bruit ear nose throat examination normal neck supple with no bruits heart regular with murmur lungs without rhonchi or crepitations abdomen is soft with no organomegaly neurologically awake alert her speech not dysphasic not dysarthric not dysphonic pupils round regular feels the vision full extraocular movements full face symmetrical tongue midlineMotor examination reveals her to have normal strength and tone in upper and lower extremities with symmetrical reflexes downgoing plantar responses Results Labs 03/02/24 05:12 03/02/24 05:12 Labs: Short CBC 03/02/24 Range/Units 05:12 WBC 4.5 (4.5-10.0) K/mm3 Hgb 10.6 L (12.0-15.0) g/dL Hct 32.4 L (37.0-47.0) % Plt Count 129 L (150-375) k/mm3 BMP 03/02/24 05:12 Sodium 139 Potassium 3.8 Chloride 105 Carbon Dioxide 26 BUN 15 Creatinine 0.90 Glucose 97 Calcium 9.6 Liver Function 03/02/24 Range/Units 05:12 Total Bilirubin 0.3 (0.2-1.3) mg/dL AST 14 (14-36) U/L ALT 6 (6-35) U/L Alkaline Phosphatase 123 (38-126) U/L Albumin 3.5 (3.5-5.1) g/dL
[2024-03-02 17:19] LABS: Glucose Point of Care 100 mg/dl (65-105)
[2024-03-02 20:16] LABS: Glucose Point of Care 98 mg/dl (65-105)
[2024-03-02] MEDS: ONDANSETRON INJ 4 MG/2 ML VIAL IV PUSH (21:00)
[2024-03-03] VITALS: PULSE 77
[2024-03-03 04:00] VITALS: PULSE 66
[2024-03-03 05:12] VITALS: BP 145/70; PULSE 55; RESP 18; TEMP 36.6; O2SAT 99
[2024-03-03] MEDS: LEVOTHYROXINE SODIUM 50 MCG TABLET PO (05:30)
[2024-03-03 05:34] LABS: Basophils Percent Auto 0.7 % (0.2-1.2); Eosinophils Absolute Auto 0.2 K/mm3 (0-0.3); Eosinophils Percent Auto 3.5 % (0-4.4); Hematocrit 32.6 % (37.0-47.0); Hemoglobin 10.6 g/dL (12.0-15.0); Immature Granulocyte Absolute 0.01 K/mm3 (0.00-0.031); Immature Granulocyte Percent A 0.2 % (0-0.5); Lymphocytes Absolute Auto 0.64 K/mm3 (0.9-3.2); Lymphocytes Percent Auto 14.8 % (18.3-44.2); Mean Corpuscular HGB Conc 32.5 g/dl (32-36); Mean Corpuscular Hemoglobin 29.9 pg (26-34); Mean Corpuscular Volume 91.8 fl (80-100); Mean Platelet Volume 12.2 fl (7.4-10.4); Monocytes Absolute Auto 0.5 K/mm3 (0.1-0.6); Monocytes Percent Auto 11.1 % (2.6-8.5); Neutrophils Percent Auto 69.7 % (45.5-73.1); Platelet Count Result 114 k/mm3 (150-375); Red Blood Count 3.55 M/mm3 (4.2-5.4); Red Cell Distribution Width 13.1 % (11.5-14.5); White Blood Count 4.3 K/mm3 (4.5-10.0)
[2024-03-03 05:51] LABS: Alanine Aminotransferase 7 U/L (6-35); Albumin Level 3.5 g/dL (3.5-5.1); Alkaline Phosphatase 107 U/L (38-126); Anion Gap 3 mmol/L (4-12); Aspartate Amino Transferase 16 U/L (14-36); Bilirubin,Total 0.6 mg/dL (0.2-1.3); Blood Urea Nitrogen 12 mg/dL (7-17); Calcium 9.6 mg/dL (8.4-10.2); Carbon Dioxide 30 mmol/L (22-30); Chloride 104 mmol/L (98-107); Estimated CRCL calculation 42 ml/min; Estimated Glomerular Filt Rate > 60; Glucose 97 mg/dL (65-110); Potassium 4.1 mmol/L (3.4-5.0); Sodium 137 mmol/L (137-145)
[2024-03-03 08:00] VITALS: PULSE 66
[2024-03-03 08:12] LABS: Glucose Point of Care 96 mg/dl (65-105)
[2024-03-03] MEDS: metFORMIN HCL 500 MG TABLET 1000 MG PO (08:55)
[2024-03-03] MEDS: ATORVASTATIN 40 MG TABLET 80 MG PO (08:55)
[2024-03-03] MEDS: amLODIPine BESYLATE 10 MG TABLET PO (08:55)
[2024-03-03] MEDS: CALCIUM CARBONATE (TUMS) 500 MG (200 MG ELEMENTAL) 600 MG PO (08:55)
[2024-03-03] MEDS: ASPIRIN 81 MG ENTERIC TABLET PO (08:56)
[2024-03-03] MEDS: CLOPIDOGREL BISULFATE 75 MG TABLET PO (08:56)
[2024-03-03] MEDS: hydrALAZINE HCL 50 MG TABLET PO ×2 (08:56→13:56)
[2024-03-03] MEDS: levETIRAcetam 500 MG TABLET PO (08:56)
[2024-03-03] MEDS: lisinopriL 10 MG TABLET PO (08:56)
[2024-03-03] MEDS: ENOXAPARIN 40 MG/0.4 ML SYRINGE SUB-Q (08:57)
--- NOTE | 2024-03-03 09:58 | PCPTNOTE ---
Attempted to see patient for PT, however patient was working with OT.
[2024-03-03] MEDS: CEFDINIR 300 MG CAPSULE PO (11:35)
[2024-03-03 11:36] LABS: Glucose Point of Care 122 mg/dl (65-105)
[2024-03-03 12:00] VITALS: PULSE 83
[2024-03-03 14:00] VITALS: BP 122/34; PULSE 79; RESP 18; TEMP 36.6; O2SAT 100
--- NOTE | 2024-03-03 14:32 | P.DS_ITS ---
DS: Admitting Diagnosis Discharge Date 02/21 Admitting Diagnosis dizzy, light headed DS: Discharge Diagnosis Discharge Diagnosis (1) Acute stroke due to ischemia: Code(s): I63.9 - Cerebral infarction, unspecified Status: Acute (2) Hypertensive crisis: Code(s): I16.9 - Hypertensive crisis, unspecified Status: Acute (3) Elevated troponin: Code(s): R79.89 - Other specified abnormal findings of blood chemistry Status: Acute (4) Abnormal finding on urinalysis: Code(s): R82.90 - Unspecified abnormal findings in urine Status: Acute (5) Diabetes mellitus: Qualifiers: Diabetes mellitus type: type 2 Diabetes mellitus assisted insulin use: with termite inspector use Diabetes mellitus complication status: without complication Qualified Code(s): E11.9 - Type 2 diabetes mellitus without complications; Z79.4 - intermediate (current) use of insulin Code(s): E11.9 - Type 2 diabetes mellitus without complications Status: Acute (6) Hypothyroid: Qualifiers: Hypothyroidism type: acquired Qualified Code(s): E03.9 - Hypothyroidism, unspecified Code(s): E03.9 - Hypothyroidism, unspecified Status: Chronic (7) Seizure as late effect of cerebrovascular accident (CVA): Code(s): I69.398 - Other sequelae of cerebral infarction; R56.9 - Unspecified convulsions Status: Acute DS: Summary Hospital Course Hospital Course: This is a 78-year-old female who presented to the hospital on 02/28/2024 with complaints of lightheadedness and weakness. Workup in the hospital included a chest CT which shown mild bilateral hydronephrosis, nodules in the thyroid measuring up to 14 mm. Chest x-ray was negative. Head CT was negative. Initial labs showed a normal white blood cell count of 7.4, hemoglobin 11.8, platelet count 113, creatinine 0.80, troponin 0.062> 0.073, TSH 0.765. UA was obtained which showed a cloudy appearance, 2+ urine protein, 2+ leukocyte, 3-5 urine RBC, greater than 100 urine WBC, 4+ urine bacteria. Respiratory panel was negative for influenza a and B, RSV, COVID. Patient was initially started on Rocephin however we you went ahead and hold off on any more antibiotics at this time as she is asymptomatic. We will continue to watch the culture. Patient was found to have blood pressures ranging 174/51 to 209/66 while in the ED. patient was given hydralazine and lisinopril while in the ED. she was also given 1 L of normal saline. Several issues were addressed: # CVA keppra Head CT negative Neuro intact MRI of the brain and brainstem revealed new stroke Started on aspirin and atorvastatin Echo was done: Echo showed normal LV systolic function with an estimated EF of 65-70%, grade 1 diastolic dysfunction. # Hypertensive crisis: Blood pressure improved while here amlodipine, lisinopril, hydralazine Status at Discharge Functional status at discharge: uses cane/walker Overall status at discharge: patient is progressing back to baseline Time Spent with Patient Time attestation: Total time spent providing and/or coordinating discharge services: Time spent: Greater than 30 minutes Exam Narrative: General: In no acute distress, well nourished Cardiac: Normal S1 and S2. Murmur noted. No gallops or friction rubs, peripheral pulses intact. Respiratory: Lungs clear to auscultation, no adventitious lung sounds, currently on room air Gastrointestinal: soft, non-distended, non-tender, normoactive bowel sounds. : voiding without difficulty. Extremities: moves all extremities well, no edema, good ROM, strength 5/5 Neuro: Alert and oriented x4, cranial nerves intact, no neuro deficits. No facial droop or slurred speech noted. No vision loss, headache, lightheadedness, dizziness. Coordination intact. Having trouble with balance with PT Const: General: comfortable Other: No acute distress, well-developed well-nourished HENMT: Other: Mucous membranes are moist, no oral pharyngeal erythema, no facial asymmetry, head is normocephalic atraumatic Eyes: Other: Pupils are equal and reactive, no scleral icterus, no conjunctival pallor, extraocular movements intact, evidence of lens replacements bilaterally Neck: Other: No JVD, no gross thyromegaly Resp: Other: Clear to auscultation bilaterally, no increased work of breathing Cardio: Other: Regular rate, regular rhythm, 2+ bilateral radial pedal pulses 4/6 systolic murmur GI: Other: Soft, nontender, nondistended, positive bowel sounds Skin: Other: No jaundice, no pallor Neuro: Other: Patient is alert oriented x4, speech is clear, cranial nerves 2-12 appear to be grossly intact, sensation is intact in all extremities, no pronator drift Extrem: Other: No clubbing, cyanosis or edema, equal strength bilateral upper lower extremities Psych: Other: Anxious, easily distracted, poor judgment and insight DS: Data Data Completed and Pending Labs on day of discharge: Labs from last 24 hours 03/03/24 03/03/24 03/03/24 11:32 08:02 05:18 WBC 4.3 L RBC 3.55 L Hgb 10.6 L Hct 32.6 L MCV 91.8 MCH 29.9 MCHC 32.5 RDW 13.1 Plt Count 114 L MPV 12.2 H Immature Gran % (Auto) 0.2 Neut % (Auto) 69.7 Lymph % (Auto) 14.8 L [place] % (Auto) 11.1 H Eos % (Auto) 3.5 Baso % (Auto) 0.7 Lymph # (Auto) 0.64 L [place] # (Auto) 0.5 Eos # (Auto) 0.2 Baso # (Auto) 0.0 Abs Immat Gran (auto) 0.01 Absolute Neuts (auto) 3.0 Absolute Nucleated RBC 0.000 Nucleated RBC % 0.0 Sodium 137 Potassium 4.1 Chloride 104 Carbon Dioxide 30 Anion Gap 3 L BUN 12 Creatinine 0.90 Estim Creat Clear Calc 42 Estimated GFR > 60 Glucose 97 POC Capillary Glucose 122 H 96 Calcium 9.6 Total Bilirubin 0.6 AST 16 ALT 7 Alkaline Phosphatase 107 Total Protein 7.0 Albumin 3.5 03/02/24 03/02/24 20:03 17:16 WBC RBC Hgb Hct MCV MCH MCHC RDW Plt Count MPV Immature Gran % (Auto) Neut % (Auto) Lymph % (Auto) [place] % (Auto) Eos % (Auto) Baso % (Auto) Lymph # (Auto) [place] # (Auto) Eos # (Auto) Baso # (Auto) Abs Immat Gran (auto) Absolute Neuts (auto) Absolute Nucleated RBC Nucleated RBC % Sodium Potassium Chloride Carbon Dioxide Anion Gap BUN Creatinine Estim Creat Clear Calc Estimated GFR Glucose POC Capillary Glucose 98 100 Calcium Total Bilirubin AST ALT Alkaline Phosphatase Total Protein Albumin Discharge Plan Discharge Attending physician on discharge: Willis Hwoell Consulting providers: Dinora Myers; Vidal Vargas Discharging Clinician: Heather Perkins Patient Disposition: Home, Self-Care Activity: may shower Diet: as tolerated, heart healthy and diabetic Discharge Instructions: Your antibiotics will be sent to your pharmacy- please take them -last dose 03/03 -9 pm. continue taking aspirin and cholesterol medication. You blood pressure was very high in ed when you came it, which could have lead to your stroke- please ensure you take your medication for blood pressure and monitor it daily. If you noticing a trend of elevated BP- please reach out to PCP for dose adjustment. Patient Instructions: Antibiotic Form, Urinary Tract Infection in Women (DC), Chronic Hypertension (DC) Stand Alone Forms: General Discharge Information Follow-up/Referrals: Dorothea Ledezma MD [Primary Care Provider] - 2 Weeks Vidal Vargas MD [Physician] - 2 Weeks Discharge Medications: New aspirin 81 mg Tablet,Delayed Release (Dr/Ec) 81 mg PO QAM Qty: 90 0RF atorvastatin 40 mg Tablet 80 mg PO DAILY Qty: 90 0RF lisinopril 10 mg Tablet 10 mg PO DAILY Qty: 90 0RF hydralazine 50 mg Tablet 50 mg PO TID Qty: 90 0RF cefdinir 300 mg Capsule 300 mg PO Q12HR Qty: 9 0RF Continued calcium carbonate [Calcium 600] 600 mg calcium (1,500 mg) tablet 600 mg PO DAILY levothyroxine 50 mcg tablet 50 mcg PO DAILY Patient Comments: QAM metformin 1,000 mg tablet 1,000 mg PO BID mesalamine 1.2 gram tablet,delayed release (DR/EC) 1.2 g PO QID levetiracetam 500 mg tablet 500 mg PO BID (DME) blood-glucose meter [Blood Glucose Monitoring] Kit See Rx Instructions .ROUTE .MEDSUPPLY Qty: 1 0RF Rx Instructions: Use once daily to check blood glucose Lantus Solostar U-100 Insulin 100 unit/mL (3 mL) insulin pen 15 unit subcut QPM Qty: 45 1RF (DME) Comfort EZ Pen [place] 33 gauge x 5/16 needle See Rx Instructions .Route Qty: 100 0RF Rx Instructions: use daily (DME) OneTouch Ultra Test Strip See Rx Instructions .Route Qty: 100 5RF Rx Instructions: use 1 strip to check blood sugar 3 times daily clopidogrel 75 mg tablet 75 mg PO DAILY Qty: 90 0RF Hold Instructions: Resume on 03/17/22. amlodipine 10 mg tablet 10 mg PO DAILY Qty: 90 0RF Patient Comments: QAM Discontinued atorvastatin 10 mg tablet 10 mg PO DAILY Patient Comments: QAM lisinopril 5 mg tablet 5 mg PO DAILY Patient Comments: HS Date of admission: 02/28/24 19:49 Primary Care Provider: Dorothea Ledezma Admitting Provider: Hali Green Attending physician on admission: Luba Gray Condition: Stable Quality VTE Prophylaxis VTE prophylaxis: pharmacologic ordered (Lovenox 40 mg subQ daily) Hospitalist MIPS Heart Failure (Exclusion) Patient has history of Heart Transplant or Left Ventricular Assistive Device?: No IF YES, STOP HERE Heart Failure (Qualifier) Patient has current or prior documentation of LVEF less than or equal to 40%, or mod/servere depressed LVSF?: No IF NO, STOP HERE
== END 2024-03-03 15:50 | disposition home or self-care (01) | DRG 65 ==
LOC: ANHED 17:14 → ANHIMU 20:59 → ANH2MED 03-03 11:59 → ANHIMU 03-05 09:59
PROVIDERS: Emergency Medicine; Nurse Practitioner Acute Care; Admitting Provider Internal Medicine; Emergency Provider Emergency Medicine; PCP Family Medicine; Visit Provider Nurse Practitioner
DX: I63.9 Cerebral infarction, unspecified (principal); I16.9 Hypertensive crisis, unspecified; K51.90 Ulcerative colitis, unspecified, without complications; I24.89 Other forms of acute ischemic heart disease; I25.10 Atherosclerotic heart disease of native coronary artery without angina pectoris; I10 Essential (primary) hypertension; I35.1 Nonrheumatic aortic (valve) insufficiency; E11.9 Type 2 diabetes mellitus without complications; E03.9 Hypothyroidism, unspecified; E78.5 Hyperlipidemia, unspecified; Z20.822 Contact with and (suspected) exposure to COVID-19; R56.9 Unspecified convulsions; I69.398 Other sequelae of cerebral infarction; Z87.442 Personal history of urinary calculi; Z87.891 Personal history of nicotine dependence; Z79.02 Long term (current) use of antithrombotics/antiplatelets; Z91.199 Patient's noncompliance with other medical treatment and regimen due to unspecified reason
CPT/HCPCS: 36415; 70450; 70551; 71045; 80053; 80061; 81001; 82948; 83036; 83690; 83735; 84443; 84484; 85025; 85610; 85730; 87086; 87186; 87637; 93005; 93306; 93880; 96361; 96374; 97110; 97161; 97165; 97530; 97535; 99285; A9270; J0360; J0696; J1650; J2405; J7030

== ENCOUNTER 2024-04-13 16:04 | Emergency (ER) | payer MEDICARE, BC, SELFPAY ==
--- NOTE | ~2024-04-13 | CT_ITS ---
EXAMINATION: CT brain wo con DATE: 04/13/2024 16:36 INDICATION: fall, on blood thinners . TECHNIQUE: Computed tomography (CT) of the head was performed without intravenous contrast. The mA wa s adjusted according to patient size. Iterative reconstruction technique was employed. The dose-lengt h product was 681.00 mGy-cm. COMPARISON: 02/28/2024. FINDINGS: No acute intracranial hemorrhage or extra-axial fluid collection. No hydrocephalus, mass, or herniation. No acute ischemic infarct. Unremarkable dural venous sinus attenuation. No acute osseous abnormality. Minimal right mastoid fluid, bilateral maxillary mucosal thickening, the remaining aerated spaces are clear. Mild atrophy and moderate chronic white matter change. Atherosclerotic intracranial calcification. Bi lateral lens replacements. Right parietal encephalomalacia. Focal old left cerebellar infarct. Bilate ral basal ganglia calcification. IMPRESSION: No acute intracranial process. Reviewed, dictated and finalized at location K. LDER PAD MOLDER
--- NOTE | ~2024-04-13 | XR_ITS ---
EXAM: XR hip RT 2V w AP pelvis DATE: 04/13/2024 17:51 HISTORY: fall, right hip pain . COMPARISON: CT abdomen pelvis 10/18/2021. FINDINGS: Mild lumbar degenerative disc disease. Osteopenia. Scattered vascular calcifications. Mild bilateral hip osteoarthritis. No fracture or dislocation. No lytic or blastic lesion. IMPRESSION: No acute osseous finding in the pelvis or right hip. Reviewed, dictated and finalized at location K. WELL PULLER
--- NOTE | ~2024-04-13 | XR_ITS ---
XR shoulder RT min 2V 04/13/2024 16:27 Indication: Status post fall. Right shoulder pain. Procedure: 3 views right shoulder Comparison: No prior studies for comparison. Findings: There is a healed right humeral neck fracture. There is mild polyarticular osteoarthritis. No acute fracture or traumatic malalignment. There is atherosclerosis of the aorta. Osteopenia. Impression: 1: No acute fracture. Reviewed, dictated and finalized at location A. HISTORY INSTRUCTOR Impression: 1: No acute fracture.
--- NOTE | ~2024-04-13 | XR_ITS ---
EXAM: XR elbow LT min 3V DATE: 04/13/2024 16:27 HISTORY: FALL . COMPARISON: None available. FINDINGS: Normal mineralization. No fracture or dislocation. No lytic or blastic lesion. Joint space s are maintained. No erosion or periosteal change. Soft tissues within normal limits. IMPRESSION: No acute osseous finding the left elbow. Reviewed, dictated and finalized at location K. EDGE STITCHER HAND
--- NOTE | ~2024-04-13 | CT_ITS ---
EXAMINATION: CT facial & cervical spine wo DATE: 04/13/2024 16:36 INDICATION: fall, injury TECHNIQUE: Computed tomography (CT) of the maxillofacial region and cervical spine was performed with out intravenous contrast. Automated exposure control and iterative reconstruction technique were empl oyed. The dose-length product was 183.12 mGy-cm. COMPARISON: CT C-spine 03/23/2021; CT facial bones 03/17/2019 FINDINGS: CERVICAL: Vertebral Body Alignment: Intact. Craniocervical and atlantoaxial alignment: Moderate degenerative change. Alignment intact. Osseous structures/fracture: No evidence of a lytic or blastic process in the visualized spine. No e vidence of acute fracture. Cervical soft tissues: The paraspinal soft tissues planes are maintained. Multiple thyroid nodules. Degenerative changes: No significant degenerative changes. FACE: Soft Tissues: Right periorbital laceration/contusion. Facial bones: No acute fracture. No lytic or blastic process. Eyes: The globes are intact. The soft tissue planes of the orbits are maintained. Paranasal Sinuses: Bilateral medullary mucosal thickening, minimal right mastoid fluid, the remainin g aerated spaces are clear. Foreign Bodies: No radiopaque foreign bodies. Other Findings: None. IMPRESSION: No acute fracture or traumatic malalignment in the cervical spine. No acute facial bone fracture. Reviewed, dictated and finalized at location K. TAKER IMPRESSION: No acute fracture or traumatic malalignment in the cervical spine. No acute fac ial bone fracture.
--- NOTE | ~2024-04-13 | XR_ITS ---
XR elbow RT min 3V 04/13/2024 16:27 Indication: Status post fall. Right elbow pain. Procedure: 4 views right elbow Comparison: No prior studies for comparison. Findings: No focal air space disease, pulmonary edema, pleural effusion or suspected pneumothorax. No significant joint effusion. No foreign bodies. Impression: 1: No acute fracture. Reviewed, dictated and finalized at location A. L TRIMMER Impression: 1: No acute fracture.
[2024-04-13 16:15] VITALS: BP 137/110; PULSE 72; RESP 20; TEMP 36.3; O2SAT 100
--- NOTE | 2024-04-13 17:24 | ED_ITS ---
HPI - Fall General Chief Complaint: Fall Stated Complaint: glf Time Seen by Provider: 04/13/24 18:00 Source: patient Mode of arrival: EMS Limitations: no limitations History of Present Illness HPI Narrative: This is a 78-year-old female who presents to the ED for chief complaint of mechanical fall that occurred just prior to arrival. Patient states that she was caring groceries into the house and she stumbled over her feet. She states this caused her to fall face 1st to the floor. She reports single lot of blood when she injured her head. She does take aspirin and Plavix. Patient reports that she did not have LOC and has no numbness or weakness. Complaint of right elbow pain, right shoulder pain and right hip pain. States she was able to ambulate with difficulty after the fall. Related Data Home Medications ?Medication ?Instructions ?Recorded ?Confirmed ?Last Taken ?Type levothyroxine 50 mcg tablet 50 mcg PO DAILY 02/28/24 03/31/24 Unknown History mesalamine 1.2 gram tablet,delayed 1.2 g PO QID 02/28/24 03/31/24 Unknown History release levetiracetam 500 mg tablet 500 mg PO BID 03/08/24 03/31/24 Unknown History calcium carbonate 600 mg PO DAILY 03/31/24 03/31/24 Unknown History Allergies Allergy/AdvReac Type Severity Reaction Status Date / Time Iodinated Contrast Media Allergy Intermediate Hives Verified 04/13/24 18:25 loracarbef (From Lorabid) Allergy Intermediate Hives Verified 04/13/24 18:25 Review of Systems Review of Systems: All systems as dictated in HPI [facility] Past Medical History Medical History Depression History of stroke (~02/2024) Essential (primary) hypertension Type 2 diabetes mellitus without complications Acute stroke due to ischemia (~03/01/24) MRI of the brain shows Small focus of acute infarct along a gyrus in the right right occipital region. Small region of encephalomalacia consistent with chronic infarct in the right parietal lobe and a couple tiny old lacunar infarcts in the bilateral cerebellar hemispheres CVA (cerebral vascular accident) MRI June 2021 demonstrated small old parietal punctate left cerebellar infarctions likely as result of in 01/2020 Right humeral fracture (2021) Seizure as late effect of cerebrovascular accident (CVA) Chronic pancreatitis Ulcerative colitis CAD (coronary artery disease) Hypertension Hyperlipidemia Hypothyroid Aortic insufficiency Echocardiogram 2020: Hyperdynamic left ventricle EF 78% mild intracavitary obstruction with peak gradient of 16 with Valsalva, moderate concentric left ventricular hypertrophy, [id number] aortic valve regurgitation, mild tricuspid regurgitation Distal radius fracture, left Thrombocytopenia Anemia Diabetes A1c 6.6 on 04-29-19 Renal stones Surgical History Surgical History H/O lithotripsy H/O: hysterectomy Family History Family History Sibling Cancer Father Brain aneurysm Heart disease Hypertension Mother Diabetes mellitus Hypertension Grandparent Cancer Other Cancer Aunt Social History Social History Social History: She has previously been but remarried and is been living with her 2nd for... . The patient had a stillborn and had 2 living children. Her son subsequently in adulthood. She has 1 remaining daughter. The patient is a former smoker. She denies any marijuana alcohol or illicit drugs. She does drink a fair amount of caffeine in the form soda. Code status: Full code Surrogate decision maker: Smoking packs per day: 1 Smoking cigarettes per day: 20.0 Years smoked: 50 Smoking pack-years: 50.00 Smoking status: Former smoker Tobacco type: cigarettes Second hand tobacco smoke exposure: No Smoking end date: 04/14/03 Alcohol intake: never Substance use: never Substance use type: does not use Do You Feel Safe in your Home?: Yes Lack of Transportation: No Lack of Food: Never True Current Housing: I Have Housing Concerned About Future Housing: No Difficulty Paying Gas/Electric Bills: No Difficulty Paying for Meds: No Currently Unemployed: No Education: Trade/Vocational Certificate Difficulty w/ Childcare or Family Care: No Living arrangements: with family Occupation/Education: retired Additional occupation/education comments: She used to work for a [employer] and [email or web address]. Gender identity (if verbalized by the patient): Female Sexual Orientation (if Verbalized by the Patient): Straight or Heterosexual Spiritual care concerns: No Agree to blood products: Yes Exam Narrative: GENERAL: Well-appearing, well-nourished, and in no acute distress. HEAD: Normocephalic, atraumatic. EYES: PERRLA and EOMI. ENT: Nares clear, no rhinorrhea or epistaxis. Mucous membranes moist. Oropharynx without tonsillar hypertrophy exudate or other lesions. NECK: Supple. No adenopathy or masses. CHEST: No respiratory distress. Clear to auscultation. No wheezes rales or rhonchi HEART: Regular rate and rhythm. No murmur heard. Normal peripheral pulses. ABDOMEN: Soft, nontender, nondistended, normal active bowel sounds. MSK: Mild tenderness to the right shoulder, right elbow. No deformities. Mild tenderness to the right lateral hip. SKIN: 3 cm laceration to the right superior eyebrow. No eyelid involvement. Bleeding controlled. NEURO: Alert and oriented x4. No focal deficits. PSYCH: Normal mood and affect. Course Vital Signs Vital signs: Vital Signs Temperature 97.4 F L 04/13/24 16:15 Pulse Rate 72 04/13/24 16:15 Respiratory Rate 20 04/13/24 16:15 Blood Pressure 137/110 H 04/13/24 16:15 Pulse Oximetry 100 04/13/24 16:15 Temperature 97.4 F L 04/13/24 16:15 Pulse Rate 72 04/13/24 16:15 Respiratory Rate 20 04/13/24 16:15 Blood Pressure 137/110 H 04/13/24 16:15 Pulse Oximetry 100 04/13/24 16:15 Procedures Laceration Laceration 1: Date: 04/13/24 Time: 18:29 Site: face Side (If applicable): right Size (cm): 3 Description: linear Depth: simple, single layer Local Anesthetic: lidocaine 1% and with epi Amount of anesthesia used (mL): 2 Pre-repair: wound explored, irrigated extensively and deep structures intact ====== Skin Level ====== Skin layer closed with: nylon Size (cm): 5-0 Number of sutures: 3 Technique: simple, interrupted ====== Subcutaneous Layer ====== ====== Muscle Layer ====== ====== Tendon Layer ====== MDM - Fall MDM Narrative Medical decision making narrative: This is a 78-year-old female who presents to the ED for chief complaint of mechanical fall with right eyebrow laceration. Vitals are normal. Exam remarkable for the above. No neurologic deficits. CT imaging of the brain, cervical spine, facial bones are negative for acute findings. Tdap updated today The wound was well cleansed irrigated here in the ER. Closed primarily with sutures. Patient will be discharged in stable condition. Supportive measures discussed and return precautions given. Patient is understanding and agreeable with plan for discharge with PCP follow-up. Discharge Plan Discharge Clinical Impression: Fall, Laceration of face Patient Disposition: Home, Self-Care Condition: Stable Instructions: Antibiotic Form, Laceration (ED) Additional Instructions: Keep wound clean and dry. Do not soak, take baths, or swim until wound is completely healed. If any signs of infection such as redness, swelling, increasing pain, drainage of purulent discharge, streaks up your extremity develop, seek medical attention immediately. Followup with your primary care provider in [7] days for suture removal. Patient Language: Tanzanian Prescriptions: No Action metformin 1,000 mg tablet 1,000 mg PO BID Qty: 180 0RF atorvastatin 80 mg tablet 80 mg PO QHS Qty: 100 1RF levetiracetam 500 mg tablet 500 mg PO BID calcium carbonate 600 mg calcium (1,500 mg) tablet 600 mg PO DAILY lisinopril 20 mg tablet 20 mg PO DAILY Qty: 90 1RF hydralazine 50 mg tablet 50 mg PO TID Qty: 270 1RF citalopram [Celexa] 10 mg tablet 10 mg PO DAILY Qty: 90 1RF levothyroxine 50 mcg tablet 50 mcg PO DAILY Patient Comments: QAM mesalamine 1.2 gram tablet,delayed release (DR/EC) 1.2 g PO QID aspirin 81 mg Tablet,Delayed Release (Dr/Ec) 81 mg PO QAM Qty: 90 0RF (DME) blood-glucose meter [Blood Glucose Monitoring] Kit See Rx Instructions .ROUTE .MEDSUPPLY Qty: 1 0RF Rx Instructions: Use once daily to check blood glucose (DME) Comfort EZ Pen [place] 33 gauge x 5/16 needle See Rx Instructions .Route Qty: 100 0RF Rx Instructions: use daily (DME) OneTouch Ultra Test Strip See Rx Instructions .Route Qty: 100 5RF Rx Instructions: use 1 strip to check blood sugar 3 times daily clopidogrel 75 mg tablet 75 mg PO DAILY Qty: 90 0RF amlodipine 10 mg tablet 10 mg PO DAILY Qty: 90 0RF Patient Comments: QAM Follow-up/Referrals: Dorothea Ledezma MD [Primary Care Provider] - Time of Disposition: 18:30
[2024-04-13] MEDS: HYDROcodone/acetaminophen (*CRX) 5-325 MG TABLET 1 TAB PO (18:24)
== END 2024-04-13 19:05 | disposition home or self-care (01) ==
LOC: ANHED 18:42
PROVIDERS: Emergency Provider Physician Assistant; PCP Family Medicine
DX: S01.111A Laceration without foreign body of right eyelid and periocular area, initial encounter (principal); W18.30XA Fall on same level, unspecified, initial encounter; M25.511 Pain in right shoulder; M25.521 Pain in right elbow; M25.551 Pain in right hip; I10 Essential (primary) hypertension; E11.9 Type 2 diabetes mellitus without complications; Z86.73 Personal history of transient ischemic attack (TIA), and cerebral infarction without residual deficits; I25.10 Atherosclerotic heart disease of native coronary artery without angina pectoris; E78.5 Hyperlipidemia, unspecified; E03.9 Hypothyroidism, unspecified; Z23 Encounter for immunization
CPT/HCPCS: 12013; 70450; 70486; 72125; 73030; 73080; 73502; 90471; 99284; A9270; J2004

== ENCOUNTER 2024-05-11 10:13 | Emergency (ER) | payer MEDICARE, BC, SELFPAY ==
--- NOTE | ~2024-05-11 | XR_ITS ---
XR hip RT 2V w AP pelvis 05/11/2024 12:24 Indication: Right hip pain Procedure: AP pelvis and 2 views right hip Comparison: 04/13/2024 Findings: Pelvic rings are intact. No fracture, subluxation or dislocation. No significant soft tissu e abnormality. No foreign bodies. There is lower lumbar spondylosis. Impression: 1: No acute fracture. Reviewed, dictated and finalized at location A. LE HOUSE CLEANERS SUPERVISOR Impression: 1: No acute fracture.
[2024-05-11 10:16] VITALS: BP 149/56; PULSE 80; RESP 20; TEMP 36.4; O2SAT 100
[2024-05-11 10:57] VITALS: BP 155/63; PULSE 71; PULSE 80; RESP 18; O2SAT 100
--- OUTSIDE RECORDS SUMMARY | 2024-05-11 11:05 | XMS_ITS | Referral Summary ---
Author [place] [facility] [place] [address] Address [address] [place] [address] Care Team Providers Care Director Of Application Development Name Role Phone Kd Ledezma MD Primary Care Provider Encounters Date Type Department Care Team Description 03/03/2024 Orders Only [facility] Cardiology [address] [place] [address] Abdullahi Patton MD from Last 3 Months Allergies Active Allergy Reactions Criticality Noted Date Comments Iodine And Iodide Containing Products Hives Medium Loracarbef Unknown Lorabid Medications levothyroxine (SYNTHROID, LEVOTHROID) 50 mcg tablet take 1 Tablet by oral route every day 0 0 4 Active calcium carbonate-vitami n D3 (CALCIUM 600 + D,3,) 600 mg calcium- 200 unit capsule take 1 by Oral route once 0 0 6 Active metFORMIN (GLUCOPHAGE) 1,000 mg tablet take 1 tablet by oral route 2 times every day with morning and evening meals 0 0 6 Active Additional Information Patient taking differently:1,000 mgoral 2 times daily with meals (bkfst, dinner), Reported on 08/20/2022 lisinopril (PRINIVIL,ZESTRI L) 5 mg tablet Take 1 tablet (5 mg total) by mouth daily Active mesalamine (LIALDA) 1.2 gram EC tabletIndication s:Ulcerative Colitis 8 Active amLODIPine (NORVASC) 10 mg tablet TAKE 1 TABLET DAILY 90 tablet 1 9 Active insulin glargine (LANTUS, BASAGLAR, SEMGLEE) 100 unit/mL (3 mL) pen for injection Inject 26 Units under the skin nightly PMD for refills. Bedtime snack if blood sugar less than 150. 30 mL 1 Active insulin aspart (NovoLOG) 100 unit/mL (3 mL) pen for injection Take 8 units before each meal 3 times a day and additional sliding scale with meals only. Do not take any extra insulin if blood sugar less than 160. Take 2 units extra between 161-200, take 3 units extra between 201-250, take 4 units extra between 251-300, take 6 units extra between 301-350, take 8 units extra between 351-400, take 10 units extra between 401-450. Maximum 54 units daily as needed. 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) Take 1 tablet (500 mg total) by mouth 2 (two) times a day 180 tablet 3 4 Active Active Problems Problem Noted Date Diagnosed Date Memory disturbance 10/29/2023 Weight loss 12/03/2022 Atypical chest pain 05/28/2022 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 Addison 's er thyroid under ultrasound today. As described, she has a multinodular goiter, with bilateral, multiple mostly cystic nodules. There is not a single, dominant solid nodule of concern. The nodule described in the left, on the carotid ultrasound is mostly cystic. The patient describes a thyroid FNA biopsy done a few years ago. Will try to get that report now. I will check thyroid function test At this moment I do not see the reason for any other intervention and follow-up with on ultrasound here at the office in a year Thyroid nodule 09/28/2020 Facial numbness 05/11/2019 Syncope and collapse 05/11/2019 History of tobacco abuse 11/03/2018 SOB (shortness of breath) 10/22/2017 Back tightness 10/22/2017 Pulmonary HTN 05/09/2017 Left carotid bruit 05/09/2017 History of PSVT (paroxysmal supraventricular tac hycardia) 11/01/2016 Hyperlipidemia LDL goal <70 11/01/2016 Peripheral arterial occlusive disease (CMS/HCC) 11/17/2013 Overview (07/19/2016): Peripheral artery disease Aortic valve insufficiency 11/17/2013 Overview (07/19/2016): Aortic regurgitation History of heart disorder 11/17/2013 Overview (07/19/2016): History of PSVT (paroxysmal supraventricular tachycardia) Dyslipidemia 11/17/2013 Overview (07/19/2016): Dyslipidemia Cough 11/17/2013 Overview (07/19/2016): Cough Calculus of kidney 08/30/2013 Cardiac disease 08/30/2013 Hypertension 08/30/2013 Hypercholesterolemia 08/30/2013 Cervicalgia 08/20/2013 Cerebrovascular accident (CVA) Generalized tonic-clonic seizure Hypokalemia Type 2 diabetes mellitus wit h hyperglycemia, without long-term current use of insulin Left hemiparesis (CMS/HCC) Normochromic normocytic anemia Gait disorder Thrombocytopenia Acquired hypothyroidism Resolved Problems Problem Noted Date Diagnosed Date Resolved Date Tobacco dependence syndrome 11/17/2013 11/03/2018 Overview (07/19/2016): Tobacco abuse Social History Tobacco Use Types Packs/Day Years Used Date Smoking Tobacco: Former Cigarettes Q uit: 04/28/2015 Smokeless Tobacco: Never Tobacco Cessation:Counseling Given: Not Answered Alcohol Use Standard Drinks/Week Comments No 0 (1 standard drink = 0.6 oz pur e alcohol) Personal Safety Answer Date Recorded Getting School Help Needed Not on file 06/08 Comments Unknown Sex and Gender Information Value Date Recorded Sex Assigned at Not on file Legal Sex 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 Gender Identity Not on file Sexual Orientation Not on file Last Filed Vital Signs Vital Sign Reading Time Taken Comments Blood Pressure 160/70 12/17/2023 1:24 PM CDT Pulse 62 12/17/2023 12:48 PM CDT Temperature 35.8 ??C (96.4 ??F) 08/20/2022 1:51 PM CD T Respiratory Rate 20 08/20/2022 1:51 PM CDT Oxygen Saturation 98% 12/17/2023 12:48 PM CDT Inhaled Oxygen Concentration - - Weight 68.9 kg (152 lb) 12/17/2023 12:48 PM CDT Height 167.6 cm (5' 6 ) 12/17/2023 12:48 PM CDT Body Mass Index 24.53 12/17/2023 12:48 PM CDT Plan of Treatment Not on file Procedures Procedure Name Priority Date/Time Associated Diagnosis Comments CARDIOLOGY DOCUMENT SCAN Routine 02/29/2024 4:13 PM PLATE SLITTER AND INSPECTOR ALBUMIN CREATININE RATIO, URINE Routine 01/24/2023 3:49 PM CDT COMPREHENSIVE METABOLIC PANEL Routine 01/24/2023 3:48 PM CDT HEMOGLOBIN A1C Routine 01/24/2023 3:48 PM CDT LIPID PANEL Routine 01/24/2023 3:48 PM CDT from Last 3 Months or Most Recently Relevant to Health Maintenance Results * Cardiology Document Scan (02/29/2024 4:13 PM PLATE SLITTER AND INSPECTOR) Anatomical Region Laterality Modality Other us Abdullahi Patton MD CV CARDIAC SERVICES PROCEDURES F inal Result * (ABNORMAL) Albumin Creatinine Ratio, Urine (01/24/2023 3:49 PM CDT) SCRIBED Creatinine, Urine 98.3 NA - NA EXTERNAL LAB SCRIBED Microalbumin 726.9(A) 0 - 16.7 EXTERNAL LAB SCRIBED Microalb/Creat Ratio 739.5(A) 0 - 30 EXTERNAL LAB Urine 01/24/2023 3:49 PM CDT Historical Provider LAB URINE ORDERABLES Edit ed Result - Final EXTERNAL LAB * Hemoglobin A1c (01/24/2023 3:48 PM CDT) SCRIBED Hemoglobin A1c 5.1 <5.7 - NA % EXTERNAL LAB Blood 01/24/2023 3:48 PM CDT Historical Provider LAB BLOOD ORDERABLES Edit ed Result - Final EXTERNAL LAB * Lipid panel (01/24/2023 3:48 PM CDT) SCRIBED Cholesterol, Total 131 0 - 200 EXTERNAL LAB SCRIBED HDL 47 >35 - NA EXTERNAL LAB SCRIBED LDL 62 <130 - NA EXTERNAL LAB SCRIBED Triglycerides 94 <150 - NA EXTERNAL LAB Blood 01/24/2023 3:48 PM CDT Historical Provider LAB BLOOD ORDERABLES Edit ed Result - Final EXTERNAL LAB * (ABNORMAL) Comprehensive metabolic panel (01/24/2023 3:48 PM CDT) SCRIBED Sodium 141 137 - 145 mmol/L EXTERNAL LAB SCRIBED Potassium 4.1 3.4 - 5.0 mmol/L EXTERNAL LAB SCRIBED Chloride 106 98 - 107 mmol/L EXTERNAL LAB SCRIBED Carbon Dioxide 28 22 - 30 mmol/L EXTERNAL LAB SCRIBED Anion Gap 7(A) 8 - 16 mmol/L EXTERNAL LAB SCRIBED Urea Nitrogen (BUN) 16 7 - 17 mg/dl EXTERNAL LAB SCRIBED Creatinine 0.70 0.7 - 1.0 mg/dl EXTERNAL LAB SCRIBED Glucose 146(A) 65 - 110 mg/dl EXTERNAL LAB SCRIBED Calcium 9.9 8.4 - 10.2 mg/dl EXTERNAL LAB SCRIBED Bilirubin 0.5 0.2 - 1.3 mg/dl EXTERNAL LAB SCRIBED Plasma Protein 8.0 6.3 - 8.2 g/dl EXTERNAL LAB SCRIBED Albumin 4.2 3.5 - 5.1 g/dl EXTERNAL LAB SCRIBED Alkaline Phosphatase 104 38 - 126 Units/L EXTERNAL LAB SCRIBED Alanine Transaminase (ALT) 21 6 - 35 Units/L EXTERNAL LAB SCRIBED Aspartate Transaminase (AST) 24 14 - 36 Units/L EXTERNAL LAB SCRIBED eGFR in NonAfrican Welsh >60 >=60 - NA EXTERNAL LAB Blood 01/24/2023 3:48 PM CDT us Historical Provider LAB BLOOD ORDERABLES Edit ed Result - Final EXTERNAL LAB from Last 3 Months or Most Recently Relevant to Health Maintenance Insurance [employer] MED[employer]ARE [employer] [facility] MEDICARE [employer] Advance Directives For more information, please contact: [phone] * Full Code (Latest Code Status on File) Date Activated Date Inactivated Comments 01/29/2021 12:10 AM 02/01/2021 7:53 PM Care Teams Director Of Application Development Relationship Specialty Start Date End Date Kd Ledezma MD PCP - General Family Practice 12/09/19
--- OUTSIDE RECORDS SUMMARY | 2024-05-11 11:05 | XMS_ITS | Clinical Summary ---
Author Organization [facility] [place] [address] Address [address] [place] [address] Care Team Providers Care Sharepoint Net Developer Name Role Phone Kd Ledezma MD Primary Care Provider Allergies Active Allergy Reactions Criticality Noted Date [...] TIMES DAILY 2 Active Comfort EZ Pen [place] 32 gauge x 5/32 needle USE NIGHTLY [...] syndrome 11/17/2013 11/03/2018 Overview (07/19/2016): Tobacco abuse Encounters Date Type Department Care Team Description 03/03/2024 Orders Only [facility] Medical Group Cardiology [address] [place] [address] Abdullahi Patton MD from Last 3 Months Medical History Medical History Date Comments Hx Other Medical kidney stones, carotid vascular disease, [place], dysli; Comments: MAF 11/17/2013 - Diabetes mellitus (HCC) Coronary artery disease Hypertension History of transfusion Stroke (HCC) Thyroid disease Family History Medical History Relation Name Comments Blindness Father COPD Father Heart disease Father Hypertension Father Seizures Father Ovarian cancer Maternal Grandmother Diabetes Mother Hypertension Mother Unexplained Mother Infection Breast cancer Mother's Sister Breast cancer Sister Relation Name Status Comments Father Maternal Grandmother Mother Mother's Sister Sister Social History Tobacco Use Types Packs/Day Years [...] on file 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 Gender Identity Not on file Sexual Orientation Not on file Obstetrics History Last Filed Vital Signs Vital Sign Reading [...] 12/17/2023 12:48 PM CDT Plan of Treatment Health Maintenance Due Date Last Done Comments Depression Screening 1945 Hepatitis C Screening 1945 Osteoporosis Screening-Bone Density Scan 1945 Dilated Eye Exam 1945 Foot Exam 1945 Pneumococcal vaccine 65+ (1 of 2 - PCV) 06/13/1951 DTaP/Tdap/Td Vaccine (1 - Tdap) 1956 Hepatitis B Screening 06/13/1963 Zoster Vaccine (1 of 2) 06/13/1995 Well Visit 65+ 2010 Fall Risk Assessment 02/01/2022 02/01/2021 Hemoglobin A1C 07/26/2023 01/24/2023, 01/29/2021 Influenza Vaccine (#1) 2023 Albumin Creatinine Ratio, Urine 01/25/2024 Lipid Panel 01/25/2024 01/24/2023, 01/12, 06/15/2020, Additional history exists eGFR 01/25/2024 01/24/2023, 01/13, 01/30/2021, Additional history exists Procedures Procedure Name Priority Date/Time Associated Diagnosis Comments CARDIOLOGY DOCUMENT SCAN Routine 02/29/2024 4:13 PM SENIOR ENLISTED ADVISOR ALBUMIN CREATININE RATIO, URINE Routine 01/24/2023 3:49 PM CDT COMPREHENSIVE METABOLIC PANEL Routine 01/24/2023 3:48 PM CDT HEMOGLOBIN A1C Routine 01/24/2023 3:48 PM CDT LIPID PANEL Routine 01/24/2023 3:48 PM CDT from Last 3 Months or Most Recently Relevant to Health Maintenance Results * Cardiology Document Scan (02/29/2024 4:13 PM SENIOR ENLISTED ADVISOR) Anatomical Region Laterality Modality Other Abdullahi Patton MD CV CARDIAC SERVICES PROCEDURES F inal Result * (ABNORMAL) Albumin Creatinine Ratio, Urine (01/24/2023 3:49 PM CDT) SCRIBED Creatinine, Urine 98.3 NA - NA EXTERNAL LAB SCRIBED Microalbumin 726.9(A) 0 - 16.7 EXTERNAL LAB SCRIBED Microalb/Creat Ratio 739.5(A) 0 - 30 EXTERNAL LAB Urine 01/24/2023 3:49 PM CDT Historical Provider LAB URINE ORDERABLES Edit ed Result - Final Performing Organization Address [facility]/ZIP Co de Phone Number EXTERNAL LAB * Hemoglobin A1c (01/24/2023 3:48 PM CDT) SCRIBED Hemoglobin A1c 5.1 <5.7 - NA % EXTERNAL LAB Blood 01/24/2023 3:48 PM CDT Historical Provider MD LAB BLOOD ORDERABLES Edit ed Result - Final Performing Organization Address [facility]/ZIP Co de Phone Number EXTERNAL LAB * Lipid panel (01/24/2023 3:48 PM CDT) SCRIBED Cholesterol, Total 131 0 - 200 EXTERNAL LAB SCRIBED HDL 47 >35 - NA EXTERNAL LAB SCRIBED LDL 62 <130 - NA EXTERNAL LAB SCRIBED Triglycerides 94 <150 - NA EXTERNAL LAB Blood 01/24/2023 3:48 PM CDT Historical Provider MD LAB BLOOD ORDERABLES Edit ed Result - Final Performing Organization Address [facility] Co de Phone Number EXTERNAL LAB * (ABNORMAL) Comprehensive metabolic panel [...] Units/L EXTERNAL LAB SCRIBED eGFR in NonAfrican Dominican >60 >=60 - NA EXTERNAL LAB Blood 01/24/2023 3:48 PM CDT us Historical Provider LAB BLOOD ORDERABLES Edit ed Result - Final EXTERNAL LAB from Last 3 Months or Most Recently Relevant to Health Maintenance Insurance [employer] MEDICARE [email or web address] MEDICARE [email or web address] Advance Directives For more information, please contact: [phone] * Full Code (Latest Code Status on File) Date Activated Date Inactivated Comments 01/29/2021 12:10 AM 02/01/2021 7:53 PM Care Teams Sharepoint Net Developer Relationship Specialty Start Date End Date Kd Ledezma MD PCP - General Family Practice 12/09/19
--- NOTE | 2024-05-11 11:16 | ECG_ITS ---
Test Date: 2024-05-11 11:43:25 Measurements Intervals [place] Rate: 69 P: 77 [place]: 190 QRS: 68 QRSD: 94 T: 31 QT: 372 QTc: 399 Interpretive Statements SINUS RHYTHM ST DEVIATION AND MODERATE T-WAVE ABNORMALITY, CONSIDER ANTEROLATERAL ISCHEMIA [-0.1+ mV T WAVE IN V3-V6] Compared to ECG 02/28/2024 20:25:48 T-wave abnormality now present Electronically Signed On 05-12-2024 15:50:56 BRIM STRETCHING MACHINE OPERATOR by Radhika Porras M.D.
--- NOTE | 2024-05-11 11:28 | ED_ITS ---
HPI - General Adult General Chief complaint: Weakness Stated complaint: weakness Time Seen by Provider: 05/11/24 11:02 History of Present Illness HPI narrative: Shanon Ramirez is a 70-year-old female who presents today with complaints of getting up to let her dog out last night started to have severe right hip pain moved down her right leg. She states that she is able to stabilize herself back down she did not fall she hit her head she did not lose consciousness. She states that she has continued right hip pain and leg pain. She states that she also had diarrhea for the past 3-4 days and just feeling generally weak. She is alert and oriented x4 currently she states it has been difficult because for the past year she has had to do everything at home because her cannot ambulate without a walker Related Data Home Medications ?Medication ?Instructions ?Recorded ?Confirmed ?Last Taken ?Type levothyroxine 50 mcg tablet 50 mcg PO DAILY 02/28/24 04/26/24 Unknown History mesalamine 1.2 gram tablet,delayed 1.2 g PO QID 02/28/24 04/26/24 Unknown History release levetiracetam 500 mg tablet 500 mg PO BID 03/08/24 04/26/24 Unknown History calcium carbonate 600 mg PO DAILY 03/31/24 04/26/24 Unknown History Allergies Allergy/AdvReac Type Severity Reaction Status Date / Time Iodinated Contrast Media Allergy Intermediate Hives Verified 04/26/24 09:58 loracarbef (From Lorabid) Allergy Intermediate Hives Verified 04/26/24 09:58 Review of Systems 2 Review of Systems: All systems reviewed & are unremarkable except as noted in HPI and below [facility] Past Medical History Medical History Depression History of stroke (~02/2024) Essential (primary) hypertension Type 2 diabetes mellitus without complications Acute stroke due to ischemia (~03/01/24) MRI of the brain shows Small focus of acute infarct along a gyrus in the right right occipital region. Small region of encephalomalacia consistent with chronic infarct in the right parietal lobe and a couple tiny old lacunar infarcts in the bilateral cerebellar hemispheres CVA (cerebral vascular accident) MRI June 2021 demonstrated small old parietal punctate left cerebellar infarctions likely as result of in 01/2020 Right humeral fracture (2021) Seizure as late effect of cerebrovascular accident (CVA) Chronic pancreatitis Ulcerative colitis CAD (coronary artery disease) Hypertension Hyperlipidemia Hypothyroid Aortic insufficiency Echocardiogram 2020: Hyperdynamic left ventricle EF 78% mild intracavitary obstruction with peak gradient of 16 with Valsalva, moderate concentric left ventricular hypertrophy, [id number] aortic valve regurgitation, mild tricuspid regurgitation Distal radius fracture, left Thrombocytopenia Anemia Diabetes A1c 6.6 on 04-29-19 Renal stones Surgical History Surgical History H/O lithotripsy H/O: hysterectomy Family History Family History Sibling Cancer Father Brain aneurysm Heart disease Hypertension Mother Diabetes mellitus Hypertension Grandparent Cancer Other Cancer Aunt Social History Social History Social History: She has previously been but remarried and is been living with her 2nd for... . The patient had a stillborn and had 2 living children. Her son subsequently in adulthood. She has 1 remaining daughter. The patient is a former smoker. She denies any marijuana alcohol or illicit drugs. She does drink a fair amount of caffeine in the form soda. Code status: Full code Surrogate decision maker: Smoking packs per day: 1 Smoking cigarettes per day: 20.0 Years smoked: 50 Smoking pack-years: 50.00 Smoking status: Former smoker Tobacco type: cigarettes Second hand tobacco smoke exposure: No Smoking end date: 04/14/03 Alcohol intake: never Substance use: never Substance use type: does not use Do You Feel Safe in your Home?: Yes Lack of Transportation: No Lack of Food: Never True Current Housing: I Have Housing Concerned About Future Housing: No Difficulty Paying Gas/Electric Bills: No Difficulty Paying for Meds: No Currently Unemployed: No Education: Trade/Vocational Certificate Difficulty w/ Childcare or Family Care: No Living arrangements: with family Occupation/Education: retired Additional occupation/education comments: She used to work for a [employer] and [employer]. Gender identity (if verbalized by the patient): Female Sexual Orientation (if Verbalized by the Patient): Straight or Heterosexual Spiritual care concerns: No Agree to blood products: Yes Exam 2 Narrative: GENERAL: Well-appearing, well-nourished, and in no acute distress. HEAD: Normocephalic, atraumatic. EYES: PERRLA and EOMI. ENT: Nares clear, no rhinorrhea or epistaxis. Mucous membranes moist. Oropharynx without tonsillar hypertrophy exudate or other lesions. Bilateral TMs pearly loya nonbulging NECK: Supple. No adenopathy or masses. No carotid bruits or JVD CHEST: Clear to auscultation. No respiratory distress. No wheezes rales or rhonchi HEART: Regular rate and rhythm. No murmur heard. Normal peripheral pulses. ABDOMEN: Soft, nontender, nondistended, normal active bowel sounds. EXTREMITIES: Normal range of motion. No edema. Positive pain with palpation to the right hip, range of motion increases pain distal pulses are present and intact SKIN: Warm, dry, no rash. NEURO: No focal deficits. Alert and oriented x3. PSYCH: Normal mood and affect. Course Vital Signs Vital signs: Vital Signs Temperature 36.4 C 05/11/24 10:16 Pulse Rate 80 05/11/24 10:16 Respiratory Rate 20 05/11/24 10:16 Blood Pressure 149/56 H 05/11/24 10:16 Pulse Oximetry 100 05/11/24 10:16 Oxygen Delivery Room Air 05/11/24 10:16 Temperature 36.7 C 05/11/24 16:09 Pulse Rate 77 05/11/24 16:09 Respiratory Rate 16 05/11/24 16:09 Blood Pressure 140/60 05/11/24 16:09 Pulse Oximetry 99 05/11/24 16:09 Oxygen Delivery Room Air 05/11/24 10:16 Medical Decision Making [facility] Narrative Medical decision making narrative: 78-year-old with generalized weakness and right hip pain and diarrhea for 3-4 days. On exam patient is alert and oriented x4 normal number shortness of breath denies any chest pain lungs are clear bilaterally she complains of pain to the right hip that started all of a sudden she got up to bear weight on it to let the dog out last night. She denies that she fell she is able to lean on the table and set herself back down patient is tearful Concern for fracture/dehydration/ failure to thrive/cardiac ischemia/UTI/TOÑITO CBC-the blood cell 3.32, hemoglobin 10.2, no leukocytosis CMP-unremarkable UA-please do protein, trace ketones, leukocytes, many RBCs 6-10, white blood cells 21-50 cough +1 bacteria EKG-Sinus Rhythm, rate 69 ST deviation and moderate T wave abnormality Trop-negative XR right hip- No acute fracture. Patient re-evaluated and updated that her x-ray was stable no fracture found her labs look within normal however looks like she has got urinary tract infection. We discussed whether she can ambulate safely at home she feels like she cannot eat she is still having pain and that we are not right leg. We discussed whether going into an assisted living would be beneficial, however this time she feels like she wants to be discharged back home and share the comfortable going back home. We will start her on Macrobid give her some IV fluids then will ambulate her here to ensure she is safe to ambulate prior to discharge. Patient finish the fluids and was given oral antibiotics and ambulated well with nurses she was able to walk to bathroom to the restroom on her own and walk back states she continues to feel well would like to go home and continue p.o. antibiotics for her urinary tract infection patient provided with strict return precautions and encouraged to follow up PCP in the next 3-5 days to ensure she is improving. She denies any further questions Medical Records Medical records reviewed: Yes I reviewed the external patient's medical records. Vital Signs Vital Signs: Vital Signs Temperature 36.4 C 05/11/24 10:16 Pulse Rate 80 05/11/24 10:16 Respiratory Rate 20 05/11/24 10:16 Blood Pressure 149/56 H 05/11/24 10:16 Pulse Oximetry 100 05/11/24 10:16 Oxygen Delivery Room Air 05/11/24 10:16 Temperature 36.7 C 05/11/24 16:09 Pulse Rate 77 05/11/24 16:09 Respiratory Rate 16 05/11/24 16:09 Blood Pressure 140/60 05/11/24 16:09 Pulse Oximetry 99 05/11/24 16:09 Oxygen Delivery Room Air 05/11/24 10:16 Vitals reviewed by me Lab Data Lab results reviewed: Yes I reviewed the patient's lab results. 05/11/24 12:00 05/11/24 12:00 Labs: Lab Results 05/11/24 05/11/24 Range/Units 12:00 12:05 WBC 5.4 (4.5-10.0) K/mm3 RBC 3.32 L (4.2-5.4) M/mm3 Hgb 10.2 L (12.0-15.0) g/dL Hct 31.6 L (37.0-47.0) % MCV 95.2 (80-100) fl MCH 30.7 (26-34) pg MCHC 32.3 (32-36) g/dl RDW 15.6 H (11.5-14.5) % Plt Count 143 L (150-375) k/mm3 MPV 11.9 H (7.4-10.4) fl Immature Gran % (Auto) 0.2 (0-0.5) % Neut % (Auto) 69.0 (45.5-73.1) % Lymph % (Auto) 15.1 L (18.3-44.2) % Levy % (Auto) 10.1 H (2.6-8.5) % Eos % (Auto) 5.2 H (0-4.4) % Baso % (Auto) 0.4 (0.2-1.2) % Lymph # (Auto) 0.81 L (0.9-3.2) K/mm3 Levy # (Auto) 0.5 (0.1-0.6) K/mm3 Eos # (Auto) 0.3 (0-0.3) K/mm3 Baso # (Auto) 0.0 (0.0-0.1) K/mm3 Abs Immat Gran (auto) 0.01 (0.00-0.031) K/mm3 Absolute Neuts (auto) 3.7 (1.3-6.7) K/mm3 Absolute Nucleated RBC 0.000 (0.0-0.012) K/mm3 Nucleated RBC % 0.0 (0.0-0.2) % Sodium 141 (137-145) mmol/L Potassium 3.4 (3.4-5.0) mmol/L Chloride 107 (98-107) mmol/L Carbon Dioxide 23 (22-30) mmol/L Anion Gap 11 (4-12) mmol/L BUN 9 (7-17) mg/dL Creatinine 0.66 L (0.7-1.0) mg/dL Estim Creat Clear Calc 56 ml/min Estimated GFR > 60 (59 - ) Glucose 87 (65-110) mg/dL Calcium 9.3 (8.4-10.2) mg/dL Total Bilirubin 0.9 (0.2-1.3) mg/dL AST 20 (14-36) U/L ALT 16 (6-35) U/L Alkaline Phosphatase 110 (38-126) U/L Troponin I < 0.012 (0.000-0.034) ng/mL Total Protein 8.0 (6.3-8.2) g/dL Albumin 3.9 (3.5-5.1) g/dL Urine Color Yellow (Yellow) Urine Appearance Cloudy H (Clear) Urine pH 5.5 (5.0-9.0) Ur Specific [place] 1.017 (1.001-1.035) Urine Protein 2+ H (Negative) mg/dL Urine Glucose (UA) Negative (Negative) mg/dL Urine Ketones Trace H (Negative) mg/dL Ur Blood (Man) Trace (Negative) Urine Nitrate Negative (Negative) Urine Bilirubin Negative (Negative) Urine Urobilinogen 0.2 (<2.0) mg/dL Add Ur Microanalysis Reviewed Leukocyte Esterase Rfl 2+ H (Negative) KAYLYNN/UL Urine RBC 6-10 H (0-2) /hpf Urine WBC 21-50 H (0-3) /hpf Ur Squamous Epith Cells Many H (Few) /hpf Urine Bacteria 1+ H /hpf Urine Casts 0-2 Imaging Data My impression: Impressions Hip/Pelvis X-Ray 05/11/24 12:32 Impression: 1: No acute fracture. ECG Data EKG #1: ECG completion date: 05/11/24 ECG completion time: 11:43 Prior ECG tracings: not available for review Interpretation: Sinus Rate 69, CO 190, QRS 94, QT/ QTc 372/390 P-R-T axes 77 68 31 Discharge Plan Discharge Clinical Impression: Urinary tract infection Qualifiers: Urinary tract infection type: acute cystitis Hematuria presence: with hematuria Qualified Code(s): N30.01 - Acute cystitis with hematuria Patient Disposition: Home, Self-Care Condition: Stable Instructions: Antibiotic Form Additional Instructions: Continue to take the Macrobid twice daily for 5 days Push oral hydration / drink plenty of water/ get plenty of rest Follow up wtih your PCP in 1 week If you develop any worsening symptoms or concerns return to the ER. Patient Language: Comoran Prescriptions: New nitrofurantoin monohyd/m-cryst [Macrobid] 100 mg capsule 100 mg PO Q12H 5 Days Qty: 10 0RF Rx Instructions: must administer with a meal/food No Action metformin 1,000 mg tablet 1,000 mg PO BID Qty: 180 0RF atorvastatin 80 mg tablet 80 mg PO QHS Qty: 100 1RF levetiracetam 500 mg tablet 500 mg PO BID calcium carbonate 600 mg calcium (1,500 mg) tablet 600 mg PO DAILY lisinopril 20 mg tablet 20 mg PO DAILY Qty: 90 1RF hydralazine 50 mg tablet 50 mg PO TID Qty: 270 1RF citalopram [Celexa] 10 mg tablet 10 mg PO DAILY Qty: 90 1RF levothyroxine 50 mcg tablet 50 mcg PO DAILY Patient Comments: QAM mesalamine 1.2 gram tablet,delayed release (DR/EC) 1.2 g PO QID aspirin 81 mg Tablet,Delayed Release (Dr/Ec) 81 mg PO QAM Qty: 90 0RF (DME) blood-glucose meter [Blood Glucose Monitoring] Kit See Rx Instructions .ROUTE .MEDSUPPLY Qty: 1 0RF Rx Instructions: Use once daily to check blood glucose (DME) Comfort EZ Pen [place] 33 gauge x 5/16 needle See Rx Instructions .Route Qty: 100 0RF Rx Instructions: use daily (DME) OneTouch Ultra Test Strip See Rx Instructions .Route Qty: 100 5RF Rx Instructions: use 1 strip to check blood sugar 3 times daily amlodipine 10 mg tablet 10 mg PO DAILY Qty: 90 0RF Patient Comments: QAM clopidogrel 75 mg tablet 75 mg PO DAILY Qty: 90 0RF Follow-up/Referrals: Dorothea Ledezma MD [Primary Care Provider] - 3 Days Time of Disposition: 15:33
--- OUTSIDE RECORDS SUMMARY | 2024-05-11 12:14 | XMS_ITS | Referral Summary ---
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 Gender Identity Not on file Sexual Orientation [...] CARDIOLOGY DOCUMENT SCAN Routine 02/29/2024 4:13 PM EMPLOYEE PLACEMENT SPECIALIST ALBUMIN CREATININE RATIO, URINE Routine 01/24/2023 3:49 PM CDT COMPREHENSIVE METABOLIC PANEL Routine 01/24/2023 3:48 PM CDT HEMOGLOBIN A1C Routine 01/24/2023 3:48 PM CDT LIPID PANEL Routine 01/24/2023 3:48 PM CDT from Last 3 Months or Most Recently Relevant to Health Maintenance Results * Cardiology Document Scan (02/29/2024 4:13 PM EMPLOYEE PLACEMENT SPECIALIST) Anatomical Region Laterality Modality Other us Abdullahi [...] Units/L EXTERNAL LAB SCRIBED eGFR in NonAfrican Guamanian >60 >=60 - NA EXTERNAL LAB Blood 01/24/2023 3:48 PM CDT us Historical Provider LAB BLOOD ORDERABLES Edit ed Result - Final EXTERNAL LAB from Last 3 Months or Most Recently Relevant to Health Maintenance Insurance [employer] OOS MEDICARE [employer] [facility] MEDICARE [employer] OOS Advance Directives For more information, please contact: [phone] * Full Code (Latest Code Status on File) Date Activated Date Inactivated Comments 01/29/2021 12:10 AM 02/01/2021 7:53 PM Care Teams Venetian Blind Washer Relationship Specialty Start Date End Date Kd Ledezma MD PCP - General Family Practice 12/09/19
--- OUTSIDE RECORDS SUMMARY | 2024-05-11 12:14 | XMS_ITS | Clinical Summary ---
Author Organization [facility] [address] Address [address] [place] [address] Care Team Providers Care Metal Loader Name Role Phone Kd Ledezma MD Primary [...] TIMES DAILY 2 Active Comfort EZ Pen [place] 32 gauge x 5/32 needle USE NIGHTLY [...] Department Care Team Description 03/03/[address] [facility] Cardiology [address] [place] [address] Abdullahi Patton MD from Last [...] on file Legal Sex Female 8:59 PM CAREER SERVICES DIRECTOR Gender Identity Not on file Sexual Orientation [...] CARDIOLOGY DOCUMENT SCAN Routine 02/29/2024 4:13 PM CAREER SERVICES DIRECTOR ALBUMIN CREATININE RATIO, URINE Routine 01/24/2023 3:49 PM CDT COMPREHENSIVE METABOLIC PANEL Routine 01/24/2023 3:48 PM CDT HEMOGLOBIN A1C Routine 01/24/2023 3:48 PM CDT LIPID PANEL Routine 01/24/2023 3:48 PM CDT from Last 3 Months or Most Recently Relevant to Health Maintenance Results * Cardiology Document Scan (02/29/2024 4:13 PM CAREER SERVICES DIRECTOR) Anatomical Region Laterality Modality Other Abdullahi Patton [...] ed Result - Final Performing Organization Address [facility]/ZIP Co de Phone Number EXTERNAL LAB * Hemoglobin A1c (01/24/2023 3:48 PM CDT) SCRIBED Hemoglobin A1c 5.1 <5.7 - NA % EXTERNAL LAB Blood 01/24/2023 3:48 PM CDT Historical Provider MD LAB BLOOD ORDERABLES Edit ed Result - Final Performing Organization Address [facility]/ZIP Co de Phone Number EXTERNAL LAB * [...] ed Result - Final Performing Organization Address [facility] Co de Phone Number EXTERNAL LAB [...] Units/L EXTERNAL LAB SCRIBED eGFR in NonAfrican Vincentian >60 >=60 - NA EXTERNAL LAB Blood 01/24/2023 3:48 PM CDT us Historical Provider LAB BLOOD ORDERABLES Edit ed Result - Final EXTERNAL LAB from Last 3 Months or Most Recently Relevant to Health Maintenance Insurance [employer] MEDICARE Marco Vasco ACCESS OOS MEDICARE Marco Vas[employer] ACCESS OOS Advance Directives For more information, please contact: [phone] * Full Code (Latest Code Status on File) Date Activated Date Inactivated Comments 01/29/2021 12:10 AM 02/01/2021 7:53 PM Care Teams Metal Loader Relationship Specialty Start Date End Date Kd Ledezma MD PCP - General Family Practice 12/09/19
[2024-05-11] MEDS: fentaNYL CITRATE INJ (*CRX) 100 MCG/2 ML VIAL 25 MCG IV PUSH (12:15)
[2024-05-11 12:17] LABS: Basophils Percent Auto 0.4 % (0.2-1.2); Eosinophils Absolute Auto 0.3 K/mm3 (0-0.3); Eosinophils Percent Auto 5.2 % (0-4.4); Hematocrit 31.6 % (37.0-47.0); Hemoglobin 10.2 g/dL (12.0-15.0); Immature Granulocyte Absolute 0.01 K/mm3 (0.00-0.031); Immature Granulocyte Percent A 0.2 % (0-0.5); Lymphocytes Absolute Auto 0.81 K/mm3 (0.9-3.2); Lymphocytes Percent Auto 15.1 % (18.3-44.2); Mean Corpuscular HGB Conc 32.3 g/dl (32-36); Mean Corpuscular Hemoglobin 30.7 pg (26-34); Mean Corpuscular Volume 95.2 fl (80-100); Mean Platelet Volume 11.9 fl (7.4-10.4); Monocytes Absolute Auto 0.5 K/mm3 (0.1-0.6); Monocytes Percent Auto 10.1 % (2.6-8.5); Neutrophils Absolute Auto 3.7 K/mm3 (1.3-6.7); Platelet Count Result 143 k/mm3 (150-375); Red Blood Count 3.32 M/mm3 (4.2-5.4); Red Cell Distribution Width 15.6 % (11.5-14.5); White Blood Count 5.4 K/mm3 (4.5-10.0)
[2024-05-11 12:30] LABS: Alanine Aminotransferase 16 U/L (6-35); Albumin Level 3.9 g/dL (3.5-5.1); Alkaline Phosphatase 110 U/L (38-126); Anion Gap 11 mmol/L (4-12); Aspartate Amino Transferase 20 U/L (14-36); Bilirubin,Total 0.9 mg/dL (0.2-1.3); Blood Urea Nitrogen 9 mg/dL (7-17); Calcium 9.3 mg/dL (8.4-10.2); Carbon Dioxide 23 mmol/L (22-30); Chloride 107 mmol/L (98-107); Estimated CRCL calculation 56 ml/min; Estimated Glomerular Filt Rate > 60; Glucose 87 mg/dL (65-110); Potassium 3.4 mmol/L (3.4-5.0); Sodium 141 mmol/L (137-145)
[2024-05-11 12:35] LABS: Add Urine Microscopic? YES; Appearance Urine Cloudy (Clear); Bacteria Urine 1+ /hpf; Bilirubin Urine Negative (Negative); Blood Urine Trace (Negative); Color Urine Yellow (Yellow); Glucose Urine UA Negative (Negative); Ketones Urine Trace mg/dL (Negative); Leukocyte Esterase Ur 2+ LEU/UL (Negative); Need Manual Microscopic Reviewed; Nitrate Urine Negative (Negative); Non Pathogenic Casts 0-2; Protein Urine 2+ mg/dL (Negative); Specific Grav Ur 1.017 (1.001-1.035); Squamous Epithelial Cell Urine Many /hpf (Few); Urobilinogen Urine 0.2 mg/dL (<2.0); WBC Urine 21-50 /hpf (0-3); pH Urine 5.5 (5.0-9.0)
[2024-05-11 12:41] LABS: Troponin I < 0.012 ng/mL (0.000-0.034)
[2024-05-11] MEDS: SODIUM CHLORIDE 0.9% IV 1,000 ML 999 ML IV CONT (13:08)
[2024-05-11] MEDS: NITROFURANTOIN MONOHYD MACROCR 100 MG CAP PO (13:09)
[2024-05-11 13:11] VITALS: BP 144/55; PULSE 75; RESP 16; TEMP 36.6; O2SAT 98
[2024-05-11 16:09] VITALS: BP 140/60; PULSE 77; RESP 16; TEMP 36.7; O2SAT 99
== END 2024-05-11 16:09 | disposition home or self-care (01) ==
PROVIDERS: Emergency Provider Nurse Practitioner Family; PCP Family Medicine
DX: N30.01 Acute cystitis with hematuria (principal); F32.A Depression, unspecified; I10 Essential (primary) hypertension; E11.9 Type 2 diabetes mellitus without complications; Z86.73 Personal history of transient ischemic attack (TIA), and cerebral infarction without residual deficits; I25.10 Atherosclerotic heart disease of native coronary artery without angina pectoris; E78.5 Hyperlipidemia, unspecified; E03.9 Hypothyroidism, unspecified; Z87.442 Personal history of urinary calculi
CPT/HCPCS: 36415; 73502; 80053; 81001; 84484; 85025; 93005; 96361; 96374; 96375; 99284; A9270; J3010; J7030

== ENCOUNTER 2024-05-18 11:50 | Emergency (ER) | payer MEDICARE, BC, SELFPAY ==
--- NOTE | ~2024-05-18 | CT_ITS ---
EXAMINATION: CT abdomen pelvis wo con DATE: 05/18/2024 15:54 INDICATION: Gastrointestinal bleeding TECHNIQUE: Computed tomography (CT) of the abdomen and pelvis was performed without intravenous contr ast. Automated exposure control and iterative reconstruction technique were employed. The dose-length product was 294.78 mGy-cm. COMPARISON: None FINDINGS: Mild emphysema at the lung bases. Heart size is normal. Abscess chronic coronary artery calcific lesi ons. Aortic valve and mitral annular calcification. No pericardial or pleural effusion. Liver, gallbl adder, spleen and bilateral adrenal glands are normal. There are appears be chronic dilation of the m ain pancreatic duct which measures up to 5 mm the body the pancreas which along with several scattere d dystrophic pancreatic parenchymal calcifications most consistent with sequela of chronic pancreatit is. 6.5 cm exophytic cyst at the lower pole of the left kidney. Bilateral nonobstructing nephrolithia sis with 6 punctate 1 mm stones in the left kidney and a single 2 mm stone at the lower pole the righ t kidney. There is mild scattered diverticulosis with descending and sigmoid colon predominance. Ther e is wall thickening throughout the sigmoid colon to the rectum with surrounding from trace stranding and multiple small mesenteric lymph nodes. No dilated bowel to suggest obstruction. Bladder is simon l. The uterus is not identified and has likely been surgically resected. No abscess or free intraperi toneal gas or fluid. Mild to moderate lumbar and lower thoracic spondylosis. IMPRESSION: 1. Wall thickening and pericolonic stranding throughout the sigmoid colon extending to the rectum wit h multiple small lymph nodes in the sigmoid mesentery. Given the extent wall thickening would favor c olitis over diverticulitis or malignancy. The recently performed would consider colonoscopy for furth er evaluation when clinically appropriate. 2. Bilateral nonobstructing nephrolithiasis. Reviewed, dictated and finalized at location A. ER SPRAYER IMPRESSION: 1. Wall thickening and pericolonic stranding throughout the sigmoid colon exten ding to the rectum with multiple small lymph nodes in the sigmoid mesentery. Gi josefa the extent wall thickening would favor colitis over diverticulitis or malig ted. The recently performed would consider colonoscopy for further evaluation when clinically appropriate. 2. Bilateral nonobstructing nephrolithiasis.
--- OUTSIDE RECORDS SUMMARY | 2024-05-18 12:13 | XMS_ITS | Referral Summary ---
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 Gender Identity Not on file Sexual Orientation [...] CARDIOLOGY DOCUMENT SCAN Routine 02/29/2024 4:13 PM INTERPERSONAL COMMUNICATIONS PROFESSOR ALBUMIN CREATININE RATIO, URINE Routine 01/24/2023 3:49 PM CDT COMPREHENSIVE METABOLIC PANEL Routine 01/24/2023 3:48 PM CDT HEMOGLOBIN A1C Routine 01/24/2023 3:48 PM CDT LIPID PANEL Routine 01/24/2023 3:48 PM CDT from Last 3 Months or Most Recently Relevant to Health Maintenance Results * Cardiology Document Scan (02/29/2024 4:13 PM INTERPERSONAL COMMUNICATIONS PROFESSOR) Anatomical Region Laterality Modality Other us Abdullaih Patton MD CV CARDIAC SERVICES PROCEDURES F [...] Units/L EXTERNAL LAB SCRIBED eGFR in NonAfrican Belarusian >60 >=60 - NA EXTERNAL LAB Blood 01/24/2023 3:48 PM CDT us Historical Provider LAB BLOOD ORDERABLES Edit ed Result - Final EXTERNAL LAB from Last 3 Months or Most Recently Relevant to Health Maintenance Insurance [employer] OOS MEDICARE [employer] [facility] MEDICARE [employer] OOS Advance Directives For more information, please contact: [phone] * Full Code (Latest Code Status on File) Date Activated Date Inactivated Comments 01/29/2021 12:10 AM 02/01/2021 7:53 PM Care Teams Academic Adviser Relationship Specialty Start Date End Date Kd Ledezma MD PCP - General Family Practice 12/09/19
--- OUTSIDE RECORDS SUMMARY | 2024-05-18 12:13 | XMS_ITS | Clinical Summary ---
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 Gender Identity Not on file Sexual Orientation [...] CARDIOLOGY DOCUMENT SCAN Routine 02/29/2024 4:13 PM SEED POTATO CUTTER ALBUMIN CREATININE RATIO, URINE Routine 01/24/2023 3:49 PM CDT COMPREHENSIVE METABOLIC PANEL Routine 01/24/2023 3:48 PM CDT HEMOGLOBIN A1C Routine 01/24/2023 3:48 PM CDT LIPID PANEL Routine 01/24/2023 3:48 PM CDT from Last 3 Months or Most Recently Relevant to Health Maintenance Results * Cardiology Document Scan (02/29/2024 4:13 PM SEED POTATO CUTTER) Anatomical Region Laterality Modality Other Abdullahi Patton [...] ed Result - Final Performing Organization Address [facility]/ZIP Co de Phone Number EXTERNAL LAB * Hemoglobin A1c (01/24/2023 3:48 PM CDT) SCRIBED Hemoglobin A1c 5.1 <5.7 - NA % EXTERNAL LAB Blood 01/24/2023 3:48 PM CDT Historical Provider MD LAB BLOOD ORDERABLES Edit ed Result - Final Performing Organization Address [facility]/ZIP Co de Phone Number EXTERNAL LAB * [...] ed Result - Final Performing Organization Address [facility] Co de Phone Number EXTERNAL LAB [...] Units/L EXTERNAL LAB SCRIBED eGFR in NonAfrican Emirati >60 >=60 - NA EXTERNAL LAB Blood 01/24/2023 3:48 PM CDT us Historical Provider LAB BLOOD ORDERABLES Edit ed Result - Final EXTERNAL LAB from Last 3 Months or Most Recently Relevant to Health Maintenance Insurance [email or web address] MEDICARE [employer] ACCESS OOS MEDICARE [employer] ACCESS OOS Advance Directives For more information, please contact: [phone] * Full Code (Latest Code Status on File) Date Activated Date Inactivated Comments 01/29/2021 12:10 AM 02/01/2021 7:53 PM Care Teams Basket Bottom Machine Operator Relationship Specialty Start Date End Date Kd Ledezma MD PCP - General Family Practice 12/09/19
[2024-05-18 12:43] VITALS: BP 153/54; PULSE 69; RESP 18; TEMP 36.5; O2SAT 100
[2024-05-18 15:46] LABS: Basophils Percent Auto 0.4 % (0.2-1.2); Eosinophils Absolute Auto 0.7 K/mm3 (0-0.3); Eosinophils Percent Auto 9.1 % (0-4.4); Hematocrit 32.4 % (37.0-47.0); Hemoglobin 10.6 g/dL (12.0-15.0); Immature Granulocyte Absolute 0.02 K/mm3 (0.00-0.031); Immature Granulocyte Percent A 0.3 % (0-0.5); Lymphocytes Absolute Auto 1.42 K/mm3 (0.9-3.2); Lymphocytes Percent Auto 18.3 % (18.3-44.2); Mean Corpuscular HGB Conc 32.7 g/dl (32-36); Mean Corpuscular Hemoglobin 30.6 pg (26-34); Mean Corpuscular Volume 93.6 fl (80-100); Mean Platelet Volume 11.3 fl (7.4-10.4); Monocytes Absolute Auto 0.7 K/mm3 (0.1-0.6); Monocytes Percent Auto 8.4 % (2.6-8.5); Neutrophils Absolute Auto 4.9 K/mm3 (1.3-6.7); Neutrophils Percent Auto 63.5 % (45.5-73.1); Platelet Count Result 207 k/mm3 (150-375); Red Blood Count 3.46 M/mm3 (4.2-5.4); Red Cell Distribution Width 15.2 % (11.5-14.5); White Blood Count 7.8 K/mm3 (4.5-10.0)
[2024-05-18 15:57] LABS: Prothrombin Time 13.7 Seconds (11.1-14.7)
[2024-05-18 15:58] LABS: Partial Thromboplastin Time 27.6 Seconds (22.3-36.8)
--- OUTSIDE RECORDS SUMMARY | 2024-05-18 16:05 | XMS_ITS | Clinical Summary ---
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 Gender Identity Not on file Sexual Orientation [...] CARDIOLOGY DOCUMENT SCAN Routine 02/29/2024 4:13 PM GENERAL I FARMWORKER ALBUMIN CREATININE RATIO, URINE Routine 01/24/2023 3:49 PM CDT COMPREHENSIVE METABOLIC PANEL Routine 01/24/2023 3:48 PM CDT HEMOGLOBIN A1C Routine 01/24/2023 3:48 PM CDT LIPID PANEL Routine 01/24/2023 3:48 PM CDT from Last 3 Months or Most Recently Relevant to Health Maintenance Results * Cardiology Document Scan (02/29/2024 4:13 PM GENERAL I FARMWORKER) Anatomical Region Laterality Modality Other Abdullahi Patton [...] ed Result - Final Performing Organization Address [facility]/ZIP Co de Phone Number EXTERNAL LAB * Hemoglobin A1c (01/24/2023 3:48 PM CDT) SCRIBED Hemoglobin A1c 5.1 <5.7 - NA % EXTERNAL LAB Blood 01/24/2023 3:48 PM CDT Historical Provider MD LAB BLOOD ORDERABLES Edit ed Result - Final Performing Organization Address [facility]/ZIP Co de Phone Number EXTERNAL LAB * [...] ed Result - Final Performing Organization Address [facility] [place] [facility] Co de Phone Number EXTERNAL LAB [...] Units/L EXTERNAL LAB SCRIBED eGFR in NonAfrican English >60 >=60 - NA EXTERNAL LAB Blood 01/24/2023 3:48 PM CDT us Historical Provider LAB BLOOD ORDERABLES Edit ed Result - Final EXTERNAL LAB from Last 3 Months or Most Recently Relevant to Health Maintenance Insurance [employer] MEDICARE BAC ON TRAC ACCESS OOS MEDICARE BAC ON TRAC ACCESS OOS Advance Directives For more information, please contact: [phone] * Full Code (Latest Code Status on File) Date Activated Date Inactivated Comments 01/29/2021 12:10 AM 02/01/2021 7:53 PM Care Teams Research Leader Relationship Specialty Start Date End Date Kd Ledezma MD PCP - General Family Practice 12/09/19
--- OUTSIDE RECORDS SUMMARY | 2024-05-18 16:05 | XMS_ITS | Referral Summary ---
Author Organization [facility] [address] [facility] [address] Address [address] [place] [address] Care Team Providers Care Safety Deposit Clerk Name Role Phone Kd Ledezma MD Primary Care Provider Encounters Date Type Department Care Team Description 03/03/[address] [facility] Cardiology [address] [place] [address] Abdullahi Patton MD from Last [...] TIMES DAILY 2 Active Comfort EZ Pen [place] 32 gauge x 5/32 needle USE NIGHTLY [...] on file Legal Sex Female 8:59 PM RADIO REPAIRER Gender Identity Not on file Sexual Orientation [...] CARDIOLOGY DOCUMENT SCAN Routine 02/29/2024 4:13 PM RADIO REPAIRER ALBUMIN CREATININE RATIO, URINE Routine 01/24/2023 3:49 PM CDT COMPREHENSIVE METABOLIC PANEL Routine 01/24/2023 3:48 PM CDT HEMOGLOBIN A1C Routine 01/24/2023 3:48 PM CDT LIPID PANEL Routine 01/24/2023 3:48 PM CDT from Last 3 Months or Most Recently Relevant to Health Maintenance Results * Cardiology Document Scan (02/29/2024 4:13 PM RADIO REPAIRER) Anatomical Region Laterality Modality Other us Abdullahi [...] Most Recently Relevant to Health Maintenance Insurance [employer] OOS MEDICARE [employer] [facility] MEDICARE Fibroblast OOS Advance Directives For more information, please contact: [phone] * Full Code (Latest Code Status on File) Date Activated Date Inactivated Comments 01/29/2021 12:10 AM 02/01/2021 7:53 PM Care Teams Safety Deposit Clerk Relationship Specialty Start Date End Date Kd Ledezma MD PCP - General Family Practice 12/09/19
[2024-05-18 16:12] VITALS: BP 151/69; PULSE 65; RESP 16; O2SAT 97
[2024-05-18 16:12] LABS: Alanine Aminotransferase 15 U/L (6-35); Albumin Level 3.9 g/dL (3.5-5.1); Alkaline Phosphatase 115 U/L (38-126); Anion Gap 9 mmol/L (4-12); Aspartate Amino Transferase 21 U/L (14-36); Bilirubin,Total 0.6 mg/dL (0.2-1.3); Blood Urea Nitrogen 10 mg/dL (7-17); Calcium 9.9 mg/dL (8.4-10.2); Carbon Dioxide 25 mmol/L (22-30); Chloride 105 mmol/L (98-107); Estimated CRCL calculation 57 ml/min; Estimated Glomerular Filt Rate > 60; Glucose 97 mg/dL (65-110); Potassium 3.2 mmol/L (3.4-5.0); Sodium 139 mmol/L (137-145)
--- NOTE | 2024-05-18 17:46 | ED_ITS ---
HPI - GI Bleed General Chief complaint: GI Bleed Stated complaint: Rectal bleeding x 1 week Time Seen by Provider: 05/18/24 15:54 Source: patient Mode of arrival: ambulatory Limitations: no limitations History of Present Illness HPI Narrative: This is a 78-year-old female, with history of coronary artery disease, on Plavix and aspirin who presents emergency department complaining of bright red blood per rectum for the past 2-3 days. The patient states her symptoms began with loose stools for a day follow by bright red blood with wiping. This is associated with burning sensation at the rectum. She denies shortness of breath, chest pain, loss of consciousness or lightheadedness. She denies bleeding from elsewhere. She has no other complaints at this time. Related Data Home Medications ?Medication ?Instructions ?Recorded ?Confirmed ?Last Taken ?Type levothyroxine 50 mcg tablet 50 mcg PO DAILY 02/28/24 04/26/24 Unknown History mesalamine 1.2 gram tablet,delayed 1.2 g PO QID 02/28/24 04/26/24 Unknown History release levetiracetam 500 mg tablet 500 mg PO BID 03/08/24 04/26/24 Unknown History calcium carbonate 600 mg PO DAILY 03/31/24 04/26/24 Unknown History Allergies Allergy/AdvReac Type Severity Reaction Status Date / Time Iodinated Contrast Media Allergy Intermediate Hives Verified 05/18/24 12:47 loracarbef (From Lorabid) Allergy Intermediate Hives Verified 05/18/24 12:47 Review of Systems 2 Review of Systems: All systems reviewed & are unremarkable except as noted in HPI and below PMFSH Past Medical History Medical History Depression History of stroke (~02/2024) Essential (primary) hypertension Type 2 diabetes mellitus without complications Acute stroke due to ischemia (~03/01/24) MRI of the brain shows Small focus of acute infarct along a gyrus in the right right occipital region. Small region of encephalomalacia consistent with chronic infarct in the right parietal lobe and a couple tiny old lacunar infarcts in the bilateral cerebellar hemispheres CVA (cerebral vascular accident) MRI June 2021 demonstrated small old parietal punctate left cerebellar infarctions likely as result of in 01/2020 Right humeral fracture (2021) Seizure as late effect of cerebrovascular accident (CVA) Chronic pancreatitis Ulcerative colitis CAD (coronary artery disease) Hypertension Hyperlipidemia Hypothyroid Aortic insufficiency Echocardiogram 2020: Hyperdynamic left ventricle EF 78% mild intracavitary obstruction with peak gradient of 16 with Valsalva, moderate concentric left ventricular hypertrophy, [id number] aortic valve regurgitation, mild tricuspid regurgitation Distal radius fracture, left Thrombocytopenia Anemia Diabetes A1c 6.6 on 04-29-19 Renal stones Surgical History Surgical History H/O lithotripsy H/O: hysterectomy Family History Family History Sibling Cancer Father Brain aneurysm Heart disease Hypertension Mother Diabetes mellitus Hypertension Grandparent Cancer Other Cancer Aunt Social History Social History Social History: She has previously been but remarried and is been living with her 2nd for... . The patient had a stillborn and had 2 living children. Her son subsequently in adulthood. She has 1 remaining daughter. The patient is a former smoker. She denies any marijuana alcohol or illicit drugs. She does drink a fair amount of caffeine in the form soda. Code status: Full code Surrogate decision maker: Smoking packs per day: 1 Smoking cigarettes per day: 20.0 Years smoked: 50 Smoking pack-years: 50.00 Smoking status: Former smoker Tobacco type: cigarettes Second hand tobacco smoke exposure: No Smoking end date: 04/14/03 Alcohol intake: never Substance use: never Substance use type: does not use Do You Feel Safe in your Home?: Yes Lack of Transportation: No Lack of Food: Never True Current Housing: I Have Housing Concerned About Future Housing: No Difficulty Paying Gas/Electric Bills: No Difficulty Paying for Meds: No Currently Unemployed: No Education: Trade/Vocational Certificate Difficulty w/ Childcare or Family Care: No Living arrangements: with family Occupation/Education: retired Additional occupation/education comments: She used to work for a [employer] and [employer]. Gender identity (if verbalized by the patient): Female Sexual Orientation (if Verbalized by the Patient): Straight or Heterosexual Spiritual care concerns: No Agree to blood products: Yes Exam 2 Narrative: GENERAL: Well-developed, well-nourished, and in no acute distress. HEAD: Normocephalic, atraumatic. EYES: PERRLA and EOMI. CHEST: Clear to auscultation. No respiratory distress. No wheezes rales or rhonchi HEART: Regular rate and rhythm. No murmur heard. Normal peripheral pulses. ABDOMEN: Soft, nontender, nondistended, normal active bowel sounds. RECTAL ( Chaperoned by female RN Angela): an external hemorrhoid with small amount of bright red blood and skin irritation is noted at the 6 o'clock position. There is tenderness with digital rectal exam. There are no palpable internal hemorrhoids or noted active bleeding. EXTREMITIES: Normal range of motion. No edema. SKIN: Warm, dry, no rash. NEURO: Alert and oriented x3. No focal deficit. Moving all 4 limbs spontaneously PSYCH: Normal mood and affect. Course Course Emergency Course: 17:45 - CBC demonstrates baseline anemia with hemoglobin of 10.6. Chemistries demonstrate mild hypokalemia with potassium of 3.2. CT abdomen pelvis demonstrates Wall thickening and pericolonic stranding throughout the sigmoid colon extending to the rectum with multiple small lymph nodes in the sigmoid mesentery thought to favor colitis versus malignancy verses diverticulitis. The patient's exam demonstrates external hemorrhoids. I suspect this is the cause of her bleeding. I do not suspect need for transfer or other acute intervention. Will discharge with rectal hydrocortisone, recommendation for oral fiber supplementation and primary care follow-up. Vital Signs Vital signs: Vital Signs Temperature 97.7 F 05/18/24 12:43 Pulse Rate 69 05/18/24 12:43 Respiratory Rate 18 05/18/24 12:43 Blood Pressure 153/54 H 05/18/24 12:43 Pulse Oximetry 100 05/18/24 12:43 Oxygen Delivery Room Air 05/18/24 12:43 Temperature 97.7 F 05/18/24 12:43 Pulse Rate 65 05/18/24 16:12 Respiratory Rate 16 05/18/24 16:12 Blood Pressure 151/69 H 05/18/24 16:12 Pulse Oximetry 97 05/18/24 16:12 Oxygen Delivery Room Air 05/18/24 16:12 MDM - GI Bleed MDM Narrative Medical decision making narrative: Plan: Labs, imaging, reassess Differential Diagnosis Differential diagnosis: Likely hemorrhoids, hematochezia, anal fissure and other ( viral enteritis, colitis, diverticulitis, diverticulosis, other) Lab Data 05/18/24 15:40 05/18/24 15:40 Labs: Lab Results 05/18/24 Range/Units 15:40 WBC 7.8 (4.5-10.0) K/mm3 RBC 3.46 L (4.2-5.4) M/mm3 Hgb 10.6 L (12.0-15.0) g/dL Hct 32.4 L (37.0-47.0) % MCV 93.6 (80-100) fl MCH 30.6 (26-34) pg MCHC 32.7 (32-36) g/dl RDW 15.2 H (11.5-14.5) % Plt Count 207 (150-375) k/mm3 MPV 11.3 H (7.4-10.4) fl Immature Gran % (Auto) 0.3 (0-0.5) % Neut % (Auto) 63.5 (45.5-73.1) % Lymph % (Auto) 18.3 (18.3-44.2) % [place] % (Auto) 8.4 (2.6-8.5) % Eos % (Auto) 9.1 H (0-4.4) % Baso % (Auto) 0.4 (0.2-1.2) % Lymph # (Auto) 1.42 (0.9-3.2) K/mm3 [place] # (Auto) 0.7 H (0.1-0.6) K/mm3 Eos # (Auto) 0.7 H (0-0.3) K/mm3 Baso # (Auto) 0.0 (0.0-0.1) K/mm3 Abs Immat Gran (auto) 0.02 (0.00-0.031) K/mm3 Absolute Neuts (auto) 4.9 (1.3-6.7) K/mm3 Absolute Nucleated RBC 0.000 (0.0-0.012) K/mm3 Nucleated RBC % 0.0 (0.0-0.2) % PT 13.7 (11.1-14.7) Seconds INR 1.0 APTT 27.6 (22.3-36.8) Seconds Sodium 139 (137-145) mmol/L Potassium 3.2 L (3.4-5.0) mmol/L Chloride 105 (98-107) mmol/L Carbon Dioxide 25 (22-30) mmol/L Anion Gap 9 (4-12) mmol/L BUN 10 (7-17) mg/dL Creatinine 0.65 L (0.7-1.0) mg/dL Estim Creat Clear Calc 57 ml/min Estimated GFR > 60 (59 - ) Glucose 97 (65-110) mg/dL Calcium 9.9 (8.4-10.2) mg/dL Total Bilirubin 0.6 (0.2-1.3) mg/dL AST 21 (14-36) U/L ALT 15 (6-35) U/L Alkaline Phosphatase 115 (38-126) U/L Total Protein 7.0 (6.3-8.2) g/dL Albumin 3.9 (3.5-5.1) g/dL Blood Type O Positive Antibody Screen Pending Discharge Plan Discharge Clinical Impression: BRBPR (bright red blood per rectum), Bleeding external hemorrhoids, Diarrhea, Colitis Patient Disposition: Home, Self-Care Condition: Stable Instructions: Antibiotic Form, Hemorrhoids (ED), Acute Diarrhea (ED) Additional Instructions: You were seen in the emergency department. your exam is consistent with an external hemorrhoid. I suspect this is the cause of your pain and bleeding. I recommend topical steroid medications, fiber supplementation, drinking plenty of fluids and follow up with your primary care doctor. If you develop New or worsening bleeding, chest pain, shortness of breath, loss of consciousness, severe abdominal pain, abdominal pain with fevers, or if you have other emergent concerns for life, limb, or eyesight, return to the emergency department. Patient Language: [place] Prescriptions: New lidocaine HCl-hydrocortison ac 3-0.5 % kit 1 applic RECTAL Q12H PRN (Reason: hemorrhoids) Qty: 1 0RF No Action metformin 1,000 mg tablet 1,000 mg PO BID Qty: 180 0RF atorvastatin 80 mg tablet 80 mg PO QHS Qty: 100 1RF levetiracetam 500 mg tablet 500 mg PO BID calcium carbonate 600 mg calcium (1,500 mg) tablet 600 mg PO DAILY lisinopril 20 mg tablet 20 mg PO DAILY Qty: 90 1RF hydralazine 50 mg tablet 50 mg PO TID Qty: 270 1RF citalopram [Celexa] 10 mg tablet 10 mg PO DAILY Qty: 90 1RF levothyroxine 50 mcg tablet 50 mcg PO DAILY Patient Comments: QAM mesalamine 1.2 gram tablet,delayed release (DR/EC) 1.2 g PO QID aspirin 81 mg Tablet,Delayed Release (Dr/Ec) 81 mg PO QAM Qty: 90 0RF nitrofurantoin monohyd/m-cryst [Macrobid] 100 mg capsule 100 mg PO Q12H 5 Days Qty: 10 0RF Rx Instructions: must administer with a meal/food (DME) blood-glucose meter [Blood Glucose Monitoring] Kit See Rx Instructions .ROUTE .MEDSUPPLY Qty: 1 0RF Rx Instructions: Use once daily to check blood glucose (DME) Comfort EZ Pen [place] 33 gauge x 5/16 needle See Rx Instructions .Route Qty: 100 0RF Rx Instructions: use daily (DME) OneTouch Ultra Test Strip See Rx Instructions .Route Qty: 100 5RF Rx Instructions: use 1 strip to check blood sugar 3 times daily amlodipine 10 mg tablet 10 mg PO DAILY Qty: 90 0RF Patient Comments: QAM clopidogrel 75 mg tablet 75 mg PO DAILY Qty: 90 0RF Follow-up/Referrals: Dorothea Ledezma MD [Primary Care Provider] - 2 Weeks Time of Disposition: 17:50
[2024-05-18 18:19] VITALS: BP 144/86; PULSE 86; RESP 14; O2SAT 98
== END 2024-05-18 18:21 | disposition home or self-care (01) ==
PROVIDERS: Family Medicine; Emergency Provider Preventive Medicine Aerospace Medicine; PCP Family Medicine
DX: K64.4 Residual hemorrhoidal skin tags (principal); K62.5 Hemorrhage of anus and rectum; K52.9 Noninfective gastroenteritis and colitis, unspecified; F32.A Depression, unspecified; I10 Essential (primary) hypertension; I69.898 Other sequelae of other cerebrovascular disease; I25.10 Atherosclerotic heart disease of native coronary artery without angina pectoris; E78.5 Hyperlipidemia, unspecified; E03.9 Hypothyroidism, unspecified; D64.9 Anemia, unspecified; E11.9 Type 2 diabetes mellitus without complications; Z87.442 Personal history of urinary calculi
CPT/HCPCS: 36415; 74176; 80053; 85025; 85610; 85730; 86850; 86900; 86901; 99284

== ENCOUNTER 2024-07-15 12:26 | Outpatient (CLI) | payer MEDICARE, BC, SELFPAY ==
--- OUTSIDE RECORDS SUMMARY | 2024-07-15 12:45 | XMS_ITS | Clinical Summary ---
Author Organization [facility] [address] Address [address] [place] [address] Care Team Providers Care Physical Chemistry Teacher Name Role Phone Kd Ledezma MD Primary [...] daily with meals (bkfst, dinner), Reported on 06/07/2024 lisinopril (PRINIVIL,ZESTRI L) 5 mg tablet Take [...] TIMES DAILY 2 Active Comfort EZ Pen [place] 32 gauge x 5/32 needle USE NIGHTLY [...] a day 180 tablet 3 4 Active aspirin 81 mg enteric coated tablet Take 1 tablet (81 mg total) by mouth daily 4 Active cefdinir (OMNICEF) 300 mg capsule Take 1 capsule (300 mg total) by mouth every 12 (twelve) hours 4 Active citalopram (CeleXA) 10 mg tablet 4 Active hydrALAZINE (APRESOLINE) 50 mg tablet 4 Active lidocaine HCl-hydrocortiso n ac 3-0.5 % cream INSERT RECTALLY EVERY 12 HOURS NEEDED FOR HEMORRHOIDS 5 Active nitrofurantoin monohydrate (MACROBID) 100 mg capsule TAKE 1 CAPSULE BY MOUTH EVERY 12 HOURS FOR 5 DAYS WITH FOOD 5 Active atorvastatin (LIPITOR) 80 mg tablet Take 1 tablet (80 mg total) by mouth daily 4 Active Active Problems Problem Noted Date [...] goal <70 11/01/2016 Peripheral arterial occlusive disease 11/17/2013 Overview (07/19/2016): Peripheral artery disease Aortic [...] long-term current use of insulin Left hemiparesis Normochromic normocytic anemia Gait disorder Thrombocytopenia Acquired hypothyroidism Resolved Problems Problem Noted Date Diagnosed Date Resolved Date Tobacco dependence syndrome 11/17/2013 11/03/2018 Overview (07/19/2016): Tobacco abuse Encounters Date Type Department Care Team Description 06/09/2024 Telephone [facility] Neurology [address] [place] [address] [place] [phone] Ivory eTresa NP Test Results (Results ) 06/08/2024 Results Follow-Up [facility] Neurology [address] [place] [phone] Ivory Teresa NP 06/07/2024 2:15 PM OFFSHORING MANAGER Lab 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) from Last 3 Months Medical History Medical [...] drink = 0.6 oz pur e alcohol) Comments Unknown Sex and Gender Information Value Date Recorded Sex Assigned at Not on file Legal Sex Female 8:59 PM OFFSHORING MANAGER Gender Identity Not on file Sexual Orientation Not on file Obstetrics History Last Filed Vital Signs Vital Sign Reading Time Taken Comments Blood Pressure 116/42 06/07/2024 1:08 PM OFFSHORING MANAGER Pulse 91 06/07/2024 1:08 PM OFFSHORING MANAGER Temperature 35.8 C (96.4 F) 08/20/2022 1:51 PM CDT Respiratory Rate 20 08/20/2022 1:51 PM CDT Oxygen Saturation 98% 12/17/2023 12:48 PM CDT Inhaled Oxygen Concentration - - Weight 68.9 kg (152 lb) 06/07/2024 1:08 PM OFFSHORING MANAGER Height 167.6 cm (5' 6 ) 06/07/2024 1:08 PM OFFSHORING MANAGER Body Mass Index 24.53 06/07/2024 1:08 PM OFFSHORING MANAGER Plan of Treatment Health Maintenance Due Date Last Done Comments Depression Screening 1945 Hepatitis C Screening 1945 Osteoporosis Screening-Bone Density Scan 1945 Dilated Eye Exam 1945 Foot Exam 1945 DTaP/Tdap/Td Vaccine (1 - Tdap) 1956 Hepatitis B Screening 06/13/1963 Pneumococcal vaccine 65+ (1 of 2 - PCV) 1964 Zoster Vaccine (1 of 2) 06/13/1995 Well Visit 65+ 2010 Fall Risk Assessment 02/01/2022 02/01/2021 Hemoglobin A1C 07/26/2023 01/24/2023, 01/29/2021 Albumin Creatinine Ratio, Urine 01/25/2024 Lipid Panel 01/25/2024 01/24/2023, 01/12, 06/15/2020, Additional history exists eGFR 01/25/2024 01/24/2023, 01/13, 01/30/2021, Additional history exists Influenza Vaccine (Season Ended) 2024 Procedures Procedure Name Priority Date/Time Associated Diagnosis Comments ALICJA QUALITATIVE WITH REFLEX TO ALICJA QUANTITATIVE Routine 06/07/2024 2:25 PM OFFSHORING MANAGER Memory disturbance ERYTHROCYTE SEDIMENTATION RATE Routine 06/07/2024 2:25 PM OFFSHORING MANAGER Memory disturbance TSH Routine 06/07/2024 2:25 PM OFFSHORING MANAGER Memory disturbance T4, FREE Routine 06/07/2024 2:25 PM OFFSHORING MANAGER Memory disturbance VITAMIN B12 Routine 06/07/2024 2:25 PM OFFSHORING MANAGER Memory disturbance FOLATE Routine 06/07/2024 2:25 PM OFFSHORING MANAGER Memory disturbance ALBUMIN CREATININE RATIO, URINE Routine 01/24/2023 3:49 PM CDT COMPREHENSIVE METABOLIC PANEL Routine 01/24/2023 3:48 PM CDT HEMOGLOBIN A1C Routine 01/24/2023 3:48 PM CDT LIPID PANEL Routine 01/24/2023 3:48 PM CDT from Last 3 Months or Most Recently Relevant to Health Maintenance Results * ALICJA ab ql w/rflx to ALICJA qn (06/07/2024 2:25 PM OFFSHORING MANAGER) ALICJA Negative Comment: Interpretive Data Normal range for ALICJA Qualitative Antibody = Negative. 1. ALICJA is performed using indirect immunofluorescence against HEp-2 cells 2. ALICJA titers are performed on all positive qualitative results. 3. A significantly positive ALICJA result is defined as a positive nuclear fluorescence at a titer of 1:80 or greater. 4. 15% of normal people above age 65 have significantly positive ALICJA results. 5% or less of normal people age 65 or under have significantly positive ALICJA results. Current interpretive data was last revised on 2019. Testing performed by: [facility], [address] [facility], [place]., [address] Blood 06/07/2024 2:25 PM OFFSHORING MANAGER 06/07/2024 7:56 PM OFFSHORING MANAGER Ivory Teresa TREE TRIMMING LINE TECHNICIAN LAB BLOOD ORDERABLES Final R esult Performing Organization Address City/[facility]/ZIP Co de Phone Number JUANJOSE [address] [place] [address] * (ABNORMAL) Erythrocyte sedimentation rate (06/07/2024 2:25 PM OFFSHORING MANAGER) Erythrocyte sedimentation rate 40(H) 1 - 30 mm/hr Blood 06/07/2024 2:25 PM OFFSHORING MANAGER 06/07/2024 4:25 PM OFFSHORING MANAGER Ivory Teresa TREE TRIMMING LINE TECHNICIAN LAB BLOOD ORDERABLES Final R esult Performing Organization Address [facility] Co de Phone Number JUANJOSE [address] [place] [address] * TSH (06/07/2024 2:25 PM OFFSHORING MANAGER) Thyroid Stimulating Hormone 0.50 0.30 - 4.20 mcIUnit/mL Blood 06/07/2024 2:25 PM OFFSHORING MANAGER 06/07/2024 4:25 PM OFFSHORING MANAGER Ivory Teresa NP LAB BLOOD ORDERABLES Final R esult Performing Organization Address [facility] Co de Phone Number JUANJOSE [address] [place] [address] * T4, free (06/07/2024 2:25 PM OFFSHORING MANAGER) Free T4 1.36 0.90 - 1.70 ng/dL Blood 06/07/2024 2:25 PM OFFSHORING MANAGER 06/07/2024 4:25 PM OFFSHORING MANAGER Ivory Teresa TREE TRIMMING LINE TECHNICIAN LAB BLOOD ORDERABLES Final R esult Performing Organization Address City/[facility]/ZIP Co de Phone Number JUANJOSE [address] [place] [address] * (ABNORMAL) Folate (06/07/2024 2:25 PM OFFSHORING MANAGER) [facility] Folic acid 4.9(L) >=5.0 ng/mL Blood 06/07/2024 2:25 PM OFFSHORING MANAGER 06/07/2024 4:28 PM OFFSHORING MANAGER Ivory Teresa TREE TRIMMING LINE TECHNICIAN LAB BLOOD ORDERABLES Final R esult Performing Organization Address [facility] Co de Phone Number [address] [place] [address] * Vitamin B12 (06/07/2024 2:25 PM OFFSHORING MANAGER) [facility] Vitamin B12 538 230 - 1,250 pg/mL Blood 06/07/2024 2:25 PM OFFSHORING MANAGER 06/07/2024 4:25 PM OFFSHORING MANAGER Ivory Teresa NP LAB BLOOD ORDERABLES Final R esult Performing Organization Address [facility] de Phone Number [address] [place] [address] * (ABNORMAL) Albumin Creatinine Ratio, Urine (01/24/2023 3:49 PM CDT) [facility] SCRIBED Creatinine, Urine 98.3 NA - NA EXTERNAL LAB SCRIBED Microalbumin 726.9(A) 0 - 16.7 EXTERNAL LAB SCRIBED Microalb/Creat Ratio 739.5(A) 0 - 30 EXTERNAL LAB Urine 01/24/2023 3:49 PM CDT Historical Provider LAB URINE ORDERABLES Edit ed Result - Final Performing Organization Address [facility]/ZIP Co de Phone Number EXTERNAL LAB * Hemoglobin A1c (01/24/2023 3:48 PM CDT) [facility] SCRIBED Hemoglobin A1c 5.1 <5.7 - NA [...] ed Result - Final Performing Organization Address City/[facility]/ZIP Co de Phone Number EXTERNAL LAB [...] Units/L EXTERNAL LAB SCRIBED eGFR in NonAfrican [place] >60 >=60 - NA EXTERNAL LAB Blood 01/24/2023 3:48 PM CDT us Historical Provider LAB BLOOD ORDERABLES Edit ed Result - Final EXTERNAL LAB from Last 3 Months or Most Recently Relevant to Health Maintenance Insurance [employer] OOS MEDICARE [employer] OOS MEDICARE [facility] OOS Advance Directives For more information, please contact: [phone] * Full Code (Latest Code Status on File) Date Activated Date Inactivated Comments 01/29/2021 12:10 AM 02/01/2021 7:53 PM Care Teams Physical Chemistry Teacher Relationship Specialty Start Date End Date Kd Ledezma MD PCP - General Family Practice 12/09/19
--- OUTSIDE RECORDS SUMMARY | 2024-07-15 12:45 | XMS_ITS | Encounter Summary ---
Author Organization [facility] Address [address] [place] [address] Care Team Providers Care Textile Chemist Name Role Phone Kd Ledezma MD Primary Care Provider Reason for Visit * Reason Onset Date Comments Test Results 06/08/2024 Results Encounter Details Date Type Department Care Team (Late st Contact Info) Description 06/08/2024 Results Follow-Up [facility] Neurology [address] [phone] Ivory Teresa NP [facility] [address] [id number] Social History Tobacco Use Types Packs/Day Years Used Date Smoking Tobacco: Former Cigarettes Q uit: 04/28/2015 Smokeless Tobacco: Never Alcohol Use Standard Drinks/Week Comments No 0 (1 standard drink = 0.6 oz pur e alcohol) Comments Unknown Sex and Gender Information Value Date Recorded Sex Assigned at Not on file Legal Sex Female 8:59 PM CPAS Gender Identity Not on file Sexual Orientation Not on file documented as of this encounter Miscellaneous Notes * Telephone Encounter - Janine Robles MA - 06/09/2024 2:26 PM CST ----- Message from Ivory Teresa NP sent at 06/08/2024 1:41 PM CPAS ----- Please let patient, family know that thyroid function is normal. Her B12 level is normal but her folic acid level is low. A low folic acid level can cause forgetfulness. One of the labs for inflammation is minimally elevated. From a neurological s tandpoint, I do not need to do any further labs, but I do recommend she reaches out to her PCP on the folic acid. They will likely recommend supplementation and do any further testing that they feelare necessary. Please fax the results to PCP. * Result Encounter Note - Ivory Teresa NP - 06/08/2024 1:41 PM CPAS Please let patient, family know that thyroid function is normal. Her B12 level is normal but her folic acid level is low. A low folic acid level can cause forgetfulness. One of the labs for inflammation is minimally elevated. From a neurological standpoint, I do not need to do any further labs, butI do recommend she reaches out to her PCP on the folic acid. They will likely recommend supplementation and do any further testing that they feel are necessary. Please fax the results to PCP. documented in this encounter Plan of Treatment Not on file documented as of this encounter Visit Diagnoses Not on filedocumented in this encounter Care Teams Textile Chemist Relationship Specialty Start Date End Date Kd Ledezma MD PCP - General Family Practice 12/09/19 documented as of this encounter
--- OUTSIDE RECORDS SUMMARY | 2024-07-15 12:45 | XMS_ITS | Referral Summary ---
Author Organization [facility] [address] Address [address] [place] [address] Care Team Providers Care Bulb Brander Name Role Phone Kd Ledezma MD Primary Care Provider Encounters Date Type Department Care Team Description 06/09/2024 Telephone [facility] Neurology [address] [place] [phone] Ivory Teresa NP Test Results (Results ) 06/08/2024 Results Follow-Up [facility] Neurology [address] [place] [phone] Ivory Teresa NP 06/07/2024 2:15 PM LOG ROLLER Lab [facility] Medical Office Bldg [address] OP Lab [address] [place] [phone] Memory disturbance 06/07/2024 1:00 PM LOG ROLLER Office Visit [facility] Neurology [address] [place] [phone] Ivory Teresa NP Memory disturbance (Primary Dx); Cerebrovascular accident (CVA), unspecified mechanism (HCC); 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) from Last 3 Months Allergies Active Allergy [...] TIMES DAILY 2 Active Comfort EZ Pen [place] 32 gauge x 5/32 needle USE NIGHTLY [...] on file Legal Sex Female 8:59 PM LOG ROLLER Gender Identity Not on file Sexual Orientation Not on file Last Filed Vital Signs Vital Sign Reading Time Taken Comments Blood Pressure 116/42 06/07/2024 1:08 PM LOG ROLLER Pulse 91 06/07/2024 1:08 PM LOG ROLLER Temperature 35.8 C (96.4 F) 08/20/2022 1:51 PM CDT Respiratory Rate 20 08/20/2022 1:51 PM CDT Oxygen Saturation 98% 12/17/2023 12:48 PM CDT Inhaled Oxygen Concentration - - Weight 68.9 kg (152 lb) 06/07/2024 1:08 PM LOG ROLLER Height 167.6 cm (5' 6 ) 06/07/2024 1:08 PM LOG ROLLER Body Mass Index 24.53 06/07/2024 1:08 PM LOG ROLLER Plan of Treatment Not on file Procedures Procedure Name Priority Date/Time Associated Diagnosis Comments ALICJA QUALITATIVE WITH REFLEX TO ALICJA QUANTITATIVE Routine 06/07/2024 2:25 PM LOG ROLLER Memory disturbance ERYTHROCYTE SEDIMENTATION RATE Routine 06/07/2024 2:25 PM LOG ROLLER Memory disturbance TSH Routine 06/07/2024 2:25 PM LOG ROLLER Memory disturbance T4, FREE Routine 06/07/2024 2:25 PM LOG ROLLER Memory disturbance VITAMIN B12 Routine 06/07/2024 2:25 PM LOG ROLLER Memory disturbance FOLATE Routine 06/07/2024 2:25 PM LOG ROLLER Memory disturbance ALBUMIN CREATININE RATIO, URINE Routine 01/24/2023 3:49 PM CDT COMPREHENSIVE METABOLIC PANEL Routine 01/24/2023 3:48 PM CDT HEMOGLOBIN A1C Routine 01/24/2023 3:48 PM CDT LIPID PANEL Routine 01/24/2023 3:48 PM CDT from Last 3 Months or Most Recently Relevant to Health Maintenance Results * ALICJA ab ql w/rflx to ALICJA qn (06/07/2024 2:25 PM LOG ROLLER) ALICJA Negative Comment: Interpretive Data Normal range [...] last revised on 2019. Testing performed by: [facility], [address] [place]., [address] Blood 06/07/2024 2:25 PM LOG ROLLER 06/07/2024 7:56 PM LOG ROLLER Ivory Teresa NP LAB BLOOD ORDERABLES Final R esult Performing Organization Address [facility] Co de Phone Number [address] [place] [address] * (ABNORMAL) Erythrocyte sedimentation rate (06/07/2024 2:25 PM LOG ROLLER) Erythrocyte sedimentation rate 40(H) 1 - 30 mm/hr Blood 06/07/2024 2:25 PM LOG ROLLER 06/07/2024 4:25 PM LOG ROLLER Ivory Teresa NP LAB BLOOD ORDERABLES Final R esult Performing Organization Address [facility] Co de Phone Number [address] [place] [address] * TSH (06/07/2024 2:25 PM LOG ROLLER) Thyroid Stimulating Hormone 0.50 0.30 - 4.20 mcIUnit/mL Blood 06/07/2024 2:25 PM LOG ROLLER 06/07/2024 4:25 PM LOG ROLLER Ivory Teresa NP LAB BLOOD ORDERABLES Final R esult Performing Organization Address [facility] Co de Phone Number [address] [address] * T4, free (06/07/2024 2:25 PM LOG ROLLER) [facility] Free T4 1.36 0.90 - 1.70 ng/dL Blood 06/07/2024 2:25 PM LOG ROLLER 06/07/2024 4:25 PM LOG ROLLER Ivory Teresa CLAIMS ADJUDICATOR LAB BLOOD ORDERABLES Final R esult Performing Organization Address City/[facility] Co de Phone Number [address] [place] [address] * (ABNORMAL) Folate (06/07/2024 2:25 PM LOG ROLLER) [facility] Folic acid 4.9(L) >=5.0 ng/mL Blood 06/07/2024 2:25 PM LOG ROLLER 06/07/2024 4:28 PM LOG ROLLER Ivory Teresa NP LAB BLOOD ORDERABLES Final R esult Performing Organization Address [facility] Co de Phone Number [address] [place] [address] * Vitamin B12 (06/07/2024 2:25 PM LOG ROLLER) [facility] Vitamin B12 538 230 - 1,250 pg/mL Blood 06/07/2024 2:25 PM LOG ROLLER 06/07/2024 4:25 PM LOG ROLLER Ivory Teresa CLAIMS ADJUDICATOR LAB BLOOD ORDERABLES Final R esult Performing Organization Address [facility] Co de Phone Number [address] [place] [address] * (ABNORMAL) Albumin Creatinine Ratio, Urine (01/24/2023 3:49 PM CDT) [facility] SCRIBED Creatinine, Urine 98.3 NA - NA EXTERNAL LAB SCRIBED Microalbumin 726.9(A) 0 - 16.7 EXTERNAL LAB SCRIBED Microalb/Creat Ratio 739.5(A) 0 - 30 EXTERNAL LAB Urine 01/24/2023 3:49 PM CDT [facility] Provider MD LAB URINE ORDERABLES Edit ed Result - Final Performing Organization Address [facility] Co de Phone Number EXTERNAL LAB * Hemoglobin A1c (01/24/2023 3:48 PM CDT) SCRIBED Hemoglobin A1c 5.1 <5.7 - NA % EXTERNAL LAB Blood 01/24/2023 3:48 PM CDT [facility] Provider MD LAB BLOOD ORDERABLES Edit ed Result - Final Performing Organization Address [facility] de Phone Number EXTERNAL LAB * Lipid panel (01/24/2023 3:48 PM CDT) SCRIBED Cholesterol, Total 131 0 - 200 EXTERNAL LAB SCRIBED HDL 47 >35 - NA EXTERNAL LAB SCRIBED LDL 62 <130 - NA EXTERNAL LAB SCRIBED Triglycerides 94 <150 - NA EXTERNAL LAB Blood 01/24/2023 3:48 PM CDT [facility] Provider MD LAB BLOOD ORDERABLES Edit ed Result - Final Performing Organization Address [facility] Co de Phone Number EXTERNAL LAB * [...] Units/L EXTERNAL LAB SCRIBED eGFR in NonAfrican Surinamese >60 >=60 - NA EXTERNAL LAB Blood 01/24/2023 3:48 PM CDT us Historical Provider LAB BLOOD ORDERABLES Edit ed Result - Final EXTERNAL LAB from Last 3 Months or Most Recently Relevant to Health Maintenance Insurance [employer] OOS MEDICARE [employer] OOS MEDICARE BL[employer] ACCESS OOS Advance Directives For more information, please contact: [phone] * Full Code (Latest Code Status on File) Date Activated Date Inactivated Comments 01/29/2021 12:10 AM 02/01/2021 7:53 PM Care Teams Bulb Brander Relationship Specialty Start Date End Date Kd Ledezma MD PCP - General Family Practice 12/09/19
[2024-07-15 13:26] LABS: Hematocrit 31.2 % (37.0-47.0); Hemoglobin 9.7 g/dL (12.0-15.0); Mean Corpuscular HGB Conc 31.1 g/dl (32-36); Mean Corpuscular Hemoglobin 30.9 pg (26-34); Mean Corpuscular Volume 99.4 fl (80-100); Mean Platelet Volume 11.1 fl (7.4-10.4); Platelet Count Result 195 k/mm3 (150-375); Red Blood Count 3.14 M/mm3 (4.2-5.4); Red Cell Distribution Width 14.1 % (11.5-14.5); White Blood Count 6.1 K/mm3 (4.5-10.0)
[2024-07-15 13:42] LABS: Alanine Aminotransferase 16 U/L (6-35); Albumin Level 3.8 g/dL (3.5-5.1); Alkaline Phosphatase 95 U/L (38-126); Anion Gap 9 mmol/L (4-12); Aspartate Amino Transferase 22 U/L (14-36); Bilirubin,Total 0.3 mg/dL (0.2-1.3); Blood Urea Nitrogen 11 mg/dL (7-17); CRP 0.5 mg/dL (<1.0); Calcium 9.6 mg/dL (8.4-10.2); Carbon Dioxide 28 mmol/L (22-30); Chloride 105 mmol/L (98-107); Estimated Glomerular Filt Rate > 60; Glucose 114 mg/dL (65-110); Potassium 3.2 mmol/L (3.4-5.0); Sodium 142 mmol/L (137-145)
[2024-07-15 14:12] LABS: Hepatitis B Surface Antigen Negative (Negative)
[2024-07-15 14:16] LABS: Erythrocyte Sedimentation Rate 88 mm/hr (0-20)
[2024-07-15 14:30] LABS: Hepatitis B Surface Anti Res Negative
[2024-07-16 21:28] LABS: Hepatitis B Core Ab Total NON-REACTIVE (NON-REACTIVE)
[2024-07-19 12:13] LABS: NIL 0.04 IU/mL; Quantiferon TB Plus, 1T NEGATIVE (NEGATIVE); TB1-NIL 0.01 IU/mL; TB2-NIL 0.03 IU/mL
== END 2024-07-15 12:27 | disposition home or self-care (01) ==
LOC: ANHLAB 12:33
PROVIDERS: PCP Family Medicine; Visit Provider Nurse Practitioner Family
DX: K51.311 Ulcerative (chronic) rectosigmoiditis with rectal bleeding (principal); K62.5 Hemorrhage of anus and rectum; D64.9 Anemia, unspecified; E11.9 Type 2 diabetes mellitus without complications
CPT/HCPCS: 36415; 80053; 85027; 85652; 86140; 86480; 86704; 86706; 87340

== ENCOUNTER 2024-07-16 15:09 | Outpatient (CLI) | payer MEDICARE, BC, SELFPAY ==
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
--- OUTSIDE RECORDS SUMMARY | 2024-07-16 15:12 | XMS_ITS | Clinical Summary ---
Author Organization [facility] [address] Address [address] [place] [address] Care Team Providers Care Steel Construction Worker Name Role Phone Kd Ledezma MD Primary Care Provider Allergies Active Allergy Reactions Criticality Noted Date Comments Iodine And Iodide Containing Products Hives Medium Loracarbef Unknown Lorabid Medications levothyroxine (SYNTHROID, LEVOTHROID) 50 mcg tablet take 1 Tablet by oral route every day 0 0 4 Active calcium carbonate-vitam in D3 (CALCIUM 600 + D,3,) 600 mg calcium- 200 unit capsule take 1 by Oral route once 0 0 6 Active metFORMIN (GLUCOPHAGE) 1,000 mg tablet take 1 tablet by oral route 2 times every day with morning and evening meals 0 0 6 Active Additional Information Patient taking differently:1,000 mgoral 2 times daily with meals (bkfst, dinner), Reported on 06/07/2024 lisinopril (PRINIVIL,ZESTR IL) 5 mg tablet Take 4 tablets (20 mg total) by mouth daily Active mesalamine (LIALDA) 1.2 gram EC tabletIndicatio ns:Ulcerative Colitis 8 Active amLODIPine (NORVASC) 10 mg tablet TAKE 1 TABLET DAILY 90 tablet 1 9 Active insulin glargine (LANTUS, BASAGLAR, SEMGLEE) 100 unit/mL (3 mL) pen for injection Inject 26 Units under the skin nightly PMD for refills. Bedtime snack if blood sugar less than 150. 30 mL 1 Active Additional Information Patient not taking.Reported on 07/16/2024 insulin aspart (NovoLOG) 100 unit/mL (3 mL) [...] daily as needed. 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 [...] (APRESOLINE) 50 mg tablet 4 Active lidocaine HCl-hydrocortis on ac 3-0.5 % cream INSERT RECTALLY EVERY 12 HOURS NEEDED FOR HEMORRHOIDS 5 Active nitrofurantoin monohydrate (MACROBID) 100 mg capsule TAKE 1 CAPSULE BY MOUTH EVERY 12 HOURS FOR 5 DAYS WITH FOOD 5 Active atorvastatin (LIPITOR) 80 mg tablet Take 1 tablet (80 mg total) by mouth daily 4 Active atorvastatin (LIPITOR) 10 mg tablet TAKE 1 TABLET BY MOUTH DAILY 90 tablet 3 4 025 Discontin ued(Dupli haresh order) Active Problems Problem Noted Date Diagnosed Date [...] Encounters Date Type Department Care Team Description 07/16/2024 9:45 AM CDT Office Visit [facility] Cardiology [address] [facility] [address] [place] [phone] Rene Trammell MD Hyperlipidemia LDL goal <70 (Primary Dx); Pulmonary HTN (HCC); Primary hypertension; Nonrheumatic aortic valve insufficiency; History of PSVT (paroxysmal supraventricular tachycardia); Peripheral arterial occlusive disease 06/09/2024 Telephone [facility] Neurology [address] [place] [phone] Ivory Teresa NP Test Results (Results ) 06/08/2024 Results Follow-Up [facility] Neurology [address] [place] [phone] Ivory Teresa NP 06/07/2024 2:15 PM GAMEROOM TECHNICIAN Lab [facility] Medical Office Bldg [address] OP Lab [address] [place] [id number] Memory disturbance 06/07/2024 1:00 PM GAMEROOM TECHNICIAN Office Visit [facility] Neurology [address] [place] [phone] Ivory Teresa NP Memory disturbance (Primary Dx); [...] on file Legal Sex Female 8:59 PM GAMEROOM TECHNICIAN Gender Identity Not on file Sexual Orientation Not on file Obstetrics History Last Filed Vital Signs Vital Sign Reading Time Taken Comments Blood Pressure 130/52 07/16/2024 9:19 AM CDT Pulse 78 07/16/2024 9:19 AM CDT Temperature 35.8 C (96.4 F) 08/20/2022 1:51 PM CDT Respiratory Rate 20 08/20/2022 1:51 PM CDT Oxygen Saturation 95% 07/16/2024 9:19 AM CDT Inhaled Oxygen Concentration - - Weight 63 kg (139 lb) 07/16/2024 9:19 AM CDT Height 167.6 cm (5' 6 ) 07/16/2024 9:19 AM CDT Body Mass Index 22.44 07/16/2024 9:19 AM CDT Plan of Treatment Health Maintenance Due [...] TO ALICJA QUANTITATIVE Routine 06/07/2024 2:25 PM GAMEROOM TECHNICIAN Memory disturbance ERYTHROCYTE SEDIMENTATION RATE Routine 06/07/2024 2:25 PM GAMEROOM TECHNICIAN Memory disturbance TSH Routine 06/07/2024 2:25 PM GAMEROOM TECHNICIAN Memory disturbance T4, FREE Routine 06/07/2024 2:25 PM GAMEROOM TECHNICIAN Memory disturbance VITAMIN B12 Routine 06/07/2024 2:25 PM GAMEROOM TECHNICIAN Memory disturbance FOLATE Routine 06/07/2024 2:25 PM GAMEROOM TECHNICIAN Memory disturbance ALBUMIN CREATININE RATIO, URINE Routine 01/24/2023 3:49 PM CDT COMPREHENSIVE METABOLIC PANEL Routine 01/24/2023 3:48 PM CDT HEMOGLOBIN A1C Routine 01/24/2023 3:48 PM CDT LIPID PANEL Routine 01/24/2023 3:48 PM CDT from Last 3 Months or Most Recently Relevant to Health Maintenance Results * ALICJA ab ql w/rflx to ALICJA qn (06/07/2024 2:25 PM GAMEROOM TECHNICIAN) ALICJA Negative Comment: Interpretive Data Normal range [...] last revised on 2019. Testing performed by: [facility], [address] [place]., [address] Blood 06/07/2024 2:25 PM GAMEROOM TECHNICIAN 06/07/2024 7:56 PM GAMEROOM TECHNICIAN Ivory Teresa NP LAB BLOOD ORDERABLES Final R esult Performing Organization Address [facility] Co de Phone Number [address] [place] [address] * (ABNORMAL) Erythrocyte sedimentation rate (06/07/2024 2:25 PM GAMEROOM TECHNICIAN) Erythrocyte sedimentation rate 40(H) 1 - 30 mm/hr Blood 06/07/2024 2:25 PM GAMEROOM TECHNICIAN 06/07/2024 4:25 PM GAMEROOM TECHNICIAN Ivory Teresa NP LAB BLOOD ORDERABLES Final R esult Performing Organization Address [facility] Co de Phone Number [address] [place] [address] * TSH (06/07/2024 2:25 PM GAMEROOM TECHNICIAN) Thyroid Stimulating Hormone 0.50 0.30 - 4.20 mcIUnit/mL Blood 06/07/2024 2:25 PM GAMEROOM TECHNICIAN 06/07/2024 4:25 PM GAMEROOM TECHNICIAN Ivory Teresa NP LAB BLOOD ORDERABLES Final R esult Performing Organization Address [facility] Co de Phone Number [address] [place] [address] * T4, free (06/07/2024 2:25 PM GAMEROOM TECHNICIAN) [facility] Free T4 1.36 0.90 - 1.70 ng/dL Blood 06/07/2024 2:25 PM GAMEROOM TECHNICIAN 06/07/2024 4:25 PM GAMEROOM TECHNICIAN Ivory Teresa BANK COMPLIANCE OFFICER LAB BLOOD ORDERABLES Final R esult Performing Organization Address City/[facility]/ZIP Co de Phone Number [address] [place] [address] * (ABNORMAL) Folate (06/07/2024 2:25 PM GAMEROOM TECHNICIAN) [facility] Folic acid 4.9(L) >=5.0 ng/mL Blood 06/07/2024 2:25 PM GAMEROOM TECHNICIAN 06/07/2024 4:28 PM GAMEROOM TECHNICIAN Ivory Teresa NP LAB BLOOD ORDERABLES Final R esult Performing Organization Address [facility] Co de Phone Number [address] [place] [address] * Vitamin B12 (06/07/2024 2:25 PM GAMEROOM TECHNICIAN) [facility] Vitamin B12 538 230 - 1,250 pg/mL Blood 06/07/2024 2:25 PM GAMEROOM TECHNICIAN 06/07/2024 4:25 PM GAMEROOM TECHNICIAN Ivory Teresa BANK COMPLIANCE OFFICER LAB BLOOD ORDERABLES Final R esult Performing Organization Address [facility] Co de Phone Number [address] [place] [address] * (ABNORMAL) Albumin Creatinine Ratio, Urine (01/24/2023 3:49 PM CDT) [facility] SCRIBED Creatinine, Urine 98.3 NA - NA EXTERNAL LAB SCRIBED Microalbumin 726.9(A) 0 - 16.7 EXTERNAL LAB SCRIBED Microalb/Creat Ratio 739.5(A) 0 - 30 EXTERNAL LAB Urine 01/24/2023 3:49 PM CDT Historical Provider MD LAB URINE ORDERABLES Edit ed Result - Final Performing Organization Address [facility] Co de Phone Number EXTERNAL LAB * Hemoglobin A1c (01/24/2023 3:48 PM CDT) SCRIBED Hemoglobin A1c 5.1 <5.7 - NA % EXTERNAL LAB Blood 01/24/2023 3:48 PM CDT [facility] Provider MD LAB BLOOD ORDERABLES Edit ed Result - Final Performing Organization Address [facility] de Phone Number EXTERNAL LAB * Lipid panel (01/24/2023 3:48 PM CDT) SCRIBED Cholesterol, Total 131 0 - 200 EXTERNAL LAB SCRIBED HDL 47 >35 - NA EXTERNAL LAB SCRIBED LDL 62 <130 - NA EXTERNAL LAB SCRIBED Triglycerides 94 <150 - NA EXTERNAL LAB Blood 01/24/2023 3:48 PM CDT [facility] Provider MD LAB BLOOD ORDERABLES Edit ed Result - Final Performing Organization Address [facility] de Phone Number EXTERNAL LAB * (ABNORMAL) [...] Units/L EXTERNAL LAB SCRIBED eGFR in NonAfrican Canadian >60 >=60 - NA EXTERNAL LAB Blood 01/24/2023 3:48 PM CDT us Historical Provider LAB BLOOD ORDERABLES Edit ed Result - Final EXTERNAL LAB from Last 3 Months or Most Recently Relevant to Health Maintenance Insurance [employer] OOS MEDICARE [employer] ACCESS OOS MEDICARE BLUE ACCESS OOS Advance Directives For more information, please contact: [phone] * Full Code (Latest Code Status on File) Date Activated Date Inactivated Comments 01/29/2021 12:10 AM 02/01/2021 7:53 PM Care Teams Steel Construction Worker Relationship Specialty Start Date End Date Kd Ledezma MD PCP - General Family Practice 12/09/19
--- OUTSIDE RECORDS SUMMARY | 2024-07-16 15:12 | XMS_ITS | Encounter Summary ---
Author Organization [facility] Address [address] [place] [address] Care Team Providers Care Stunt Double Name Role Phone Kd Ledezma MD Primary Care Provider Reason for Visit * Reason Onset Date Comments Test Results 06/08/2024 Results Encounter Details Date Type Department Care Team (Late st Contact Info) Description 06/08/2024 Results Follow-Up [facility] Neurology [address] [phone] Ivory Teresa NP [facility] [address] [phone] Social History Tobacco Use Types Packs/Day Years Used Date Smoking Tobacco: Former Cigarettes Q uit: 04/28/2015 Smokeless Tobacco: Never Alcohol Use Standard Drinks/Week Comments No 0 (1 standard drink = 0.6 oz pur e alcohol) Comments Unknown Sex and Gender Information Value Date Recorded Sex Assigned at Not on file Legal Sex Female 8:59 PM TEXTILE BROKER Gender Identity Not on file Sexual Orientation Not on file documented as of this encounter Miscellaneous Notes * Telephone Encounter - Janine Robles MA - 06/09/2024 2:26 PM CST ----- Message from Ivory Teresa NP sent at 06/08/2024 1:41 PM TEXTILE BROKER ----- Please let patient, family know that [...] necessary. Please fax the results to PCP. ILE BROKER * Result Encounter Note - Ivory Teresa NP - 06/08/2024 1:41 PM TEXTILE BROKER Please let patient, family know that thyroid [...] necessary. Please fax the results to PCP. ILE BROKER documented in this encounter Plan of Treatment Not on file documented as of this encounter Visit Diagnoses Not on filedocumented in this encounter Care Teams Stunt Double Relationship Specialty Start Date End Date Kd Ledezma MD PCP - General Family Practice 12/09/19 documented as of this encounter
--- OUTSIDE RECORDS SUMMARY | 2024-07-16 15:12 | XMS_ITS | Referral Summary ---
Author Organization [facility] [address] [facility] [address] Address [address] [place] [address] Care Team Providers Care Field Service Tech Name Role Phone Kd Ledezma MD Primary Care Provider Encounters Date Type Department Care Team Description 07/16/2024 9:45 AM CDT Office Visit [facility] Medical [facility] Cardiology [address] [facility] [address] [place] [phone] Rene Trammell MD Hyperlipidemia LDL goal <70 (Primary Dx); Pulmonary HTN (HCC); Primary hypertension; Nonrheumatic aortic valve insufficiency; History of PSVT (paroxysmal supraventricular tachycardia); Peripheral arterial occlusive disease 06/09/2024 Telephone [facility] Neurology [address] [place] [phone] Ivory Teresa NP Test Results (Results ) 06/08/2024 Results Follow-Up [facility] Neurology [address] [place] [phone] Ivory Teresa NP 06/07/2024 2:15 PM FOLLOW UP CLERK Lab [facility] Medical Office Bldg [address] OP Lab [address] [place] [address] Memory disturbance 06/07/2024 1:00 PM FOLLOW UP CLERK Office Visit [facility] Neurology [address] [place] [phone] Ivory Teresa NP Memory disturbance (Primary Dx); [...] TIMES DAILY 2 Active Comfort EZ Pen [place] 32 gauge x 5/32 needle USE NIGHTLY [...] on file Legal Sex Female 8:59 PM FOLLOW UP CLERK Gender Identity Not on file Sexual Orientation [...] 07/16/2024 9:19 AM CDT Plan of Treatment Not on file Procedures Procedure Name Priority Date/Time Associated Diagnosis Comments ALICJA QUALITATIVE WITH REFLEX TO ALICJA QUANTITATIVE Routine 06/07/2024 2:25 PM FOLLOW UP CLERK Memory disturbance ERYTHROCYTE SEDIMENTATION RATE Routine 06/07/2024 2:25 PM FOLLOW UP CLERK Memory disturbance TSH Routine 06/07/2024 2:25 PM FOLLOW UP CLERK Memory disturbance T4, FREE Routine 06/07/2024 2:25 PM FOLLOW UP CLERK Memory disturbance VITAMIN B12 Routine 06/07/2024 2:25 PM FOLLOW UP CLERK Memory disturbance FOLATE Routine 06/07/2024 2:25 PM FOLLOW UP CLERK Memory disturbance ALBUMIN CREATININE RATIO, URINE Routine 01/24/2023 3:49 PM CDT COMPREHENSIVE METABOLIC PANEL Routine 01/24/2023 3:48 PM CDT HEMOGLOBIN A1C Routine 01/24/2023 3:48 PM CDT LIPID PANEL Routine 01/24/2023 3:48 PM CDT from Last 3 Months or Most Recently Relevant to Health Maintenance Results * ALICJA ab ql w/rflx to ALICJA qn (06/07/2024 2:25 PM FOLLOW UP CLERK) ALICJA Negative Comment: Interpretive Data Normal range [...] last revised on 2019. Testing performed by: [facility], [address] [place]., [address] Blood 06/07/2024 2:25 PM FOLLOW UP CLERK 06/07/2024 7:56 PM FOLLOW UP CLERK Ivory Teresa NP LAB BLOOD ORDERABLES Final R esult Performing Organization Address [facility] Co de Phone Number [address] [place] [address] * (ABNORMAL) Erythrocyte sedimentation rate (06/07/2024 2:25 PM FOLLOW UP CLERK) Erythrocyte sedimentation rate 40(H) 1 - 30 mm/hr Blood 06/07/2024 2:25 PM FOLLOW UP CLERK 06/07/2024 4:25 PM FOLLOW UP CLERK Ivory Teresa NP LAB BLOOD ORDERABLES Final R esult Performing Organization Address [facility] Co de Phone Number [place] [phone] [facility] [place] [address] * TSH (06/07/2024 2:25 PM FOLLOW UP CLERK) Pathologist [facility] Thyroid Stimulating Hormone 0.50 0.30 - 4.20 mcIUnit/mL Blood 06/07/2024 2:25 PM FOLLOW UP CLERK 06/07/2024 4:25 PM FOLLOW UP CLERK Ivory Teresa RIB CLOTH KNITTER LAB BLOOD ORDERABLES Final R esult Performing Organization Address City/[facility] Co de Phone Number [address] [place] [address] * T4, free (06/07/2024 2:25 PM FOLLOW UP CLERK) [facility] Free T4 1.36 0.90 - 1.70 ng/dL Blood 06/07/2024 2:25 PM FOLLOW UP CLERK 06/07/2024 4:25 PM FOLLOW UP CLERK Ivory Teresa NP LAB BLOOD ORDERABLES Final R esult Performing Organization Address [facility] Co de Phone Number [address] [place] [address] * (ABNORMAL) Folate (06/07/2024 2:25 PM FOLLOW UP CLERK) [facility] Folic acid 4.9(L) >=5.0 ng/mL Blood 06/07/2024 2:25 PM FOLLOW UP CLERK 06/07/2024 4:28 PM FOLLOW UP CLERK Ivory Teresa RIB CLOTH KNITTER LAB BLOOD ORDERABLES Final R esult Performing Organization Address [facility] Co de Phone Number [address] [place] [address] * Vitamin B12 (06/07/2024 2:25 PM FOLLOW UP CLERK) [facility] Vitamin B12 538 230 - 1,250 pg/mL Blood 06/07/2024 2:25 PM FOLLOW UP CLERK 06/07/2024 4:25 PM FOLLOW UP CLERK Ivory Teresa RIB CLOTH KNITTER LAB BLOOD ORDERABLES Final R esult Performing Organization Address City/[facility]/ZIP Co de Phone Number [place] [address] [facility] Department [place] [address] * (ABNORMAL) Albumin Creatinine Ratio, Urine (01/24/2023 3:49 PM CDT) SCRIBED Creatinine, Urine 98.3 NA - NA EXTERNAL LAB SCRIBED Microalbumin 726.9(A) 0 - 16.7 EXTERNAL LAB SCRIBED Microalb/Creat Ratio 739.5(A) 0 - 30 EXTERNAL LAB Urine 01/24/2023 3:49 PM CDT [facility] Provider MD LAB URINE ORDERABLES Edit ed Result - Final Performing Organization Address City/[facility] Co de Phone Number EXTERNAL LAB * Hemoglobin A1c (01/24/2023 3:48 PM CDT) SCRIBED Hemoglobin A1c 5.1 <5.7 - NA % EXTERNAL LAB Blood 01/24/2023 3:48 PM CDT [facility] Provider LAB BLOOD ORDERABLES Edit ed Result - Final Performing Organization Address City/[facility]/ZIP Co de Phone Number EXTERNAL LAB [...] Units/L EXTERNAL LAB SCRIBED eGFR in NonAfrican Namibian >60 >=60 - NA EXTERNAL LAB Blood 01/24/2023 3:48 PM CDT us Historical Provider LAB BLOOD ORDERABLES Edit ed Result - Final EXTERNAL LAB from Last 3 Months or Most Recently Relevant to Health Maintenance Insurance [employer] OOS MEDICARE [employer] [facility] MEDICARE BLUE ACCESS OOS Advance Directives For more information, please contact: [phone] * Full Code (Latest Code Status on File) Date Activated Date Inactivated Comments 01/29/2021 12:10 AM 02/01/2021 7:53 PM Care Teams Field Service Tech Relationship Specialty Start Date End Date Kd Ledezma MD PCP - General Family Practice 12/09/19
[2024-07-16 16:22] LABS: Toxigenic C. Diff NEGATIVE (NEGATIVE)
== END 2024-07-16 15:10 | disposition home or self-care (01) ==
LOC: ANHLAB 15:10
PROVIDERS: PCP Family Medicine; Visit Provider Nurse Practitioner Family
DX: K51.311 Ulcerative (chronic) rectosigmoiditis with rectal bleeding (principal)
CPT/HCPCS: 83993; 87045; 87177; 87209; 87269; 87427; 87449; 87493

== ENCOUNTER 2024-07-20 14:35 | Outpatient (CLI) | payer MEDICARE, BC, SELFPAY ==
[2024-07-20 16:00] LABS: Hemoglobin A1C 4.5 % (<5.7)
[2024-07-20 16:09] LABS: Iron 59 ug/dL (37-170)
--- OUTSIDE RECORDS SUMMARY | 2024-07-20 16:11 | XMS_ITS | Encounter Summary ---
Author Organization [facility] Healthcare Address [address] [place] [address] Care Team Providers Care Writer Producer Name Role Phone Kd Ledezma MD Primary Care Provider Reason for Visit * Reason Onset Date Comments Test Results 06/08/2024 Results Encounter Details Date Type Department Care Team (Late st Contact Info) Description 06/08/2024 Results Follow-Up [facility] Neurology [address] [phone] Ivory Teresa NP [facility] [address] [phone] Social History Tobacco Use Types Packs/Day Years Used Date Smoking Tobacco: Former Cigarettes Q uit: 04/28/2015 Smokeless Tobacco: Never Alcohol Use Standard Drinks/Week Comments No 0 (1 standard drink = 0.6 oz pur e alcohol) Comments Unknown Sex and Gender Information Value Date Recorded Sex Assigned at Not on file Legal Sex Female 8:59 PM SORT OPERATIONS SUPERVISOR Gender Identity Not on file Sexual Orientation Not on file documented as of this encounter Miscellaneous Notes * Telephone Encounter - Janine Robles MA - 06/09/2024 2:26 PM CST ----- Message from Ivory Teresa NP sent at 06/08/2024 1:41 PM SORT OPERATIONS SUPERVISOR ----- Please let patient, family know that [...] necessary. Please fax the results to PCP. OPERATIONS SUPERVISOR * Result Encounter Note - Ivory Teresa NP - 06/08/2024 1:41 PM SORT OPERATIONS SUPERVISOR Please let patient, family know that thyroid [...] necessary. Please fax the results to PCP. OPERATIONS SUPERVISOR documented in this encounter Plan of Treatment Not on file documented as of this encounter Visit Diagnoses Not on filedocumented in this encounter Care Teams Writer Producer Relationship Specialty Start Date End Date Kd Ledezma MD PCP - General Family Practice 12/09/19 documented as of this encounter
--- OUTSIDE RECORDS SUMMARY | 2024-07-20 16:11 | XMS_ITS | Clinical Summary ---
Author Organization [facility] [address] Address [address] [place] [address] Care Team Providers Care Shop Clerk Name Role Phone dK Ledezma MD Primary Care Provider Allergies Active [...] TIMES DAILY 2 Active Comfort EZ Pen [place] 32 gauge x needle USE NIGHTLY 2 [...] Description 07/16/2024 9:45 AM CDT Office Visit [facility] Cardiology [address] [facility] [address] [place] [phone] Rene Trammell MD Hyperlipidemia LDL goal <70 (Primary Dx); Pulmonary HTN (HCC); Primary hypertension; Nonrheumatic aortic valve insufficiency; History of PSVT (paroxysmal supraventricular tachycardia); Peripheral arterial occlusive disease 06/09/2024 Telephone [facility] Neurology [address] [place] [phone] Ivory Teresa NP Test Results (Results ) 06/08/2024 Results Follow-Up [facility] Neurology [address] [place] [phone] Ivory Teresa NP 06/07/2024 2:15 PM CONSULTANT IN ERGONOMICS AND SAFETY Lab [facility] Medical Office Bldg [address] [place] [phone] Memory disturbance 06/07/2024 1:00 PM CONSULTANT IN ERGONOMICS AND SAFETY Office Visit [facility] Neurology [address] [place] [phone] Ivory Teresa NP Memory disturbance (Primary Dx); [...] on file Legal Sex Female 8:59 PM CONSULTANT IN ERGONOMICS AND SAFETY Gender Identity Not on file Sexual Orientation [...] TO ALICJA QUANTITATIVE Routine 06/07/2024 2:25 PM CONSULTANT IN ERGONOMICS AND SAFETY Memory disturbance ERYTHROCYTE SEDIMENTATION RATE Routine 06/07/2024 2:25 PM CONSULTANT IN ERGONOMICS AND SAFETY Memory disturbance TSH Routine 06/07/2024 2:25 PM CONSULTANT IN ERGONOMICS AND SAFETY Memory disturbance T4, FREE Routine 06/07/2024 2:25 PM CONSULTANT IN ERGONOMICS AND SAFETY Memory disturbance VITAMIN B12 Routine 06/07/2024 2:25 PM CONSULTANT IN ERGONOMICS AND SAFETY Memory disturbance FOLATE Routine 06/07/2024 2:25 PM CONSULTANT IN ERGONOMICS AND SAFETY Memory disturbance ALBUMIN CREATININE RATIO, URINE Routine 01/24/2023 3:49 PM CDT COMPREHENSIVE METABOLIC PANEL Routine 01/24/2023 3:48 PM CDT HEMOGLOBIN A1C Routine 01/24/2023 3:48 PM CDT LIPID PANEL Routine 01/24/2023 3:48 PM CDT from Last 3 Months or Most Recently Relevant to Health Maintenance Results * LAICJA ab ql w/rflx to ALICJA qn (06/07/2024 2:25 PM CONSULTANT IN ERGONOMICS AND SAFETY) ALICJA Negative Comment: Interpretive Data Normal range [...] last revised on 2019. Testing performed by: [facility], [address] [place]., [address] Blood 06/07/2024 2:25 PM CONSULTANT IN ERGONOMICS AND SAFETY 06/07/2024 7:56 PM CONSULTANT IN ERGONOMICS AND SAFETY Ivory Teresa NP LAB BLOOD ORDERABLES Final R esult Performing Organization Address [facility] Co de Phone Number [address] [place] [address] * (ABNORMAL) Erythrocyte sedimentation rate (06/07/2024 2:25 PM CONSULTANT IN ERGONOMICS AND SAFETY) Erythrocyte sedimentation rate 40(H) 1 - 30 mm/hr Blood 06/07/2024 2:25 PM CONSULTANT IN ERGONOMICS AND SAFETY 06/07/2024 4:25 PM CONSULTANT IN ERGONOMICS AND SAFETY Ivory Teresa NP LAB BLOOD ORDERABLES Final R esult Performing Organization Address [facility] Co de Phone Number [address] [place] [address] * TSH (06/07/2024 2:25 PM CONSULTANT IN ERGONOMICS AND SAFETY) Thyroid Stimulating Hormone 0.50 0.30 - 4.20 mcIUnit/mL Blood 06/07/2024 2:25 PM CONSULTANT IN ERGONOMICS AND SAFETY 06/07/2024 4:25 PM CONSULTANT IN ERGONOMICS AND SAFETY Ivory Teresa NP LAB BLOOD ORDERABLES Final R esult Performing Organization Address [facility] Co de Phone Number [address] [place] [address] * T4, free (06/07/2024 2:25 PM CONSULTANT IN ERGONOMICS AND SAFETY) [facility] Free T4 1.36 0.90 - 1.70 ng/dL Blood 06/07/2024 2:25 PM CONSULTANT IN ERGONOMICS AND SAFETY 06/07/2024 4:25 PM CONSULTANT IN ERGONOMICS AND SAFETY Ivory Teresa TILE EDGER LAB BLOOD ORDERABLES Final R esult Performing Organization Address City/[facility]/ZIP Co de Phone Number [address] [place] [address] * (ABNORMAL) Folate (06/07/2024 2:25 PM CONSULTANT IN ERGONOMICS AND SAFETY) [facility] Folic acid 4.9(L) >=5.0 ng/mL Blood 06/07/2024 2:25 PM CONSULTANT IN ERGONOMICS AND SAFETY 06/07/2024 4:28 PM CONSULTANT IN ERGONOMICS AND SAFETY Ivory Teresa NP LAB BLOOD ORDERABLES Final R esult Performing Organization Address [facility] Co de Phone Number [address] [place] [address] * Vitamin B12 (06/07/2024 2:25 PM CONSULTANT IN ERGONOMICS AND SAFETY) [facility] Vitamin B12 538 230 - 1,250 pg/mL Blood 06/07/2024 2:25 PM CONSULTANT IN ERGONOMICS AND SAFETY 06/07/2024 4:25 PM CONSULTANT IN ERGONOMICS AND SAFETY Ivory Teresa TILE EDGER LAB BLOOD ORDERABLES Final R esult Performing Organization Address [facility] Co de Phone Number [address] [place] [address] * (ABNORMAL) Albumin Creatinine Ratio, Urine (01/24/2023 3:49 PM CDT) [facility] SCRIBED Creatinine, Urine 98.3 NA - NA EXTERNAL LAB SCRIBED Microalbumin 726.9(A) 0 - 16.7 EXTERNAL LAB SCRIBED Microalb/Creat Ratio 739.5(A) 0 - 30 EXTERNAL LAB Urine 01/24/2023 3:49 PM CDT Historical Provider MD LAB URINE ORDERABLES Edit ed Result - Final Performing Organization Address [facility] Co de Phone Number EXTERNAL LAB * Hemoglobin A1c (01/24/2023 3:48 PM CDT) SCRIBED Hemoglobin A1c 5.1 <5.7 - NA % EXTERNAL LAB Blood 01/24/2023 3:48 PM CDT [facility] Provider MD LAB BLOOD ORDERABLES Edit ed Result - Final Performing Organization Address [facility] de Phone Number EXTERNAL LAB * Lipid panel (01/24/2023 3:48 PM CDT) SCRIBED Cholesterol, Total 131 0 - 200 EXTERNAL LAB SCRIBED HDL 47 >35 - NA EXTERNAL LAB SCRIBED LDL 62 <130 - NA EXTERNAL LAB SCRIBED Triglycerides 94 <150 - NA EXTERNAL LAB Blood 01/24/2023 3:48 PM CDT [facility] Provider MD LAB BLOOD ORDERABLES Edit ed Result - Final Performing Organization Address [facility] de Phone Number EXTERNAL LAB * (ABNORMAL) [...] Units/L EXTERNAL LAB SCRIBED eGFR in NonAfrican Argentine >60 >=60 - NA EXTERNAL LAB Blood 01/24/2023 3:48 PM CDT us Historical Provider LAB BLOOD ORDERABLES Edit ed Result - Final EXTERNAL LAB from Last 3 Months or Most Recently Relevant to Health Maintenance Insurance [employer] OOS MEDICARE [employer] ACCESS OOS MEDICARE BLUE ACCESS OOS Advance Directives For more information, please contact: [phone] * Full Code (Latest Code Status on File) Date Activated Date Inactivated Comments 01/29/2021 12:10 AM 02/01/2021 7:53 PM Care Teams Shop Clerk Relationship Specialty Start Date End Date Kd Ledezma MD PCP - General Family Practice 12/09/19
--- OUTSIDE RECORDS SUMMARY | 2024-07-20 16:11 | XMS_ITS | Referral Summary ---
Author Organization [facility] [address] [facility] [address] Address [address] [place] [address] Care Team Providers Care Drafter Automotive Design Name Role Phone Kd Ledezma MD Primary Care Provider Encounters Date Type Department Care Team Description 07/16/2024 9:45 AM CDT Office Visit [facility] Medical [facility] Cardiology [address] [facility] 162 [address] [place] [address] Rene Trammell MD Hyperlipidemia LDL goal <70 (Primary Dx); Pulmonary HTN (HCC); Primary hypertension; Nonrheumatic aortic valve insufficiency; History of PSVT (paroxysmal supraventricular tachycardia); Peripheral arterial occlusive disease 06/09/2024 Telephone [facility] Neurology [address] [place] [phone] Ivory Teresa NP Test Results (Results ) 06/08/2024 Results Follow-Up [facility] Neurology [address] [place] [phone] Ivory Teresa NP 06/07/2024 2:15 PM EQUIPMENT CLEANER AND TESTER Lab [facility] Medical Office Bldg [address] OP Lab [address] [place] [phone] Memory disturbance 06/07/2024 1:00 PM EQUIPMENT CLEANER AND TESTER Office Visit [facility] Neurology [address] [place] [phone] Ivory Teresa NP Memory disturbance (Primary Dx); [...] TIMES DAILY 2 Active Comfort EZ Pen [place] 32 gauge x 5/32 needle USE NIGHTLY [...] on file Legal Sex Female 8:59 PM EQUIPMENT CLEANER AND TESTER Gender Identity Not on file Sexual Orientation [...] TO ALICJA QUANTITATIVE Routine 06/07/2024 2:25 PM EQUIPMENT CLEANER AND TESTER Memory disturbance ERYTHROCYTE SEDIMENTATION RATE Routine 06/07/2024 2:25 PM EQUIPMENT CLEANER AND TESTER Memory disturbance TSH Routine 06/07/2024 2:25 PM EQUIPMENT CLEANER AND TESTER Memory disturbance T4, FREE Routine 06/07/2024 2:25 PM EQUIPMENT CLEANER AND TESTER Memory disturbance VITAMIN B12 Routine 06/07/2024 2:25 PM EQUIPMENT CLEANER AND TESTER Memory disturbance FOLATE Routine 06/07/2024 2:25 PM EQUIPMENT CLEANER AND TESTER Memory disturbance ALBUMIN CREATININE RATIO, URINE Routine 01/24/2023 3:49 PM CDT COMPREHENSIVE METABOLIC PANEL Routine 01/24/2023 3:48 PM CDT HEMOGLOBIN A1C Routine 01/24/2023 3:48 PM CDT LIPID PANEL Routine 01/24/2023 3:48 PM CDT from Last 3 Months or Most Recently Relevant to Health Maintenance Results * ALICJA ab ql w/rflx to ALICJA qn (06/07/2024 2:25 PM EQUIPMENT CLEANER AND TESTER) ALICJA Negative Comment: Interpretive Data Normal range [...] last revised on 2019. Testing performed by: [facility], [address] [facility] [place] [address] Blood 06/07/2024 2:25 PM EQUIPMENT CLEANER AND TESTER 06/07/2024 7:56 PM EQUIPMENT CLEANER AND TESTER Ivory Teresa NP LAB BLOOD ORDERABLES Final R esult Performing Organization Address [facility] Co de Phone Number [address] [place] [address] * (ABNORMAL) Erythrocyte sedimentation rate (06/07/2024 2:25 PM EQUIPMENT CLEANER AND TESTER) Erythrocyte sedimentation rate 40(H) 1 - 30 mm/hr Blood 06/07/2024 2:25 PM EQUIPMENT CLEANER AND TESTER 06/07/2024 4:25 PM EQUIPMENT CLEANER AND TESTER Ivory Teresa NP LAB BLOOD ORDERABLES Final R esult Performing Organization Address [facility] Co de Phone Number [place] [address] [facility] [place] [address] * TSH (06/07/2024 2:25 PM EQUIPMENT CLEANER AND TESTER) Pathologist [facility] Thyroid Stimulating Hormone 0.50 0.30 - 4.20 mcIUnit/mL Blood 06/07/2024 2:25 PM EQUIPMENT CLEANER AND TESTER 06/07/2024 4:25 PM EQUIPMENT CLEANER AND TESTER Ivory Teresa LIBRARY PARAPROFESSIONAL LAB BLOOD ORDERABLES Final R esult Performing Organization Address City/[facility] Co de Phone Number [address] [place] [address] * T4, free (06/07/2024 2:25 PM EQUIPMENT CLEANER AND TESTER) [facility] Free T4 1.36 0.90 - 1.70 ng/dL Blood 06/07/2024 2:25 PM EQUIPMENT CLEANER AND TESTER 06/07/2024 4:25 PM EQUIPMENT CLEANER AND TESTER Ivory Teresa NP LAB BLOOD ORDERABLES Final R esult Performing Organization Address [facility] Co de Phone Number [address] [place] [address] * (ABNORMAL) Folate (06/07/2024 2:25 PM EQUIPMENT CLEANER AND TESTER) [facility] Folic acid 4.9(L) >=5.0 ng/mL Blood 06/07/2024 2:25 PM EQUIPMENT CLEANER AND TESTER 06/07/2024 4:28 PM EQUIPMENT CLEANER AND TESTER Ivory Teresa LIBRARY PARAPROFESSIONAL LAB BLOOD ORDERABLES Final R esult Performing Organization Address [facility] Co de Phone Number [address] [place] [address] * Vitamin B12 (06/07/2024 2:25 PM EQUIPMENT CLEANER AND TESTER) [facility] Vitamin B12 538 230 - 1,250 pg/mL Blood 06/07/2024 2:25 PM EQUIPMENT CLEANER AND TESTER 06/07/2024 4:25 PM EQUIPMENT CLEANER AND TESTER Ivory Teresa LIBRARY PARAPROFESSIONAL LAB BLOOD ORDERABLES Final R esult Performing Organization Address City/[facility]/ZIP Co de Phone Number [place] [address] [facility] [place] [address] * (ABNORMAL) Albumin Creatinine Ratio, Urine (01/24/2023 3:49 PM CDT) SCRIBED Creatinine, Urine 98.3 NA - NA EXTERNAL LAB SCRIBED Microalbumin 726.9(A) 0 - 16.7 EXTERNAL LAB SCRIBED Microalb/Creat Ratio 739.5(A) 0 - 30 EXTERNAL LAB Urine 01/24/2023 3:49 PM CDT [facility] Provider MD LAB URINE ORDERABLES Edit ed Result - Final Performing Organization Address City/[facility] Co de Phone Number EXTERNAL LAB * Hemoglobin A1c (01/24/2023 3:48 PM CDT) SCRIBED Hemoglobin A1c 5.1 <5.7 - NA % EXTERNAL LAB Blood 01/24/2023 3:48 PM CDT [facility] Provider LAB BLOOD ORDERABLES Edit ed Result - Final Performing Organization Address City/[facility]/ZIP Co de Phone Number EXTERNAL LAB * [...] Units/L EXTERNAL LAB SCRIBED eGFR in NonAfrican Turkmen >60 >=60 - NA EXTERNAL LAB Blood 01/24/2023 3:48 PM CDT us Historical Provider LAB BLOOD ORDERABLES Edit ed Result - Final EXTERNAL LAB from Last 3 Months or Most Recently Relevant to Health Maintenance Insurance [employer] OOS MEDICARE [place] [email or web address] [facility] MEDICARE BLUE ACCESS OOS Advance Directives For more information, please contact: [phone] * Full Code (Latest Code Status on File) Date Activated Date Inactivated Comments 01/29/2021 12:10 AM 02/01/2021 7:53 PM Care Teams Drafter Automotive Design Relationship Specialty Start Date End Date Kd Ledezma MD PCP - General Family Practice 12/09/19
[2024-07-20 17:49] LABS: Percent Iron Saturation 21 % (20-50)
[2024-07-20 18:32] LABS: Folic Acid > 20.0 ng/mL (2.76->20)
[2024-07-20 19:51] LABS: Creatinine Urine 126.1 mg/dL
[2024-07-20 20:41] LABS: MALB Creatinine Ratio 341.6 mg/g (0-30); Microalbumin Urine Random 430.7 mg/L (0-16.7)
== END 2024-07-20 14:36 | disposition home or self-care (01) ==
LOC: ANHGOSHLAB 14:37
PROVIDERS: PCP Family Medicine; Visit Provider Nurse Practitioner Family
DX: D64.9 Anemia, unspecified (principal); E11.9 Type 2 diabetes mellitus without complications; K51.311 Ulcerative (chronic) rectosigmoiditis with rectal bleeding; K62.5 Hemorrhage of anus and rectum
CPT/HCPCS: 36415; 82043; 82607; 82728; 82746; 83036; 83540; 83550

== ENCOUNTER 2024-07-30 10:38 | Outpatient (CLI) | payer MEDICARE, BC, SELFPAY ==
--- OUTSIDE RECORDS SUMMARY | 2024-07-30 10:43 | XMS_ITS | Referral Summary ---
Author Organization [facility] [address] [facility] 162 Address [address] [place] [address] Care Team Providers Care Carnallite Plant Operator Name Role Phone Kd Ledezma MD Primary Care Provider Encounters Date Type Department Care Team Description 07/16/2024 9:45 AM CDT Office Visit [facility] Medical [facility] Cardiology [address] [facility] 162 [address] [place] [address] Rene Trammell MD Hyperlipidemia LDL goal <70 (Primary Dx); Pulmonary HTN (HCC); Primary hypertension; Nonrheumatic aortic valve insufficiency; History of PSVT (paroxysmal supraventricular tachycardia); Peripheral arterial occlusive disease 06/09/2024 Telephone [facility] Neurology [address] [place] [phone] Ivory Teresa NP Test Results (Results ) 06/08/2024 Results Follow-Up [facility] Neurology [address] [place] [phone] Ivory Teresa NP 06/07/2024 2:15 [address] NURSE Lab [facility] Medical Office Bldg [address] OP Lab [address] [place] [phone] Memory disturbance 06/07/2024 1:00 PM RADIOLOGY NURSE Office Visit [facility] Neurology [address] [place] [phone] Ivory Teresa NP Memory disturbance (Primary Dx); [...] TIMES DAILY 2 Active Comfort EZ Pen [place] 32 gauge x 5/32 needle USE NIGHTLY [...] on file Legal Sex Female 8:59 PM RADIOLOGY NURSE Gender Identity Not on file Sexual Orientation [...] TO ALICJA QUANTITATIVE Routine 06/07/2024 2:25 PM RADIOLOGY NURSE Memory disturbance ERYTHROCYTE SEDIMENTATION RATE Routine 06/07/2024 2:25 PM RADIOLOGY NURSE Memory disturbance TSH Routine 06/07/2024 2:25 PM RADIOLOGY NURSE Memory disturbance T4, FREE Routine 06/07/2024 2:25 PM RADIOLOGY NURSE Memory disturbance VITAMIN B12 Routine 06/07/2024 2:25 PM RADIOLOGY NURSE Memory disturbance FOLATE Routine 06/07/2024 2:25 PM RADIOLOGY NURSE Memory disturbance ALBUMIN CREATININE RATIO, URINE Routine 01/24/2023 3:49 PM CDT COMPREHENSIVE METABOLIC PANEL Routine 01/24/2023 3:48 PM CDT HEMOGLOBIN A1C Routine 01/24/2023 3:48 PM CDT LIPID PANEL Routine 01/24/2023 3:48 PM CDT from Last 3 Months or Most Recently Relevant to Health Maintenance Results * ALICJA ab ql w/rflx to ALICJA qn (06/07/2024 2:25 PM RADIOLOGY NURSE) ALICJA Negative Comment: Interpretive Data Normal range [...] last revised on 2019. Testing performed by: [facility], [address] [place]., [address] Blood 06/07/2024 2:25 PM RADIOLOGY NURSE 06/07/2024 7:56 PM RADIOLOGY NURSE Ivory Teresa NP LAB BLOOD ORDERABLES Final R esult Performing Organization Address [facility] Co de Phone Number [address] [place] [address] * (ABNORMAL) Erythrocyte sedimentation rate (06/07/2024 2:25 PM RADIOLOGY NURSE) Erythrocyte sedimentation rate 40(H) 1 - 30 mm/hr Blood 06/07/2024 2:25 PM RADIOLOGY NURSE 06/07/2024 4:25 PM RADIOLOGY NURSE Ivory Teresa NP LAB BLOOD ORDERABLES Final R esult Performing Organization Address [facility] Co de Phone Number [place] [phone] [facility] [place] [address] * TSH (06/07/2024 2:25 PM RADIOLOGY NURSE) Pathologist [facility] Thyroid Stimulating Hormone 0.50 0.30 - 4.20 mcIUnit/mL Blood 06/07/2024 2:25 PM RADIOLOGY NURSE 06/07/2024 4:25 PM RADIOLOGY NURSE Ivory Teresa COMPRESSOR OPERATOR LAB BLOOD ORDERABLES Final R esult Performing Organization Address City/[facility] Co de Phone Number [address] [place] [address] * T4, free (06/07/2024 2:25 PM RADIOLOGY NURSE) [facility] Free T4 1.36 0.90 - 1.70 ng/dL Blood 06/07/2024 2:25 PM RADIOLOGY NURSE 06/07/2024 4:25 PM RADIOLOGY NURSE Ivory Teresa NP LAB BLOOD ORDERABLES Final R esult Performing Organization Address [facility] Co de Phone Number [address] [place] [address] * (ABNORMAL) Folate (06/07/2024 2:25 PM RADIOLOGY NURSE) [facility] Folic acid 4.9(L) >=5.0 ng/mL Blood 06/07/2024 2:25 PM RADIOLOGY NURSE 06/07/2024 4:28 PM RADIOLOGY NURSE Ivory Teresa COMPRESSOR OPERATOR LAB BLOOD ORDERABLES Final R esult Performing Organization Address [facility] Co de Phone Number [address] [place] [address] * Vitamin B12 (06/07/2024 2:25 PM RADIOLOGY NURSE) [facility] Vitamin B12 538 230 - 1,250 pg/mL Blood 06/07/2024 2:25 PM RADIOLOGY NURSE 06/07/2024 4:25 PM RADIOLOGY NURSE Ivory Teresa COMPRESSOR OPERATOR LAB BLOOD ORDERABLES Final R esult Performing Organization Address City/[facility]/ZIP Co de Phone Number JUANJOSE [address] [facility] Department [place] [address] * (ABNORMAL) Albumin Creatinine Ratio, Urine (01/24/2023 3:49 PM CDT) SCRIBED Creatinine, Urine 98.3 NA - NA EXTERNAL LAB SCRIBED Microalbumin 726.9(A) 0 - 16.7 EXTERNAL LAB SCRIBED Microalb/Creat Ratio 739.5(A) 0 - 30 EXTERNAL LAB Urine 01/24/2023 3:49 PM CDT [facility] Provider MD LAB URINE ORDERABLES Edit ed Result - Final Performing Organization Address City/[facility] Co de Phone Number EXTERNAL LAB * Hemoglobin A1c (01/24/2023 3:48 PM CDT) SCRIBED Hemoglobin A1c 5.1 <5.7 - NA % EXTERNAL LAB Blood 01/24/2023 3:48 PM CDT [facility] Provider LAB BLOOD ORDERABLES Edit [...] Units/L EXTERNAL LAB SCRIBED eGFR in NonAfrican Barbadian >60 >=60 - NA EXTERNAL LAB Blood 01/24/2023 3:48 PM CDT us Historical Provider LAB BLOOD ORDERABLES Edit ed Result - Final EXTERNAL LAB from Last 3 Months or Most Recently Relevant to Health Maintenance Insurance [employer] OOS MEDICARE [employer] [facility] MEDIC[facility] BLUE ACCESS OOS Advance Directives For more information, please contact: [phone] * Full Code (Latest Code Status on File) Date Activated Date Inactivated Comments 01/29/2021 12:10 AM 02/01/2021 7:53 PM Care Teams Carnallite Plant Operator Relationship Specialty Start Date End Date Kd Ledezma MD PCP - General Family Practice 12/09/19
--- OUTSIDE RECORDS SUMMARY | 2024-07-30 10:43 | XMS_ITS | Clinical Summary ---
Author Organization [facility] [address] Address [address] [place] [address] Care Team Providers Care Fish Farm Laborer Name Role Phone Kd Ledezma MD Primary [...] TIMES DAILY 2 Active Comfort EZ Pen [place] 32 gauge x needle USE NIGHTLY 2 [...] Description 07/16/2024 9:45 AM CDT Office Visit [facility] Cardiology [address] [facility] [address] [place] [phone] Rene Trammell MD Hyperlipidemia LDL goal <70 (Primary Dx); Pulmonary HTN (HCC); Primary hypertension; Nonrheumatic aortic valve insufficiency; History of PSVT (paroxysmal supraventricular tachycardia); Peripheral arterial occlusive disease 06/09/2024 Telephone [facility] Neurology [address] [place] [phone] Ivory Teresa NP Test Results (Results ) 06/08/2024 Results Follow-Up [facility] Neurology [address] [place] [phone] Ivory Teresa NP 06/07/2024 2:15 PM PLASTICS FABRICATOR AND ASSEMBLER Lab [facility] Medical Office Bldg 3 OP Lab [address] [place] [id number] Memory disturbance 06/07/2024 1:00 PM PLASTICS FABRICATOR AND ASSEMBLER Office Visit [facility] Neurology [address] [place] [phone] Ivory Teresa NP Memory disturbance (Primary Dx); [...] on file Legal Sex Female 8:59 PM PLASTICS FABRICATOR AND ASSEMBLER Gender Identity Not on file Sexual Orientation [...] TO ALICJA QUANTITATIVE Routine 06/07/2024 2:25 PM PLASTICS FABRICATOR AND ASSEMBLER Memory disturbance ERYTHROCYTE SEDIMENTATION RATE Routine 06/07/2024 2:25 PM PLASTICS FABRICATOR AND ASSEMBLER Memory disturbance TSH Routine 06/07/2024 2:25 PM PLASTICS FABRICATOR AND ASSEMBLER Memory disturbance T4, FREE Routine 06/07/2024 2:25 PM PLASTICS FABRICATOR AND ASSEMBLER Memory disturbance VITAMIN B12 Routine 06/07/2024 2:25 PM PLASTICS FABRICATOR AND ASSEMBLER Memory disturbance FOLATE Routine 06/07/2024 2:25 PM PLASTICS FABRICATOR AND ASSEMBLER Memory disturbance ALBUMIN CREATININE RATIO, URINE Routine 01/24/2023 3:49 PM CDT COMPREHENSIVE METABOLIC PANEL Routine 01/24/2023 3:48 PM CDT HEMOGLOBIN A1C Routine 01/24/2023 3:48 PM CDT LIPID PANEL Routine 01/24/2023 3:48 PM CDT from Last 3 Months or Most Recently Relevant to Health Maintenance Results * ALICJA ab ql w/rflx to ALICJA qn (06/07/2024 2:25 PM PLASTICS FABRICATOR AND ASSEMBLER) ALICJA Negative Comment: Interpretive Data Normal range [...] last revised on 2019. Testing performed by: [facility], [address] [place]., [address] Blood 06/07/2024 2:25 PM PLASTICS FABRICATOR AND ASSEMBLER 06/07/2024 7:56 PM PLASTICS FABRICATOR AND ASSEMBLER Ivory Teresa NP LAB BLOOD ORDERABLES Final R esult Performing Organization Address [facility] Co de Phone Number [address] [place] [address] * (ABNORMAL) Erythrocyte sedimentation rate (06/07/2024 2:25 PM PLASTICS FABRICATOR AND ASSEMBLER) Erythrocyte sedimentation rate 40(H) 1 - 30 mm/hr Blood 06/07/2024 2:25 PM PLASTICS FABRICATOR AND ASSEMBLER 06/07/2024 4:25 PM PLASTICS FABRICATOR AND ASSEMBLER Ivory Teresa NP LAB BLOOD ORDERABLES Final R esult Performing Organization Address [facility] Co de Phone Number [address] [place] [address] * TSH (06/07/2024 2:25 PM PLASTICS FABRICATOR AND ASSEMBLER) Thyroid Stimulating Hormone 0.50 0.30 - 4.20 mcIUnit/mL Blood 06/07/2024 2:25 PM PLASTICS FABRICATOR AND ASSEMBLER 06/07/2024 4:25 PM PLASTICS FABRICATOR AND ASSEMBLER Ivory Teresa NP LAB BLOOD ORDERABLES Final R esult Performing Organization Address [facility] Co de Phone Number [address] [place] [address] * T4, free (06/07/2024 2:25 PM PLASTICS FABRICATOR AND ASSEMBLER) [facility] Free T4 1.36 0.90 - 1.70 ng/dL Blood 06/07/2024 2:25 PM PLASTICS FABRICATOR AND ASSEMBLER 06/07/2024 4:25 PM PLASTICS FABRICATOR AND ASSEMBLER Ivory Teresa ANGIO TECHNOLOGIST LAB BLOOD ORDERABLES Final R esult Performing Organization Address City/[facility]/ZIP Co de Phone Number [address] [place] [address] * (ABNORMAL) Folate (06/07/2024 2:25 PM PLASTICS FABRICATOR AND ASSEMBLER) [facility] Folic acid 4.9(L) >=5.0 ng/mL Blood 06/07/2024 2:25 PM PLASTICS FABRICATOR AND ASSEMBLER 06/07/2024 4:28 PM PLASTICS FABRICATOR AND ASSEMBLER Ivory Teresa NP LAB BLOOD ORDERABLES Final R esult Performing Organization Address [facility] Co de Phone Number [address] [place] [address] * Vitamin B12 (06/07/2024 2:25 PM PLASTICS FABRICATOR AND ASSEMBLER) [facility] Vitamin B12 538 230 - 1,250 pg/mL Blood 06/07/2024 2:25 PM PLASTICS FABRICATOR AND ASSEMBLER 06/07/2024 4:25 PM PLASTICS FABRICATOR AND ASSEMBLER Ivory Teresa ANGIO TECHNOLOGIST LAB BLOOD ORDERABLES Final R esult Performing Organization Address [facility] Co de Phone Number [address] [place] [address] * (ABNORMAL) Albumin Creatinine Ratio, Urine (01/24/2023 3:49 PM CDT) [facility] SCRIBED Creatinine, Urine 98.3 NA - NA EXTERNAL LAB SCRIBED Microalbumin 726.9(A) 0 - 16.7 EXTERNAL LAB SCRIBED Microalb/Creat Ratio 739.5(A) 0 - 30 EXTERNAL LAB Urine 01/24/2023 3:49 PM CDT Historical Provider MD LAB URINE ORDERABLES Edit ed Result - Final Performing Organization Address [facility] Co de Phone Number EXTERNAL LAB * Hemoglobin A1c (01/24/2023 3:48 PM CDT) SCRIBED Hemoglobin A1c 5.1 <5.7 - NA % EXTERNAL LAB Blood 01/24/2023 3:48 PM CDT [facility] Provider MD LAB BLOOD ORDERABLES Edit ed Result - Final Performing Organization Address [facility] de Phone Number EXTERNAL LAB * Lipid panel (01/24/2023 3:48 PM CDT) SCRIBED Cholesterol, Total 131 0 - 200 EXTERNAL LAB SCRIBED HDL 47 >35 - NA EXTERNAL LAB SCRIBED LDL 62 <130 - NA EXTERNAL LAB SCRIBED Triglycerides 94 <150 - NA EXTERNAL LAB Blood 01/24/2023 3:48 PM CDT [facility] Provider MD LAB BLOOD ORDERABLES Edit ed Result - Final Performing Organization Address [facility] de Phone Number EXTERNAL LAB * (ABNORMAL) [...] Units/L EXTERNAL LAB SCRIBED eGFR in NonAfrican Iraqi >60 >=60 - NA EXTERNAL LAB Blood 01/24/2023 3:48 PM CDT us Historical Provider LAB BLOOD ORDERABLES Edit ed Result - Final EXTERNAL LAB from Last 3 Months or Most Recently Relevant to Health Maintenance Insurance [employer] OOS MEDICARE [employer] ACCESS OOS MEDICARE BLUE ACCESS OOS Advance Directives For more information, please contact: [phone] * Full Code (Latest Code Status on File) Date Activated Date Inactivated Comments 01/29/2021 12:10 AM 02/01/2021 7:53 PM Care Teams Fish Farm Laborer Relationship Specialty Start Date End Date Kd Ledezma MD PCP - General Family Practice 12/09/19
--- OUTSIDE RECORDS SUMMARY | 2024-07-30 10:43 | XMS_ITS | Encounter Summary ---
Author Organization [facility] Healthcare Address [address] [place] [address] Care Team Providers Care Pilot Plant Operator Helper Name Role Phone Kd Ledezma MD Primary Care Provider Reason for Visit * Reason Onset Date Comments Test Results 06/08/2024 Results Encounter Details Date Type Department Care Team (Late st Contact Info) Description 06/08/2024 Results Follow-Up [facility] Neurology [address] [phone] Ivory Teresa NP [facility] [address] [phone] Social History Tobacco Use Types Packs/Day Years Used Date Smoking Tobacco: Former Cigarettes Q uit: 04/28/2015 Smokeless Tobacco: Never Alcohol Use Standard Drinks/Week Comments No 0 (1 standard drink = 0.6 oz pur e alcohol) Comments Unknown Sex and Gender Information Value Date Recorded Sex Assigned at Not on file Legal Sex Female 8:59 PM SOLID WASTE MANAGEMENT ENGINEER Gender Identity Not on file Sexual Orientation Not on file documented as of this encounter Miscellaneous Notes * Telephone Encounter - Janine Robles MA - 06/09/2024 2:26 PM CST ----- Message from Ivory Teresa NP sent at 06/08/2024 1:41 PM SOLID WASTE MANAGEMENT ENGINEER ----- Please let patient, family know that [...] necessary. Please fax the results to PCP. D WASTE MANAGEMENT ENGINEER * Result Encounter Note - Ivory Teresa NP - 06/08/2024 1:41 PM SOLID WASTE MANAGEMENT ENGINEER Please let patient, family know that thyroid [...] necessary. Please fax the results to PCP. D WASTE MANAGEMENT ENGINEER documented in this encounter Plan of Treatment Not on file documented as of this encounter Visit Diagnoses Not on filedocumented in this encounter Care Teams Pilot Plant Operator Helper Relationship Specialty Start Date End Date Kd Ledezma MD PCP - General Family Practice 12/09/19 documented as of this encounter
[2024-07-30 13:42] LABS: Anion Gap 10 mmol/L (4-12); Blood Urea Nitrogen 15 mg/dL (7-17); Carbon Dioxide 25 mmol/L (22-30); Chloride 107 mmol/L (98-107); Estimated Glomerular Filt Rate > 60; Glucose 103 mg/dL (65-110); Potassium 3.8 mmol/L (3.4-5.0); Sodium 142 mmol/L (137-145)
== END 2024-07-30 10:39 | disposition home or self-care (01) ==
LOC: ANHGOSHLAB 10:40
PROVIDERS: PCP Family Medicine; Visit Provider Family Medicine
DX: E87.6 Hypokalemia (principal)
CPT/HCPCS: 36415; 80048

== ENCOUNTER 2024-08-02 09:59 | Outpatient (CLI) | payer MEDICARE, BC, SELFPAY ==
--- NOTE | ~2024-08-02 | MM_ITS ---
EXAMINATION: MM diagnostic leny BI w derek HISTORY: Screening TECHNIQUE: Craniocaudal and mediolateral oblique 3-D tomosynthesis images were obtained and synthetic 2-D images were generated. CAD analysis was submitted and interpreted. COMPARISON: and dating back to 05/26/2019 BREAST PARENCHYMAL COMPOSITION: There are scattered areas of fibroglandular density. FINDINGS: Punctate and bulky calcifications are detected bilaterally, stable and benign in appearance . Increased microcalcifications within the lower inner left breast for which magnification views were p erformed. These demonstrate benign morphology. Punctate calcifications detected bilaterally, vascular in origin and benign in appearance. Stable parenchymal pattern without suspicious microcalcifications, architectural distortion, discrete masses or significant asymmetry. Previous diagnostic ultrasound evaluation demonstrated a simple cyst at the 12:00 position of the lef t breast approximately 2 cm from the nipple for which no further follow-up is needed. IMPRESSION: 1. No mammographic/tomographic evidence of malignancy. 2. Follow-up as per ACR/ACS/SBI guidelines is suggested. BI-RADS Category 2: Benign finding(s). Reviewed, dictated and finalized at location A.
--- OUTSIDE RECORDS SUMMARY | 2024-08-02 11:16 | XMS_ITS | Encounter Summary ---
Author Organization [facility] Healthcare Address [address] [place] [address] Care Team Providers Care University Professor Name Role Phone Kd Ledezma MD Primary Care Provider Reason for Visit * Reason Onset Date Comments Test Results 06/08/2024 Results Encounter Details Date Type Department Care Team (Late st Contact Info) Description 06/08/2024 Results Follow-Up [facility] Neurology [address] [phone] Ivory Teresa NP [facility] [address] [phone] Social History Tobacco Use Types Packs/Day Years Used Date Smoking Tobacco: Former Cigarettes Q uit: 04/28/2015 Smokeless Tobacco: Never Alcohol Use Standard Drinks/Week Comments No 0 (1 standard drink = 0.6 oz pur e alcohol) Comments Unknown Sex and Gender Information Value Date Recorded Sex Assigned at Not on file Legal Sex Female 8:59 PM COPYRIGHT CLERK Gender Identity Not on file Sexual Orientation Not on file documented as of this encounter Miscellaneous Notes * Telephone Encounter - Janine Robles MA - 06/09/2024 2:26 PM CST ----- Message from Ivory eTresa NP sent at 06/08/2024 1:41 PM COPYRIGHT CLERK ----- Please let patient, family know that [...] necessary. Please fax the results to PCP. RIGHT CLERK * Result Encounter Note - Ivory Teresa NP - 06/08/2024 1:41 PM COPYRIGHT CLERK Please let patient, family know that thyroid [...] necessary. Please fax the results to PCP. RIGHT CLERK documented in this encounter Plan of Treatment Not on file documented as of this encounter Visit Diagnoses Not on filedocumented in this encounter Care Teams University Professor Relationship Specialty Start Date End Date Kd Ledezma MD PCP - General Family Practice 12/09/19 documented as of this encounter
--- OUTSIDE RECORDS SUMMARY | 2024-08-02 11:16 | XMS_ITS | Clinical Summary ---
Author Organization [facility] [address] Address [address] [place] [address] Care Team Providers Care Horse Show Manager Name Role Phone Kd Ledezma MD Primary [...] TIMES DAILY 2 Active Comfort EZ Pen [place] 32 gauge x needle USE NIGHTLY 2 [...] Description 07/16/2024 9:45 AM CDT Office Visit [facility] Cardiology [address] [facility] [address] [place] [phone] Rene Trammell MD Hyperlipidemia LDL goal <70 (Primary Dx); Pulmonary HTN (HCC); Primary hypertension; Nonrheumatic aortic valve insufficiency; History of PSVT (paroxysmal supraventricular tachycardia); Peripheral arterial occlusive disease 06/09/2024 Telephone [facility] Neurology [address] [place] [phone] Ivory Teresa NP Test Results (Results ) 06/08/2024 Results Follow-Up [facility] Neurology [address] [place] [phone] Ivory Teresa NP 06/07/2024 2:15 PM LIBRARY CIRCULATION ASSISTANT Lab [facility] Medical Office Bldg 3 OP Lab [address] [place] [phone] Memory disturbance 06/07/2024 1:00 PM LIBRARY CIRCULATION ASSISTANT Office Visit [facility] Neurology [address] [place] [phone] Ivory Teresa NP Memory disturbance (Primary Dx); [...] on file Legal Sex Female 8:59 PM LIBRARY CIRCULATION ASSISTANT Gender Identity Not on file Sexual Orientation [...] TO ALICJA QUANTITATIVE Routine 06/07/2024 2:25 PM LIBRARY CIRCULATION ASSISTANT Memory disturbance ERYTHROCYTE SEDIMENTATION RATE Routine 06/07/2024 2:25 PM LIBRARY CIRCULATION ASSISTANT Memory disturbance TSH Routine 06/07/2024 2:25 PM LIBRARY CIRCULATION ASSISTANT Memory disturbance T4, FREE Routine 06/07/2024 2:25 PM LIBRARY CIRCULATION ASSISTANT Memory disturbance VITAMIN B12 Routine 06/07/2024 2:25 PM LIBRARY CIRCULATION ASSISTANT Memory disturbance FOLATE Routine 06/07/2024 2:25 PM LIBRARY CIRCULATION ASSISTANT Memory disturbance ALBUMIN CREATININE RATIO, URINE Routine 01/24/2023 3:49 PM CDT COMPREHENSIVE METABOLIC PANEL Routine 01/24/2023 3:48 PM CDT HEMOGLOBIN A1C Routine 01/24/2023 3:48 PM CDT LIPID PANEL Routine 01/24/2023 3:48 PM CDT from Last 3 Months or Most Recently Relevant to Health Maintenance Results * ALICJA ab ql w/rflx to ALICJA qn (06/07/2024 2:25 PM LIBRARY CIRCULATION ASSISTANT) ALICJA Negative Comment: Interpretive Data Normal range [...] revised on 2019. Testing performed by: [facility], [address] [place]., [address] Blood 06/07/2024 2:25 PM LIBRARY CIRCULATION ASSISTANT 06/07/2024 7:56 PM LIBRARY CIRCULATION ASSISTANT Ivory Teresa NP LAB BLOOD ORDERABLES Final R esult Performing Organization Address [facility] Co de Phone Number [address] [email or web address] [address] * (ABNORMAL) Erythrocyte sedimentation rate (06/07/2024 2:25 PM LIBRARY CIRCULATION ASSISTANT) Erythrocyte sedimentation rate 40(H) 1 - 30 mm/hr Blood 06/07/2024 2:25 PM LIBRARY CIRCULATION ASSISTANT 06/07/2024 4:25 PM LIBRARY CIRCULATION ASSISTANT Ivory Teresa NP LAB BLOOD ORDERABLES Final R esult Performing Organization Address [facility] Co de Phone Number [address] [email or web address] [address] * TSH (06/07/2024 2:25 PM LIBRARY CIRCULATION ASSISTANT) Thyroid Stimulating Hormone 0.50 0.30 - 4.20 mcIUnit/mL Blood 06/07/2024 2:25 PM LIBRARY CIRCULATION ASSISTANT 06/07/2024 4:25 PM LIBRARY CIRCULATION ASSISTANT Ivory Teresa NP LAB BLOOD ORDERABLES Final R esult Performing Organization Address [facility] Co de Phone Number [address] [email or web address] [address] * T4, free (06/07/2024 2:25 PM LIBRARY CIRCULATION ASSISTANT) [facility] Free T4 1.36 0.90 - 1.70 ng/dL Blood 06/07/2024 2:25 PM LIBRARY CIRCULATION ASSISTANT 06/07/2024 4:25 PM LIBRARY CIRCULATION ASSISTANT Ivory Teresa VALVE INSERTER LAB BLOOD ORDERABLES Final R esult Performing Organization Address City/[facility]/ZIP Co de Phone Number [address] [email or web address] [address] * (ABNORMAL) Folate (06/07/2024 2:25 PM LIBRARY CIRCULATION ASSISTANT) [facility] Folic acid 4.9(L) >=5.0 ng/mL Blood 06/07/2024 2:25 PM LIBRARY CIRCULATION ASSISTANT 06/07/2024 4:28 PM LIBRARY CIRCULATION ASSISTANT Ivory Teresa NP LAB BLOOD ORDERABLES Final R esult Performing Organization Address [facility] Co de Phone Number [address] [email or web address] [address] * Vitamin B12 (06/07/2024 2:25 PM LIBRARY CIRCULATION ASSISTANT) [facility] Vitamin B12 538 230 - 1,250 pg/mL Blood 06/07/2024 2:25 PM LIBRARY CIRCULATION ASSISTANT 06/07/2024 4:25 PM LIBRARY CIRCULATION ASSISTANT Ivory Teresa VALVE INSERTER LAB BLOOD ORDERABLES Final R esult Performing Organization Address [facility] Co de Phone Number [address] [email or web address] [address] * (ABNORMAL) Albumin Creatinine Ratio, Urine (01/24/2023 3:49 PM CDT) [facility] SCRIBED Creatinine, Urine 98.3 NA - NA EXTERNAL LAB SCRIBED Microalbumin 726.9(A) 0 - 16.7 EXTERNAL LAB SCRIBED Microalb/Creat Ratio 739.5(A) 0 - 30 EXTERNAL LAB Urine 01/24/2023 3:49 PM CDT Historical Provider MD LAB URINE ORDERABLES Edit ed Result - Final Performing Organization Address [facility] Co de Phone Number EXTERNAL LAB * Hemoglobin A1c (01/24/2023 3:48 PM CDT) SCRIBED Hemoglobin A1c 5.1 <5.7 - NA % EXTERNAL LAB Blood 01/24/2023 3:48 PM CDT [facility] Provider MD LAB BLOOD ORDERABLES Edit ed Result - Final Performing Organization Address [facility] de Phone Number EXTERNAL LAB * Lipid panel (01/24/2023 3:48 PM CDT) SCRIBED Cholesterol, Total 131 0 - 200 EXTERNAL LAB SCRIBED HDL 47 >35 - NA EXTERNAL LAB SCRIBED LDL 62 <130 - NA EXTERNAL LAB SCRIBED Triglycerides 94 <150 - NA EXTERNAL LAB Blood 01/24/2023 3:48 PM CDT [facility] Provider MD LAB BLOOD ORDERABLES Edit ed Result - Final Performing Organization Address [facility] de Phone Number EXTERNAL LAB * [...] Units/L EXTERNAL LAB SCRIBED eGFR in NonAfrican Uzbek >60 >=60 - NA EXTERNAL LAB Blood 01/24/2023 3:48 PM CDT us Historical Provider LAB BLOOD ORDERABLES Edit ed Result - Final EXTERNAL LAB from Last 3 Months or Most Recently Relevant to Health Maintenance Insurance [employer] OOS MEDICARE [employer] ACCESS OOS MEDICARE BLUE ACCESS OOS Advance Directives For more information, please contact: [phone] * Full Code (Latest Code Status on File) Date Activated Date Inactivated Comments 01/29/2021 12:10 AM 02/01/2021 7:53 PM Care Teams Horse Show Manager Relationship Specialty Start Date End Date Kd Ledezma MD PCP - General Family Practice 12/09/19
--- OUTSIDE RECORDS SUMMARY | 2024-08-02 11:16 | XMS_ITS | Referral Summary ---
Author Organization [facility] [address] [facility] [address] Address [address] [place] [address] Care Team Providers Care Cheese Blender Name Role Phone Kd Ledezma MD Primary Care Provider Encounters Date Type Department Care Team Description 07/16/2024 9:45 AM CDT Office Visit [facility] Cardiology [address] [facility] [address] [place] [address] Rene Trammell MD Hyperlipidemia LDL goal <70 (Primary Dx); Pulmonary HTN (HCC); Primary hypertension; Nonrheumatic aortic valve insufficiency; History of PSVT (paroxysmal supraventricular tachycardia); Peripheral arterial occlusive disease 06/09/2024 Telephone [facility] Neurology [address] [place] [phone] Ivory Teresa NP Test Results (Results ) 06/08/2024 Results Follow-Up [facility] Neurology [address] [place] [phone] Ivory Tereas NP 06/07/2024 2:15 PM MATCHBOOK MAKER Lab [facility] Medical Office Bldg [address] OP Lab [address] [place] [id number] Memory disturbance 06/07/2024 1:00 PM MATCHBOOK MAKER Office Visit [facility] Neurology [address] [place] [phone] Ivory Teresa NP Memory disturbance (Primary Dx); [...] TIMES DAILY 2 Active Comfort EZ Pen [place] 32 gauge x 5/32 needle USE NIGHTLY [...] on file Legal Sex Female 8:59 PM MATCHBOOK MAKER Gender Identity Not on file Sexual Orientation [...] TO ALICJA QUANTITATIVE Routine 06/07/2024 2:25 PM MATCHBOOK MAKER Memory disturbance ERYTHROCYTE SEDIMENTATION RATE Routine 06/07/2024 2:25 PM MATCHBOOK MAKER Memory disturbance TSH Routine 06/07/2024 2:25 PM MATCHBOOK MAKER Memory disturbance T4, FREE Routine 06/07/2024 2:25 PM MATCHBOOK MAKER Memory disturbance VITAMIN B12 Routine 06/07/2024 2:25 PM MATCHBOOK MAKER Memory disturbance FOLATE Routine 06/07/2024 2:25 PM MATCHBOOK MAKER Memory disturbance ALBUMIN CREATININE RATIO, URINE Routine 01/24/2023 3:49 PM CDT COMPREHENSIVE METABOLIC PANEL Routine 01/24/2023 3:48 PM CDT HEMOGLOBIN A1C Routine 01/24/2023 3:48 PM CDT LIPID PANEL Routine 01/24/2023 3:48 PM CDT from Last 3 Months or Most Recently Relevant to Health Maintenance Results * ALICJA ab ql w/rflx to ALICJA qn (06/07/2024 2:25 PM MATCHBOOK MAKER) ALICJA Negative Comment: Interpretive Data Normal range [...] last revised on 2019. Testing performed by: [facility], [address] [place] [address] Blood 06/07/2024 2:25 PM MATCHBOOK MAKER 06/07/2024 7:56 PM MATCHBOOK MAKER Ivory Teresa NP LAB BLOOD ORDERABLES Final R esult Performing Organization Address [facility] Co de Phone Number [address] [employer] [address] * (ABNORMAL) Erythrocyte sedimentation rate (06/07/2024 2:25 PM MATCHBOOK MAKER) Erythrocyte sedimentation rate 40(H) 1 - 30 mm/hr Blood 06/07/2024 2:25 PM MATCHBOOK MAKER 06/07/2024 4:25 PM MATCHBOOK MAKER Ivory Teresa NP LAB BLOOD ORDERABLES Final R esult Performing Organization Address [facility] Co de Phone Number [place] [address] [facility] [place] [address] * TSH (06/07/2024 2:25 PM MATCHBOOK MAKER) Pathologist [facility] Thyroid Stimulating Hormone 0.50 0.30 - 4.20 mcIUnit/mL Blood 06/07/2024 2:25 PM MATCHBOOK MAKER 06/07/2024 4:25 PM MATCHBOOK MAKER Ivory Teresa SURGICAL GARMENT FITTER LAB BLOOD ORDERABLES Final R esult Performing Organization Address City/[facility] Co de Phone Number [address] [place] [address] * T4, free (06/07/2024 2:25 PM MATCHBOOK MAKER) [facility] Free T4 1.36 0.90 - 1.70 ng/dL Blood 06/07/2024 2:25 PM MATCHBOOK MAKER 06/07/2024 4:25 PM MATCHBOOK MAKER Ivory Teresa NP LAB BLOOD ORDERABLES Final R esult Performing Organization Address [facility] Co de Phone Number [address] [place] [address] * (ABNORMAL) Folate (06/07/2024 2:25 PM MATCHBOOK MAKER) [facility] Folic acid 4.9(L) >=5.0 ng/mL Blood 06/07/2024 2:25 PM MATCHBOOK MAKER 06/07/2024 4:28 PM MATCHBOOK MAKER Ivory Teresa SURGICAL GARMENT FITTER LAB BLOOD ORDERABLES Final R esult Performing Organization Address [facility] Co de Phone Number [address] [place] [address] * Vitamin B12 (06/07/2024 2:25 PM MATCHBOOK MAKER) [facility] Vitamin B12 538 230 - 1,250 pg/mL Blood 06/07/2024 2:25 PM MATCHBOOK MAKER 06/07/2024 4:25 PM MATCHBOOK MAKER Ivory Teresa SURGICAL GARMENT FITTER LAB BLOOD ORDERABLES Final R esult Performing Organization Address City/[facility]/ZIP Co de Phone Number [place] [address] [facility] [place] [address] * (ABNORMAL) Albumin Creatinine Ratio, Urine (01/24/2023 3:49 PM CDT) SCRIBED Creatinine, Urine 98.3 NA - NA EXTERNAL LAB SCRIBED Microalbumin 726.9(A) 0 - 16.7 EXTERNAL LAB SCRIBED Microalb/Creat Ratio 739.5(A) 0 - 30 EXTERNAL LAB Urine 01/24/2023 3:49 PM CDT [facility] Provider MD LAB URINE ORDERABLES Edit ed Result - Final Performing Organization Address City/[facility] Co de Phone Number EXTERNAL LAB * Hemoglobin A1c (01/24/2023 3:48 PM CDT) SCRIBED Hemoglobin A1c 5.1 <5.7 - NA % EXTERNAL LAB Blood 01/24/2023 3:48 PM CDT [facility] Provider LAB BLOOD ORDERABLES Edit ed Result - Final Performing Organization Address City/[facility]/ZIP Co de Phone Number EXTERNAL LAB * [...] Units/L EXTERNAL LAB SCRIBED eGFR in NonAfrican Tanzanian >60 >=60 - NA EXTERNAL LAB Blood 01/24/2023 3:48 PM CDT us Historical Provider LAB BLOOD ORDERABLES Edit ed Result - Final EXTERNAL LAB from Last 3 Months or Most Recently Relevant to Health Maintenance Insurance [employer] MEDICARE [place] [employer] [facility] MEDICARE BLUE ACCESS OOS Advance Directives For more information, please contact: [phone] * Full Code (Latest Code Status on File) Date Activated Date Inactivated Comments 01/29/2021 12:10 AM 02/01/2021 7:53 PM Care Teams Cheese Blender Relationship Specialty Start Date End Date Kd Ledezma MD PCP - General Family Practice 12/09/19
== END 2024-08-02 10:00 | disposition home or self-care (01) ==
LOC: ANHIMG 10:00
PROVIDERS: PCP Family Medicine; Visit Provider Family Medicine
DX: R92.8 Other abnormal and inconclusive findings on diagnostic imaging of breast (principal)
CPT/HCPCS: 77062; 77066; G0279

== ENCOUNTER 2024-08-13 12:38 | Emergency (ER) | payer MEDICARE, BC, SELFPAY ==
--- NOTE | ~2024-08-13 | CT_ITS ---
CLINICAL INDICATION: Fall COMPARISON: 05/18/2024. TECHNIQUE: Multiple contiguous axial images of the chest, abdomen and pelvis were performed without t he administration of intravenous contrast The dose-length product (DLP) was 495.60 mGy-cm. Automated exposure control and iterative reconstruction technique were employed. FINDINGS/OBSERVATIONS: LUNG:Trace bibasilar atelectasis.The remainder of the lungs are otherwise clear. No evidence of contu amanda, pneumothorax or hemothorax. MEDIASTINUM: Limited evaluation without intravenous contrast. HEART:Densely calcified aortic and mitral valves.The heart is of normal size, without pericardial eff usion. SOFT TISSUES OF THE CHEST: Unremarkable. BONES OF THE CHEST: Acute, minimally displaced fractures of the right eighth and ninth ribs, along the anterolateral crystal in. No acute sternal fracture is identified. No acute fractures of the thoracic spine. Liver: The liver demonstrates homogeneous attenuation and is not enlarged. No perihepatic fluid to suggest acute traumatic injury. Gallbladder and biliary system: The gallbladder is only minimally distended, and otherwise unremarkable. Pancreas: Limited evaluation of the pancreas secondary to the lack of intravenous contrast. No peripancreatic f luid is identified to suggest acute traumatic injury. Spleen: The spleen demonstrates homogeneous attenuation and is not enlarged. No perisplenic fluid is identified to suggest acute traumatic injury. Kidneys: Punctate nonobstructing stones are identified within the bilateral kidneys. Rounded well-circumscribed fluid attenuation focus within the lower pole of the left kidney measuring 7 cm in greatest dimension, consistent with a simple cyst. The remainder of the bilateral kidneys are otherwise unremarkable, without hydronephrosis. No perirenal fluid is identified to suggest acute traumatic injury. Adrenal glands: Unremarkable. Gastrointestinal tract: Colonic diverticulosis without surrounding inflammatory change. No free fluid within the abdomen or pelvis. Vasculature: Densely calcified atherosclerotic disease. Lymph nodes: Limited evaluation without intravenous contrast. Pelvic structures: The bladder is distended and otherwise unremarkable. The uterus is atrophic or surgically absent. Body wall and musculoskeletal: Small fat-containing umbilical hernia. Age-appropriate degenerative disease within the lumbar spine without acute compression fracture. IMPRESSION: Acute minimally displaced fractures of the right anterolateral eighth and ninth ribs. No hollow or solid visceral organ injury. No additional acute findings within the chest, abdomen or pelvis to suggest acute traumatic injury. Reviewed, dictated and finalized at location A. IMPRESSION: Acute minimally displaced fractures of the right anterolateral eighth and ninth ribs. No hollow or solid visceral organ injury. No additional acute findings within the chest, abdomen or pelvis to suggest ac tresa traumatic injury.
[2024-08-13 12:50] VITALS: BP 143/62; PULSE 91; RESP 16; TEMP 36.3; O2SAT 100
--- NOTE | 2024-08-13 12:56 | ED_ITS ---
HPI - General Adult General Chief complaint: Unspecified <Ivelisse Elizalde APRN - Last Filed: 08/13/24 19:03> Stated complaint: Injury right side of ribs after falling off 2 step <Ivelisse Elizalde APRN - Last Filed: 08/13/24 19:03> Time Seen by Provider: 08/13/24 12:50 <Ivelisse Elizalde APRN - Last Filed: 08/13/24 19:03> Focused HPI: Patient is a 79-year-old female who presents to the ER following a fall. She reports she fell approximately 4 days ago and landed on her stove. Patient denies any head injury. She does take blood thinners. Patient endorses significant pain to her right chest/ribcage, right flank, right abdomen. She reports the pain has continued even notice been 4 days. Today patient was getting an in-home infusion for my colitis and the nurse told me I should come in for evaluation. Patient's chart indicates she has a history of high blood pressure, hyperlipidemia, and diabetes. GENERAL: Well-appearing, well-nourished, and in acute distress d/t pain. HEAD: Normocephalic, atraumatic. CHEST: Clear to auscultation. ?No respiratory distress. HEART: Regular rate and rhythm.? NEURO: ?Alert and oriented x3. Patient screened in triage and initial orders placed.? ?Additional care and disposition to be based upon?diagnostic testing and treatment. <Ivelisse Elizalde APRN - Last Filed: 08/13/24 19:03> History of Present Illness HPI narrative: as per mse above <Channing Molina III, DO - Last Filed: 08/17/24 15:38> Related Data Home medications: Home Medications ?Medication ?Instructions ?Recorded ?Confirmed ?Last Taken ?Type levothyroxine 50 mcg tablet 50 mcg PO DAILY 02/28/24 07/20/24 Unknown History mesalamine 1.2 gram tablet,delayed 1.2 g PO QID 02/28/24 07/20/24 Unknown History release levetiracetam 500 mg tablet 500 mg PO BID 03/08/24 07/20/24 Unknown History calcium carbonate 600 mg PO DAILY 03/31/24 07/20/24 Unknown History <Ivelisse Elizalde APRN - Last Filed: 08/13/24 19:03> Allergies/adverse reactions: Allergies Allergy/AdvReac Type Severity Reaction Status Date / Time Iodinated Contrast Media Allergy Intermediate Hives Verified 08/13/24 12:20 loracarbef (From Lorabid) Allergy Intermediate Hives Verified 08/13/24 12:20 <Ivelisse Elizalde APRN - Last Filed: 08/13/24 19:03> Review of Systems 2 Review of Systems: All systems reviewed & are unremarkable except as noted in HPI and below <Channing Ornelas Molina III, DO - Last Filed: 08/17/24 15:38> [facility] Past Medical History Medical History: Medical History Osteopenia Rectal bleeding Depression History of stroke (~02/2024) Essential (primary) hypertension Type 2 diabetes mellitus without complications Acute stroke due to ischemia (~03/01/24) MRI of the brain shows Small focus of acute infarct along a gyrus in the right right occipital region. Small region of encephalomalacia consistent with chronic infarct in the right parietal lobe and a couple tiny old lacunar infarcts in the bilateral cerebellar hemispheres CVA (cerebral vascular accident) MRI June 2021 demonstrated small old parietal punctate left cerebellar infarctions likely as result of in 01/2020 Right humeral fracture (2021) Seizure as late effect of cerebrovascular accident (CVA) Chronic pancreatitis Ulcerative colitis CAD (coronary artery disease) Hypertension Hyperlipidemia Hypothyroid Aortic insufficiency Echocardiogram 2020: Hyperdynamic left ventricle EF 78% mild intracavitary obstruction with peak gradient of 16 with Valsalva, moderate concentric left ventricular hypertrophy, [id number] aortic valve regurgitation, mild tricuspid regurgitation Distal radius fracture, left Thrombocytopenia Anemia Diabetes A1c 6.6 on 04-29-19 Renal stones <Ivelisse Elizalde APRN - Last Filed: 08/13/24 19:03> Surgical History Surgical History: Surgical History H/O lithotripsy H/O: hysterectomy <Ivelisse Elizalde APRN - Last Filed: 08/13/24 19:03> Family History Family History: Family History Sibling Cancer Father Brain aneurysm Heart disease Hypertension Mother Diabetes mellitus Hypertension Grandparent Cancer Other Cancer Aunt <Ivelisse Elizalde REGISTERED NURSE MATERNAL CHILD - Last Filed: 08/13/24 19:03> Social History Social History: Social History Social History: She has previously been but remarried and is been living with her 2nd for... . The patient had a stillborn and had 2 living children. Her son subsequently in adulthood. She has 1 remaining daughter. The patient is a former smoker. She denies any marijuana alcohol or illicit drugs. She does drink a fair amount of caffeine in the form soda. Code status: Full code Surrogate decision maker: Smoking packs per day: 1 Smoking cigarettes per day: 20.0 Years smoked: 50 Smoking pack-years: 50.00 Smoking status: Former smoker Tobacco type: cigarettes Second hand tobacco smoke exposure: No Smoking end date: 04/14/03 Alcohol intake: never Substance use: never Substance use type: does not use Do You Feel Safe in your Home?: Yes Lack of Transportation: No Lack of Food: Never True Current Housing: I Have Housing Concerned About Future Housing: No Difficulty Paying Gas/Electric Bills: No Difficulty Paying for Meds: No Currently Unemployed: No Education: Trade/Vocational Certificate Difficulty w/ Childcare or Family Care: No Living arrangements: with family Occupation/Education: retired Additional occupation/education comments: She used to work for a [employer] and [employer]. Gender identity (if verbalized by the patient): Female Sexual Orientation (if Verbalized by the Patient): Straight or Heterosexual Spiritual care concerns: No Agree to blood products: Yes <Ivelisse Elizalde, REGISTERED NURSE MATERNAL CHILD - Last Filed: 08/13/24 19:03> Exam 2 Const: General: cooperative, healthy appearing and no acute distress < Channing Molina III, DO - Last Filed: 08/17/24 15:38> HENMT: Head: normal to inspection <Channing Molina III, DO - Last Filed: 08/17/24 15:38> Chest: Chest palpation & inspection: localized rib tenderness with anteroposterior compression and tenderness (posterior right lower) <Channing Johnson Molina III, DO - Last Filed: 08/17/24 15:38> Resp: Effort & Inspection: normal respiratory effort <Channing Johnson Molina III, DO - Last Filed: 08/17/24 15:38> Auscultation: clear to auscultation bilaterally <Channing Johnson Molina III, DO - Last Filed: 08/17/24 15:38> Cardio: Rate: regular rate <Channing Johnson Molina III, DO - Last Filed: 08/17/24 15:38> Rhythm: regular rhythm <Channing Johnson Molina III, DO - Last Filed: 08/17/24 15:38> GI: Inspection: normal to inspection <Channing Johnson Molina III, DO - Last Filed: 08/17/24 15:38> GI Palp: No abdominal tenderness <Channing Johnson Molina III, DO - Last Filed: 08/17/24 15:38> Auscultation: normal bowel sounds <Channing Johnson Molina III, DO - Last Filed: 08/17/24 15:38> Skin: General skin exam: normal color and no rashes or lesions noted < Channing Johnson Molina III, DO - Last Filed: 08/17/24 15:38> Neuro: General: patient oriented x3 <Channing Johnson Molina III, DO - Last Filed: 08/17/24 15:38> Extrem: General: normal to inspection <Channing Johnson Molina III, DO - Last Filed: 08/17/24 15:38> Psych: Appearance: grossly normal <Channing Johnson Molina III, DO - Last Filed: 08/17/24 15:38> Mental Status: mental status grossly normal <Channing Johnson Molina III, DO - Last Filed: 08/17/24 15:38> Course Vital Signs Vital signs: Vital Signs Temperature 97.3 F L 08/13/24 12:50 Pulse Rate 91 08/13/24 12:50 Respiratory Rate 16 08/13/24 12:50 Blood Pressure 143/62 H 08/13/24 12:50 Pulse Oximetry 100 08/13/24 12:50 Temperature 97.8 F 08/13/24 17:32 Pulse Rate 64 08/13/24 17:32 Respiratory Rate 15 08/13/24 17:32 Blood Pressure 147/52 H 08/13/24 17:32 Pulse Oximetry 100 08/13/24 17:32 <Ivelisse Elizalde, REGISTERED NURSE MATERNAL CHILD - Last Filed: 08/13/24 19:03> Vital Signs Temperature 97.3 F L 08/13/24 12:50 Pulse Rate 91 08/13/24 12:50 Respiratory Rate 16 08/13/24 12:50 Blood Pressure 143/62 H 08/13/24 12:50 Pulse Oximetry 100 08/13/24 12:50 Temperature 97.8 F 08/13/24 17:32 Pulse Rate 64 08/13/24 17:32 Respiratory Rate 15 08/13/24 17:32 Blood Pressure 147/52 H 08/13/24 17:32 Pulse Oximetry 100 08/13/24 17:32 <Channing Molina III, DO - Last Filed: 08/17/24 15:38> Medical Decision Making MDM Narrative Medical decision making narrative: Pt has rib fx's on ct. will give pain meds. Pt has no urinary symptoms so will cancel UA. <Channing Molina III, DO - Last Filed: 08/17/24 15:38> Vital Signs Vital Signs: Vital Signs Temperature 97.3 F L 08/13/24 12:50 Pulse Rate 91 08/13/24 12:50 Respiratory Rate 16 08/13/24 12:50 Blood Pressure 143/62 H 08/13/24 12:50 Pulse Oximetry 100 08/13/24 12:50 Temperature 97.8 F 08/13/24 17:32 Pulse Rate 64 08/13/24 17:32 Respiratory Rate 15 08/13/24 17:32 Blood Pressure 147/52 H 08/13/24 17:32 Pulse Oximetry 100 08/13/24 17:32 <Ivelisse Elizalde, REGISTERED NURSE MATERNAL CHILD - Last Filed: 08/13/24 19:03> Vital Signs Temperature 97.3 F L 08/13/24 12:50 Pulse Rate 91 08/13/24 12:50 Respiratory Rate 16 08/13/24 12:50 Blood Pressure 143/62 H 08/13/24 12:50 Pulse Oximetry 100 08/13/24 12:50 Temperature 97.8 F 08/13/24 17:32 Pulse Rate 64 08/13/24 17:32 Respiratory Rate 15 08/13/24 17:32 Blood Pressure 147/52 H 08/13/24 17:32 Pulse Oximetry 100 08/13/24 17:32 <Channing Molina III, DO - Last Filed: 08/17/24 15:38> Lab Data Result diagrams: 08/13/24 15:25 08/13/24 15:25 <Ivelisse Elizalde, REGISTERED NURSE MATERNAL CHILD - Last Filed: 08/13/24 19:03> Labs: Lab Results 08/13/24 Range/Units 15:25 WBC 6.6 (4.5-10.0) K/mm3 RBC 3.32 L (4.2-5.4) M/mm3 Hgb 10.2 L (12.0-15.0) g/dL Hct 32.0 L (37.0-47.0) % MCV 96.4 (80-100) fl MCH 30.7 (26-34) pg MCHC 31.9 L (32-36) g/dl RDW 13.6 (11.5-14.5) % Plt Count 128 L (150-375) k/mm3 MPV 12.3 H (7.4-10.4) fl Immature Gran % (Auto) 0.8 H (0-0.5) % Neut % (Auto) 85.4 H (45.5-73.1) % Lymph % (Auto) 10.9 L (18.3-44.2) % Lipscomb % (Auto) 2.9 (2.6-8.5) % Eos % (Auto) 0.0 (0-4.4) % Baso % (Auto) 0.0 L (0.2-1.2) % Lymph # (Auto) 0.72 L (0.9-3.2) K/mm3 Lipscomb # (Auto) 0.2 (0.1-0.6) K/mm3 Eos # (Auto) 0.0 (0-0.3) K/mm3 Baso # (Auto) 0.0 (0.0-0.1) K/mm3 Abs Immat Gran (auto) 0.05 H (0.00-0.031) K/mm3 Absolute Neuts (auto) 5.7 (1.3-6.7) K/mm3 Absolute Nucleated RBC 0.000 (0.0-0.012) K/mm3 Nucleated RBC % 0.0 (0.0-0.2) % PT 13.5 (11.1-14.7) Seconds INR 1.0 APTT 24.2 (22.3-36.8) Seconds Sodium 133 L (137-145) mmol/L Potassium 4.3 (3.4-5.0) mmol/L Chloride 102 (98-107) mmol/L Carbon Dioxide 21 L (22-30) mmol/L Anion Gap 10 (4-12) mmol/L BUN 15 (7-17) mg/dL Creatinine 0.66 L (0.7-1.0) mg/dL Estim Creat Clear Calc 55 ml/min Estimated GFR > 60 (59 - ) Glucose 294 H (65-110) mg/dL Calcium 10.0 (8.4-10.2) mg/dL Total Bilirubin 0.8 (0.2-1.3) mg/dL AST 17 (14-36) U/L ALT 25 (6-35) U/L Alkaline Phosphatase 149 H (38-126) U/L Total Protein 8.0 (6.3-8.2) g/dL Albumin 4.2 (3.5-5.1) g/dL <Ivelisse Elizalde, REGISTERED NURSE MATERNAL CHILD - Last Filed: 08/13/24 19:03> Lab Results 08/13/24 Range/Units 15:25 WBC 6.6 (4.5-10.0) K/mm3 RBC 3.32 L (4.2-5.4) M/mm3 Hgb 10.2 L (12.0-15.0) g/dL Hct 32.0 L (37.0-47.0) % MCV 96.4 (80-100) fl MCH 30.7 (26-34) pg MCHC 31.9 L (32-36) g/dl RDW 13.6 (11.5-14.5) % Plt Count 128 L (150-375) k/mm3 MPV 12.3 H (7.4-10.4) fl Immature Gran % (Auto) 0.8 H (0-0.5) % Neut % (Auto) 85.4 H (45.5-73.1) % Lymph % (Auto) 10.9 L (18.3-44.2) % Lipscomb % (Auto) 2.9 (2.6-8.5) % Eos % (Auto) 0.0 (0-4.4) % Baso % (Auto) 0.0 L (0.2-1.2) % Lymph # (Auto) 0.72 L (0.9-3.2) K/mm3 Lipscomb # (Auto) 0.2 (0.1-0.6) K/mm3 Eos # (Auto) 0.0 (0-0.3) K/mm3 Baso # (Auto) 0.0 (0.0-0.1) K/mm3 Abs Immat Gran (auto) 0.05 H (0.00-0.031) K/mm3 Absolute Neuts (auto) 5.7 (1.3-6.7) K/mm3 Absolute Nucleated RBC 0.000 (0.0-0.012) K/mm3 Nucleated RBC % 0.0 (0.0-0.2) % PT 13.5 (11.1-14.7) Seconds INR 1.0 APTT 24.2 (22.3-36.8) Seconds Sodium 133 L (137-145) mmol/L Potassium 4.3 (3.4-5.0) mmol/L Chloride 102 (98-107) mmol/L Carbon Dioxide 21 L (22-30) mmol/L Anion Gap 10 (4-12) mmol/L BUN 15 (7-17) mg/dL Creatinine 0.66 L (0.7-1.0) mg/dL Estim Creat Clear Calc 55 ml/min Estimated GFR > 60 (59 - ) Glucose 294 H (65-110) mg/dL Calcium 10.0 (8.4-10.2) mg/dL Total Bilirubin 0.8 (0.2-1.3) mg/dL AST 17 (14-36) U/L ALT 25 (6-35) U/L Alkaline Phosphatase 149 H (38-126) U/L Total Protein 8.0 (6.3-8.2) g/dL Albumin 4.2 (3.5-5.1) g/dL <Channing Molina III, DO - Last Filed: 08/17/24 15:38> Discharge Plan Discharge Clinical Impression: Fracture, ribs <Ivelisse Elizalde APRN - Last Filed: 08/13/24 19:03> Patient Disposition: Home <Ivelisse Elizalde APRN - Last Filed: 08/13/24 19:03> Condition: Improved <Ivelisse Elizalde APRN - Last Filed: 08/13/24 19:03> Instructions: Antibiotic Form, Rib Fracture (ED) <Ivelisse Elizalde APRN - Last Filed: 08/13/24 19:03> Patient Language: Azeri <Ivelisse Elizalde APRN - Last Filed: 08/13/24 19:03> Prescriptions: New hydrocodone-acetaminophen 5-325 mg tablet 1 tablet PO Q6H PRN (Reason: pain) Qty: 14 0RF No Action atorvastatin 80 mg tablet 80 mg PO QHS Qty: 100 1RF levetiracetam 500 mg tablet 500 mg PO BID calcium carbonate 600 mg calcium (1,500 mg) tablet 600 mg PO DAILY lisinopril 20 mg tablet 20 mg PO DAILY Qty: 90 1RF citalopram [Celexa] 10 mg tablet 10 mg PO DAILY Qty: 90 1RF potassium chloride 10 mEq capsule, extended release 10 meq PO DAILY Qty: 10 0RF levothyroxine 50 mcg tablet 50 mcg PO DAILY Patient Comments: QAM mesalamine 1.2 gram tablet,delayed release (DR/EC) 1.2 g PO QID aspirin 81 mg Tablet,Delayed Release (Dr/Ec) 81 mg PO QAM Qty: 90 0RF lidocaine HCl-hydrocortison ac 3-0.5 % kit 1 applic RECTAL Q12H PRN (Reason: hemorrhoids) Qty: 1 0RF (DME) blood-glucose meter [Blood Glucose Monitoring] Kit See Rx Instructions .ROUTE .MEDSUPPLY Qty: 1 0RF Rx Instructions: Use once daily to check blood glucose (DME) Comfort EZ Pen [place] 33 gauge x 5/16 needle See Rx Instructions .Route Qty: 100 0RF Rx Instructions: use daily (DME) OneTouch Ultra Test Strip See Rx Instructions .Route Qty: 100 5RF Rx Instructions: use 1 strip to check blood sugar 3 times daily amlodipine 10 mg tablet 10 mg PO DAILY Qty: 90 0RF Patient Comments: QAM clopidogrel 75 mg tablet 75 mg PO DAILY Qty: 90 0RF folic acid 1 mg tablet 1 mg PO DAILY Qty: 90 1RF prednisone 5 mg tablet 5 mg PO DIRECTED Qty: 252 0RF Rx Instructions: Take 40 mg by mouth daily (8 pills) for one week, then 35 mg by mouth daily (7 pills) for one week, then 30 mg by mouth daily (6 pills)for one week, then 25 mg by mouth daily (5 pills) for one week, then 20 mg by mouth daily (4 pills) for one week, then 15 mg by mouth daily (3 pills) for one week, then 10 mg by mouth daily (2 pills) for one week, then 5 mg by mouth daily (1 pill) for one week. <Ivelisse Elizalde APRN - Last Filed: 08/13/24 19:03> Follow-up/Referrals: Dorothea Ledezma MD [Primary Care Provider] - <Ivelisse Elizalde APRN - Last Filed: 08/13/24 19:03>
[2024-08-13] MEDS: ONDANSETRON INJ 4 MG/2 ML VIAL IV PUSH (15:12)
[2024-08-13] MEDS: MORPHINE SULFATE (*CRX) 2 MG/ML INJ IV PUSH (15:12)
[2024-08-13 15:21] VITALS: BP 165/55; PULSE 64; RESP 18; O2SAT 100
[2024-08-13 15:32] LABS: Hemoglobin 10.2 g/dL (12.0-15.0); Immature Granulocyte Absolute 0.05 K/mm3 (0.00-0.031); Immature Granulocyte Percent A 0.8 % (0-0.5); Lymphocytes Absolute Auto 0.72 K/mm3 (0.9-3.2); Lymphocytes Percent Auto 10.9 % (18.3-44.2); Mean Corpuscular HGB Conc 31.9 g/dl (32-36); Mean Corpuscular Hemoglobin 30.7 pg (26-34); Mean Corpuscular Volume 96.4 fl (80-100); Mean Platelet Volume 12.3 fl (7.4-10.4); Monocytes Absolute Auto 0.2 K/mm3 (0.1-0.6); Monocytes Percent Auto 2.9 % (2.6-8.5); Neutrophils Absolute Auto 5.7 K/mm3 (1.3-6.7); Neutrophils Percent Auto 85.4 % (45.5-73.1); Platelet Count Result 128 k/mm3 (150-375); Red Blood Count 3.32 M/mm3 (4.2-5.4); Red Cell Distribution Width 13.6 % (11.5-14.5); White Blood Count 6.6 K/mm3 (4.5-10.0)
[2024-08-13 15:45] LABS: Partial Thromboplastin Time 24.2 Seconds (22.3-36.8); Prothrombin Time 13.5 Seconds (11.1-14.7)
[2024-08-13 15:47] LABS: Alanine Aminotransferase 25 U/L (6-35); Albumin Level 4.2 g/dL (3.5-5.1); Alkaline Phosphatase 149 U/L (38-126); Anion Gap 10 mmol/L (4-12); Aspartate Amino Transferase 17 U/L (14-36); Bilirubin,Total 0.8 mg/dL (0.2-1.3); Blood Urea Nitrogen 15 mg/dL (7-17); Carbon Dioxide 21 mmol/L (22-30); Chloride 102 mmol/L (98-107); Estimated CRCL calculation 55 ml/min; Estimated Glomerular Filt Rate > 60; Glucose 294 mg/dL (65-110); Potassium 4.3 mmol/L (3.4-5.0); Sodium 133 mmol/L (137-145)
[2024-08-13 17:32] VITALS: BP 147/52; PULSE 64; RESP 15; TEMP 36.6; O2SAT 100
--- OUTSIDE RECORDS SUMMARY | 2024-08-14 13:20 | XMS_ITS | Referral Summary ---
Author Organization [facility] [address] [facility] [address] Address [address] [place] [address] Care Team Providers Care Fitness And Wellness Director Name Role Phone Kd Ledezma MD Primary Care Provider Encounters Date Type Department Care Team Description 07/16/2024 9:45 AM CDT Office Visit [facility] Medical [facility] Cardiology [address] [facility] [address] [place] [address] Rene Trammell MD Hyperlipidemia LDL goal <70 (Primary Dx); Pulmonary HTN (HCC); Primary hypertension; Nonrheumatic aortic valve insufficiency; History of PSVT (paroxysmal supraventricular tachycardia); Peripheral arterial occlusive disease 06/09/2024 Telephone [facility] Neurology [address] [place] [phone] Ivory Teresa NP Test Results (Results ) 06/08/2024 Results Follow-Up [facility] Neurology [address] [place] [phone] Ivory Teresa NP 06/07/2024 2:15 PM FREIGHT CAR LOADER Lab [facility] Medical Office Bldg [address] OP Lab [address] [place] [id number] Memory disturbance 06/07/2024 1:00 PM FREIGHT CAR LOADER Office Visit [facility] Neurology [address] [place] [address] [phone] Ivory Teresa NP Memory disturbance (Primary Dx); [...] TIMES DAILY 2 Active Comfort EZ Pen [place] 32 gauge x 5/32 needle USE [...] on file Legal Sex Female 8:59 PM FREIGHT CAR LOADER Gender Identity Not on file Sexual Orientation [...] TO ALICJA QUANTITATIVE Routine 06/07/2024 2:25 PM FREIGHT CAR LOADER Memory disturbance ERYTHROCYTE SEDIMENTATION RATE Routine 06/07/2024 2:25 PM FREIGHT CAR LOADER Memory disturbance TSH Routine 06/07/2024 2:25 PM FREIGHT CAR LOADER Memory disturbance T4, FREE Routine 06/07/2024 2:25 PM FREIGHT CAR LOADER Memory disturbance VITAMIN B12 Routine 06/07/2024 2:25 PM FREIGHT CAR LOADER Memory disturbance FOLATE Routine 06/07/2024 2:25 PM FREIGHT CAR LOADER Memory disturbance ALBUMIN CREATININE RATIO, URINE Routine 01/24/2023 3:49 PM CDT COMPREHENSIVE METABOLIC PANEL Routine 01/24/2023 3:48 PM CDT HEMOGLOBIN A1C Routine 01/24/2023 3:48 PM CDT LIPID PANEL Routine 01/24/2023 3:48 PM CDT from Last 3 Months or Most Recently Relevant to Health Maintenance Results * ALICJA ab ql w/rflx to ALICJA qn (06/07/2024 2:25 PM FREIGHT CAR LOADER) ALICJA Negative Comment: Interpretive Data Normal range [...] last revised on 2019. Testing performed by: [facility], [address] [facility] [place] [address] Blood 06/07/2024 2:25 PM FREIGHT CAR LOADER 06/07/2024 7:56 PM FREIGHT CAR LOADER Ivory Teresa NP LAB BLOOD ORDERABLES Final R esult Performing Organization Address [facility] Co de Phone Number [address] [place] [address] * (ABNORMAL) Erythrocyte sedimentation rate (06/07/2024 2:25 PM FREIGHT CAR LOADER) Erythrocyte sedimentation rate 40(H) 1 - 30 mm/hr Blood 06/07/2024 2:25 PM FREIGHT CAR LOADER 06/07/2024 4:25 PM FREIGHT CAR LOADER Ivory Teresa NP LAB BLOOD ORDERABLES Final R esult Performing Organization Address [facility] Co de Phone Number [place] [phone] [facility] [place] [address] * TSH (06/07/2024 2:25 PM FREIGHT CAR LOADER) Pathologist [facility] Thyroid Stimulating Hormone 0.50 0.30 - 4.20 mcIUnit/mL Blood 06/07/2024 2:25 PM FREIGHT CAR LOADER 06/07/2024 4:25 PM FREIGHT CAR LOADER Ivory Teresa ORACLE PROGRAMMER ANALYST LAB BLOOD ORDERABLES Final R esult Performing Organization Address City/[facility] Co de Phone Number [address] [place] [address] * T4, free (06/07/2024 2:25 PM FREIGHT CAR LOADER) [facility] Free T4 1.36 0.90 - 1.70 ng/dL Blood 06/07/2024 2:25 PM FREIGHT CAR LOADER 06/07/2024 4:25 PM FREIGHT CAR LOADER Ivory Teresa NP LAB BLOOD ORDERABLES Final R esult Performing Organization Address [facility] Co de Phone Number [address] [place] [address] * (ABNORMAL) Folate (06/07/2024 2:25 PM FREIGHT CAR LOADER) [facility] Folic acid 4.9(L) >=5.0 ng/mL Blood 06/07/2024 2:25 PM FREIGHT CAR LOADER 06/07/2024 4:28 PM FREIGHT CAR LOADER Ivory Teresa ORACLE PROGRAMMER ANALYST LAB BLOOD ORDERABLES Final R esult Performing Organization Address [facility] Co de Phone Number [address] [place] [address] * Vitamin B12 (06/07/2024 2:25 PM FREIGHT CAR LOADER) [facility] Vitamin B12 538 230 - 1,250 pg/mL Blood 06/07/2024 2:25 PM FREIGHT CAR LOADER 06/07/2024 4:25 PM FREIGHT CAR LOADER Ivory Teresa ORACLE PROGRAMMER ANALYST LAB BLOOD ORDERABLES Final R esult Performing Organization Address City/[facility]/ZIP Co de Phone Number [place] [address] [facility] [place] [address] * (ABNORMAL) Albumin Creatinine Ratio, Urine (01/24/2023 3:49 PM CDT) SCRIBED Creatinine, Urine 98.3 NA - NA EXTERNAL LAB SCRIBED Microalbumin 726.9(A) 0 - 16.7 EXTERNAL LAB SCRIBED Microalb/Creat Ratio 739.5(A) 0 - 30 EXTERNAL LAB Urine 01/24/2023 3:49 PM CDT [facility] Provider MD LAB URINE ORDERABLES Edit ed Result - Final Performing Organization Address City/[facility] Co de Phone Number EXTERNAL LAB * Hemoglobin A1c (01/24/2023 3:48 PM CDT) SCRIBED Hemoglobin A1c 5.1 <5.7 - NA % EXTERNAL LAB Blood 01/24/2023 3:48 PM CDT [facility] Provider LAB BLOOD ORDERABLES Edit ed Result - Final Performing Organization Address City/[facility]/ZIP Co de Phone Number EXTERNAL LAB * [...] Units/L EXTERNAL LAB SCRIBED eGFR in NonAfrican [place]ander >60 >=60 - NA EXTERNAL LAB Blood 01/24/2023 3:48 PM CDT us Historical Provider LAB BLOOD ORDERABLES Edit ed Result - Final EXTERNAL LAB from Last 3 Months or Most Recently Relevant to Health Maintenance Insurance [employer] OOS MEDICARE [place] [facility] MEDICARE BLUE ACCESS [place] Advance Directives For more information, please contact: [phone] * Full Code (Latest Code Status on File) Date Activated Date Inactivated Comments 01/29/2021 12:10 AM 02/01/2021 7:53 PM Care Teams Fitness And Wellness Director Relationship Specialty Start Date End Date Kd Ledezma MD PCP - General Family Practice 12/09/19
--- OUTSIDE RECORDS SUMMARY | 2024-08-14 13:20 | XMS_ITS | Clinical Summary ---
Author Organization [facility] [address] Address [address] [place] [address] Care Team Providers Care Video Arcade Manager Name Role Phone Kd Ledezma MD [...] TIMES DAILY 2 Active Comfort EZ Pen [place] 32 gauge x needle USE NIGHTLY 2 [...] Description 07/16/2024 9:45 AM CDT Office Visit [facility] Cardiology [address] [facility] [address] [place] [phone] Rene Trammell MD Hyperlipidemia LDL goal <70 (Primary Dx); Pulmonary HTN (HCC); Primary hypertension; Nonrheumatic aortic valve insufficiency; History of PSVT (paroxysmal supraventricular tachycardia); Peripheral arterial occlusive disease 06/09/2024 Telephone [facility] Neurology [address] [place] [phone] Ivory Teresa NP Test Results (Results ) 06/08/2024 Results Follow-Up [facility] Neurology [address] [place] [phone] Ivory Teresa NP 06/07/2024 2:15 PM RETAIL SALESPERSON Lab [facility] Medical Office Bldg 3 OP Lab [address] [place] [phone] Memory disturbance 06/07/2024 1:00 PM RETAIL SALESPERSON Office Visit [facility] Neurology [address] [place] [phone] Ivory Teresa NP Memory disturbance (Primary Dx); [...] on file Legal Sex Female 8:59 PM RETAIL SALESPERSON Gender Identity Not on file Sexual Orientation [...] TO ALICJA QUANTITATIVE Routine 06/07/2024 2:25 PM RETAIL SALESPERSON Memory disturbance ERYTHROCYTE SEDIMENTATION RATE Routine 06/07/2024 2:25 PM RETAIL SALESPERSON Memory disturbance TSH Routine 06/07/2024 2:25 PM RETAIL SALESPERSON Memory disturbance T4, FREE Routine 06/07/2024 2:25 PM RETAIL SALESPERSON Memory disturbance VITAMIN B12 Routine 06/07/2024 2:25 PM RETAIL SALESPERSON Memory disturbance FOLATE Routine 06/07/2024 2:25 PM RETAIL SALESPERSON Memory disturbance ALBUMIN CREATININE RATIO, URINE Routine 01/24/2023 3:49 PM CDT COMPREHENSIVE METABOLIC PANEL Routine 01/24/2023 3:48 PM CDT HEMOGLOBIN A1C Routine 01/24/2023 3:48 PM CDT LIPID PANEL Routine 01/24/2023 3:48 PM CDT from Last 3 Months or Most Recently Relevant to Health Maintenance Results * ALICJA ab ql w/rflx to ALICJA qn (06/07/2024 2:25 PM RETAIL SALESPERSON) ALICJA Negative Comment: Interpretive Data Normal range [...] last revised on 2019. Testing performed by: [facility], [address] [place]., [address] Blood 06/07/2024 2:25 PM RETAIL SALESPERSON 06/07/2024 7:56 PM RETAIL SALESPERSON Ivory Teresa NP LAB BLOOD ORDERABLES Final R esult Performing Organization Address [facility] Co de Phone Number [address] [place] [address] * (ABNORMAL) Erythrocyte sedimentation rate (06/07/2024 2:25 PM RETAIL SALESPERSON) Erythrocyte sedimentation rate 40(H) 1 - 30 mm/hr Blood 06/07/2024 2:25 PM RETAIL SALESPERSON 06/07/2024 4:25 PM RETAIL SALESPERSON Ivory Teresa NP LAB BLOOD ORDERABLES Final R esult Performing Organization Address [facility] Co de Phone Number [address] [place] [address] * TSH (06/07/2024 2:25 PM RETAIL SALESPERSON) Thyroid Stimulating Hormone 0.50 0.30 - 4.20 mcIUnit/mL Blood 06/07/2024 2:25 PM RETAIL SALESPERSON 06/07/2024 4:25 PM RETAIL SALESPERSON Ivory Teresa NP LAB BLOOD ORDERABLES Final R esult Performing Organization Address [facility] Co de Phone Number [address] [place] [address] * T4, free (06/07/2024 2:25 PM RETAIL SALESPERSON) [facility] Free T4 1.36 0.90 - 1.70 ng/dL Blood 06/07/2024 2:25 PM RETAIL SALESPERSON 06/07/2024 4:25 PM RETAIL SALESPERSON Ivory Teresa BAND MACHINE OPERATOR LAB BLOOD ORDERABLES Final R esult Performing Organization Address City/[facility]/ZIP Co de Phone Number [address] [place] [address] * (ABNORMAL) Folate (06/07/2024 2:25 PM RETAIL SALESPERSON) [facility] Folic acid 4.9(L) >=5.0 ng/mL Blood 06/07/2024 2:25 PM RETAIL SALESPERSON 06/07/2024 4:28 PM RETAIL SALESPERSON Ivory Teresa NP LAB BLOOD ORDERABLES Final R esult Performing Organization Address [facility] Co de Phone Number [address] [place] [address] * Vitamin B12 (06/07/2024 2:25 PM RETAIL SALESPERSON) [facility] Vitamin B12 538 230 - 1,250 pg/mL Blood 06/07/2024 2:25 PM RETAIL SALESPERSON 06/07/2024 4:25 PM RETAIL SALESPERSON Ivory Teresa BAND MACHINE OPERATOR LAB BLOOD ORDERABLES Final R esult Performing Organization Address [facility] Co de Phone Number [address] [place] [address] * (ABNORMAL) Albumin Creatinine Ratio, Urine (01/24/2023 3:49 PM CDT) [facility] SCRIBED Creatinine, Urine 98.3 NA - NA EXTERNAL LAB SCRIBED Microalbumin 726.9(A) 0 - 16.7 EXTERNAL LAB SCRIBED Microalb/Creat Ratio 739.5(A) 0 - 30 EXTERNAL LAB Urine 01/24/2023 3:49 PM CDT Historical Provider MD LAB URINE ORDERABLES Edit ed Result - Final Performing Organization Address [facility] Co de Phone Number EXTERNAL LAB * Hemoglobin A1c (01/24/2023 3:48 PM CDT) SCRIBED Hemoglobin A1c 5.1 <5.7 - NA % EXTERNAL LAB Blood 01/24/2023 3:48 PM CDT [facility] Provider MD LAB BLOOD ORDERABLES Edit ed Result - Final Performing Organization Address [facility] de Phone Number EXTERNAL LAB * Lipid panel (01/24/2023 3:48 PM CDT) SCRIBED Cholesterol, Total 131 0 - 200 EXTERNAL LAB SCRIBED HDL 47 >35 - NA EXTERNAL LAB SCRIBED LDL 62 <130 - NA EXTERNAL LAB SCRIBED Triglycerides 94 <150 - NA EXTERNAL LAB Blood 01/24/2023 3:48 PM CDT [facility] Provider MD LAB BLOOD ORDERABLES Edit ed Result - Final Performing Organization Address [facility] de Phone Number EXTERNAL LAB * [...] Units/L EXTERNAL LAB SCRIBED eGFR in NonAfrican [place]ian >60 >=60 - NA EXTERNAL LAB Blood 01/24/2023 3:48 PM CDT us Historical Provider LAB BLOOD ORDERABLES Edit ed Result - Final EXTERNAL LAB from Last 3 Months or Most Recently Relevant to Health Maintenance Insurance [employer] OOS MEDICARE [place] ACCESS [place] MEDICARE BLUE ACCESS [place] Advance Directives For more information, please contact: [phone] * Full Code (Latest Code Status on File) Date Activated Date Inactivated Comments 01/29/2021 12:10 AM 02/01/2021 7:53 PM Care Teams Video Arcade Manager Relationship Specialty Start Date End Date Kd Ledezma MD PCP - General Family Practice 12/09/19
--- OUTSIDE RECORDS SUMMARY | 2024-08-14 14:18 | XMS_ITS | Clinical Summary ---
Author Organization [facility] [address] Address [address] [place] [address] Care Team Providers Care Construction Skills Teacher Name Role Phone Kd Ledezma MD [...] TIMES DAILY 2 Active Comfort EZ Pen [place] 32 gauge x needle USE NIGHTLY 2 [...] Description 07/16/2024 9:45 AM CDT Office Visit [facility] Cardiology [address] [facility] [address] [place] [phone] Rene Trammell MD Hyperlipidemia LDL goal <70 (Primary Dx); Pulmonary HTN (HCC); Primary hypertension; Nonrheumatic aortic valve insufficiency; History of PSVT (paroxysmal supraventricular tachycardia); Peripheral arterial occlusive disease 06/09/2024 Telephone [facility] Neurology [address] [place] [phone] Ivory Teresa NP Test Results (Results ) 06/08/2024 Results Follow-Up [facility] Neurology [address] [place] [phone] Ivory Teresa NP 06/07/2024 2:15 PM PHOTOCOPYING EQUIPMENT REPAIRER Lab [facility] Medical Office Bldg [address] OP Lab [address] [place] [phone] Memory disturbance 06/07/2024 1:00 PM PHOTOCOPYING EQUIPMENT REPAIRER Office Visit [facility] Neurology [address] [place] [phone] Ivory Teresa NP Memory disturbance (Primary Dx); [...] on file Legal Sex Female 8:59 PM PHOTOCOPYING EQUIPMENT REPAIRER Gender Identity Not on file Sexual [...] TO ALICJA QUANTITATIVE Routine 06/07/2024 2:25 PM PHOTOCOPYING EQUIPMENT REPAIRER Memory disturbance ERYTHROCYTE SEDIMENTATION RATE Routine 06/07/2024 2:25 PM PHOTOCOPYING EQUIPMENT REPAIRER Memory disturbance TSH Routine 06/07/2024 2:25 PM PHOTOCOPYING EQUIPMENT REPAIRER Memory disturbance T4, FREE Routine 06/07/2024 2:25 PM PHOTOCOPYING EQUIPMENT REPAIRER Memory disturbance VITAMIN B12 Routine 06/07/2024 2:25 PM PHOTOCOPYING EQUIPMENT REPAIRER Memory disturbance FOLATE Routine 06/07/2024 2:25 PM PHOTOCOPYING EQUIPMENT REPAIRER Memory disturbance ALBUMIN CREATININE RATIO, URINE Routine 01/24/2023 3:49 PM CDT COMPREHENSIVE METABOLIC PANEL Routine 01/24/2023 3:48 PM CDT HEMOGLOBIN A1C Routine 01/24/2023 3:48 PM CDT LIPID PANEL Routine 01/24/2023 3:48 PM CDT from Last 3 Months or Most Recently Relevant to Health Maintenance Results * ALICJA ab ql w/rflx to ALICJA qn (06/07/2024 2:25 PM PHOTOCOPYING EQUIPMENT REPAIRER) ALICJA Negative Comment: Interpretive Data Normal range [...] last revised on 2019. Testing performed by: [facility], [address] [place]., [address] Blood 06/07/2024 2:25 PM PHOTOCOPYING EQUIPMENT REPAIRER 06/07/2024 7:56 PM PHOTOCOPYING EQUIPMENT REPAIRER Ivory Teresa NP LAB BLOOD ORDERABLES Final R esult Performing Organization Address [facility] Co de Phone Number [address] [place] [address] * (ABNORMAL) Erythrocyte sedimentation rate (06/07/2024 2:25 PM PHOTOCOPYING EQUIPMENT REPAIRER) Erythrocyte sedimentation rate 40(H) 1 - 30 mm/hr Blood 06/07/2024 2:25 PM PHOTOCOPYING EQUIPMENT REPAIRER 06/07/2024 4:25 PM PHOTOCOPYING EQUIPMENT REPAIRER Ivory Teresa NP LAB BLOOD ORDERABLES Final R esult Performing Organization Address [facility] Co de Phone Number [address] [place] [address] * TSH (06/07/2024 2:25 PM PHOTOCOPYING EQUIPMENT REPAIRER) Thyroid Stimulating Hormone 0.50 0.30 - 4.20 mcIUnit/mL Blood 06/07/2024 2:25 PM PHOTOCOPYING EQUIPMENT REPAIRER 06/07/2024 4:25 PM PHOTOCOPYING EQUIPMENT REPAIRER Ivory Teresa NP LAB BLOOD ORDERABLES Final R esult Performing Organization Address [facility] Co de Phone Number [address] [place] [address] * T4, free (06/07/2024 2:25 PM PHOTOCOPYING EQUIPMENT REPAIRER) [facility] Free T4 1.36 0.90 - 1.70 ng/dL Blood 06/07/2024 2:25 PM PHOTOCOPYING EQUIPMENT REPAIRER 06/07/2024 4:25 PM PHOTOCOPYING EQUIPMENT REPAIRER Ivory Teresa SNOW TECHNICIAN LAB BLOOD ORDERABLES Final R esult Performing Organization Address City/[facility]/ZIP Co de Phone Number [address] [place] [address] * (ABNORMAL) Folate (06/07/2024 2:25 PM PHOTOCOPYING EQUIPMENT REPAIRER) [facility] Folic acid 4.9(L) >=5.0 ng/mL Blood 06/07/2024 2:25 PM PHOTOCOPYING EQUIPMENT REPAIRER 06/07/2024 4:28 PM PHOTOCOPYING EQUIPMENT REPAIRER Ivory Teresa NP LAB BLOOD ORDERABLES Final R esult Performing Organization Address [facility] Co de Phone Number [address] [place] [address] * Vitamin B12 (06/07/2024 2:25 PM PHOTOCOPYING EQUIPMENT REPAIRER) [facility] Vitamin B12 538 230 - 1,250 pg/mL Blood 06/07/2024 2:25 PM PHOTOCOPYING EQUIPMENT REPAIRER 06/07/2024 4:25 PM PHOTOCOPYING EQUIPMENT REPAIRER Ivory Teresa SNOW TECHNICIAN LAB BLOOD ORDERABLES Final R esult Performing Organization Address [facility] Co de Phone Number [address] [place] [address] * (ABNORMAL) Albumin Creatinine Ratio, Urine (01/24/2023 3:49 PM CDT) [facility] SCRIBED Creatinine, Urine 98.3 NA - NA EXTERNAL LAB SCRIBED Microalbumin 726.9(A) 0 - 16.7 EXTERNAL LAB SCRIBED Microalb/Creat Ratio 739.5(A) 0 - 30 EXTERNAL LAB Urine 01/24/2023 3:49 PM CDT Historical Provider MD LAB URINE ORDERABLES Edit ed Result - Final Performing Organization Address [facility] Co de Phone Number EXTERNAL LAB * Hemoglobin A1c (01/24/2023 3:48 PM CDT) SCRIBED Hemoglobin A1c 5.1 <5.7 - NA % EXTERNAL LAB Blood 01/24/2023 3:48 PM CDT [facility] Provider MD LAB BLOOD ORDERABLES Edit ed Result - Final Performing Organization Address [facility] de Phone Number EXTERNAL LAB * Lipid panel (01/24/2023 3:48 PM CDT) SCRIBED Cholesterol, Total 131 0 - 200 EXTERNAL LAB SCRIBED HDL 47 >35 - NA EXTERNAL LAB SCRIBED LDL 62 <130 - NA EXTERNAL LAB SCRIBED Triglycerides 94 <150 - NA EXTERNAL LAB Blood 01/24/2023 3:48 PM CDT [facility] Provider MD LAB BLOOD ORDERABLES Edit ed Result - Final Performing Organization Address [facility] de Phone Number EXTERNAL LAB * [...] Units/L EXTERNAL LAB SCRIBED eGFR in NonAfrican Micronesian >60 >=60 - NA EXTERNAL LAB Blood 01/24/2023 3:48 PM CDT us Historical Provider LAB BLOOD ORDERABLES Edit ed Result - Final EXTERNAL LAB from Last 3 Months or Most Recently Relevant to Health Maintenance Insurance [employer] OOS MEDICARE U[place] Access ACCESS OOS MEDICARE BLUE ACCESS OOS Advance Directives For more information, please contact: [phone] * Full Code (Latest Code Status on File) Date Activated Date Inactivated Comments 01/29/2021 12:10 AM 02/01/2021 7:53 PM Care Teams Construction Skills Teacher Relationship Specialty Start Date End Date Kd Ledezma MD PCP - General Family Practice 12/09/19
--- OUTSIDE RECORDS SUMMARY | 2024-08-14 14:18 | XMS_ITS | Referral Summary ---
Author Organization [facility] [address] [facility] [address] Address [address] [place] [address] Care Team Providers Care Lead Assembler Name Role Phone Kd Ledezma MD Primary Care Provider Encounters Date Type Department Care Team Description 07/16/2024 9:45 AM CDT Office Visit [facility] Medical [facility] Cardiology [address] [facility] 162 [address] [place] [phone] Rene Trammell MD Hyperlipidemia LDL goal <70 (Primary Dx); Pulmonary HTN (HCC); Primary hypertension; Nonrheumatic aortic valve insufficiency; History of PSVT (paroxysmal supraventricular tachycardia); Peripheral arterial occlusive disease 06/09/2024 Telephone [facility] Neurology [address] [place] [phone] Ivory Teresa NP Test Results (Results ) 06/08/2024 Results Follow-Up [facility] Neurology [address] [place] [phone] Ivory Teresa NP 06/07/2024 2:15 PM ORTHOPEDIC RN Lab [facility] Medical Office Bldg [address] [place] [address] Memory disturbance 06/07/2024 1:00 PM ORTHOPEDIC RN Office Visit [facility] Neurology [address] [place] [phone] Ivory Teresa NP Memory disturbance (Primary Dx); [...] TIMES DAILY 2 Active Comfort EZ Pen [place] 32 gauge x 5/32 needle USE NIGHTLY [...] on file Legal Sex Female 8:59 PM ORTHOPEDIC RN Gender Identity Not on file Sexual Orientation [...] TO ALICJA QUANTITATIVE Routine 06/07/2024 2:25 PM ORTHOPEDIC RN Memory disturbance ERYTHROCYTE SEDIMENTATION RATE Routine 06/07/2024 2:25 PM ORTHOPEDIC RN Memory disturbance TSH Routine 06/07/2024 2:25 PM ORTHOPEDIC RN Memory disturbance T4, FREE Routine 06/07/2024 2:25 PM ORTHOPEDIC RN Memory disturbance VITAMIN B12 Routine 06/07/2024 2:25 PM ORTHOPEDIC RN Memory disturbance FOLATE Routine 06/07/2024 2:25 PM ORTHOPEDIC RN Memory disturbance ALBUMIN CREATININE RATIO, URINE Routine 01/24/2023 3:49 PM CDT COMPREHENSIVE METABOLIC PANEL Routine 01/24/2023 3:48 PM CDT HEMOGLOBIN A1C Routine 01/24/2023 3:48 PM CDT LIPID PANEL Routine 01/24/2023 3:48 PM CDT from Last 3 Months or Most Recently Relevant to Health Maintenance Results * ALICJA ab ql w/rflx to ALICJA qn (06/07/2024 2:25 PM ORTHOPEDIC RN) ALICJA Negative Comment: Interpretive Data Normal range [...] last revised on 2019. Testing performed by: [facility], [address] [place] [address] Blood 06/07/2024 2:25 PM ORTHOPEDIC RN 06/07/2024 7:56 PM ORTHOPEDIC RN Ivory Teresa NP LAB BLOOD ORDERABLES Final R esult Performing Organization Address [facility] Co de Phone Number [address] [place] [address] * (ABNORMAL) Erythrocyte sedimentation rate (06/07/2024 2:25 PM ORTHOPEDIC RN) Erythrocyte sedimentation rate 40(H) 1 - 30 mm/hr Blood 06/07/2024 2:25 PM ORTHOPEDIC RN 06/07/2024 4:25 PM ORTHOPEDIC RN Ivory Teresa NP LAB BLOOD ORDERABLES Final R esult Performing Organization Address [facility] Co de Phone Number [place] [address] [facility] [place] [address] * TSH (06/07/2024 2:25 PM ORTHOPEDIC RN) Pathologist [facility] Thyroid Stimulating Hormone 0.50 0.30 - 4.20 mcIUnit/mL Blood 06/07/2024 2:25 PM ORTHOPEDIC RN 06/07/2024 4:25 PM ORTHOPEDIC RN Ivory Teresa FOOT DRILL OPERATOR LAB BLOOD ORDERABLES Final R esult Performing Organization Address City/[facility] Co de Phone Number [address] [place] [address] * T4, free (06/07/2024 2:25 PM ORTHOPEDIC RN) [facility] Free T4 1.36 0.90 - 1.70 ng/dL Blood 06/07/2024 2:25 PM ORTHOPEDIC RN 06/07/2024 4:25 PM ORTHOPEDIC RN Ivory Teresa NP LAB BLOOD ORDERABLES Final R esult Performing Organization Address [facility] Co de Phone Number [address] [place] [address] * (ABNORMAL) Folate (06/07/2024 2:25 PM ORTHOPEDIC RN) [facility] Folic acid 4.9(L) >=5.0 ng/mL Blood 06/07/2024 2:25 PM ORTHOPEDIC RN 06/07/2024 4:28 PM ORTHOPEDIC RN Ivory Teresa FOOT DRILL OPERATOR LAB BLOOD ORDERABLES Final R esult Performing Organization Address [facility] Co de Phone Number [address] [place] [address] * Vitamin B12 (06/07/2024 2:25 PM ORTHOPEDIC RN) [facility] Vitamin B12 538 230 - 1,250 pg/mL Blood 06/07/2024 2:25 PM ORTHOPEDIC RN 06/07/2024 4:25 PM ORTHOPEDIC RN Ivory Teresa FOOT DRILL OPERATOR LAB BLOOD ORDERABLES Final R esult Performing Organization Address City/[facility]/ZIP Co de Phone Number [place] [address] [facility] [place] [address] * (ABNORMAL) Albumin Creatinine Ratio, Urine (01/24/2023 3:49 PM CDT) SCRIBED Creatinine, Urine 98.3 NA - NA EXTERNAL LAB SCRIBED Microalbumin 726.9(A) 0 - 16.7 EXTERNAL LAB SCRIBED Microalb/Creat Ratio 739.5(A) 0 - 30 EXTERNAL LAB Urine 01/24/2023 3:49 PM CDT [facility] Provider MD LAB URINE ORDERABLES Edit ed Result - Final Performing Organization Address City/[facility] Co de Phone Number EXTERNAL LAB * Hemoglobin A1c (01/24/2023 3:48 PM CDT) SCRIBED Hemoglobin A1c 5.1 <5.7 - NA % EXTERNAL LAB Blood 01/24/2023 3:48 PM CDT [facility] Provider LAB BLOOD ORDERABLES Edit ed Result - Final Performing Organization Address City/[facility]/ZIP Co de Phone Number EXTERNAL LAB * [...] Units/L EXTERNAL LAB SCRIBED eGFR in NonAfrican Mozambican >60 >=60 - NA EXTERNAL LAB Blood 01/24/2023 3:48 PM CDT us Historical Provider LAB BLOOD ORDERABLES Edit ed Result - Final EXTERNAL LAB from Last 3 Months or Most Recently Relevant to Health Maintenance Insurance [employer] OOS MEDICARE [place] [employer] [facility] MEDICARE BLUE ACCESS OOS Advance Directives For more information, please contact: [phone] * Full Code (Latest Code Status on File) Date Activated Date Inactivated Comments 01/29/2021 12:10 AM 02/01/2021 7:53 PM Care Teams Lead Assembler Relationship Specialty Start Date End Date Kd Ledezma MD PCP - General Family Practice 12/09/19
== END 2024-08-13 17:33 | disposition home or self-care (01) ==
PROVIDERS: Registered Nurse; Emergency Provider Emergency Medicine; PCP Family Medicine
DX: S22.41XA Multiple fractures of ribs, right side, initial encounter for closed fracture (principal); I10 Essential (primary) hypertension; I08.2 Rheumatic disorders of both aortic and tricuspid valves; I25.10 Atherosclerotic heart disease of native coronary artery without angina pectoris; E11.9 Type 2 diabetes mellitus without complications; E78.5 Hyperlipidemia, unspecified; E03.9 Hypothyroidism, unspecified; D64.9 Anemia, unspecified; M85.80 Other specified disorders of bone density and structure, unspecified site; F32.A Depression, unspecified; Z86.73 Personal history of transient ischemic attack (TIA), and cerebral infarction without residual deficits; Z87.442 Personal history of urinary calculi; Z87.891 Personal history of nicotine dependence; Z79.82 Long term (current) use of aspirin; Z79.899 Other long term (current) drug therapy; Z79.02 Long term (current) use of antithrombotics/antiplatelets; W01.198A Fall on same level from slipping, tripping and stumbling with subsequent striking against other object, initial encounter
CPT/HCPCS: 36415; 71250; 74176; 80053; 85025; 85610; 85730; 96374; 96375; 99284; J2270; J2405

== ENCOUNTER 2024-11-06 12:59 | Outpatient (CLI) | payer MEDICARE, BC, SELFPAY ==
--- OUTSIDE RECORDS SUMMARY | 2024-11-06 13:02 | XMS_ITS | Clinical Summary ---
Author Organization [facility] [address] Address [address] [place] [address] Care Team Providers Care Burning Supervisor Name Role Phone Kd Ledezma MD Primary [...] lisinopril (PRINIVIL,ZESTRI L) 5 mg tablet Take 4 tablets (20 [...] TIMES DAILY 2 Active Comfort EZ Pen [place] 32 gauge x needle USE NIGHTLY 2 Active clopidogreL (PLAVIX) 75 mg tablet Take 1 tablet (75 mg total) by mouth daily Active levETIRAcetam (KEPPRA) 500 mg tabletIndication s:Complex [...] syndrome 11/17/2013 11/03/2018 Overview (07/19/2016): Tobacco abuse Medical History Medical History Date Comments Hx [...] on file Legal Sex Female 8:59 PM AWS DEVELOPER Gender Identity Not on file Sexual Orientation [...] 9:19 AM CDT Height 167.6 cm (5' 6) 07/16/2024 9:19 AM CDT Body Mass Index [...] 01/13, 01/30/2021, Additional history exists Influenza Vaccine (#1) 2024 Procedures Procedure Name Priority Date/Time Associated Diagnosis Comments ALBUMIN CREATININE RATIO, URINE Routine 01/24/2023 3:49 PM CDT COMPREHENSIVE METABOLIC PANEL Routine 01/24/2023 3:48 PM CDT HEMOGLOBIN A1C Routine 01/24/2023 3:48 PM CDT LIPID PANEL Routine 01/24/2023 3:48 PM CDT from Last 3 Months or Most Recently Relevant to Health Maintenance Results * (ABNORMAL) Albumin Creatinine Ratio, Urine (01/24/2023 3:49 PM CDT) SCRIBED Creatinine, Urine 98.3 NA - NA EXTERNAL LAB SCRIBED Microalbumin 726.9(A) 0 - 16.7 EXTERNAL LAB SCRIBED Microalb/Creat Ratio 739.5(A) 0 - 30 EXTERNAL LAB Urine 01/24/2023 3:49 PM CDT Historical Provider MD LAB URINE ORDERABLES Edit ed Result - Final Performing Organization Address City/[facility]/ZIP Co de Phone Number EXTERNAL LAB * Hemoglobin A1c (01/24/2023 3:48 PM CDT) SCRIBED Hemoglobin A1c 5.1 <5.7 - NA % EXTERNAL LAB Blood 01/24/2023 3:48 PM CDT Historical Provider MD LAB BLOOD ORDERABLES Edit ed Result - Final Performing Organization Address [facility] Co de Phone Number EXTERNAL LAB * Lipid panel (01/24/2023 3:48 PM CDT) SCRIBED Cholesterol, Total 131 0 - 200 EXTERNAL LAB SCRIBED HDL 47 >35 - NA EXTERNAL LAB SCRIBED LDL 62 <130 - NA EXTERNAL LAB SCRIBED Triglycerides 94 <150 - NA EXTERNAL LAB Blood 01/24/2023 3:48 PM CDT [facility] Provider MD LAB BLOOD ORDERABLES Edit ed Result - Final Performing Organization Address [facility] Co de Phone Number EXTERNAL [...] Units/L EXTERNAL LAB SCRIBED eGFR in NonAfrican Cape Verdean >60 >=60 - NA EXTERNAL LAB Blood 01/24/2023 3:48 PM CDT us Historical Provider LAB BLOOD ORDERABLES Edit ed Result - Final EXTERNAL LAB from Last 3 Months or Most Recently Relevant to Health Maintenance Insurance [employer] O MEDICARE BLUE ACCESS OOS MEDICARE BLUE ACCESS OOS Advance Directives For more information, please contact: [phone] * Full Code (Latest Code Status on File) Date Activated Date Inactivated Comments 01/29/2021 12:10 AM 02/01/2021 7:53 PM Care Teams Burning Supervisor Relationship Specialty Start Date End Date Kd Ledezma MD PCP - General Family Practice 12/09/19
--- OUTSIDE RECORDS SUMMARY | 2024-11-06 13:02 | XMS_ITS | Referral Summary ---
Author Organization [facility] [address] Address [address] [place] [address] Care Team Providers Care Forms Examiner Name Role Phone Kd Ledezma MD Primary [...] TIMES DAILY 2 Active Comfort EZ Pen [place] 32 gauge x needle USE NIGHTLY 2 [...] on file Legal Sex Female 8:59 PM VICE PRESIDENT OF INSTRUCTION Gender Identity Not on file Sexual Orientation [...] ed Result - Final Performing Organization Address [facility]/ZIP Co de Phone Number EXTERNAL LAB * Hemoglobin A1c (01/24/2023 3:48 PM CDT) Pathologist [facility] SCRIBED Hemoglobin A1c 5.1 <5.7 - NA % EXTERNAL LAB Blood 01/24/2023 3:48 PM CDT Historical Provider MD LAB BLOOD ORDERABLES Edit ed Result - Final Performing Organization Address [facility]/ZIP Co de Phone Number EXTERNAL LAB * Lipid panel (01/24/2023 3:48 PM CDT) Pathologist [facility] SCRIBED Cholesterol, Total 131 0 - 200 EXTERNAL LAB SCRIBED HDL 47 >35 - NA EXTERNAL LAB SCRIBED LDL 62 <130 - NA EXTERNAL LAB SCRIBED Triglycerides 94 <150 - NA EXTERNAL LAB Blood 01/24/2023 3:48 PM CDT Historical Provider MD LAB BLOOD ORDERABLES Edit ed Result - Final Performing Organization Address [facility]/State/ZIP Co de Phone Number EXTERNAL LAB * [...] Units/L EXTERNAL LAB SCRIBED eGFR in NonAfrican Northern Irish >60 >=60 - NA EXTERNAL LAB Blood 01/24/2023 3:48 PM CDT us Historical Provider LAB BLOOD ORDERABLES Edit ed Result - Final EXTERNAL LAB from Last 3 Months or Most Recently Relevant to Health Maintenance Insurance [employer] OOS MEDICARE [place] [employer] [facility] MEDICARE BLUE ACCESS OOS Advance Directives For more information, please contact: [phone] * Full Code (Latest Code Status on File) Date Activated Date Inactivated Comments 01/29/2021 12:10 AM 02/01/2021 7:53 PM Care Teams Forms Examiner Relationship Specialty Start Date End Date Kd Ledezma MD PCP - General Family Practice 12/09/19
[2024-11-09 14:08] LABS: Calprotectin, Fecal 56 ug/g (0-120)
== END 2024-11-06 13:00 | disposition home or self-care (01) ==
LOC: ANHLAB 13:01
PROVIDERS: PCP Family Medicine; Visit Provider Nurse Practitioner Family
DX: K51.311 Ulcerative (chronic) rectosigmoiditis with rectal bleeding (principal)
CPT/HCPCS: 83993

== ENCOUNTER 2024-11-24 02:19 | Day surgery (SDC) | payer MEDICARE, BC, SELFPAY ==
[2024-11-11 11:29] VITALS: BMI 23.5
--- NOTE | 2024-11-11 12:08 | PC.NURSE ---
Spoke with spouse and patient regarding medication clopidogrel (plavix). Harshil (spouse) verbalizes understanding that the last dose is to be taken on 11/16/2024 and the Endoscopist will instruct them when to restart after the procedure. Patient does not have to hold Aspirin and spouse verbalizes understanding.
--- OUTSIDE RECORDS SUMMARY | 2024-11-24 02:25 | XMS_ITS | Clinical Summary ---
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 Gender Identity Not on file Sexual [...] ed Result - Final Performing Organization Address City/[facility]/ZIP Co de Phone Number EXTERNAL LAB * Hemoglobin A1c (01/24/2023 3:48 PM CDT) SCRIBED Hemoglobin A1c 5.1 <5.7 - NA % EXTERNAL LAB Blood 01/24/2023 3:48 PM CDT Historical Provider MD LAB BLOOD ORDERABLES Edit ed Result - Final Performing Organization Address [facility] Co de Phone Number EXTERNAL LAB * Lipid panel (01/24/2023 3:48 PM CDT) SCRIBED Cholesterol, Total 131 0 - 200 EXTERNAL LAB SCRIBED HDL 47 >35 - NA EXTERNAL LAB SCRIBED LDL 62 <130 - NA EXTERNAL LAB SCRIBED Triglycerides 94 <150 - NA EXTERNAL LAB Blood 01/24/2023 3:48 PM CDT [facility] Provider MD LAB BLOOD ORDERABLES Edit ed Result - Final Performing Organization Address [facility] Co de Phone Number EXTERNAL [...] Units/L EXTERNAL LAB SCRIBED eGFR in NonAfrican Australian >60 >=60 - NA EXTERNAL LAB Blood 01/24/2023 3:48 PM CDT us Historical Provider LAB BLOOD ORDERABLES Edit ed Result - Final EXTERNAL LAB from Last 3 Months or Most Recently Relevant to Health Maintenance Insurance [employer] O MEDICARE BLUE ACCESS OOS MEDICARE BLUE ACCESS O[place] Advance Directives For more information, please contact: [phone] * Full Code (Latest Code Status on File) Date Activated Date Inactivated Comments 01/29/2021 12:10 AM 02/01/2021 7:53 PM Care Teams Plastic Worker Relationship Specialty Start Date End Date Kd Ledezma MD PCP - General Family Practice 12/09/19
--- OUTSIDE RECORDS SUMMARY | 2024-11-24 02:25 | XMS_ITS | Encounter Summary ---
Author Organization [facility] Healthcare Address [address] [place] [address] Care Team Providers Care Rn Allergy Name Role Phone Kd Ledezma MD Primary Care Provider Encounter Details Date Type Department Care Team (Late st Contact Info) Description 02/28/2024 Orders Only [facility] Health Information Management [address] [place] [id number] Scanning, Provider Social History Tobacco Use Types Packs/Day Years Used Date Smoking Tobacco: Former Cigarettes Q uit: 04/28/2015 Smokeless Tobacco: Never Alcohol Use Standard Drinks/Week Comments No 0 (1 standard drink = 0.6 oz pur e alcohol) Comments Unknown Sex and Gender Information Value Date Recorded Sex Assigned at Not on file 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 Gender Identity Not on file Sexual Orientation Not on file documented as of this encounter Plan of Treatment Not on file documented as of this encounter Procedures Procedure Name Priority Date/Time Associated Diagnosis Comments CARDIOLOGY DOCUMENT SCAN 02/28/2024 documented in this encounter Results * Cardiology Document Scan (02/28/2024) Anatomical Region Laterality Modality Other us Provider Scanning CV CARDIAC SERVICES PROCEDURES Final Result documented in this encounter Visit Diagnoses Not on filedocumented in this encounter Care Teams Rn Allergy Relationship Specialty Start Date End Date Kd Ledezma MD PCP - General Family Practice 12/09/19 documented as of this encounter
[2024-11-24 11:06] VITALS: BP 137/49; PULSE 71; RESP 16; TEMP 36.1; O2SAT 100; BMI 22.6
--- NOTE | 2024-11-24 11:27 | WPDANESEPPF ---
Anes - Initial Pre Proc Eval Procedure: Operation Date: 11/24/24 13:00 Proposed Procedures p Diagnostic Colonoscopy - Richmond Hernandez MD Date/Time: 11/24/24 11:27 Surgeon: Richmond Hernandez MD Pre Op Diagnosis: Ulcerative (chronic) rectosigmoiditis with rectal Patient Data Age: 79 Gender: F Height: 1.68 m Weight: 63.7 kg Last Vital Signs Temp 36.1 C L 11/24/24 11:06 Pulse 71 11/24/24 11:06 Resp 16 11/24/24 11:06 BP 137/49 L 11/24/24 11:06 Pulse Ox 100 11/24/24 11:06 O2 Del Method Room Air 11/24/24 11:06 Allergies Allergy/AdvReac Type Severity Reaction Status Date / Time Iodinated Contrast Media Allergy Intermediate Hives Verified 11/24/24 11:03 loracarbef (From Lorabid) Allergy Intermediate Hives Verified 11/24/24 11:03 Home Medications ?Medication ?Instructions ?Recorded ?Confirmed ?Type blood-glucose meter (Blood Glucose #1 ea 03/03/20 10/05/24 Rx Monitoring kit) pen needle, diabetic 33 gauge x #100 ea 11/04/22 10/05/24 Rx 5/16 (Comfort EZ Pen [place]) blood sugar diagnostic (OneTouch #100 ea 11/08/22 10/05/24 Rx Ultra Test strips) mesalamine 1.2 gram tablet,delayed 1.2 g PO QID 02/28/24 11/11/24 History release aspirin 81 mg tablet,delayed 81 mg PO QAM #90 tabs 03/03/24 11/24/24 Rx release atorvastatin 80 mg tablet 80 mg PO QHS #100 tabs 03/08/24 11/24/24 Rx levetiracetam 500 mg tablet 500 mg PO BID 03/08/24 11/24/24 History calcium carbonate 600 mg PO DAILY 03/31/24 11/11/24 History lidocaine 3 %-hydrocortisone 0.5 % 1 applic RECTAL Q12H PRN 05/18/24 11/11/24 Rx rectal kit, cream and wipes hemorrhoids #1 ea folic acid 1 mg tablet 1 mg PO DAILY #90 tabs 06/10/24 11/11/24 Rx potassium chloride 10 mEq 10 meq PO DAILY #10 caps 07/20/24 11/11/24 Rx capsule,extended release hydrocodone 5 mg-acetaminophen 325 1 tablet PO BID PRN pain #14 tabs 08/18/24 11/11/24 Rx mg tablet vedolizumab 300 mg intravenous 300 mg IV .[id number] 10/05/24 11/11/24 History solution (Entyvio) amlodipine 10 mg tablet 10 mg PO DAILY #90 tabs 10/11/24 11/24/24 Rx citalopram 10 mg tablet (Celexa) 10 mg PO DAILY #90 tabs 10/11/24 11/24/24 Rx clopidogrel 75 mg tablet 75 mg PO DAILY #90 tabs 10/11/24 11/24/24 Rx levothyroxine 50 mcg tablet 50 mcg PO DAILY #90 tabs 10/11/24 11/24/24 Rx lisinopril 20 mg tablet 20 mg PO DAILY #90 tabs 10/11/24 11/24/24 Rx calcium 500 mg (as 1 tablet PO DAILY 11/11/24 11/24/24 History carbonate)-vitamin D3 3.125 mcg (125 unit) tablet Patient hx anesthesia problems: none Family hx anesthesia problems: none Results Review: All pre-operative results and documents have been reviewed as part of the pre-operative evaluation. [facility] Past Medical History Medical History Osteopenia Rectal bleeding Depression History of stroke (~02/2024) Essential (primary) hypertension Type 2 diabetes mellitus without complications Acute stroke due to ischemia (~03/01/24) MRI of the brain shows Small focus of acute infarct along a gyrus in the right right occipital region. Small region of encephalomalacia consistent with chronic infarct in the right parietal lobe and a couple tiny old lacunar infarcts in the bilateral cerebellar hemispheres CVA (cerebral vascular accident) MRI June 2021 demonstrated small old parietal punctate left cerebellar infarctions likely as result of in 01/2020 Right humeral fracture (2021) Seizure as late effect of cerebrovascular accident (CVA) Chronic pancreatitis Ulcerative colitis CAD (coronary artery disease) Hypertension Hyperlipidemia Hypothyroid Aortic insufficiency Echocardiogram 2020: Hyperdynamic left ventricle EF 78% mild intracavitary obstruction with peak gradient of 16 with Valsalva, moderate concentric left ventricular hypertrophy, [id number] aortic valve regurgitation, mild tricuspid regurgitation Distal radius fracture, left Thrombocytopenia Anemia Diabetes A1c 6.6 on 04-29-19 Renal stones Surgical History Surgical History H/O lithotripsy H/O: hysterectomy Family History Family History Sibling Cancer Father Brain aneurysm Heart disease Hypertension Mother Diabetes mellitus Hypertension Grandparent Cancer Other Cancer Aunt Social History Social History Social History: She has previously been but remarried and is been living with her 2nd for... . The patient had a stillborn and had 2 living children. Her son subsequently in adulthood. She has 1 remaining daughter. The patient is a former smoker. She denies any marijuana alcohol or illicit drugs. She does drink a fair amount of caffeine in the form soda. Code status: Full code Surrogate decision maker: Smoking packs per day: 1 Smoking cigarettes per day: 20.0 Years smoked: 50 Smoking pack-years: 50.00 Smoking status: Former smoker Tobacco type: cigarettes Second hand tobacco smoke exposure: No Smoking end date: 04/14/03 Alcohol intake: never Substance use: never Substance use type: does not use Do You Feel Safe in your Home?: Yes Lack of Transportation: No Lack of Food: Never True Current Housing: I Have Housing Concerned About Future Housing: No Difficulty Paying Gas/Electric Bills: No Difficulty Paying for Meds: No Currently Unemployed: No Education: Trade/Vocational Certificate Difficulty w/ Childcare or Family Care: No Living arrangements: with family Occupation/Education: retired Additional occupation/education comments: She used to work for a [employer] and [employer]. Gender identity (if verbalized by the patient): Female Sexual Orientation (if Verbalized by the Patient): Straight or Heterosexual Spiritual care concerns: No Agree to blood products: Yes Anes - Eval Final PreProcedure Day of Procedure 11/24/24 11:27 Patient weight: normal Heart: regular rate and rhythm Lungs: clear to auscultation Airway: Mallampati scale class II Neurological: alert and oriented Last oral intake: >/= 8 hours ASA classification: III Emergent: no Anesthetic plan: proceed Anesthesia type and monitoring: general GIVS and standard monitoring Results Review: All pre-operative results and documents have been reviewed as part of the pre-operative evaluation. Informed Consent: The patient's anesthetic plan and its attendant risks and benefits were discussed with the patient/family/POA. Questions were solicited and answers provided to the satisfaction of the patient/family/POA.
[2024-11-24] MEDS: LACTATED RINGERS 1,000 ML 150 ML IV CONT (11:37)
--- NOTE | 2024-11-24 11:56 | PCCCNOTE ---
Called to the pt's room to discussion resources for help at home. Pt stated she and her are having difficulty with keeping up with all their household needs d/t their declining health. Did share the [employer] brochure for her to call and see if they would qualify. Also shared local resources for help at home which is not covered by their insurance and would be out of pocket. Pt verbalized understanding and declined having any further questions at this time.-jasiel
--- NOTE | 2024-11-24 13:15 | P.HP_ITS ---
H&P: HPI History of Present Illness Date/Time: 11/24/24 13:15 Chief Complaint: Diarrhea -history of ulcerative colitis Narrative: Patient with a history of ulcerative colitis, involving right and left colon, seen in our office in July this year. There was a previous colonoscopy biopsies which were indeterminate for dysplasia. She is referred for colonoscopy and biopsies. She is currently receiving Entyvio infusions. Review of Systems Review of Systems: All systems reviewed & are unremarkable except as noted in HPI and below PMFSH Past Medical History Medical History Osteopenia Rectal bleeding Depression History of stroke (~02/2024) Essential (primary) hypertension Type 2 diabetes mellitus without complications Acute stroke due to ischemia (~03/01/24) MRI of the brain shows Small focus of acute infarct along a gyrus in the right right occipital region. Small region of encephalomalacia consistent with chronic infarct in the right parietal lobe and a couple tiny old lacunar infarcts in the bilateral cerebellar hemispheres CVA (cerebral vascular accident) MRI June 2021 demonstrated small old parietal punctate left cerebellar infarctions likely as result of in 01/2020 Right humeral fracture (2021) Seizure as late effect of cerebrovascular accident (CVA) Chronic pancreatitis Ulcerative colitis CAD (coronary artery disease) Hypertension Hyperlipidemia Hypothyroid Aortic insufficiency Echocardiogram 2020: Hyperdynamic left ventricle EF 78% mild intracavitary obstruction with peak gradient of 16 with Valsalva, moderate concentric left ventricular hypertrophy, [id number] aortic valve regurgitation, mild tricuspid regurgitation Distal radius fracture, left Thrombocytopenia Anemia Diabetes A1c 6.6 on 04-29-19 Renal stones Surgical History Surgical History H/O lithotripsy H/O: hysterectomy Family History Family History Sibling Cancer Father Brain aneurysm Heart disease Hypertension Mother Diabetes mellitus Hypertension Grandparent Cancer Other Cancer Aunt Social History Social History Social History: She has previously been but remarried and is been living with her 2nd for... . The patient had a stillborn and had 2 living children. Her son subsequently in adulthood. She has 1 remaining daughter. The patient is a former smoker. She denies any marijuana alcohol or illicit drugs. She does drink a fair amount of caffeine in the form soda. Code status: Full code Surrogate decision maker: Smoking packs per day: 1 Smoking cigarettes per day: 20.0 Years smoked: 50 Smoking pack-years: 50.00 Smoking status: Former smoker Tobacco type: cigarettes Second hand tobacco smoke exposure: No Smoking end date: 04/14/03 Alcohol intake: never Substance use: never Substance use type: does not use Do You Feel Safe in your Home?: Yes Lack of Transportation: No Lack of Food: Never True Current Housing: I Have Housing Concerned About Future Housing: No Difficulty Paying Gas/Electric Bills: No Difficulty Paying for Meds: No Currently Unemployed: No Education: Trade/Vocational Certificate Difficulty w/ Childcare or Family Care: No Living arrangements: with family Occupation/Education: retired Additional occupation/education comments: She used to work for a [employer] and [employer]. Gender identity (if verbalized by the patient): Female Sexual Orientation (if Verbalized by the Patient): Straight or Heterosexual Spiritual care concerns: No Agree to blood products: Yes Meds Home Medications and Allergies Home Medications ?Medication ?Instructions ?Recorded ?Confirmed ?Type blood-glucose meter (Blood Glucose #1 ea 03/03/20 10/05/24 Rx Monitoring kit) pen needle, diabetic 33 gauge x #100 ea 11/04/22 10/05/24 Rx 5/16 (Comfort EZ Pen [place]) blood sugar diagnostic (OneTouch #100 ea 11/08/22 10/05/24 Rx Ultra Test strips) mesalamine 1.2 gram tablet,delayed 1.2 g PO QID 02/28/24 11/11/24 History release aspirin 81 mg tablet,delayed 81 mg PO QAM #90 tabs 03/03/24 11/24/24 Rx release atorvastatin 80 mg tablet 80 mg PO QHS #100 tabs 03/08/24 11/24/24 Rx levetiracetam 500 mg tablet 500 mg PO BID 03/08/24 11/24/24 History calcium carbonate 600 mg PO DAILY 03/31/24 11/11/24 History lidocaine 3 %-hydrocortisone 0.5 % 1 applic RECTAL Q12H PRN 05/18/24 11/11/24 Rx rectal kit, cream and wipes hemorrhoids #1 ea folic acid 1 mg tablet 1 mg PO DAILY #90 tabs 06/10/24 11/11/24 Rx potassium chloride 10 mEq 10 meq PO DAILY #10 caps 07/20/24 11/11/24 Rx capsule,extended release hydrocodone 5 mg-acetaminophen 325 1 tablet PO BID PRN pain #14 tabs 08/18/24 11/11/24 Rx mg tablet vedolizumab 300 mg intravenous 300 mg IV .[id number] 10/05/24 11/11/24 History solution (Entyvio) amlodipine 10 mg tablet 10 mg PO DAILY #90 tabs 10/11/24 11/24/24 Rx citalopram 10 mg tablet (Celexa) 10 mg PO DAILY #90 tabs 10/11/24 11/24/24 Rx clopidogrel 75 mg tablet 75 mg PO DAILY #90 tabs 10/11/24 11/24/24 Rx levothyroxine 50 mcg tablet 50 mcg PO DAILY #90 tabs 10/11/24 11/24/24 Rx lisinopril 20 mg tablet 20 mg PO DAILY #90 tabs 10/11/24 11/24/24 Rx calcium 500 mg (as 1 tablet PO DAILY 11/11/24 11/24/24 History carbonate)-vitamin D3 3.125 mcg (125 unit) tablet Allergies Allergy/AdvReac Type Severity Reaction Status Date / Time Iodinated Contrast Media Allergy Intermediate Hives Verified 11/24/24 11:03 loracarbef (From Lorabid) Allergy Intermediate Hives Verified 11/24/24 11:03 Vital Signs Vital Signs - 24 hr 11/24/24 11:06 Temperature 97 F L Pulse Rate 71 Respiratory Rate 16 Blood Pressure 137/49 L Pulse Oximetry 100 Oxygen Delivery Room Air Exam Const: General: cooperative and healthy appearing Resp: Effort & Inspection: normal respiratory effort and able to speak in complete sentences Auscultation: clear to auscultation bilaterally Cardio: Rate: regular rate Rhythm: regular rhythm GI: Inspection: normal to inspection GI Palp: No No hepatosplenomegaly present Auscultation: normal bowel sounds Rectal Exam: deferred Skin: General skin exam: normal color Psych: Appearance: grossly normal Mental Status: mental status grossly normal Assessment and Plan Assessment and plan (1) Ulcerative colitis: Qualifiers: Digestive disease complication type: with rectal bleeding Ulcerative colitis location: ulcerative rectosigmoiditis Qualified Code(s): K51.311 - Ulcerative (chronic) rectosigmoiditis with rectal bleeding Code(s): K51.90 - Ulcerative colitis, unspecified, without complications Status: Acute Assessment and Plan: The patient is deemed a good candidate for the procedure. Consent signed. Will proceed.
[2024-11-24 13:47] VITALS: BP 102/37; PULSE 61; RESP 20; O2SAT 100
--- NOTE | 2024-11-24 13:47 | S_PTH ---
PATIENT: Shanon Ramirez LOC: [facility] #:[id number] AGE/SX: 79/F ROOM: RE11/24/[address]: Richmond Hernandez MD : 1945 BED: DIS: 11/24/2024 SPEC #: [id number] RECD: 11/24/24 14:13 STATUS: CALVIN RE #: [id number] SANDRINE: 11/24/24 13:[address]: Richmond Hernandez DEPT: [facility] Surgical RECD BY: Mame Nevarez ENTERED: 11/24/24 14:14 SP TYPE: Surgical OTHR DR: Kd Ledezma MD Tissues: A - Colon Polypectomy B - Colon Biopsy C - Colon Biopsy D - Colon Biopsy Procedures: Hematoxylin and Eosin Stain Gross and Microscopic Level 4
[2024-11-24 13:57] VITALS: BP 130/49; PULSE 59; RESP 20; O2SAT 100
[2024-11-24 14:07] VITALS: BP 144/50; PULSE 55; RESP 18; O2SAT 100
== END 2024-11-24 14:29 | disposition home or self-care (01) ==
PROVIDERS: PCP Family Medicine; Referring Provider Nurse Practitioner Family; Visit Provider Internal Medicine Gastroenterology
PROC: 0DJD8ZZ Inspection of Lower Intestinal Tract, Via Natural or Artificial Opening Endoscopic (ICD-10-PCS; CPT 45378; principal; 2024-11-24 13:00)
DX: K51.811 Other ulcerative colitis with rectal bleeding (principal); K57.30 Diverticulosis of large intestine without perforation or abscess without bleeding; D12.2 Benign neoplasm of ascending colon; E78.5 Hyperlipidemia, unspecified; E03.9 Hypothyroidism, unspecified; D69.6 Thrombocytopenia, unspecified; D64.9 Anemia, unspecified; I10 Essential (primary) hypertension; E11.9 Type 2 diabetes mellitus without complications; F32.1 Major depressive disorder, single episode, moderate; M85.88 Other specified disorders of bone density and structure, other site; K86.1 Other chronic pancreatitis; I25.10 Atherosclerotic heart disease of native coronary artery without angina pectoris; I35.1 Nonrheumatic aortic (valve) insufficiency; Z79.82 Long term (current) use of aspirin; Z79.891 Long term (current) use of opiate analgesic; Z79.02 Long term (current) use of antithrombotics/antiplatelets; Z98.890 Other specified postprocedural states; Z87.891 Personal history of nicotine dependence; Z87.442 Personal history of urinary calculi; Z86.79 Personal history of other diseases of the circulatory system; Z86.73 Personal history of transient ischemic attack (TIA), and cerebral infarction without residual deficits; Z80.9 Family history of malignant neoplasm, unspecified; Z82.49 Family history of ischemic heart disease and other diseases of the circulatory system
CPT/HCPCS: 45380; 45385; 88305; J2704; J7120

== ENCOUNTER 2024-11-29 17:54 | Emergency (ER) | payer MEDICARE, BC, SELFPAY ==
--- NOTE | ~2024-11-29 | XR_ITS ---
XR elbow LT 2V 11/29/2024 18:49 INDICATION: Status post fall. Left elbow pain. PROCEDURE: 2 views left elbow COMPARISON: No prior studies for comparison. FINDINGS: Fracture, dislocation or subluxation is not identified. The soft tissues appear within norm al limits. No foreign bodies are identified. IMPRESSION: 1: NO ACUTE BONE OR JOINT ABNORMALITY IDENTIFIED. Reviewed, dictated and finalized at location A.
--- NOTE | ~2024-11-29 | XR_ITS ---
XR hand LT 2V 11/29/2024 18:49 Indication: Left hand pain Procedure: 2 views left hand Comparison: 06/08/2019 Findings: there is an old healed fracture of the distal aspect of the radius. Osteopenia. Mild polyar ticular osteoarthritis. No foreign bodies. Impression: 1: No acute fracture. Reviewed, dictated and finalized at location A. Impression: 1: No acute fracture.
--- NOTE | ~2024-11-29 | XR_ITS ---
XR elbow RT 2V 11/29/2024 18:50 INDICATION: Right elbow pain after fall PROCEDURE: 2 views right elbow COMPARISON: 04/13/2024 FINDINGS: Fracture, dislocation or subluxation is not identified. The soft tissues appear within norm al limits. No foreign bodies are identified. IMPRESSION: 1: NO ACUTE BONE OR JOINT ABNORMALITY IDENTIFIED. Reviewed, dictated and finalized at location A.
--- NOTE | ~2024-11-29 | XR_ITS ---
XR knee LT 3V 11/29/2024 18:50 INDICATION: Left knee after fall PROCEDURE: 3 views left knee COMPARISON: No prior studies for comparison. FINDINGS: Fracture, dislocation or subluxation is not identified. No joint effusion. The soft tissues appear within normal limits. No foreign bodies are identified. IMPRESSION: 1: NO ACUTE BONE OR JOINT ABNORMALITY IDENTIFIED. Reviewed, dictated and finalized at location A.
--- NOTE | ~2024-11-29 | XR_ITS ---
XR knee RT 3V 11/29/2024 18:50 INDICATION: Right knee pain PROCEDURE: 3 views right knee COMPARISON: No prior studies for comparison. FINDINGS: Fracture, dislocation or subluxation is not identified. The soft tissues appear within norm al limits. No foreign bodies are identified. IMPRESSION: 1: NO ACUTE BONE OR JOINT ABNORMALITY IDENTIFIED. Reviewed, dictated and finalized at location A.
--- NOTE | ~2024-11-29 | XR_ITS ---
XR hand RT 2V 11/29/2024 18:49 Indication: Right hand pain Procedure: 2 views right hand Comparison: No prior studies for comparison. Findings: There is mild polyarticular osteoarthritis. Osteopenia. No acute fracture, subluxation or d islocation. Impression: 1: No acute fracture. Reviewed, dictated and finalized at location A. Impression: 1: No acute fracture.
--- NOTE | ~2024-11-29 | CT_ITS ---
EXAMINATION: CT facial & cervical spine wo DATE: 11/29/2024 19:03 INDICATION: Status post fall. Head trauma. TECHNIQUE: Computed tomography (CT) of the maxillofacial region and cervical spine was performed with out intravenous contrast. The dose-length product (DLP) was 605.33 mGy-cm. Automated exposure control and iterative reconstruction technique were employed. COMPARISON: CT facial/cervical spine dated 04/13/2024 FINDINGS: MAXILLOFACIAL CT: Large left frontal/periorbital soft tissue swelling. Mild mucosal thickening of the maxillary and eth moid sinuses. No air-fluid levels. No acute nasal fracture. Mandible intact. Mild degenerative change s at the temporomandibular joints. Rightward nasal septal deviation. There are mami bullosa bilater ally. Zygomatic arches are normal. There is intracranial atherosclerosis. No evidence for orbital blo wout fracture. CERVICAL SPINE CT: There is disc narrowing and endplate degenerative change at C5-6 with retrolisthesis at this level. C raniovertebral junction is normal. Odontoid process is normal. There is facet degenerative change at C3-4 on the right. Lung apices are unremarkable. Craniovertebral junction is normal. No evidence for perched facet. IMPRESSION: 1. No acute abnormality of the facial bones or cervical spine. Reviewed, dictated and finalized at location A.
--- NOTE | ~2024-11-29 | CT_ITS ---
EXAMINATION: CT brain wo con DATE: 11/29/2024 19:03 INDICATION: Status post fall. Patient on blood thinners. TECHNIQUE: Computed tomography (CT) of the head was performed without intravenous contrast. The dose- length product was 605.33 mGy-cm. Automated exposure control and iterative reconstruction technique w ere employed. COMPARISON: CT dated 04/13/2024 FINDINGS: Generalized atrophy. There are scattered moderate periventricular and subcortical white mat ter changes, most likely related to small vessel ischemic disease (microangiopathy). There is a chron ic right parietal lobe infarction. There is a large left periorbital/frontal scalp hematoma. There is intracranial atherosclerosis. No depressed skull fractures. Paranasal sinuses and mastoids are pneum atized. IMPRESSION: 1. No acute intracranial abnormality. 2: Large left frontal/periorbital scalp hematoma. 3: Chronic right parietal lobe infarction with encephalomalacia. Reviewed, dictated and finalized at location A.
[2024-11-29 17:58] VITALS: BP 161/49; PULSE 79; RESP 16; TEMP 36.7; O2SAT 100
--- NOTE | 2024-11-29 19:01 | ED.GENADULT ---
HPI - General Adult General Chief complaint: Fall Stated complaint: fall Time Seen by Provider: 11/29/24 18:56 History of Present Illness HPI narrative: 79-year-old female presenting to the emergency department for evaluation after having a ground level fall that was caused while walking her dog. Patient reports the dog change directions and she went to turn to get up with dog and lost her balance fell and injured her left face. Patient was complaining of knee pain elbow pain and hand pain bilateral. Patient denies any loss of consciousness. Patient is not on blood thinners. Related Data Home Medications ?Medication ?Instructions ?Recorded ?Confirmed ?Last Taken ?Type mesalamine 1.2 gram tablet,delayed 1.2 g PO QID 02/28/24 11/11/24 Unknown History release levetiracetam 500 mg tablet 500 mg PO BID 03/08/24 11/24/24 11/23/24 History calcium carbonate 600 mg PO DAILY 03/31/24 11/11/24 Unknown History vedolizumab 300 mg intravenous 300 mg IV .[id number] 10/05/24 11/11/24 Unknown History solution (Entyvio) calcium 500 mg (as 1 tablet PO DAILY 11/11/24 11/24/24 11/23/24 History carbonate)-vitamin D3 3.125 mcg (125 unit) tablet Allergies Allergy/AdvReac Type Severity Reaction Status Date / Time Iodinated Contrast Media Allergy Intermediate Hives Verified 11/24/24 11:03 loracarbef (From Lorabid) Allergy Intermediate Hives Verified 11/24/24 11:03 Review of Systems Review of Systems: All systems reviewed & are unremarkable except as noted in HPI and below [facility] Past Medical History Medical History Osteopenia Rectal bleeding Depression History of stroke (~02/2024) Essential (primary) hypertension Type 2 diabetes mellitus without complications Acute stroke due to ischemia (~03/01/24) MRI of the brain shows Small focus of acute infarct along a gyrus in the right right occipital region. Small region of encephalomalacia consistent with chronic infarct in the right parietal lobe and a couple tiny old lacunar infarcts in the bilateral cerebellar hemispheres CVA (cerebral vascular accident) MRI June 2021 demonstrated small old parietal punctate left cerebellar infarctions likely as result of in 01/2020 Right humeral fracture (2021) Seizure as late effect of cerebrovascular accident (CVA) Chronic pancreatitis Ulcerative colitis CAD (coronary artery disease) Hypertension Hyperlipidemia Hypothyroid Aortic insufficiency Echocardiogram 2020: Hyperdynamic left ventricle EF 78% mild intracavitary obstruction with peak gradient of 16 with Valsalva, moderate concentric left ventricular hypertrophy, [id number] aortic valve regurgitation, mild tricuspid regurgitation Distal radius fracture, left Thrombocytopenia Anemia Diabetes A1c 6.6 on 04-29-19 Renal stones Surgical History Surgical History H/O lithotripsy H/O: hysterectomy Family History Family History Sibling Cancer Father Brain aneurysm Heart disease Hypertension Mother Diabetes mellitus Hypertension Grandparent Cancer Other Cancer Aunt Social History Social History Social History: She has previously been but remarried and is been living with her 2nd for... . The patient had a stillborn and had 2 living children. Her son subsequently in adulthood. She has 1 remaining daughter. The patient is a former smoker. She denies any marijuana alcohol or illicit drugs. She does drink a fair amount of caffeine in the form soda. Code status: Full code Surrogate decision maker: Smoking packs per day: 1 Smoking cigarettes per day: 20.0 Years smoked: 50 Smoking pack-years: 50.00 Smoking status: Former smoker Tobacco type: cigarettes Second hand tobacco smoke exposure: No Smoking end date: 04/14/03 Alcohol intake: never Substance use: never Substance use type: does not use Do You Feel Safe in your Home?: Yes Lack of Transportation: No Lack of Food: Never True Current Housing: I Have Housing Concerned About Future Housing: No Difficulty Paying Gas/Electric Bills: No Difficulty Paying for Meds: No Currently Unemployed: No Education: Trade/Vocational Certificate Difficulty w/ Childcare or Family Care: No Living arrangements: with family Occupation/Education: retired Additional occupation/education comments: She used to work for a [employer] and [employer]. Gender identity (if verbalized by the patient): Female Sexual Orientation (if Verbalized by the Patient): Straight or Heterosexual Spiritual care concerns: No Agree to blood products: Yes Exam Narrative: APPEARANCE: Well appearing, no pain, no distress, well-nourished. HEAD: normocephalic, facial abrasions with bruising around left eye. EYES: PERRLA/EOMI, conjunctivae clear. NOSE: Normal no drainage EARS:TMS clear with good light reflex. THROAT: Pharynx clear, no exudate. NECK: Supple. No adenopathy, no masses. RESPIRATORY: Airway patent, respirations nonlabored. Clear to auscultation bilaterally, no rales, rhonchi, wheezing. CARDIOVASCULAR: Regular rate and rhythm without murmurs rubs or gallops. ABDOMINAL: Soft, nontender, nondistended, normal bowel sounds MUSCULOSKELETAL: Moves all extremities. Strength/ROM intact, No edema, No calf tenderness. NEURO: Alert. Cranial nerves II through XII intact. Good gait. Good coordination SKIN: Facial abrasion Course Vital Signs Vital signs: Vital Signs Temperature 98.1 F 11/29/24 17:58 Pulse Rate 79 11/29/24 17:58 Respiratory Rate 16 11/29/24 17:58 Blood Pressure 161/49 H 11/29/24 17:58 Pulse Oximetry 100 11/29/24 17:58 Oxygen Delivery Room Air 11/29/24 17:58 Temperature 98.1 F 11/29/24 17:58 Pulse Rate 79 11/29/24 17:58 Respiratory Rate 16 11/29/24 17:58 Blood Pressure 161/49 H 11/29/24 17:58 Pulse Oximetry 100 11/29/24 17:58 Oxygen Delivery Room Air 11/29/24 17:58 Medical Decision Making [facility] Narrative Medical decision making narrative: 79-year-old female presents to the emergency department for evaluation for a ground level fall resulting and facial injury. Patient had negative x-rays of bilateral hands elbows and knees along with negative CT face and spine. Patient was able to ambulate at baseline. Patient denies any recent coughs colds or fevers. Patient's wounds were treated emergency department and nothing needed suture repair. Patient was able to ambulate in the emergency department and does prefer to be discharged to home. Differential Diagnosis Differential Diagnosis: Subdural hematoma, subarachnoid hemorrhage, facial fracture, cervical spine fracture, wrist fractures, elbow fractures, knee fracture Vital Signs Vital Signs: Vital Signs Temperature 98.1 F 11/29/24 17:58 Pulse Rate 79 08/18/25 17:58 Respiratory Rate 16 11/29/24 17:58 Blood Pressure 161/49 H 11/29/24 17:58 Pulse Oximetry 100 11/29/24 17:58 Oxygen Delivery Room Air 11/29/24 17:58 Temperature 98.1 F 11/29/24 17:58 Pulse Rate 79 11/29/24 17:58 Respiratory Rate 16 11/29/24 17:58 Blood Pressure 161/49 H 11/29/24 17:58 Pulse Oximetry 100 11/29/24 17:58 Oxygen Delivery Room Air 11/29/24 17:58 Imaging Data Radiologist's impression: Impressions Elbow X-Ray 11/29/24 18:51 IMPRESSION: 1: NO ACUTE BONE OR JOINT ABNORMALITY IDENTIFIED. Hand X-Ray 11/29/24 18:52 Impression: 1: No acute fracture. Hand X-Ray 11/29/24 18:53 Impression: 1: No acute fracture. Knee X-Ray 11/29/24 18:55 IMPRESSION: 1: NO ACUTE BONE OR JOINT ABNORMALITY IDENTIFIED. Knee X-Ray 11/29/24 18:56 IMPRESSION: 1: NO ACUTE BONE OR JOINT ABNORMALITY IDENTIFIED. Elbow X-Ray 11/29/24 18:57 IMPRESSION: 1: NO ACUTE BONE OR JOINT ABNORMALITY IDENTIFIED. Impressions Elbow X-Ray 11/29/24 18:51 IMPRESSION: 1: NO ACUTE BONE OR JOINT ABNORMALITY IDENTIFIED. Hand X-Ray 11/29/24 18:52 Impression: 1: No acute fracture. Hand X-Ray 11/29/24 18:53 Impression: 1: No acute fracture. Knee X-Ray 11/29/24 18:55 IMPRESSION: 1: NO ACUTE BONE OR JOINT ABNORMALITY IDENTIFIED. Knee X-Ray 11/29/24 18:56 IMPRESSION: 1: NO ACUTE BONE OR JOINT ABNORMALITY IDENTIFIED. Elbow X-Ray 11/29/24 18:57 IMPRESSION: 1: NO ACUTE BONE OR JOINT ABNORMALITY IDENTIFIED. Head CT 11/29/24 19:06 IMPRESSION: 1. No acute intracranial abnormality. 2: Large left frontal/periorbital scalp hematoma. 3: Chronic right parietal lobe infarction with encephalomalacia. Head/Cervical Spine/Facial Bones CT 11/29/24 19:09 IMPRESSION: 1. No acute abnormality of the facial bones or cervical spine. Discharge Plan Discharge Clinical Impression: Abrasion of face, Contusion of face Patient Disposition: Home Condition: Stable Instructions: Antibiotic Form, Contusion in Adults (ED), Abrasion (ED) Additional Instructions: Wound care as directed. Antibiotic ointment on wounds as directed. Have close follow-up with your primary care physician. If you have any worsening symptoms then please call or return to the emergency department. Patient Language: Northern Irish Prescriptions: No Action atorvastatin 80 mg tablet 80 mg PO QHS Qty: 100 1RF levetiracetam 500 mg tablet 500 mg PO BID calcium carbonate 600 mg calcium (1,500 mg) tablet 600 mg PO DAILY potassium chloride 10 mEq capsule, extended release 10 meq PO DAILY Qty: 10 0RF Entyvio 300 mg recon soln 300 mg IV .[id number] Rx Instructions: administer over 30 mins mesalamine 1.2 gram tablet,delayed release (DR/EC) 1.2 g PO QID aspirin 81 mg Tablet,Delayed Release (Dr/Ec) 81 mg PO QAM Qty: 90 0RF lidocaine HCl-hydrocortison ac 3-0.5 % kit 1 applic RECTAL Q12H PRN (Reason: hemorrhoids) Qty: 1 0RF calcium carbonate-vitamin D3 500 mg-3.125 mcg (125 unit) tablet 1 tablet PO DAILY (DME) blood-glucose meter [Blood Glucose Monitoring] Kit See Rx Instructions .ROUTE .MEDSUPPLY Qty: 1 0RF Rx Instructions: Use once daily to check blood glucose (DME) Comfort EZ Pen [place] 33 gauge x 5/16 needle See Rx Instructions .Route Qty: 100 0RF Rx Instructions: use daily (DME) OneTouch Ultra Test Strip See Rx Instructions .Route Qty: 100 5RF Rx Instructions: use 1 strip to check blood sugar 3 times daily folic acid 1 mg tablet 1 mg PO DAILY Qty: 90 1RF hydrocodone-acetaminophen 5-325 mg tablet 1 tablet PO BID PRN (Reason: pain) Qty: 14 0RF amlodipine 10 mg tablet 10 mg PO DAILY Qty: 90 1RF Patient Comments: QAM citalopram [Celexa] 10 mg tablet 10 mg PO DAILY Qty: 90 1RF clopidogrel 75 mg tablet 75 mg PO DAILY Qty: 90 1RF lisinopril 20 mg tablet 20 mg PO DAILY Qty: 90 1RF levothyroxine 50 mcg tablet 50 mcg PO DAILY Qty: 90 1RF Patient Comments: QAM Follow-up/Referrals: Dorothea Ledezma MD [Primary Care Provider] -
--- OUTSIDE RECORDS SUMMARY | 2024-11-29 19:16 | XMS_ITS | Clinical Summary ---
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 Gender Identity Not on file Sexual Orientation [...] ed Result - Final Performing Organization Address City/[facility]/ZIP Co de Phone Number EXTERNAL LAB * Hemoglobin A1c (01/24/2023 3:48 PM CDT) SCRIBED Hemoglobin A1c 5.1 <5.7 - NA % EXTERNAL LAB Blood 01/24/2023 3:48 PM CDT Historical Provider MD LAB BLOOD ORDERABLES Edit ed Result - Final Performing Organization Address [facility] Co de Phone Number EXTERNAL LAB * Lipid panel (01/24/2023 3:48 PM CDT) SCRIBED Cholesterol, Total 131 0 - 200 EXTERNAL LAB SCRIBED HDL 47 >35 - NA EXTERNAL LAB SCRIBED LDL 62 <130 - NA EXTERNAL LAB SCRIBED Triglycerides 94 <150 - NA EXTERNAL LAB Blood 01/24/2023 3:48 PM CDT [facility] Provider MD LAB BLOOD ORDERABLES Edit ed Result - Final Performing Organization Address [facility] Co de Phone Number EXTERNAL LAB [...] Units/L EXTERNAL LAB SCRIBED eGFR in NonAfrican German >60 >=60 - NA EXTERNAL LAB Blood 01/24/2023 3:48 PM CDT us Historical Provider LAB BLOOD ORDERABLES Edit ed Result - Final EXTERNAL LAB from Last 3 Months or Most Recently Relevant to Health Maintenance Insurance [employer] MEDICARE BLUE ACCESS OOS MEDICARE BLUE ACCESS OOS Advance Directives For more information, please contact: [phone] * Full Code (Latest Code Status on File) Date Activated Date Inactivated Comments 01/29/2021 12:10 AM 02/01/2021 7:53 PM Care Teams Payment Specialist Relationship Specialty Start Date End Date Kd Ledezma MD PCP - General Family Practice 12/09/19
--- OUTSIDE RECORDS SUMMARY | 2024-11-29 19:16 | XMS_ITS | Encounter Summary ---
Author Organization [facility] Healthcare Address [address] [place] [address] Care Team Providers Care Heating Unit Mechanic Name Role Phone Kd Ledezma MD Primary Care Provider Encounter Details Date Type Department Care Team (Late st Contact Info) Description 02/28/2024 Orders Only [facility] Health Information Management [address] [place] [id number] Scanning, Provider Social History Tobacco Use Types Packs/Day Years Used Date Smoking Tobacco: Former Cigarettes Q uit: 04/28/2015 Smokeless Tobacco: Never Alcohol Use Standard Drinks/Week Comments No 0 (1 standard drink = 0.6 oz pur e alcohol) Comments Unknown Sex and Gender Information Value Date Recorded Sex Assigned at Not on file 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
== END 2024-11-29 20:03 | disposition home or self-care (01) ==
PROVIDERS: Emergency Provider Emergency Medicine; PCP Family Medicine
DX: S00.12XA Contusion of left eyelid and periocular area, initial encounter (principal); S00.81XA Abrasion of other part of head, initial encounter; I10 Essential (primary) hypertension; I35.1 Nonrheumatic aortic (valve) insufficiency; I25.10 Atherosclerotic heart disease of native coronary artery without angina pectoris; K51.90 Ulcerative colitis, unspecified, without complications; E11.9 Type 2 diabetes mellitus without complications; E78.5 Hyperlipidemia, unspecified; E03.9 Hypothyroidism, unspecified; M85.80 Other specified disorders of bone density and structure, unspecified site; F32.A Depression, unspecified; Z86.73 Personal history of transient ischemic attack (TIA), and cerebral infarction without residual deficits; Z87.442 Personal history of urinary calculi; Z87.891 Personal history of nicotine dependence; Z79.82 Long term (current) use of aspirin; Z79.899 Other long term (current) drug therapy; Z79.02 Long term (current) use of antithrombotics/antiplatelets; Y93.K1 Activity, walking an animal; W18.39XA Other fall on same level, initial encounter
CPT/HCPCS: 70450; 70486; 72125; 73070; 73120; 73562; 99284

== ENCOUNTER 2025-03-31 11:59 | Outpatient (CLI) | payer MEDICARE, BC, SELFPAY ==
--- OUTSIDE RECORDS SUMMARY | 2025-03-31 13:05 | XMS_ITS | Clinical Summary ---
Author Organization [facility] [place] [address] Address [address] [place] [address] Care Team Providers Care Shellfish Shucker Name Role Phone Kd Ledezma MD Primary [...] daily with meals (bkfst, dinner), Reported on 01/21/2025 lisinopril (PRINIVIL,ZESTRI L) 5 mg tablet Take 4 tablets (20 mg total) by mouth daily Active mesalamine (LIALDA) 1.2 gram EC tabletIndication s:Ulcerative Colitis 8 Active amLODIPine (NORVASC) 10 mg tablet TAKE 1 TABLET DAILY 90 tablet 1 9 Active clopidogreL (PLAVIX) 75 mg tablet Take [...] mg total) by mouth daily 4 Active citalopram (CeleXA) 10 mg tablet 4 Active hydrALAZINE (APRESOLINE) 50 mg tablet 4 Active atorvastatin (LIPITOR) 80 mg tablet Take [...] Encounters Date Type Department Care Team Description 01/27/2025 Results Follow-Up [facility] Cardiology at [address] [place] [id number] Tammy Jones MD US Carotids Duplex Bilateral 01/24/2025 3:00 PM CDT Ancillary Procedure [facility] Vascular and Vein Surgery at [address] [place] [phone] Left carotid bruit 01/21/2025 9:45 AM CDT Office Visit [facility] Cardiology [address] [facility] [address] [place] [address] Tammy Jones MD Hyperlipidemia LDL goal <70 (Primary Dx); Peripheral arterial occlusive disease; Pulmonary HTN (HCC); Nonrheumatic aortic valve insufficiency; History of PSVT (paroxysmal supraventricular tachycardia); Primary hypertension; Left carotid bruit from Last 3 Months Medical History Medical History Date Comments Hx Other Medical kidney stones, carotid vascular disease, AR, dysli; Comments: MAF 11/17/2013 - Diabetes mellitus Coronary artery disease Hypertension History of transfusion [...] on file 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 Gender Identity Not on file Sexual Orientation Not on file Last Filed Vital Signs Vital Sign Reading Time Taken Comments Blood Pressure 130/60 01/21/2025 9:55 AM CDT Pulse 63 01/21/2025 9:38 AM CDT Temperature 35.8 C (96.4 F) 08/20/2022 1:51 PM CDT Respiratory Rate 20 08/20/2022 1:51 PM CDT Oxygen Saturation 99% 01/21/2025 9:38 AM CDT Inhaled Oxygen Concentration - - Weight 64 kg (141 lb) 01/21/2025 9:38 AM CDT Height 167.6 cm (5' 6) 01/21/2025 9:38 AM CDT Body Mass Index 22.76 01/21/2025 9:38 AM CDT Plan of Treatment Health Maintenance [...] Procedure Name Priority Date/Time Associated Diagnosis Comments US CAROTIDS DUPLEX BILATERAL Schedule Routine, Read Routine (OP Routine) 01/24/2025 3:29 PM CDT Left carotid bruit ALBUMIN CREATININE RATIO, URINE Routine 01/24/2023 3:49 PM CDT COMPREHENSIVE METABOLIC PANEL Routine 01/24/2023 3:48 PM CDT HEMOGLOBIN A1C Routine 01/24/2023 3:48 PM CDT LIPID PANEL Routine 01/24/2023 3:48 PM CDT from Last 3 Months or Most Recently Relevant to Health Maintenance Results * US Carotids Duplex Bilateral (01/24/2025 3:29 PM CDT) Anatomical Region Laterality Modality Vascular Bilateral Ultrasound 01/24/2025 3:00 PM CDT Narrative 01/26/2025 9:49 AM CDT Vascular & Vein Surgery [address] [place] [address] Carotid Duplex Ultrasound Report Patient Name: CT ADDISON C : 1945 (79y 7m) Study Date: 01/24/2025 3:00:25 PM Sex: F Soil Checker: CARISSA Location: [facility] Ref Provider: TAMMY JONES Quality: Adequate Order Provider: TAMMY JONES PROCEDURES: Carotid Report: Carotid duplex examination of the extracranial arteries was performed using 2D, color and spectral Doppler. INDICATIONS: Lt carotid bruit. HISTORY: HTN. HLD. DM. CAD. CVA. Former smoker. COMPARISONS: No change compared to prior study. The previous exam was completed on 12/17/22 @ [facility]: bilat <50. MEASUREMENTS: Right Value Left Value RT Prox CCA PSV 89 cm/sec LT Prox CCA PSV 61 cm/sec RT Prox CCA EDV 7 cm/sec LT Prox CCA EDV 8 cm/sec RT Distal CCA PSV 57 cm/sec LT Distal CCA PSV 70 cm/sec RT Distal CCA EDV 8 cm/sec LT Distal CCA EDV 6 cm/sec RT Prox ICA PSV 52 cm/sec LT Prox ICA PSV 82 cm/sec RT Prox ICA EDV 7 cm/sec LT Prox ICA EDV 11 cm/sec RT Mid ICA PSV 67 cm/sec LT Mid ICA PSV 95 cm/sec RT Mid ICA EDV 10 cm/sec LT Mid ICA EDV 8 cm/sec RT Distal ICA PSV 113 cm/sec LT Distal ICA PSV 105 cm/sec RT Distal ICA EDV 8 cm/sec LT Distal ICA EDV 14 cm/sec RT ECA Prx PSV 113 cm/sec LT ECA Prx PSV 82 cm/sec RT ICA/CCA 1.98 ratio LT ICA/CCA 1.51 ratio Rt Vert Dst PSV 81 cm/sec Lt Vert Dst PSV 69 cm/sec FINDINGS: Rt Common Carotid Artery: The plaque in the right CCA appears to be heterogeneous. Rt Internal Carotid Artery: The plaque in the right internal carotid artery appears to be heterogeneous and smooth. Atherosclerotic changes of the right internal carotid artery without hemodynamically significant Doppler findings. <50% stenosis. Rt External Carotid Artery: Patent right external carotid artery with evidence of atherosclerotic disease present. Rt Vertebral Artery: The right vertebral artery is patent with antegrade flow. Lt Common Carotid Artery: The plaque in the left CCA appears to be heterogeneous. Lt Internal Carotid Artery: The plaque in the left internal carotid artery appears to be heterogeneous and irregular. Atherosclerotic changes of the left internal carotid artery without hemodynamically significant Doppler findings. <50% stenosis. Lt External Carotid Artery: Patent left external carotid artery with evidence of atherosclerotic disease present. Lt Vertebral Artery: The left vertebral artery is patent with antegrade flow. Comments: Brachial artery systolic blood pressure is 161 on the right, 164 on the left. CONCLUSIONS: 1. No evidence of hemodynamically significant disease of the bilateral extracranial carotid system. 2. Normal, antegrade flow is noted in bilateral vertebral arteries. ATTESTATION: I have reviewed and interpreted the pertinent images and measurements of this study. I attest to the conclusions in the final report that is provided above. Electronically Signed By: Fercho Yates MD 01/26/2025 8:50:52 AM CDT Procedure Note Fercho Yates MD - 01/26/2025 Vascular & Vein Surgery [address] [place] [address] Carotid Duplex Ultrasound Report Patient Name: CT ADDISON C : 1945 (79y 7m) Study Date: 01/24/2025 3:00:25 PM Sex: F Soil Checker: Location: [facility] Ref Provider: TAMMY JONES Quality: Adequate Order Provider: TAMMY JONES PROCEDURES: Carotid Report: Carotid duplex examination of the extracranial arterieswas performed using 2D, color and spectral Doppler. INDICATIONS: Lt carotid bruit. HISTORY: HTN. HLD. DM. CAD. CVA. Former smoker. COMPARISONS: No change compared to prior study. The previous exam was completed on12/17/22 @ [facility]: bilat <50. MEASUREMENTS: Right Value Left Value RT Prox CCA PSV 89 cm/sec LT Prox CCA PSV 61 cm/sec RT Prox CCA EDV 7 cm/sec LT Prox CCA EDV 8 cm/sec RT Distal CCA PSV 57 cm/sec LT Distal CCA PSV 70 cm/sec RT Distal CCA EDV 8 cm/sec LT Distal CCA EDV 6 cm/sec RT Prox ICA PSV 52 cm/sec LT Prox ICA PSV 82 cm/sec RT Prox ICA EDV 7 cm/sec LT Prox ICA EDV 11 cm/sec RT Mid ICA PSV 67 cm/sec LT Mid ICA PSV 95 cm/sec RT Mid ICA EDV 10 cm/sec LT Mid ICA EDV 8 cm/sec RT Distal ICA PSV 113 cm/sec LT Distal ICA PSV 105 cm/sec RT Distal ICA EDV 8 cm/sec LT Distal ICA EDV 14 cm/sec RT ECA Prx PSV 113 cm/sec LT ECA Prx PSV 82 cm/sec RT ICA/CCA 1.98 ratio LT ICA/CCA 1.51 ratio Rt Vert Dst PSV 81 cm/sec Lt Vert Dst PSV 69 cm/sec FINDINGS: Rt Common Carotid Artery: The plaque in the right CCA appears to beheterogeneous. Rt Internal Carotid Artery: The plaque in the right internal carotidartery appears to be heterogeneous and smooth. Atherosclerotic changes of the right internalcarotid artery without hemodynamically significant Doppler findings. <50% stenosis. Rt External Carotid Artery: Patent right external carotid artery withevidence of atherosclerotic disease present. Rt Vertebral Artery: The right vertebral artery is patent with antegradeflow. Lt Common Carotid Artery: The plaque in the left CCA appears to beheterogeneous. Lt Internal Carotid Artery: The plaque in the left internal carotid arteryappears to be heterogeneous and irregular. Atherosclerotic changes of the left internalcarotid artery without hemodynamically significant Doppler findings. <50% stenosis. Lt External Carotid Artery: Patent left external carotid artery withevidence of atherosclerotic disease present. Lt Vertebral Artery: The left vertebral artery is patent with antegradeflow. Comments: Brachial artery systolic blood pressure is 161 on the right, 164on the left. CONCLUSIONS: 1. No evidence of hemodynamically significant disease of the bilateralextracranial carotid system. 2. Normal, antegrade flow is noted in bilateral vertebral arteries. ATTESTATION: I have reviewed and interpreted the pertinent images and measurements ofthis study. I attest to the conclusions in the final report that is provided above. Electronically Signed By: Fercho Yates MD 01/26/2025 8:50:52 AM CDT Tammy Jones MD IM US PROCEDURES Final R esult * (ABNORMAL) Albumin Creatinine Ratio, Urine (01/24/2023 [...] - 36 Units/L EXTERNAL LAB SCRIBED eGFR >60 >=60 - NA EXTERNAL LAB Blood 01/24/2023 3:48 PM CDT us Historical Provider LAB BLOOD ORDERABLES Edit ed Result - Final EXTERNAL LAB from Last 3 Months or Most Recently Relevant to Health Maintenance Insurance [employer] OOS MEDICARE [employer] OOS MEDICARE [employer] OOS Advance Directives For more information, please contact: [phone] * Full Code (Latest Code Status on File) Date Activated Date Inactivated Comments 01/29/2021 12:10 AM 02/01/2021 7:53 PM Care Teams Shellfish Shucker Relationship Specialty Start Date End Date Kd Ledezma MD PCP - General Family Practice 12/09/19
[2025-03-31 18:40] LABS: Hematocrit 36.0 % (37.0-47.0); Hemoglobin 11.5 g/dL (12.0-15.0); Mean Corpuscular HGB Conc 31.9 g/dl (32-36); Mean Corpuscular Hemoglobin 30.9 pg (26-34); Mean Corpuscular Volume 96.8 fl (80-100); Platelet Count Result 123 k/mm3 (150-375); Red Blood Count 3.72 M/mm3 (4.2-5.4); White Blood Count 5.6 K/mm3 (4.5-10.0)
[2025-03-31 18:45] LABS: Iron 86 ug/dL (37-170)
[2025-03-31 18:54] LABS: Percent Iron Saturation 31 % (20-50)
[2025-03-31 18:58] LABS: Cholesterol 128 mg/dL (0-200); HDL Direct 41 mg/dL; Triglycerides 106 mg/dL (<150)
[2025-03-31 18:59] LABS: Alanine Aminotransferase 13 U/L (6-35); Albumin Level 4.4 g/dL (3.5-5.1); Alkaline Phosphatase 116 U/L (38-126); Anion Gap 11 mmol/L (4-12); Aspartate Amino Transferase 31 U/L (14-36); Bilirubin,Total 0.8 mg/dL (0.2-1.3); Blood Urea Nitrogen 21 mg/dL (7-17); CRP 1.1 mg/dL (<1.0); Calcium 10.8 mg/dL (8.4-10.2); Carbon Dioxide 25 mmol/L (22-30); Chloride 106 mmol/L (98-107); Estimated Glomerular Filt Rate 52; Glucose 113 mg/dL (65-110); Potassium 4.3 mmol/L (3.4-5.0); Sodium 142 mmol/L (137-145); Total Protein 8.6 g/dL (6.3-8.2)
[2025-03-31 19:18] LABS: Thyroid Stimulating Hormone Reflex 0.156 uIU/mL (0.465-4.68)
[2025-03-31 19:22] LABS: Ferritin 36.50 ng/mL (11.1-264); Hemoglobin A1C 5.1 % (<5.7)
[2025-03-31 20:15] LABS: Free T4 Free Thyroxine Reflex 1.56 ng/dL (0.78-2.19)
[2025-03-31 21:05] LABS: Total Triiodothyronine (T3) 1.30 NG/ML (0.82-1.58)
== END 2025-03-31 12:00 | disposition home or self-care (01) ==
PROVIDERS: PCP Family Medicine; Visit Provider Nurse Practitioner Family
DX: K51.311 Ulcerative (chronic) rectosigmoiditis with rectal bleeding (principal); K51.90 Ulcerative colitis, unspecified, without complications; E11.9 Type 2 diabetes mellitus without complications; E03.9 Hypothyroidism, unspecified; E55.9 Vitamin D deficiency, unspecified; E78.5 Hyperlipidemia, unspecified; D64.9 Anemia, unspecified
CPT/HCPCS: 36415; 80053; 80061; 82306; 82728; 83036; 83540; 83550; 84439; 84443; 84480; 85027; 85652; 86140